=== PATIENT | male | born 1950 | race Caucasian/White ===

== ENCOUNTER 2020-01-03 08:38 | Outpatient (CLI) | payer OTHER, SELFPAY ==
--- NOTE | 2020-01-03 08:46 | CT_ITS ---
WS: [id number] CT CHEST, ABDOMEN AND PELVIS WITH CONTRAST HISTORY: RECTAL CANCER TECHNIQUE: Contiguous 5 mm axial imaging performed through the chest, abdomen and pelvis with IV cont rast, oral contrast has been provided. Coronal and sagittal reformats chest. Coronal and sagittal ref ormats through the abdomen and pelvis. All CT scans at [facility] use at least one of the se dose optimization techniques: automated exposure control; mA and/or kV adjustment per patient size (includes targeted exams where dose is matched to clinical indication); or iterative reconstruction. CONTRAST: Omnipaque 300; 95 mL IV. DLP: 2832.93 mGy.cm COMPARISON: 11/24/2018 and 06/02/[address]: Partial atelectasis and slight volume loss in the RIGHT lower lobe and postsurgical changes . No mass or pneumonia. Peripheral pleural thickening and interstitial thickening in the RIGHT upper lobe is stable. No suspicious nodule or mass. Visualized aorta and pulmonary artery are normal size. Scattered coronary artery calcifications. No mediastinal or hilar lymphadenopathy. Oral contrast is p resent within the mid esophagus from reflux disease. Abdomen CT: Hepatic steatosis. No bile duct dilatation or mass. Gallbladder is well distended and con tains a single stone. Normal size spleen. Normal pancreas. Normal RIGHT adrenal gland. Slightly lobul ated LEFT adrenal gland is stable. No adenopathy or fluid in the abdomen. Kidneys are normal with no hydronephrosis. Nonobstructing 2 mm calcification lower pole RIGHT kidney. Mild atherosclerotic plaqu e with no aneurysm in the aorta. Pelvic CT: Umbilical hernia contains fat only. No free fluid or adenopathy in the pelvis. Central pro state gland calcification. Negative urinary bladder. Numerous diverticula in the descending and sigmoid colon. Persistent anterior rectal wall thickening. Soft tissue thickening is slightly more lobulated and prominent than compared to prior studies. Soft tissue nodularity measures 2.6 x 3.1 cm. It extends over a length of 2.8 cm. No adjacent lymph nodes in the perirectal fat. There are a few very small iliac chain lymph nodes which are unchanged. Multilevel degenerative changes throughout the spine. No osteoblastic or osteolytic bone disease. CT/CT chest abd pel w con* IMPRESSION: 1. Slight increase in size of the anterior rectal wall mass since 11/24/2018. Re commend direct visualization and possible biopsy. Recurrent neoplasm is not exc luded. 2. No adenopathy. 3. No fat or ascites. 4. No metastatic disease appreciated adrenal glands, lungs or liver. 5. Stable postsurgical changes RIGHT lower lobe. 6. Diverticulosis without acute diverticulitis.
[2020-01-03] MEDS: iohexol 300 mg/mL 50 mL Btl PO (08:49)
[2020-01-03 09:29] LABS: Basophils % 0.3 %; Eosinophils # 0.2 10^3/uL (0.0-0.8); Eosinophils % 2.8 %; Hematocrit 49.5 % (42.0-52.0); Hemoglobin 15.7 g/dL (11.7-16.6); Mean Corpuscular HGB Conc 31.7 g/dL (30.0-36.0); Mean Corpuscular Hemoglobin 28.5 pg (28.0-34.0); Mean Corpuscular Volume 89.8 fL (80-94); Mean Platelet Volume 10.2 fL (7.4-10.4); Monocytes # 0.4 10^3/uL (0.2-0.9); Monocytes % 6.5 %; Neutrophils # 4.5 10^3/uL (1.8-7.7); Neutrophils % 73.7 %; Nucleated Red Blood Cells % 0 %; Platelet Count 211 10^3/cmm (130-400); Red Blood Count 5.51 10^6/uL (4.1-5.3); Red Cell Distribution Width 13.5 % (12.1-15.1); White Blood Count 6.1 10^3/uL (4.0-10.0)
[2020-01-03 09:49] LABS: Alanine Aminotransferase 30 U/L (0-41); Albumin Level 4.3 g/dL (3.5-5.2); Alkaline Phosphatase 89 IU/L (40-130); Anion Gap 14.2 (5-19); Aspartate Amino Transferase 20 U/L (0-40); Blood Urea Nitrogen 18 mg/dL (8-23); Calcium 10.2 mg/dL (8.5-10.5); Carbon Dioxide 26 mmol/L (22-29); Chloride 103 mmol/L (98-107); Globulin 3.5 g/dL (1.3-4.6); Glomerular Filtration Rate 83.7 mL/min (90-130); Glucose 147 mg/dL (65-115); Potassium 4.2 mmol/L (3.5-5.1); Sodium 139 mmol/L (136-145); Total Bilirubin 0.4 mg/dL (0.15-1.2); Total Protein 7.8 g/dL (6.6-8.7)
[2020-01-03 10:28] LABS: Carcinoembryonic Antigen 4.7 ng/mL (0.0-4.7)
[2020-01-03] MEDS: iohexol 300 mg/mL 100 mL Btl IV (10:37)
== END 2020-01-03 08:39 | disposition home or self-care (01) ==
PROVIDERS: Family Provider Internal Medicine; PCP Internal Medicine; Visit Provider Internal Medicine Medical Oncology
DX: C20 Malignant neoplasm of rectum (principal); K57.30 Diverticulosis of large intestine without perforation or abscess without bleeding; K76.0 Fatty (change of) liver, not elsewhere classified; K42.9 Umbilical hernia without obstruction or gangrene
CPT/HCPCS: 36415; 71260; 74177; 80053; 82378; 85025

== ENCOUNTER 2020-01-05 13:58 | Outpatient (CLI) | payer OTHER, SELFPAY ==
--- NOTE | 2020-01-09 18:35 | ONC FU_ITS ---
Dr. Beltre Patient Follow-Up Note Patient: Tee Chilel Jr Unit #: [id number]: 1950 Dicatated By: Skip Beltre M.D.Date of Visit:Jan 05, 2020 Onc Med Follow-up/Prog Note Chief Complaint: Rectal cancer. History of Present Illness: This is a 69 year-old man with metastatic rectal cancer, stage GHASSAN (T4a, N2a, M1a). He had presented with a positive stool Hemoccult test, which apparently was done as a screening procedure through the [place]. He was having no GI symptoms at that time, and he also indicated that he had not been aware of any blood in his stool. He underwent colonoscopy on 07/29/14. He was found to have a malignant appearing mass at 8 cm. Also noted were several polyps, including 2 at 42 cm and 1 at 25 cm, all of which were removed endoscopically. They polyps at 42 cm were reported to be serrated adenomas, and a polyp at 25 cm was a peduncular tubular adenoma. Biopsy of the rectal mass showed high-grade dysplasia with no definitive evidence of invasive adenocarcinoma. A subsequent CT abdomen/pelvis confirm the presence of a mass in the rectum measuring 4 x 4.6 x 6 cm. There was no associated lymphadenopathy, and there was no evidence of metastatic involvement in the liver. However, that study did show a noncalcified right lower lobe pulmonary nodule measuring 1.8 x 1.6 cm. He had further evaluation with PET/CT on 09/29/14. It showed uptake in the rectal mass, consistent with primary malignancy, but with no evidence for macroscopic regional lymph node metastases. The right lower lobe pulmonary nodule was noted be hypermetabolic, consistent with malignancy. On 11/02/2014 he underwent video assisted thoracic surgery with wedge resection of the right lower lobe pulmonary nodule. 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 The tumor was positive for CK 20 and CD X2, consistent with colorectal primary. The margins were negative. Staging MRI of the pelvis on 11/11/14 showed rectal tumor measuring 5 x 4.6 x 5.2 cm with the inferior margin at approximately 3 cm from the anorectal junction. T stage was felt to be at least T3 and probably a T4, with the primary lesion extending anteriorly to the medial left seminal vesicle margin and probably invading the left seminal vesicle. Tumor also appeared to be extending up to if not through the anterior basal rectal fascia at the level of the left seminal vesicle. There were more than 4 pelvic lymph nodes which were felt to be suspicious. Bilateral upper iliac nodes measured 1 cm or greater. He underwent examination under anesthesia and rigid proctoscopy on 12/06/2014. This showed a mass at 4 cm from the dentate line in the right anterior portion of the rectum. He was given neoadjuvant chemoradiation utilizing Xeloda for the chemosensitization. Radiation was completed on 02/15/15 to a total dose of 6120 cGy. He tolerated the treatment very well. Repeat MRI on 03/29/15 showed residual tumor measuring 3.9 x 3.9 x 4.5 cm. It was again noted to extend and surely to be mesorectal fascia and possibly through the mesorectal fascia and in contact with the service of the seminal vesicles. There were again more than 4 pelvic lymph nodes identified upper iliac nodes bilaterally. He was seen by the colorectal surgeon, and it was recommended that he complete some additional oxaliplatin based neoadjuvant chemotherapy. He started neoadjuvant chemotherapy with oxaliplatin/Xeloda in May. He tolerated it extremely well. He completed his 4th cycle of treatment in August 2015. Restaging PET/CT on 09/25/2015 showed a decrease in the size and FDG activity of the previously noted right lower lobe pulmonary nodule. Those residual findings were presumed to be related to postoperative changes. There were no new pulmonary nodules. Enlarged right paratracheal, precarinal, and right hilar lymph nodes were noted to show dense calcifications and were felt to be likely benign. There was noted to be reduction in the size and FDG activity of the rectal tumor, measuring 3.6 x 2.4 cm with maximum SUV 3.3 compared to 5.7 x 4.4 cm with maximum SUV 36.0, consistent with partial response. A previously enlarged pericaval lymph node was unchanged measuring 2.2 cm it was felt to be likely benign. A few punctate perirectal nodular densities showed no significant FDG activity were felt to represent prominent perirectal lymph nodes. There was no evidence of any other metastatic disease. He had a follow-up MRI through the [place] on 11/24/2015. That study did show some further decrease in the size of the rectal tumor, to 3.5 x 3.9 x 3.9 cm. It was again noted to extend anteriorly to the mesial rectal fascia and possibly through the mesial rectal fascia. It was noted be in contact with the surface of the seminal vesicles, but actual invasion of the some local vesicles was not clearly evident. Upper iliac nodes noted on the previous study were not included on the current exam. Of 2 other right pelvic lymph nodes previously identified, one was slightly smaller measuring less than 5 mm and the other was noted to have resolved. At this point the tumor was felt to be more likely T3 than T4 and at least N1. He subsequently had follow-up with his surgeon, as they were considering the possibility of AP resection and cystoprostatectomy. However, he ultimately declined the surgery, as he preferred to have more conservative management in the face of what is most likely not going to be curative malignancy. As such, he has been followed on observation. He has been in good general health. He developed venous insufficiency of his right leg following a previous injury, and he has had recurrent episodes of cellulitis in his right leg. He has some degenerative arthritis, but he has had no other ongoing medical illnesses. He has a history of smoking 1 pack of cigarettes daily for 40 years, but he quit smoking in 1995. INTERIM HISTORY: His CT scans in October 2016, in April 2017, and in October 2017 showed no evidence of residual or recurrent disease. Surveillance CT scans of the chest, abdomen, and pelvis on 06/02/2018 showed stable postoperative changes from prior right thoracotomy with no evidence of metastatic disease to the chest. Chronic tree-in-bud nodular opacities in the right upper lobe were noted. The abdomen/pelvis showed fatty infiltration of the liver with no evidence of residual or recurrent rectal neoplasm or metastatic disease. Surveillance colonoscopy on 03/30/2018 showed polyps at 50 cm and 38 cm, both removed endoscopically. There was a possible polyp at 45 cm which also was biopsied. There was mildly inflamed, indurated prominence at the site of a prior neoplastic polyp. There was no evidence of recurrence of the rectal cancer. As of 11/24/2018 his CEA has increased slightly, to 4.4 ng/mL. Surveillance CT scans at that time showed no evidence of disease progression in the chest, abdomen, or pelvis. Postsurgical changes in the right lower lobe appeared stable, and postsurgical changes about the rectum and the apparent rectal wall thickening also appeared similar to prior studies. He continued on observation/expectant management. His repeat CEA level on 03/17/2019 was stable at 4.3 ng/mL. Repeat CT scans of the chest, abdomen, and pelvis on 01/03/2020 showed slight increase in size of the anterior rectal wall mass compared to the November 2018 study. There was no associated lymphadenopathy and there were no findings to suggest metastatic disease in the lungs, liver, or adrenal glands. He is seen for a follow-up visit. He has been feeling good generally. He has good energy, and he has normal activity. Appetite is good. He has not had fever. He sometimes has sweating at night. He has had some sinus drainage and cough. He does not complain of shortness of breath or chest pain. He has no GI complaints. In particular, there is been no change in his bowel function and he has not had rectal pain or bleeding. He has frequent urination. He has had pain in his right hip and in his right ankle. He says his knees have been okay lately. He has no focal neurologic symptoms. Medications: Chromium 1 Tablet (of 100 mcg) Tablet Oral t.i.d., Meloxicam 1 (15 mg) Tablet Oral daily, NIFEdipine 1 Tablet (of 30 mg) Tablet SR 24 HR Oral daily, Pentoxifylline 1 Tablet (of 400 mg) Tablet, controlled release Oral t.i.d., Selenium 6 Tablet (of 50 mcg) Oral t.i.d., Sertraline HCl 0.5 Tablet (of 25 mg) Oral daily, Silica 1 Capsule (of 3000 mg) Oral daily Allergies: No Known Allergies. Review of Systems: Constitutional - His energy is pretty good generally. He has normal activity. His appetite is good and his weight is down a few pounds since his last visit. No fever, chills, hot flashes, or night sweats. ECOG score is 0, ENMT - He has sinus drainage with a cough. No mouth sores. No sore throat or difficulty swallowing, Hematologic/Lymphatic - No abnormal bruising or bleeding, Respiratory - No shortness of breath. No pleuritic pain or hemoptysis, Cardiovascular - No angina pain. No palpitations, Gastrointestinal - No nausea or vomiting. No heartburn or acid reflux. No diarrhea or constipation. No blood in the stool or black stools, Genitourinary (M) - No dysuria or hematuria. He has urinary frequency during the day. No urgency or incontinence, Musculoskeletal - He has pretty bad pain in his right hip and right ankle at times, Integumentary - No skin complications, Neurologic - No headache or dizziness. No numbness/paresthesias or other focal neurologic symptoms, Psychiatric - No anxiety or depression. No insomnia. Vital Signs: Performed on Jan 05, 2020 14:14 Height - 72.00 in Weight - 319.8 lbs (LOW) BSA - 2.60 sq.m BMI - 43.37 (HIGH) Temperature - 98.3 F (LOW) Pulse - 79 /min Respiration - 26 /min BP - 158/79 mm(hg) (HIGH) O2 Sat - 97 % Pain - 0 Physical Examination: Constitutional - He looks pretty good generally, Eyes - Sclerae nonicteric. Conjunctivae clear, ENMT - No lesions noted in the oral cavity, Hematologic/Lymphatic - No cervical, clavicular, or axillary adenopathy, Respiratory - Lungs are clear, Cardiovascular - Heart rhythm is regular. There is no murmur, gallop, or rub noted, Abdomen - Distended. Liver and spleen are not enlarged. There is no abdominal mass or ascites noted and there is no inguinal adenopathy, Extremities - There is some mild chronic swelling at the right ankle. There are purpuric lesions on both arms, Neurologic - No focal neurologic deficits noted. Lab/Imaging: Test performed on Sep 08, 2019 09:27 Glucose 98 mg/dL BUN 20 mg/dL Creatinine 0.91 mg/dL Cr Clearance (Est) 161.30 mL/min Sodium 138 mmol/L Potassium 4.3 mmol/L Chloride 105 mmol/L CO2 26 mmol/L Calcium 9.6 mg/dL Protein, Total 7.6 g/dL Albumin 4.3 g/dL Bilirubin, Total 0.4 mg/dL Alkaline Phosphatase 81 IU/L AST (SGOT) 22 IU/L ALT (SGPT) 35 IU/L WBC 5.9 10^9/L RBC 5.73 10^12/L HGB 16.0 g/dL HCT 50.2 % MCV 87.6 fl MCH 27.9 pg MCHC 31.9 g/dL RDW 13.8 % Platelet Count 214 10^9/L MPV 10.4 fL Neutrophils (Gran) 3.99 10^9/L Lymphocytes 1.19 10^9/L Monocytes 0.48 10^9/L Eosinophils 0.18 10^9/L Basophils 0.04 10^9/L Manual Segs 67.6 % Manual Lymphocytes 20.1 % Manual Monocytes 8.1 % Manual Eosinophils 3.0 % Manual Basophils 0.7 % CEA 4.68 ng/mL Impression: 1. Patient with adenocarcinoma of the rectum, locally advanced and metastatic, at least stage HGASSAN by clinical evaluation (T4b, N2a, M1a). 2. He underwent video-assisted thorascopic surgery with wedge resection of right lower lobe pulmonary nodule on 11/02/2014. 3. He initially underwent neoadjuvant chemoradiation utilizing Xeloda for chemosensitization. He completed treatment on 02/15/2015 to a total dose of 6120 cGy. He still had significant residual disease on followup MRI in March 2015. 4. He was then given additional neoadjuvant chemotherapy with 4 cycles of oxaliplatin/Xeloda, which he completed in August 2015. 5. His restaging PET/CT on 09/25/2015 showed a decrease in the size and FDG activity of the previously noted right lower lobe pulmonary nodule. I assumed those residual findings were just related to postoperative changes. There were no new pulmonary nodules. Enlarged right paratracheal, precarinal, and right hilar lymph nodes were noted to show dense calcifications and were felt to be likely benign. There was noted to be reduction in the size and FDG activity of the rectal tumor, measuring 3.6 x 2.4 cm with maximum SUV 3.3 compared to 5.7 x 4.4 cm with maximum SUV 36.0, consistent with partial response. A previously enlarged pericaval lymph node was unchanged measuring 2.2 cm it was felt to be likely benign. A few punctate perirectal nodular densities showed no significant FDG activity were felt to represent prominent perirectal lymph nodes. There was no evidence of any other metastatic disease. 6. Restaging MRI on 11/24/2015 also showed evidence of partial response, with clinical staging felt to be most likely T3 and at least N1. He was offered the option of surgical resection, which he declined. As such, he has been followed on observation/expectant management. He has continued observation/expectant management following completion of the chemotherapy and radiation. During follow-up he has been doing well clinically. In November 2018 there was an increase in his CEA level, but there was no other evidence of recurrence/progression of the rectal cancer. As of his follow-up visit in May 2019 there was a slight further increase in his CEA level, but it has subsequently come back down. His current CT scans show some increase in the anterior rectal wall thickening. There are no other findings of disease progression. Plan: He remains on observation for the rectal cancer. He will be scheduled for a followup visit in 6 months. I discussed the possibility of having a lower GI endoscopy study, but at least for now he prefers to remain on his same surveillance schedule. Signed By: Skip Beltre M.D. <<Signature on File>>
== END 2020-01-05 13:59 | disposition home or self-care (01) ==
PROVIDERS: Family Provider Internal Medicine; PCP Internal Medicine; Visit Provider Internal Medicine Medical Oncology
DX: Z08 Encounter for follow-up examination after completed treatment for malignant neoplasm (principal); Z85.048 Personal history of other malignant neoplasm of rectum, rectosigmoid junction, and anus; Z92.21 Personal history of antineoplastic chemotherapy; Z92.3 Personal history of irradiation; Z90.2 Acquired absence of lung [part of]; Z87.891 Personal history of nicotine dependence
CPT/HCPCS: G0463

== ENCOUNTER 2020-06-12 08:54 | Outpatient (CLI) | payer OTHER, SELFPAY ==
[2020-06-12 09:22] LABS: Add Urine Microscopic? NO
[2020-06-12 10:08] LABS: Bilirubin Urine Neg (NEGATIVE); Blood Urine Neg (Negative); Glucose Urine UA Norm (Normal); Ketones Urine Negative (Negative); Leukocyte Esterase Urine Negative (Negative); Nitrate Urine Negative (Negative); Protein Urine Neg (Negative); Urine Appearance Clear (CLEAR); Urine Color Yellow (Yellow); Urobilinogen Urine Norm (Negative); pH Urine 5 (5-7)
[2020-06-12 10:11] LABS: Alanine Aminotransferase 21 U/L (0-41); Albumin Level 4.1 g/dL (3.5-5.2); Alkaline Phosphatase 70 IU/L (40-130); Anion Gap 14.3 (5-19); Aspartate Amino Transferase 18 U/L (0-40); Blood Urea Nitrogen 19 mg/dL (8-23); Calcium 8.8 mg/dL (8.5-10.5); Carbon Dioxide 25 mmol/L (22-29); Chloride 103 mmol/L (98-107); Globulin 3.3 g/dL (1.3-4.6); Glomerular Filtration Rate 95.8 mL/min (90-130); Glucose 119 mg/dL (65-115); Osmolality Calculated 284 mOsm/kg (285-295); Potassium 4.3 mmol/L (3.5-5.1); Sodium 138 mmol/L (136-145); Total Bilirubin 0.5 mg/dL (0.15-1.2); Total Protein 7.4 g/dL (6.6-8.7)
== END 2020-06-12 08:55 | disposition home or self-care (01) ==
LOC: LAB 08:57
PROVIDERS: PCP Internal Medicine; Visit Provider Orthopaedic Surgery
DX: E11.9 Type 2 diabetes mellitus without complications (principal)
CPT/HCPCS: 36415; 80053; 81003

== ENCOUNTER 2020-07-03 09:51 | Outpatient (CLI) | payer OTHER, SELFPAY ==
--- NOTE | 2020-07-03 10:02 | CT_ITS ---
WS: [id number] CT CHEST, ABDOMEN AND PELVIS WITH CONTRAST HISTORY: RECTAL CANCER TECHNIQUE: Contiguous 5 mm axial imaging performed through the chest, abdomen and pelvis with IV cont rast, oral contrast has been provided. Coronal and sagittal reformats chest. Coronal and sagittal ref ormats through the abdomen and pelvis. All CT scans at [facility] use at least one of the se dose optimization techniques: automated exposure control; mA and/or kV adjustment per patient size (includes targeted exams where dose is matched to clinical indication); or iterative reconstruction. CONTRAST: Omnipaque 300; 95 mL IV. DLP: 3074.11 mGy.cm COMPARISON: 01/03/2020, 11/24/2018 and 06/02/[address]: Postsurgical changes in the RIGHT lower lobe. No recurrent mass. Interstitial thickening wi th mild tree-in-bud opacifications in the periphery of the RIGHT upper lobe are stable. No evidence f or metastatic disease to the lungs. No pericardial or pleural effusions. Heart size is normal. Subcen timeter mediastinal and hilar lymph nodes. Mild atherosclerosis aorta. No pulmonary artery dilatation . Abdomen CT: Mild hepatic steatosis. No metastatic disease to the liver. Gallbladder is slightly contr acted and contains stones. No adjacent inflammation or wall thickening. Normal spleen. Negative pancr eas. No adrenal mass. Mild atherosclerosis aorta with no aneurysm. Kidneys are enhancing normally. No adenopathy or ascites. Mild constipation. The appendix is not identified. There are numerous diverticula in the descending a nd sigmoid colon. No acute diverticulitis. There is continued wall thickening at the level of the rec ayana as seen on the prior study with continued progression. Wall thickening measures up to 2.1 cm and extends over a width of 4.3 cm. Overall continued progression over several prior examinations. No adj acent adenopathy. Infraumbilical ventral hernia contains fat only. Pelvic CT: Well-distended urinary bladder. No free fluid or adenopathy in the pelvis. Degenerative disc disease and facet arthritis. CT/CT chest abd pel w con* IMPRESSION: 1. Continued progression of soft tissue thickening along the anterior rectal w all since 01/03/2020 and over multiple prior studies. If this soft tissue thicke gulshan has not been evaluated for recurrence of rectal carcinoma additional evalu ation is warranted. Direct visualization and biopsy recommended. 2. Postsurgical changes RIGHT lower lobe. No metastatic disease to the lungs. 3. No evidence for metastatic disease to the liver or adrenal glands. 4. Cholelithiasis without acute cholecystitis. 5. No adenopathy.
[2020-07-03 10:33] LABS: Basophils % 0.5 %; Eosinophils # 0.2 10^3/uL (0.0-0.8); Hematocrit 48.1 % (42.0-52.0); Lymphocytes # 1.1 10^3/uL (0.8-4.8); Lymphocytes % 14.7 %; Mean Corpuscular HGB Conc 31.2 g/dL (30.0-36.0); Mean Corpuscular Hemoglobin 27.9 pg (28.0-34.0); Mean Corpuscular Volume 89.6 fL (80-94); Mean Platelet Volume 10.1 fL (7.4-10.4); Monocytes # 0.5 10^3/uL (0.2-0.9); Monocytes % 6.5 %; Neutrophils # 5.55 10^3/uL (1.8-7.7); Neutrophils % 74.9 %; Nucleated Red Blood Cells % 0 %; Platelet Count 242 10^3/cmm (130-400); Red Blood Count 5.37 10^6/uL (4.1-5.3); Red Cell Distribution Width 13.4 % (12.1-15.1); White Blood Count 7.4 10^3/uL (4.0-10.0)
[2020-07-03 11:03] LABS: Carcinoembryonic Antigen 5.8 ng/mL (0.0-4.7)
[2020-07-03 11:15] LABS: Alanine Aminotransferase 21 U/L (0-41); Albumin Level 4.1 g/dL (3.5-5.2); Alkaline Phosphatase 79 IU/L (40-130); Anion Gap 13.4 (5-19); Aspartate Amino Transferase 18 U/L (0-40); Blood Urea Nitrogen 23 mg/dL (8-23); Calcium 9.1 mg/dL (8.5-10.5); Carbon Dioxide 25 mmol/L (22-29); Chloride 104 mmol/L (98-107); Globulin 3.5 g/dL (1.3-4.6); Glomerular Filtration Rate 111.8 mL/min (90-130); Glucose 111 mg/dL (65-115); Osmolality Calculated 283 mOsm/kg (285-295); Potassium 4.4 mmol/L (3.5-5.1); Sodium 138 mmol/L (136-145); Total Bilirubin 0.3 mg/dL (0.15-1.2); Total Protein 7.6 g/dL (6.6-8.7)
[2020-07-03] MEDS: iohexol 300 mg/mL 100 mL Btl IV (11:27)
[2020-07-03] MEDS: iohexol 300 mg/mL 50 mL Btl PO (11:36)
== END 2020-07-03 09:52 | disposition home or self-care (01) ==
PROVIDERS: PCP Internal Medicine; Visit Provider Internal Medicine Medical Oncology
DX: C20 Malignant neoplasm of rectum (principal); K80.20 Calculus of gallbladder without cholecystitis without obstruction
CPT/HCPCS: 36415; 71260; 74177; 80053; 82378; 85025

== ENCOUNTER 2020-07-05 13:19 | Outpatient (CLI) | payer OTHER, SELFPAY ==
--- NOTE | 2020-07-08 16:31 | ONC FU_ITS ---
Dr. Beltre Patient Follow-Up Note Patient: Tee Chilel Jr Unit #: [id number]: 1950 Dicatated By: Skip Beltre M.D.Date of Visit:Jul 05, 2020 Onc Med Follow-up/Prog Note Chief Complaint: Rectal cancer. History of Present Illness: This is a 69 year-old man with metastatic rectal cancer, stage GHASSAN (T4a, N2a, M1a). He had presented with a positive stool Hemoccult test, which apparently was done as a screening procedure through the [place]. He was having no GI symptoms at that time, and he also indicated that he had not been aware of any blood in his stool. He underwent colonoscopy on 07/29/14. He was found to have a malignant appearing mass at 8 cm. Also noted were several polyps, including 2 at 42 cm and 1 at 25 cm, all of which were removed endoscopically. They polyps at 42 cm were reported to be serrated adenomas, and a polyp at 25 cm was a peduncular tubular adenoma. Biopsy of the rectal mass showed high-grade dysplasia with no definitive evidence of invasive adenocarcinoma. A subsequent CT abdomen/pelvis confirm the presence of a mass in the rectum measuring 4 x 4.6 x 6 cm. There was no associated lymphadenopathy, and there was no evidence of metastatic involvement in the liver. However, that study did show a noncalcified right lower lobe pulmonary nodule measuring 1.8 x 1.6 cm. He had further evaluation with PET/CT on 09/29/14. It showed uptake in the rectal mass, consistent with primary malignancy, but with no evidence for macroscopic regional lymph node metastases. The right lower lobe pulmonary nodule was noted be hypermetabolic, consistent with malignancy. On 11/02/2014 he underwent video assisted thoracic surgery with wedge resection of the right lower lobe pulmonary nodule. 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 The tumor was positive for CK 20 and CD X2, consistent with colorectal primary. The margins were negative. Staging MRI of the pelvis on 11/11/14 showed rectal tumor measuring 5 x 4.6 x 5.2 cm with the inferior margin at approximately 3 cm from the anorectal junction. T stage was felt to be at least T3 and probably a T4, with the primary lesion extending anteriorly to the medial left seminal vesicle margin and probably invading the left seminal vesicle. Tumor also appeared to be extending up to if not through the anterior basal rectal fascia at the level of the left seminal vesicle. There were more than 4 pelvic lymph nodes which were felt to be suspicious. Bilateral upper iliac nodes measured 1 cm or greater. He underwent examination under anesthesia and rigid proctoscopy on 12/06/2014. This showed a mass at 4 cm from the dentate line in the right anterior portion of the rectum. He was given neoadjuvant chemoradiation utilizing Xeloda for the chemosensitization. Radiation was completed on 02/15/15 to a total dose of 6120 cGy. He tolerated the treatment very well. Repeat MRI on 03/29/15 showed residual tumor measuring 3.9 x 3.9 x 4.5 cm. It was again noted to extend and surely to be mesorectal fascia and possibly through the mesorectal fascia and in contact with the service of the seminal vesicles. There were again more than 4 pelvic lymph nodes identified upper iliac nodes bilaterally. He was seen by the colorectal surgeon, and it was recommended that he complete some additional oxaliplatin based neoadjuvant chemotherapy. He started neoadjuvant chemotherapy with oxaliplatin/Xeloda in May. He tolerated it extremely well. He completed his 4th cycle of treatment in August 2015. Restaging PET/CT on 09/25/2015 showed a decrease in the size and FDG activity of the previously noted right lower lobe pulmonary nodule. Those residual findings were presumed to be related to postoperative changes. There were no new pulmonary nodules. Enlarged right paratracheal, precarinal, and right hilar lymph nodes were noted to show dense calcifications and were felt to be likely benign. There was noted to be reduction in the size and FDG activity of the rectal tumor, measuring 3.6 x 2.4 cm with maximum SUV 3.3 compared to 5.7 x 4.4 cm with maximum SUV 36.0, consistent with partial response. A previously enlarged pericaval lymph node was unchanged measuring 2.2 cm it was felt to be likely benign. A few punctate perirectal nodular densities showed no significant FDG activity were felt to represent prominent perirectal lymph nodes. There was no evidence of any other metastatic disease. He had a follow-up MRI through the [place] on 11/24/2015. That study did show some further decrease in the size of the rectal tumor, to 3.5 x 3.9 x 3.9 cm. It was again noted to extend anteriorly to the mesial rectal fascia and possibly through the mesial rectal fascia. It was noted be in contact with the surface of the seminal vesicles, but actual invasion of the some local vesicles was not clearly evident. Upper iliac nodes noted on the previous study were not included on the current exam. Of 2 other right pelvic lymph nodes previously identified, one was slightly smaller measuring less than 5 mm and the other was noted to have resolved. At this point the tumor was felt to be more likely T3 than T4 and at least N1. He subsequently had follow-up with his surgeon, as they were considering the possibility of AP resection and cystoprostatectomy. However, he ultimately declined the surgery, as he preferred to have more conservative management in the face of what is most likely not going to be curative malignancy. As such, he has been followed on observation. He has been in good general health. He developed venous insufficiency of his right leg following a previous injury, and he has had recurrent episodes of cellulitis in his right leg. He has some degenerative arthritis, but he has had no other ongoing medical illnesses. He has a history of smoking 1 pack of cigarettes daily for 40 years, but he quit smoking in 1995. INTERIM HISTORY: His CT scans in October 2016, in April 2017, and in October 2017 showed no evidence of residual or recurrent disease. Surveillance CT scans of the chest, abdomen, and pelvis on 06/02/2018 showed stable postoperative changes from prior right thoracotomy with no evidence of metastatic disease to the chest. Chronic tree-in-bud nodular opacities in the right upper lobe were noted. The abdomen/pelvis showed fatty infiltration of the liver with no evidence of residual or recurrent rectal neoplasm or metastatic disease. Surveillance colonoscopy on 03/30/2018 showed polyps at 50 cm and 38 cm, both removed endoscopically. There was a possible polyp at 45 cm which also was biopsied. There was mildly inflamed, indurated prominence at the site of a prior neoplastic polyp. There was no evidence of recurrence of the rectal cancer. As of 11/24/2018 his CEA has increased slightly, to 4.4 ng/mL. Surveillance CT scans at that time showed no evidence of disease progression in the chest, abdomen, or pelvis. Postsurgical changes in the right lower lobe appeared stable, and postsurgical changes about the rectum and the apparent rectal wall thickening also appeared similar to prior studies. He continued on observation/expectant management. His repeat CEA level on 03/17/2019 was stable at 4.3 ng/mL. Repeat CT scans of the chest, abdomen, and pelvis on 01/03/2020 showed slight increase in size of the anterior rectal wall mass compared to the November 2018 study. There was no associated lymphadenopathy and there were no findings to suggest metastatic disease in the lungs, liver, or adrenal glands. He continued observation/expectant managemen Restaging CT scans of the chest, abdomen, and pelvis on 07/03/2020 showed post surgical changes in the right lower lobe with no evidence for recurrent mass. Mild tree-in-bud opacifications in the periphery of the right upper lobe and subcentimeter mediastinal and hilar lymph nodes appeared stable. There was mild hepatic steatosis. There was no evidence of metastatic involvement in the liver. There was no evidence for abdominal/pelvic lymphadenopathy. Wall thickening of the rectum had further increased up to 2.1 cm extending over a length of 4.3 cm. An infraumbilical ventral hernia appeared to contain only fat. He is seen for a follow-up visit. He has been feeling good generally. He has pretty good energy, and he has normal activity. ECOG score is 0. His appetite is good. He has no fever or night sweats. He has some shortness of breath with activity. He does not complain of cough and he has not been having chest pain. He has no GI or complaints other than his bladder is active . He has some chronic pain in his right ankle and he says that everything else hurts once in a while. He does not complain of headache or dizziness. He has no focal neurologic symptoms. He does complain that he has developed some mild shaking. Medications: Chromium 1 Tablet (of 100 mcg) Tablet Oral t.i.d., Meloxicam 1 (15 mg) Tablet Oral daily, NIFEdipine 1 Tablet (of 30 mg) Tablet SR 24 HR Oral daily, Pentoxifylline 1 Tablet (of 400 mg) Tablet, controlled release Oral t.i.d., Selenium 6 Tablet (of 50 mcg) Oral t.i.d., Sertraline HCl 0.5 Tablet (of 25 mg) Oral daily, Silica 1 Capsule (of 3000 mg) Oral daily Allergies: No Known Allergies. Review of Systems: Constitutional - His energy has been good. He has normal activity without restrictions. His appetite is good and his weight is down about 8 pounds from last visit. No fever, night sweats, or hot flashes. ECOG score is 0, ENMT - He has chronic sinus congestion/drainage. No mouth sores. No sore throat or difficulty swallowing, Hematologic/Lymphatic - He bruises easily, Respiratory - He gets short of breath with prolonged activity. No cough. No pleuritic pain or hemoptysis, Cardiovascular - No angina pain. No palpitations, Gastrointestinal - No nausea or vomiting. No heartburn or acid reflux. No diarrhea or constipation. No blood in the stool or black stools, Genitourinary (M) - No dysuria or hematuria. He has urinary frequency. No urgency or incontinence, Musculoskeletal - He has joint pain in his ankle. He also has occasional generalized joint aches, Integumentary - No skin complications, Neurologic - No headache or dizziness. No numbness or tingling. No other focal neurologic symptoms. He reports that he has recently starting having a mild shaking in his hands, Psychiatric - No anxiety or depression. No insomnia. Vital Signs: Performed on Jul 05, 2020 13:46 Height - 72.00 in Weight - 311.6 lbs (LOW) BSA - 2.57 sq.m BMI - 42.26 (HIGH) Temperature - 96.3 F (LOW) Pulse - 89 /min Respiration - 17 /min BP - 159/82 mm(hg) (HIGH) O2 Sat - 97 % Pain - 3 Physical Examination: Constitutional - He looks good generally, Eyes - Sclerae nonicteric. Conjunctivae clear, ENMT - No lesions noted in the oral cavity, Hematologic/Lymphatic - No cervical, clavicular, or axillary adenopathy, Respiratory - Lungs are clear, Cardiovascular - Heart rhythm is regular. There is no murmur, gallop, or rub noted, Abdomen - Distended. Liver and spleen are not enlarged. There is no abdominal mass or ascites noted and there is no inguinal adenopathy, Extremities - There is some mild chronic swelling at the right ankle. There is otherwise no edema, Neurologic - He has a mild tremor. There are no focal neurologic deficits noted. Lab/Imaging: CBC shows hemoglobin 15.0 g, white blood cell count 7400, and platelet count 242,000. Comprehensive metabolic profile is unremarkable. His CEA level has further increased to 5.8 ng/mL. Impression: 1. Patient with adenocarcinoma of the rectum, locally advanced and metastatic, at least stage GHASSAN by clinical evaluation (T4b, N2a, M1a). 2. He underwent video-assisted thorascopic surgery with wedge resection of right lower lobe pulmonary nodule on 11/02/2014. 3. He initially underwent neoadjuvant chemoradiation utilizing Xeloda for chemosensitization. He completed treatment on 02/15/2015 to a total dose of 6120 cGy. He still had significant residual disease on followup MRI in March 2015. 4. He was then given additional neoadjuvant chemotherapy with 4 cycles of oxaliplatin/Xeloda, which he completed in August 2015. 5. His restaging PET/CT on 09/25/2015 showed a decrease in the size and FDG activity of the previously noted right lower lobe pulmonary nodule. I assumed those residual findings were just related to postoperative changes. There were no new pulmonary nodules. Enlarged right paratracheal, precarinal, and right hilar lymph nodes were noted to show dense calcifications and were felt to be likely benign. There was noted to be reduction in the size and FDG activity of the rectal tumor, measuring 3.6 x 2.4 cm with maximum SUV 3.3 compared to 5.7 x 4.4 cm with maximum SUV 36.0, consistent with partial response. A previously enlarged pericaval lymph node was unchanged measuring 2.2 cm it was felt to be likely benign. A few punctate perirectal nodular densities showed no significant FDG activity were felt to represent prominent perirectal lymph nodes. There was no evidence of any other metastatic disease. 6. Restaging MRI on 11/24/2015 also showed evidence of partial response, with clinical staging felt to be most likely T3 and at least N1. He was offered the option of surgical resection, which he declined. As such, he has been followed on observation/expectant management. He has continued observation/expectant management following completion of the chemotherapy and radiation. In November 2018 there was an increase in his CEA level, but there was no other evidence of recurrence/progression of the rectal cancer. During follow-up the CEA level has continued to show slight further increase. His CT scans have shown a gradual increase in wall thickening of the rectum. Overall, the findings are suspicious for very slowly progressive locally recurrent disease. His clinical status, though, has remained stable. Plan: He will continue observation for the rectal cancer, as it has been his desire that his further management be conservative. As such, I will just plan to see him with restaging CT scans in 6 months. Signed By: Skip Beltre M.D. <<Signature on File>>
== END 2020-07-05 13:20 | disposition home or self-care (01) ==
PROVIDERS: PCP Internal Medicine; Visit Provider Internal Medicine Medical Oncology
DX: Z08 Encounter for follow-up examination after completed treatment for malignant neoplasm (principal); Z85.048 Personal history of other malignant neoplasm of rectum, rectosigmoid junction, and anus; M19.90 Unspecified osteoarthritis, unspecified site; L03.115 Cellulitis of right lower limb; I87.2 Venous insufficiency (chronic) (peripheral); Z90.2 Acquired absence of lung [part of]; Z92.21 Personal history of antineoplastic chemotherapy; Z92.3 Personal history of irradiation
CPT/HCPCS: 99214

== ENCOUNTER 2020-08-14 09:17 | Outpatient (CLI) | payer OTHER, SELFPAY ==
[2020-08-14 10:03] LABS: Basophils % 0.3 %; Eosinophils # 0.2 10^3/uL (0.0-0.8); Eosinophils % 2.5 %; Hematocrit 46.6 % (42.0-52.0); Hemoglobin 14.6 g/dL (11.7-16.6); Mean Corpuscular HGB Conc 31.3 g/dL (30.0-36.0); Mean Corpuscular Hemoglobin 28.3 pg (28.0-34.0); Mean Corpuscular Volume 90.3 fL (80-94); Mean Platelet Volume 10.1 fL (7.4-10.4); Monocytes # 0.4 10^3/uL (0.2-0.9); Monocytes % 7.4 %; Neutrophils # 4.29 10^3/uL (1.8-7.7); Neutrophils % 72.3 %; Nucleated Red Blood Cells % 0 %; Platelet Count 216 10^3/cmm (130-400); Red Blood Count 5.16 10^6/uL (4.1-5.3); Red Cell Distribution Width 13.5 % (12.1-15.1); White Blood Count 5.9 10^3/uL (4.0-10.0)
[2020-08-14 10:30] LABS: Carcinoembryonic Antigen 8.1 ng/mL (0.0-4.7)
[2020-08-14 10:41] LABS: Alanine Aminotransferase 22 U/L (0-41); Albumin Level 4.3 g/dL (3.5-5.2); Alkaline Phosphatase 73 IU/L (40-130); Anion Gap 13.6 (5-19); Aspartate Amino Transferase 19 U/L (0-40); Blood Urea Nitrogen 16 mg/dL (8-23); Calcium 9.4 mg/dL (8.5-10.5); Carbon Dioxide 25 mmol/L (22-29); Chloride 104 mmol/L (98-107); Globulin 2.9 g/dL (1.3-4.6); Glomerular Filtration Rate 95.8 mL/min (90-130); Glucose 113 mg/dL (65-115); Osmolality Calculated 288 mOsm/kg (285-295); Potassium 4.6 mmol/L (3.5-5.1); Sodium 138 mmol/L (136-145); Total Bilirubin 0.4 mg/dL (0.15-1.2); Total Protein 7.2 g/dL (6.6-8.7)
== END 2020-08-14 09:18 | disposition home or self-care (01) ==
LOC: ONCMED 09:19
PROVIDERS: PCP Family Medicine; Visit Provider Internal Medicine Medical Oncology
DX: C20 Malignant neoplasm of rectum (principal); K92.2 Gastrointestinal hemorrhage, unspecified
CPT/HCPCS: 36415; 80053; 82378; 85025

== ENCOUNTER → 2020-09-01 11:52 | Outpatient (BNVA) | payer OTHER, SELFPAY | PROVIDERS: PCP Family Medicine; Visit Provider Surgery | DX: Z11.59 Encounter for screening for other viral diseases (principal); K62.5 Hemorrhage of anus and rectum | CPT/HCPCS: 87635 ==

== ENCOUNTER 2020-09-06 08:38 | Day surgery (SDC) | payer OTHER, SELFPAY ==
[2020-09-04 10:24] VITALS: BMI 44.6
[2020-09-06 09:00] VITALS: BP 146/80; PULSE 64; RESP 18; TEMP 36.1; O2SAT 98; BMI 44.6
[2020-09-06] MEDS: sodium chloride 0.9% 1,000 ML 30 ML IV (09:17)
[2020-09-06 09:25] LABS: Glucose Point of Care 96 mg/dL (70-110)
--- NOTE | 2020-09-06 09:37 | ANES.PREANE2 ---
Pre-Anesthetic Assessment Pre-Anesthetic Assessment: Height/Weight: Height 1.8 m Weight 145.15 kg Temp Pulse Resp BP Pulse Ox 97.0 F L 64 18 146/80 98 09/06/20 09:00 09/06/20 09:00 09/06/20 09:00 09/06/20 09:00 09/06/20 09:00 Preop Diagnosis: BLEEDING PER RECTUM Proposed Procedure: Operation Date: 09/06/20 10:30 Proposed Procedures p Colonoscopy 28323 K62.5(Not Applicable) - Moy Bloom MD Familial anesthetic complications: none Was Beta Billie taken within 24 hours: N/A Last intake: Intake Last Liquid Date 09/05/20 Last Liquid Time 20:00 Last Solid Date 09/04/20 Last Solid Time 20:00 Social: Social History: No alcohol and No tobacco Exam: Pre-Anes Outpt Exam: alert, oriented x 3, clear to auscultation bilaterally and regular rate & rhythm Airway: Cervical ROM: WNL MP: 3 Dentition: Chipped Additional comments: large neck Pulmonary: Comments: R lower lung wedge biopsy Metabolic: Metabolic: DM and Morbid obesity Comments: stage iV rectal cancer Anesthetic Plan: ASA status: 3 Anesthesia: MAC Risk of > 500 ml blood loss (7ml/kg in children): No Meds/Allergies Current Medications: Current Medications Generic Name Dose Route Start Last Admin Trade Name Freq PRN Reason Stop Dose Admin Sodium Chloride 1,000 mls @ 30 ml s/hr 09/06/20 09:00 09/06/20 09:17 Sodium Chloride 0.9% IV 30 mls/hr .Q24H NATALIE Administration PFSH Anesthesia PFSH: Family History Denies family history of Anesthesia complication Bleeding disorder Social History Smoking and tobacco status: never smoked Data Anesthesia Other Labs: Laboratory Results - last 48 hr 09/06/20 09:12 POC Glucose 96 Cardiac Studies: No Data to Display
--- NOTE | 2020-09-06 11:21 | W.PM.OPSUD ---
Surgery/Procedure H&P Update DATE OF PROCEDURE: September 06, 2020 DATE H&P PERFORMED: 08/23/20 H&P UPDATE INFORMATION: I have reviewed H&P completed within last 30 days, I have examined patient prior to procedure and No changes to prior documentation PREOP DIAGNOSIS: BLEEDING PER RECTUM PRIMARY INDICATION FOR PROCEDURE: Thes same PLANNED PROCEDURE: Operation Date: 09/06/20 10:30 Proposed Procedures p Colonoscopy 64672 K62.5(Not Applicable) - Moy Bloom MD
[2020-09-06 11:54] VITALS: BP 112/73; PULSE 62; RESP 18; TEMP 36.2; O2SAT 99
[2020-09-06 12:22] VITALS: BP 120/72; PULSE 68; RESP 18; O2SAT 99
--- NOTE | 2020-09-06 12:30 | ANE.PACU2 ---
Inpatient post-anesthesia follow up: Airway intact: Yes Vital signs: Temperature 97.2 F Pulse Rate 68 Respiratory Rate 18 Blood Pressure 120/72 Pulse Oximetry 99 Oxygen Delivery Me thod Room Air Oxygen Flow Rate Fraction of Inspir ed Oxygen Hydration adequate: Yes Nausea and vomiting: No Pain level: 1 Mental status: Baseline
== END 2020-09-06 12:30 | disposition home or self-care (01) ==
PROVIDERS: PCP Family Medicine; Visit Provider Surgery
PROC: 0DJD8ZZ Inspection of Lower Intestinal Tract, Via Natural or Artificial Opening Endoscopic (ICD-10-PCS; CPT 45378; principal; 2020-09-06 10:30)
DX: K62.5 Hemorrhage of anus and rectum (principal); C20 Malignant neoplasm of rectum; K57.30 Diverticulosis of large intestine without perforation or abscess without bleeding
CPT/HCPCS: 12345; 36416; 45380; 82962; 88305; J2704; J7030

== ENCOUNTER 2020-09-15 10:14 | Outpatient (CLI) | payer OTHER, SELFPAY ==
--- NOTE | 2020-09-15 14:28 | ONC FU_ITS ---
Dr. Beltre Patient Follow-Up Note Patient: Tee Chilel Jr Unit #: [id number]: 1950 Dicatated By: Skip Beltre M.D.Date of Visit:Sep 15, 2020 Onc Med Follow-up/Prog Note Chief Complaint: Rectal cancer. History of Present Illness: This is a 70 year-old man with metastatic rectal cancer, stage GHASSAN (T4a, N2a, M1a). He had presented with a positive stool Hemoccult test, which apparently was done as a screening procedure through the [facility]. He was having no GI symptoms at that time, and he also indicated that he had not been aware of any blood in his stool. He underwent colonoscopy on 07/29/14. He was found to have a malignant appearing mass at 8 cm. Also noted were several polyps, including 2 at 42 cm and 1 at 25 cm, all of which were removed endoscopically. They polyps at 42 cm were reported to be serrated adenomas, and a polyp at 25 cm was a peduncular tubular adenoma. Biopsy of the rectal mass showed high-grade dysplasia with no definitive evidence of invasive adenocarcinoma. A subsequent CT abdomen/pelvis confirm the presence of a mass in the rectum measuring 4 x 4.6 x 6 cm. There was no associated lymphadenopathy, and there was no evidence of metastatic involvement in the liver. However, that study did show a noncalcified right lower lobe pulmonary nodule measuring 1.8 x 1.6 cm. He had further evaluation with PET/CT on 09/29/14. It showed uptake in the rectal mass, consistent with primary malignancy, but with no evidence for macroscopic regional lymph node metastases. The right lower lobe pulmonary nodule was noted be hypermetabolic, consistent with malignancy. On 11/02/2014 he underwent video assisted thoracic surgery with wedge resection of the right lower lobe pulmonary nodule. 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 The tumor was positive for CK 20 and CD X2, consistent with colorectal primary. The margins were negative. Staging MRI of the pelvis on 11/11/14 showed rectal tumor measuring 5 x 4.6 x 5.2 cm with the inferior margin at approximately 3 cm from the anorectal junction. T stage was felt to be at least T3 and probably a T4, with the primary lesion extending anteriorly to the medial left seminal vesicle margin and probably invading the left seminal vesicle. Tumor also appeared to be extending up to if not through the anterior basal rectal fascia at the level of the left seminal vesicle. There were more than 4 pelvic lymph nodes which were felt to be suspicious. Bilateral upper iliac nodes measured 1 cm or greater. He underwent examination under anesthesia and rigid proctoscopy on 12/06/2014. This showed a mass at 4 cm from the dentate line in the right anterior portion of the rectum. He was given neoadjuvant chemoradiation utilizing Xeloda for the chemosensitization. Radiation was completed on 02/15/15 to a total dose of 6120 cGy. He tolerated the treatment very well. Repeat MRI on 03/29/15 showed residual tumor measuring 3.9 x 3.9 x 4.5 cm. It was again noted to extend and surely to be mesorectal fascia and possibly through the mesorectal fascia and in contact with the service of the seminal vesicles. There were again more than 4 pelvic lymph nodes identified upper iliac nodes bilaterally. He was seen by the colorectal surgeon, and it was recommended that he complete some additional oxaliplatin based neoadjuvant chemotherapy. He started neoadjuvant chemotherapy with oxaliplatin/Xeloda in May. He tolerated it extremely well. He completed his 4th cycle of treatment in August 2015. Restaging PET/CT on 09/25/2015 showed a decrease in the size and FDG activity of the previously noted right lower lobe pulmonary nodule. Those residual findings were presumed to be related to postoperative changes. There were no new pulmonary nodules. Enlarged right paratracheal, precarinal, and right hilar lymph nodes were noted to show dense calcifications and were felt to be likely benign. There was noted to be reduction in the size and FDG activity of the rectal tumor, measuring 3.6 x 2.4 cm with maximum SUV 3.3 compared to 5.7 x 4.4 cm with maximum SUV 36.0, consistent with partial response. A previously enlarged pericaval lymph node was unchanged measuring 2.2 cm it was felt to be likely benign. A few punctate perirectal nodular densities showed no significant FDG activity were felt to represent prominent perirectal lymph nodes. There was no evidence of any other metastatic disease. He had a follow-up MRI through the [facility] on 11/24/2015. That study did show some further decrease in the size of the rectal tumor, to 3.5 x 3.9 x 3.9 cm. It was again noted to extend anteriorly to the mesial rectal fascia and possibly through the mesial rectal fascia. It was noted be in contact with the surface of the seminal vesicles, but actual invasion of the some local vesicles was not clearly evident. Upper iliac nodes noted on the previous study were not included on the current exam. Of 2 other right pelvic lymph nodes previously identified, one was slightly smaller measuring less than 5 mm and the other was noted to have resolved. At this point the tumor was felt to be more likely T3 than T4 and at least N1. He subsequently had follow-up with his surgeon, as they were considering the possibility of AP resection and cystoprostatectomy. However, he ultimately declined the surgery, as he preferred to have more conservative management in the face of what is most likely not going to be curative malignancy. As such, he has been followed on observation. He has been in good general health. He developed venous insufficiency of his right leg following a previous injury, and he has had recurrent episodes of cellulitis in his right leg. He has some degenerative arthritis, but he has had no other ongoing medical illnesses. He has a history of smoking 1 pack of cigarettes daily for 40 years, but he quit smoking in 1995. INTERIM HISTORY: His CT scans in October 2016, in April 2017, and in October 2017 showed no evidence of residual or recurrent disease. Surveillance CT scans of the chest, abdomen, and pelvis on 06/02/2018 showed stable postoperative changes from prior right thoracotomy with no evidence of metastatic disease to the chest. Chronic tree-in-bud nodular opacities in the right upper lobe were noted. The abdomen/pelvis showed fatty infiltration of the liver with no evidence of residual or recurrent rectal neoplasm or metastatic disease. Surveillance colonoscopy on 03/30/2018 showed polyps at 50 cm and 38 cm, both removed endoscopically. There was a possible polyp at 45 cm which also was biopsied. There was mildly inflamed, indurated prominence at the site of a prior neoplastic polyp. There was no evidence of recurrence of the rectal cancer. As of 11/24/2018 his CEA has increased slightly, to 4.4 ng/mL. Surveillance CT scans at that time showed no evidence of disease progression in the chest, abdomen, or pelvis. Postsurgical changes in the right lower lobe appeared stable, and postsurgical changes about the rectum and the apparent rectal wall thickening also appeared similar to prior studies. He continued on observation/expectant management. His repeat CEA level on 03/17/2019 was stable at 4.3 ng/mL. Repeat CT scans of the chest, abdomen, and pelvis on 01/03/2020 showed slight increase in size of the anterior rectal wall mass compared to the November 2018 study. There was no associated lymphadenopathy and there were no findings to suggest metastatic disease in the lungs, liver, or adrenal glands. Restaging CT scans of the chest, abdomen, and pelvis on 07/03/2020 showed post surgical changes in the right lower lobe with no evidence for recurrent mass. Mild tree-in-bud opacifications in the periphery of the right upper lobe and subcentimeter mediastinal and hilar lymph nodes appeared stable. There was mild hepatic steatosis. There was no evidence of metastatic involvement in the liver. There was no evidence for abdominal/pelvic lymphadenopathy. Wall thickening of the rectum had further increased up to 2.1 cm extending over a length of 4.3 cm. An infraumbilical ventral hernia appeared to contain only fat. As he was not overtly symptomatic, he continued on observation/expectant management. On 08/23/2020 he was seen by Dr. Bloom due to new onset of rectal bleeding. He then underwent colonoscopy on 09/06/2020. On digital exam he was noted to have an anterior anal mass at about 4 cm from the anal verge. It was hard in consistency and it appeared to occupy the anterior third to half of the circumference of the lower anal segment. The colonoscopy showed a partially obstructing, large size malignant appearing mass within the anus, estimated at 8 x 6 cm. Biopsy showed well differentiated adenocarcinoma. He is seen today to discuss further management of the rectal cancer. He is still feeling good generally, and he really has no other significant complaints. Medications: Chromium 1 Tablet (of 100 mcg) Tablet Oral t.i.d., Meloxicam 1 (15 mg) Tablet Oral daily, NIFEdipine 1 Tablet (of 30 mg) Tablet SR 24 HR Oral daily, Pentoxifylline 1 Tablet (of 400 mg) Tablet, controlled release Oral t.i.d., Selenium 6 Tablet (of 50 mcg) Oral t.i.d., Sertraline HCl 0.5 Tablet (of 25 mg) Oral daily, Silica 1 Capsule (of 3000 mg) Oral daily Allergies: No Known Allergies. Vital Signs: Performed on Sep 15, 2020 10:27 Height - 72.00 in Weight - 306.6 lbs (LOW) BSA - 2.55 sq.m BMI - 41.58 (HIGH) Temperature - 97.8 F (LOW) Pulse - 77 /min Respiration - 24 /min BP - 147/70 mm(hg) (HIGH) O2 Sat - 99 % Pain - 0 Lab/Imaging: Test performed on Aug 14, 2020 09:35 Sodium 138 mmol/L Potassium 4.6 mmol/L Chloride 104 mmol/L CO2 25 mmol/L Anion Gap 13.6 BUN 16 mg/dL Creatinine 0.8 mg/dL Cr Clearance (Est) 174.2200 mL/min eGFR 95.8 mL/min Glucose 113 mg/dL Osmolality - Calculated 288 mOsm/kg Calcium 9.4 mg/dL Protein, Total 7.2 g/dL Albumin 4.3 g/dL Globulin 2.9 g/dL Bilirubin, Total 0.4 mg/dL ALT (SGPT) 22 U/L AST (SGOT) 19 U/L Alkaline Phosphatase 73 IU/L WBC 5.9 10 3/uL RBC 5.16 10 6/uL HGB 14.6 g/dL HCT 46.6 % MCV 90.3 fL MCH 28.3 pg MCHC 31.3 g/dL RDW 13.5 % Platelet Count 216 10 3/cmm MPV 10.1 fL Neutrophils 4.29 10 3/uL Lymphocytes 1.0 10 3/uL Monocytes 0.4 10 3/uL Eosinophils 0.2 10 3/uL Basophils 0.0 10 3/uL Neutrophil % 72.3 % Lymphocyte % 17.0 % Monocyte % 7.4 % Eosinophil % 2.5 % Basophils % 0.3 % NRBC % 0 % CEA 8.1 ng/mL Impression: 1. Patient with adenocarcinoma of the rectum, locally advanced and metastatic, at least stage GHASSAN by clinical evaluation (T4b, N2a, M1a). 2. He underwent video-assisted thorascopic surgery with wedge resection of right lower lobe pulmonary nodule on 11/02/2014. 3. He initially underwent neoadjuvant chemoradiation utilizing Xeloda for chemosensitization. He completed treatment on 02/15/2015 to a total dose of 6120 cGy. He still had significant residual disease on followup MRI in March 2015. 4. He was then given additional neoadjuvant chemotherapy with 4 cycles of oxaliplatin/Xeloda, which he completed in August 2015. 5. His restaging PET/CT on 09/25/2015 showed a decrease in the size and FDG activity of the previously noted right lower lobe pulmonary nodule. I assumed those residual findings were just related to postoperative changes. There were no new pulmonary nodules. Enlarged right paratracheal, precarinal, and right hilar lymph nodes were noted to show dense calcifications and were felt to be likely benign. There was noted to be reduction in the size and FDG activity of the rectal tumor, measuring 3.6 x 2.4 cm with maximum SUV 3.3 compared to 5.7 x 4.4 cm with maximum SUV 36.0, consistent with partial response. A previously enlarged pericaval lymph node was unchanged measuring 2.2 cm it was felt to be likely benign. A few punctate perirectal nodular densities showed no significant FDG activity were felt to represent prominent perirectal lymph nodes. There was no evidence of any other metastatic disease. 6. Restaging MRI on 11/24/2015 also showed evidence of partial response, with clinical staging felt to be most likely T3 and at least N1. He was offered the option of surgical resection, which he declined. As such, he has been followed on observation/expectant management. He has continued observation/expectant management following completion of the chemotherapy and radiation. In November 2018 there was an increase in his CEA level, but there was no other evidence of recurrence/progression of the rectal cancer. During follow-up the CEA level had continued to show slight further increase. His CT scans had shown a gradual increase in wall thickening of the rectum. Overall, the findings were suspicious for very slowly progressive locally recurrent disease. On 08/23/[address] Bloom with recent onset of rectal bleeding. His colonoscopy on 09/06/2020 showed a malignant appearing mass within the anus measuring 8 x 6 cm. Biopsy was consistent with well-differentiated adenocarcinoma. Plan: Patient is aware that he has had local recurrence of the rectal cancer. He is aware that we will not be eligible for any further radiation. There would potentially be some benefit with further chemotherapy, but I would expect that to be short-term. His best treatment option will be surgical resection, assuming his disease is resectable and assuming he has not developed any new metastatic disease. As such, I will arrange for referral to a colorectal surgeon. [facility] He is going to need additional staging with MRI of the pelvis and PET/CT, but I think that would best be done at the referral center. [id number] time with patient was approximately 30 minutes, greater than 50% spent in counseling/discussion. Signed By: Skip Beltre M.D. <<Signature on File>>
== END 2020-09-15 10:15 | disposition home or self-care (01) ==
LOC: ONCMED 10:15
PROVIDERS: PCP Family Medicine; Visit Provider Internal Medicine Medical Oncology
DX: C20 Malignant neoplasm of rectum (principal); Z87.891 Personal history of nicotine dependence; Z92.21 Personal history of antineoplastic chemotherapy
CPT/HCPCS: 99214

== ENCOUNTER → 2020-10-20 13:33 | Outpatient (BNVA) | payer SELFPAY | PROVIDERS: PCP Family Medicine; Visit Provider Colon & Rectal Surgery | DX: Z20.828 Contact with and (suspected) exposure to other viral communicable diseases (principal) | CPT/HCPCS: 87635 ==

== ENCOUNTER 2020-11-24 08:45 | Outpatient (CLI) | payer OTHER, SELFPAY ==
--- NOTE | 2020-11-27 07:32 | ONC FU_ITS ---
Dr. Beltre Patient Follow-Up Note Patient: Tee Chilel Jr Unit #: [id number]: 1950 Dicatated By: Skip Beltre M.D.Date of Visit:Nov 24, 2020 Onc Med Follow-up/Prog Note Chief Complaint: Rectal cancer. History of Present Illness: This is a 70 year-old man with metastatic rectal cancer, stage GHASSAN (T4a, N2a, M1a). He had presented with a positive stool Hemoccult test, which apparently was done as a screening procedure through the [place]. He was having no GI symptoms at that time, and he also indicated that he had not been aware of any blood in his stool. He underwent colonoscopy on 07/29/14. He was found to have a malignant appearing mass at 8 cm. Also noted were several polyps, including 2 at 42 cm and 1 at 25 cm, all of which were removed endoscopically. The polyps at 42 cm were reported to be serrated adenomas, and a polyp at 25 cm was a peduncular tubular adenoma. Biopsy of the rectal mass showed high-grade dysplasia with no definitive evidence of invasive adenocarcinoma. A subsequent CT abdomen/pelvis confirm the presence of a mass in the rectum measuring 4 x 4.6 x 6 cm. There was no associated lymphadenopathy, and there was no evidence of metastatic involvement in the liver. However, that study did show a noncalcified right lower lobe pulmonary nodule measuring 1.8 x 1.6 cm. He had further evaluation with PET/CT on 09/29/14. It showed uptake in the rectal mass, consistent with primary malignancy, but with no evidence for macroscopic regional lymph node metastases. The right lower lobe pulmonary nodule was noted be hypermetabolic, consistent with malignancy. On 11/02/2014 he underwent video assisted thoracic surgery with wedge resection of the right lower lobe pulmonary nodule. 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 The tumor was positive for CK 20 and CDX 2, consistent with colorectal primary. The margins were negative. Staging MRI of the pelvis on 11/11/14 showed rectal tumor measuring 5 x 4.6 x 5.2 cm with the inferior margin at approximately 3 cm from the anorectal junction. T stage was felt to be at least T3 and probably a T4, with the primary lesion extending anteriorly to the medial left seminal vesicle margin and probably invading the left seminal vesicle. Tumor also appeared to be extending up to if not through the anterior basal rectal fascia at the level of the left seminal vesicle. There were more than 4 pelvic lymph nodes which were felt to be suspicious. Bilateral upper iliac nodes measured 1 cm or greater. He underwent examination under anesthesia and rigid proctoscopy on 12/06/2014. This showed a mass at 4 cm from the dentate line in the right anterior portion of the rectum. He was given neoadjuvant chemoradiation utilizing Xeloda for the chemosensitization. Radiation was completed on 02/15/15 to a total dose of 6120 cGy. He tolerated the treatment very well. Repeat MRI on 03/29/15 showed residual tumor measuring 3.9 x 3.9 x 4.5 cm. It was again noted to extend anteriorly to the mesorectal fascia and possibly through the mesorectal fascia and in contact with the surface of the seminal vesicles. There were again more than 4 pelvic lymph nodes identified, including upper iliac nodes bilaterally. He was seen by the colorectal surgeon, and it was recommended that he complete some additional oxaliplatin based neoadjuvant chemotherapy. He began cycle 1 of oxaliplatin/Xeloda in May. He tolerated it extremely well. He completed his 4th cycle of treatment in August 2015. Restaging PET/CT on 09/25/2015 showed a decrease in the size and FDG activity of the previously noted right lower lobe pulmonary nodule. Those residual findings were presumed to be related to postoperative changes. There were no new pulmonary nodules. Enlarged right paratracheal, precarinal, and right hilar lymph nodes were noted to show dense calcifications and were felt to be likely benign. There was noted to be reduction in the size and FDG activity of the rectal tumor, measuring 3.6 x 2.4 cm with maximum SUV 3.3 compared to 5.7 x 4.4 cm with maximum SUV 36.0, consistent with partial response. A previously enlarged pericaval lymph node was unchanged measuring 2.2 cm and it was felt to be likely benign. A few punctate perirectal nodular densities showed no significant FDG activity were felt to represent prominent perirectal lymph nodes. There was no evidence of any other metastatic disease. He had a follow-up MRI through the [place] on 10/29/2015. That study did show some further decrease in the size of the rectal tumor, to 3.5 x 3.9 x 3.9 cm. It was again noted to extend anteriorly to the mesial rectal fascia and possibly through the mesial rectal fascia. It was noted be in contact with the surface of the seminal vesicles, but actual invasion of the semincal vesicles was not clearly evident. Upper iliac nodes noted on the previous study were not included. Of 2 other right pelvic lymph nodes previously identified, one was slightly smaller measuring less than 5 mm and the other was noted to have resolved. At this point the tumor was felt to be more likely T3 than T4 and at least N1. He subsequently had follow-up with his surgeon, as they were considering the possibility of AP resection and cystoprostatectomy. However, he ultimately declined the surgery, as he preferred to have more conservative management in the face of what was most likely not going to be curative malignancy. As such, he was then followed on observation. As of 11/24/2018 his CEA had increased slightly, to 4.4 ng/mL. Surveillance CT scans at that time showed no obvious disease progression in the chest, abdomen, or pelvis. As of June 2020 there was a slight further increase in the CEA level. Restaging CT scans at that time still showed no evidence of metastatic disease, but wall thickening of the rectum had further increased up to 2.1 cm extending over a length of 4.3 cm. An infraumbilical ventral hernia appeared to contain only fat. As he was not overtly symptomatic, he continued on observation/expectant management. On 08/23/2020 he was seen by Dr. Bloom due to new onset of rectal bleeding. He then underwent colonoscopy on 09/06/2020. On digital exam he was noted to have an anterior anal mass at about 4 cm from the anal verge. It was hard in consistency and it appeared to occupy the anterior third to half of the circumference of the lower anal segment. The colonoscopy showed a partially obstructing, large size malignant appearing mass within the anus, estimated at 8 x 6 cm. Biopsy showed well differentiated adenocarcinoma. Restaging PET/CT on 09/23/2020 showed a 4.4 x 4.5 cm rectal mass with SUV 18.7, consistent with malignancy. Mild FDG activity was noted in a left common iliac lymph node measuring 9 mm, possibly representing local metastatic disease. Other scattered pelvic lymph nodes were subcentimeter in size and FDG negative. In the absence of any evidence of metastatic disease, he was referred to Dr. Kearney in [place] for consideration of surgical resection. On 10/24/2020 he underwent robotic extended low anterior resection with radical en bloc resection of seminal vesicles and vas deferens with portion of prostate and with placement of loop ileostomy. It did bottom turner to be a very difficult procedure, but grossly there was no evidence of metastatic disease and the tumor was able to be completely resected. Pathology showed grade 2 mucinous adenocarcinoma measuring 4.5 x 2.5 cm. It was invading through the muscularis propria into the perirectal adipose tissue and it was noted to be adherent to the underlying prostate. All margins were uninvolved. The closest margin was to the adherent right and left prostate measured at 0.5 cm. There was no involvement in 10 lymph nodes. Pathologic staging was pT4b, pN0. The procedure was complicated by report of a positive COVID-19 test. However, this ultimately was felt to have been inaccurate, as he had no COVID-19 symptoms either before or after surgery. His medical history is otherwise significant for venous insufficiency of his right leg which developed following a previous injury. He has had recurrent episodes of cellulitis in his right leg as a result. He also has some degenerative arthritis, but he has had no other ongoing medical illnesses. He has a history of smoking 1 pack of cigarettes daily for 40 years, but he quit smoking in 1995. He is seen for a follow-up visit. He still has limited activity following his surgery last month, he is feeling good generally. His ECOG score is 1. He has good appetite, but he has not been eating as much, and he has lost some weight. He does not have fever or night sweats. He has some chronic sinus drainage and cough. He does not complain of shortness of breath or chest pain. He has no GI complaints. He has had no problems with his ostomy function. He has urinary frequency and nocturia and his bladder control has not been quite as good since the surgery. His joint pain overall has improved, especially in his ankles. 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 Medications: Chromium 1 Tablet (of 100 mcg) Tablet Oral t.i.d., Meloxicam 1 (15 mg) Tablet Oral daily, NIFEdipine 1 Tablet (of 30 mg) Tablet SR 24 HR Oral daily, Pentoxifylline 1 Tablet (of 400 mg) Tablet, controlled release Oral t.i.d., Selenium 6 Tablet (of 50 mcg) Oral t.i.d., Sertraline HCl 0.5 Tablet (of 25 mg) Oral daily, Silica 1 Capsule (of 3000 mg) Oral daily Allergies: No Known Allergies. Vital Signs: Performed on Nov 24, 2020 08:59 Height - 72.00 in Weight - 286.8 lbs (LOW) BSA - 2.48 sq.m BMI - 38.90 (HIGH) Temperature - 97.6 F (LOW) Pulse - 64 /min Respiration - 17 /min BP - 139/80 mm(hg) O2 Sat - 98 % Pain - 0 Physical Examination: Constitutional - He looks good generally, Eyes - Sclerae nonicteric. Conjunctivae clear, ENMT - No lesions noted in the oral cavity, Hematologic/Lymphatic - No cervical, clavicular, or axillary adenopathy, Respiratory - Lungs are clear, Cardiovascular - Heart rhythm is regular. There is no murmur, gallop, or rub noted, Abdomen - Soft. The incisions appear well healed. Liver and spleen are not enlarged. There is no abdominal mass or ascites noted and there is no inguinal adenopathy, Extremities - There is mild chronic swelling at the ankles, Neurologic - No focal neurologic deficits noted. Historic Problem List: 1. Adenocarcinoma of the rectum, locally advanced and metastatic, by clinical evaluation stage GHASSAN (T4b, N2a, M1a) at initial diagnosis in 2013. 2. He underwent video-assisted thorascopic surgery with wedge resection of right lower lobe pulmonary nodule on 11/02/2014. 3. He initially underwent neoadjuvant chemoradiation utilizing Xeloda for chemosensitization. He completed treatment on 02/15/2015 to a total dose of 6120 cGy. He still had significant residual disease on followup MRI in March 2015. 4. He was then given additional neoadjuvant chemotherapy with 4 cycles of oxaliplatin/Xeloda, which he completed in August 2015. He was then followed on observation/expectant management. 5. He has some chronic venous insufficiency of the right leg with history of recurrent episodes of cellulitis. 6. He also has some degenerative arthritis. Problems Addressed with this Encounter and Plan: Adenocarcinoma of the rectum, locally advanced and metastatic, by clinical evaluation stage GHASSAN (T4b, N2a, M1a) at initial diagnosis in 2013. He had long-term stability following resection of metastatic pulmonary nodule, neoadjuvant chemoradiation, and subsequent adjuvant chemotherapy with 4 cycles of oxaliplatin/Xeloda, completed in August 2015. In August 2020 he had documented progression of local disease in the rectum, but with no evidence of metastatic involvement by restaging PET/CT. On 10/24/2020 he underwent complete surgical resection with robotic extended low anterior resection and en bloc resection of seminal vesicles, vas deferens, and portion of prostate. Pathologic staging was pT4b, pN0 with negative surgical margins The operative findings and pathology results were reviewed with the patient and his . He has had complete resection of his primary tumor with negative surgical margin and with no evidence of lymph node involvement. The question now is whether or not we should consider additional adjuvant chemotherapy. As his disease thus far has been limited to local progression only and with no lymph node involvement or other new metastatic disease, I think the benefit with further chemotherapy will be very low. We have discussed the issue on numerous occasions, and his main focus has been on maintaining quality of life. As I believe there will be significant risks with further oxaliplatin based chemotherapy, my inclination is to just continue to follow him now on observation/expectant management. He is in complete agreement with this. I will plan to see him for follow-up at 6-month intervals, and just continue with yearly surveillance CT scans. Signed By: Skip Beltre M.D. <<Signature on File>>
== END 2020-11-24 08:46 | disposition home or self-care (01) ==
LOC: ONCMED 08:48
PROVIDERS: PCP Family Medicine; Visit Provider Internal Medicine Medical Oncology
DX: C20 Malignant neoplasm of rectum (principal); I87.2 Venous insufficiency (chronic) (peripheral); M19.90 Unspecified osteoarthritis, unspecified site; Z90.49 Acquired absence of other specified parts of digestive tract; Z92.21 Personal history of antineoplastic chemotherapy
CPT/HCPCS: 99214

== ENCOUNTER 2020-12-19 16:02 | Emergency (ER) | payer OTHER, SELFPAY ==
[2020-12-19 16:14] VITALS: BP 146/93; PULSE 69; RESP 14; TEMP 36.7; O2SAT 98; BMI 38.3
--- NOTE | 2020-12-19 16:30 | ECG_ITS ---
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 Measurements Intervals [place] Rate: 66 P: 10 [place]: 204 QRS: -16 QRSD: 101 T: 50 QT: 376 QTc: 395 Interpretive Statements SINUS RHYTHM No previous ECG available for comparison Electronically Signed On 12-20-2020 19:52:07 MOLD CLOSER by Giovanna Pa M.D. [id number]
--- NOTE | 2020-12-19 16:30 | XRR_ITS ---
PROCEDURE INFORMATION: Exam: XR Chest, 1 View Exam date and time: 12/19/2020 4:38 PM Age: 70 years old Clinical indication: Chest pain TECHNIQUE: Imaging protocol: XR of the chest Views: 1 view. COMPARISON: CT chest abd pel w con* 07/03/2020 11:22 AM FINDINGS: Lungs: Unremarkable. No consolidation. Pleural spaces: Unremarkable. No pleural effusion. No pneumothorax. Heart/Mediastinum: Unremarkable. No cardiomegaly. Bones/joints: Unremarkable. XR/XR chest 1V portable [id number] IMPRESSION: No acute findings.
[2020-12-19 16:44] VITALS: BP 140/66; PULSE 69; RESP 16; O2SAT 99
[2020-12-19 16:49] VITALS: O2SAT 97
--- NOTE | 2020-12-19 16:49 | PC.PHAR ---
PT STATES HE TAKES SODIUM SILICATE. I CANNOT FIND IT IN PILL FORM, BUT THAT IS WHAT HE SAID HE TAKES.
[2020-12-19 16:53] LABS: Basophils % 0.2 %; Eosinophils # 0.2 10^3/uL (0.0-0.8); Eosinophils % 3.4 %; Hematocrit 43.4 % (42.0-52.0); Hemoglobin 13.6 g/dL (11.7-16.6); Lymphocytes % 19.7 %; Mean Corpuscular HGB Conc 31.3 g/dL (30.0-36.0); Mean Corpuscular Hemoglobin 26.8 pg (28.0-34.0); Mean Corpuscular Volume 85.4 fL (80-94); Mean Platelet Volume 10.3 fL (7.4-10.4); Monocytes # 0.4 10^3/uL (0.2-0.9); Monocytes % 7.3 %; Neutrophils # 3.62 10^3/uL (1.8-7.7); Neutrophils % 69.2 %; Nucleated Red Blood Cells % 0 %; Platelet Count 206 10^3/cmm (130-400); Red Blood Count 5.08 10^6/uL (4.1-5.3); Red Cell Distribution Width 14.5 % (12.1-15.1); White Blood Count 5.2 10^3/uL (4.0-10.0)
--- NOTE | 2020-12-19 17:05 | ED_ITS ---
Documented by User: Maximo Casillas DO 12/21/20 06:04 HPI - Chest Pain General: Chief Complaint: Chest Pain Stated Complaint: CP Time Seen by Provider: 12/19/20 16:30 History of Present Illness: HPI narrative: 70-year-old male presents to the emergency room with complaint of chest pain. Began while he was driving it resolved spontaneously. He did take some aspirin for 2 to 325 mg tablet. He is not having episodes like this in the past. He is morbidly obese with denies any history of diabetes does have a history of hypertension and hyperlipidemia. Is not had any previous cardiac work-up. MD complaint: chest pain Onset (ago): hour(s) Timing of current episode: episodic Prior episodes: No Onset: during rest Pain location: substernal and left chest Pain radiation: none Severity: moderate Quality: sharp Relieving factors: nothing Exacerbating factors: nothing Associated symptoms: Reports dyspnea; Deny abdominal pain, diaphoresis, fever(s), leg edema, nausea, palpitations, sense of impending doom, syncope or vomiting Treatment prior to arrival: aspirin Review of Systems Const: Denies: fever(s) or diaphoresis ENMT: Denies: throat pain, ear or mastoid pain, nasal discharge or nasal congestion Card: Denies: palpitations or syncope Resp: Reports: dyspnea GI: Denies: abdominal pain, nausea or vomiting : Denies: flank pain, dysuria, urinary frequency or urinary urgency Skin/Breast: Denies: rash or pruritus [facility] ED PFSH: Medical History Rectal cancer Family History Denies family history of Anesthesia complication Bleeding disorder Social History Smoking and tobacco status: never smoked Physical Exam Const: COMMON NORMALS: no acute distress GENERAL APPEARANCE: cooperative and comfortable NUTRITIONAL APPEARANCE: obese ORIENTATION/CONSCIOUSNESS: Yes awake, Yes oriented to person, Yes oriented to place and Yes oriented to time HENMT: COMMON NORMALS: normocephalic, atraumatic and hearing grossly normal bilaterally HEAD & SCALP: normocephalic and atraumatic Neck/C-Spine: COMMON NORMALS: no JVD Lymph: LYMPHATIC: no lymphadenopathy noted and no lymphedema noted Resp: COMMON NORMALS: normal respiratory effort, No retractions, No use of accessory muscles and clear to auscultation bilaterally AUSCULTATION: clear to auscultation bilaterally Cardio: COMMON NORMALS: no JVD, regular rate, regular rhythm and No murmurs present (Cardio) RATE: regular rate RHYTHM: regular rhythm GI: COMMON NORMALS: Soft to palpation and No hepatosplenomegaly present AUSCULTATION: Yes normoactive bowel sounds PALPATION: Yes Soft to palpation, No Tenderness to palpation present (GI), No Guarding due to palpation present (GI) and Yes No hepatosplenomegaly present Extremity: COMMON NORMALS: normal to inspection, capillary refill normal, no clubbing, cyanosis or edema, no calf tenderness and no pedal edema Neuro: SENSORIUM/ORIENTATION: Yes oriented to person, Yes oriented to place and Yes oriented to time Skin: COMMON NORMALS: no rashes or lesions noted GENERAL SKIN EXAM: no rashes or lesions noted Course Vital Signs: Vital signs: Vital Signs Temperature 98.1 F 12/19/20 20:03 Pulse Rate 67 12/19/20 20:03 Respiratory Rate 16 12/19/20 20:03 Blood Pressure 109/72 12/19/20 20:03 Pulse Oximetry 97 12/19/20 20:03 MDM - Chest Pain MDM Narrative: Medical decision making narrative: Initial EKG unremarkable. Patient chest pain is completely resolved. Care turned over to Dr. Helms at change of shift. See his notes for final diagnosis and disposition. Lab Data: Labs: Lab Results 12/19/20 12/19/20 12/19/20 Range/Units 16:35 16:35 16:35 WBC 5.2 (4.0-10.0) 10^3/ uL RBC 5.08 (4.1-5.3) 10^6/u L Hgb 13.6 (11.7-16.6) g/dL Hct 43.4 (42.0-52.0) % MCV 85.4 (80-94) fL MCH 26.8 L (28.0-34.0) pg MCHC 31.3 (30.0-36.0) g/dL RDW 14.5 (12.1-15.1) % Plt Count 206 (130-400) 10^3/c mm MPV 10.3 (7.4-10.4) fL Neut % (Auto) 69.2 % Lymph % (Auto) 19.7 % [place] % (Auto) 7.3 % Eos % (Auto) 3.4 % Baso % (Auto) 0.2 % Neut # (Auto) 3.62 (1.8-7.7) 10^3/u L Lymph # (Auto) 1.0 (0.8-4.8) 10^3/u L [place] # (Auto) 0.4 (0.2-0.9) 10^3/u L Eos # (Auto) 0.2 (0.0-0.8) 10^3/u L Baso # (Auto) 0.0 (0.0-0.1) 10^3/u L Nucleated RBC % (a uto) 0 % Nucleated RBCs # 0.0 /100WBC Sodium 138 (136-145) mmol/L Potassium 4.1 (3.5-5.1) mmol/L Chloride 105 (98-107) mmol/L Carbon Dioxide 24 (22-29) mmol/L Anion Gap 13.1 (5-19) BUN 17 (8-23) mg/dL Creatinine 0.8 (0.7-1.2) mg/dL GFR Calculation 95.6 (90-130) mL/min Glucose 104 (65-115) mg/dL Calculated Osmolal ity 288 (285-295) mOsm/k g Calcium 9.4 (8.5-10.5) mg/dL Total Bilirubin 0.2 (0.15-1.2) mg/dL AST 19 (0-40) U/L ALT 25 (0-41) U/L Alkaline Phosphata se 78 (40-130) IU/L Troponin T Baselin e 15 (0-15) ng/L Troponin T 120 Min [place] (0-15) ng/L Delta Troponin T (0-10) ABS# Total Protein 6.5 L (6.6-8.7) g/dL Albumin 3.7 (3.5-5.2) g/dL Globulin 2.8 (1.3-4.6) g/dL 12/19/20 Range/Units 18:37 WBC (4.0-10.0) 10^3/ uL RBC (4.1-5.3) 10^6/u L Hgb (11.7-16.6) g/dL Hct (42.0-52.0) % MCV (80-94) fL MCH (28.0-34.0) pg MCHC (30.0-36.0) g/dL RDW (12.1-15.1) % Plt Count (130-400) 10^3/c mm MPV (7.4-10.4) fL Neut % (Auto) % Lymph % (Auto) % [place] % (Auto) % Eos % (Auto) % Baso % (Auto) % Neut # (Auto) (1.8-7.7) 10^3/u L Lymph # (Auto) (0.8-4.8) 10^3/u L [place] # (Auto) (0.2-0.9) 10^3/u L Eos # (Auto) (0.0-0.8) 10^3/u L Baso # (Auto) (0.0-0.1) 10^3/u L Nucleated RBC % (a uto) % Nucleated RBCs # /100WBC Sodium (136-145) mmol/L Potassium (3.5-5.1) mmol/L Chloride (98-107) mmol/L Carbon Dioxide (22-29) mmol/L Anion Gap (5-19) BUN (8-23) mg/dL Creatinine (0.7-1.2) mg/dL GFR Calculation (90-130) mL/min Glucose (65-115) mg/dL Calculated Osmolal ity (285-295) mOsm/k g Calcium (8.5-10.5) mg/dL Total Bilirubin (0.15-1.2) mg/dL AST (0-40) U/L ALT (0-41) U/L Alkaline Phosphata se (40-130) IU/L Troponin T Baselin e (0-15) ng/L Troponin T 120 Min [place] 14.96 (0-15) ng/L Delta Troponin T -0.04 L (0-10) ABS# Total Protein (6.6-8.7) g/dL Albumin (3.5-5.2) g/dL Globulin (1.3-4.6) g/dL Discharge Plan Discharge Patient Disposition: Home Clinical Impression: Chest pain Qualifiers: Chest pain type: unspecified Qualified Code(s): R07.9 - Chest pain, unspecified Condition: Stable Prescriptions: No Action chromium picolinate 1,000 mcg tablet 1,000 mcg PO TID@0600,1300,2200 RF: 0 meloxicam 15 mg tablet 15 mg PO DAILY@0600 RF: 0 Hold Instructions: Resume on 09/11/20. nifedipine 30 mg tablet extended release 30 mg PO DAILY@2200 RF: 0 selenium 50 mcg tablet 50 mcg PO TID@0600,1300,2200 RF: 0 sertraline 25 mg tablet 12.5 mg PO DAILY@0600 RF: 0 sodium silicate See Rx Instructions .ROUTE .COMPLEX RF: 0 Discharge Orders: Discharge ED (Routine); Ordered 12/19/20 Ordered By: Keren Helms Referrals: Tana Vital MD [Primary Care Provider] - Discharge Diet: Advance as tolerated Discharge Activity: Resume usual activity Patient Instructions: Chest Pain (ED) Coding Level of Care Code ED Cloud Services Architect for Chg Fwd Exam Comprehensive Documented by User: Keren Helms MD 12/19/20 19:47 HPI - Chest Pain General: Chief Complaint: Chest Pain Stated Complaint: CP Time Seen by Provider: 12/19/20 16:30 PFSH ED PFSH: Medical History Rectal cancer Family History Denies family history of Anesthesia complication Bleeding disorder Social History Smoking and tobacco status: never smoked Physical Exam Const: COMMON NORMALS: no acute distress, patient oriented x3 and healthy appearing HENMT: COMMON NORMALS: normocephalic and atraumatic HEAD & SCALP: normocephalic and atraumatic Eye: COMMON NORMALS: Equal, round and reactive pupils present and EOMs intact bilaterally PUPIL: Yes Equal, round and reactive pupils present Neck/C-Spine: COMMON NORMALS: full ROM and supple Chest: COMMONS NORMALS: normal inspection of the chest and normal palpation of entire chest wall Resp: COMMON NORMALS: normal respiratory effort, No retractions, No use of accessory muscles and clear to auscultation bilaterally AUSCULTATION: clear to auscultation bilaterally Cardio: COMMON NORMALS: regular rate, regular rhythm and No murmurs present (Cardio) RATE: regular rate RHYTHM: regular rhythm GI: COMMON NORMALS: Normal to inspection, nondistended, normoactive bowel sounds present, Soft to palpation, non-tender and no masses PALPATION: Yes Soft to palpation Extremity: COMMON NORMALS: normal to inspection and full ROM Neuro: COMMON NORMALS: patient oriented x3, moves all extremities and no focal motor deficits Psych: COMMON NORMALS: mental status grossly normal, Normal thought process present and cooperative THOUGHT PROCESS: Normal thought process present Skin: COMMON NORMALS: no rashes or lesions noted and no wounds GENERAL SKIN EXAM: no rashes or lesions noted Course Vital Signs: Vital signs: Vital Signs Temperature 98.1 F 12/19/20 20:03 Pulse Rate 67 12/19/20 20:03 Respiratory Rate 16 12/19/20 20:03 Blood Pressure 109/72 12/19/20 20:03 Pulse Oximetry 97 12/19/20 20:03 MDM - Chest Pain MDM Narrative: Medical decision making narrative: Patient presents here with chest pain that is atypical in nature. It is a sharp pain that lasted seconds. He is well-appearing here and troponins here are negative. He is to follow-up PCP and return if worsening. He understands agrees to plan. Lab Data: Labs: Lab Results 12/19/20 12/19/20 12/19/20 Range/Units 16:35 16:35 16:35 WBC 5.2 (4.0-10.0) 10^3/ uL RBC 5.08 (4.1-5.3) 10^6/u L Hgb 13.6 (11.7-16.6) g/dL Hct 43.4 (42.0-52.0) % MCV 85.4 (80-94) fL MCH 26.8 L (28.0-34.0) pg MCHC 31.3 (30.0-36.0) g/dL RDW 14.5 (12.1-15.1) % Plt Count 206 (130-400) 10^3/c mm MPV 10.3 (7.4-10.4) fL Neut % (Auto) 69.2 % Lymph % (Auto) 19.7 % [place] % (Auto) 7.3 % Eos % (Auto) 3.4 % Baso % (Auto) 0.2 % Neut # (Auto) 3.62 (1.8-7.7) 10^3/u L Lymph # (Auto) 1.0 (0.8-4.8) 10^3/u L [place] # (Auto) 0.4 (0.2-0.9) 10^3/u L Eos # (Auto) 0.2 (0.0-0.8) 10^3/u L Baso # (Auto) 0.0 (0.0-0.1) 10^3/u L Nucleated RBC % (a uto) 0 % Nucleated RBCs # 0.0 /100WBC Sodium 138 (136-145) mmol/L Potassium 4.1 (3.5-5.1) mmol/L Chloride 105 (98-107) mmol/L Carbon Dioxide 24 (22-29) mmol/L Anion Gap 13.1 (5-19) BUN 17 (8-23) mg/dL Creatinine 0.8 (0.7-1.2) mg/dL GFR Calculation 95.6 (90-130) mL/min Glucose 104 (65-115) mg/dL Calculated Osmolal ity 288 (285-295) mOsm/k g Calcium 9.4 (8.5-10.5) mg/dL Total Bilirubin 0.2 (0.15-1.2) mg/dL AST 19 (0-40) U/L ALT 25 (0-41) U/L Alkaline Phosphata se 78 (40-130) IU/L Troponin T Baselin e 15 (0-15) ng/L Troponin T 120 Min [place] (0-15) ng/L Delta Troponin T (0-10) ABS# Total Protein 6.5 L (6.6-8.7) g/dL Albumin 3.7 (3.5-5.2) g/dL Globulin 2.8 (1.3-4.6) g/dL 12/19/20 Range/Units 18:37 WBC (4.0-10.0) 10^3/ uL RBC (4.1-5.3) 10^6/u L Hgb (11.7-16.6) g/dL Hct (42.0-52.0) % MCV (80-94) fL MCH (28.0-34.0) pg MCHC (30.0-36.0) g/dL RDW (12.1-15.1) % Plt Count (130-400) 10^3/c mm MPV (7.4-10.4) fL Neut % (Auto) % Lymph % (Auto) % [place] % (Auto) % Eos % (Auto) % Baso % (Auto) % Neut # (Auto) (1.8-7.7) 10^3/u L Lymph # (Auto) (0.8-4.8) 10^3/u L [place] # (Auto) (0.2-0.9) 10^3/u L Eos # (Auto) (0.0-0.8) 10^3/u L Baso # (Auto) (0.0-0.1) 10^3/u L Nucleated RBC % (a uto) % Nucleated RBCs # /100WBC Sodium (136-145) mmol/L Potassium (3.5-5.1) mmol/L Chloride (98-107) mmol/L Carbon Dioxide (22-29) mmol/L Anion Gap (5-19) BUN (8-23) mg/dL Creatinine (0.7-1.2) mg/dL GFR Calculation (90-130) mL/min Glucose (65-115) mg/dL Calculated Osmolal ity (285-295) mOsm/k g Calcium (8.5-10.5) mg/dL Total Bilirubin (0.15-1.2) mg/dL AST (0-40) U/L ALT (0-41) U/L Alkaline Phosphata se (40-130) IU/L Troponin T Baselin e (0-15) ng/L Troponin T 120 Min [place] 14.96 (0-15) ng/L Delta Troponin T -0.04 L (0-10) ABS# Total Protein (6.6-8.7) g/dL Albumin (3.5-5.2) g/dL Globulin (1.3-4.6) g/dL Imaging Data^: CXR: Attestation: I personally reviewed and interpreted this imaging study as follows: My impression: No acute abnormality EKG Data^: EKG 1: Attestation: I personally reviewed and interpreted this EKG as follows: EKG interpretation date: 12/19/20 EKG interpretation time: 16:11 Interpretation: Normal sinus rhythm heart rate [address] or T wave abnormalities QRS 101 QTc 389 EKG 2: Attestation: I personally reviewed and interpreted this EKG as follows: EKG interpretation date: 12/19/20 EKG interpretation time: 18:43 Interpretation: Normal sinus rhythm heart rate [address] or T wave abnormalities QRS 92 QTC 426 Discharge Plan Discharge Patient Disposition: Home Clinical Impression: Chest pain Qualifiers: Chest pain type: unspecified Qualified Code(s): R07.9 - Chest pain, unspecified Condition: Stable Prescriptions: No Action chromium picolinate 1,000 mcg tablet 1,000 mcg PO TID@0600,1300,2200 RF: 0 meloxicam 15 mg tablet 15 mg PO DAILY@0600 RF: 0 Hold Instructions: Resume on 09/11/20. nifedipine 30 mg tablet extended release 30 mg PO DAILY@2200 RF: 0 selenium 50 mcg tablet 50 mcg PO TID@0600,1300,2200 RF: 0 sertraline 25 mg tablet 12.5 mg PO DAILY@0600 RF: 0 sodium silicate See Rx Instructions .ROUTE .COMPLEX RF: 0 Discharge Orders: Discharge ED (Routine); Ordered 12/19/20 Ordered By: Keren Helms Referrals: Tana Vital MD [Primary Care Provider] - Discharge Diet: Advance as tolerated Discharge Activity: Resume usual activity Patient Instructions: Chest Pain (ED) Coding Level of Care Code ED Cloud Services Architect for Chg Fwd Exam Comprehensive
[2020-12-19 17:18] LABS: Alanine Aminotransferase 25 U/L (0-41); Albumin Level 3.7 g/dL (3.5-5.2); Alkaline Phosphatase 78 IU/L (40-130); Anion Gap 13.1 (5-19); Aspartate Amino Transferase 19 U/L (0-40); Blood Urea Nitrogen 17 mg/dL (8-23); Calcium 9.4 mg/dL (8.5-10.5); Carbon Dioxide 24 mmol/L (22-29); Chloride 105 mmol/L (98-107); Globulin 2.8 g/dL (1.3-4.6); Glomerular Filtration Rate 95.6 mL/min (90-130); Glucose 104 mg/dL (65-115); Osmolality Calculated 288 mOsm/kg (285-295); Potassium 4.1 mmol/L (3.5-5.1); Sodium 138 mmol/L (136-145); Total Bilirubin 0.2 mg/dL (0.15-1.2); Total Protein 6.5 g/dL (6.6-8.7)
[2020-12-19 17:19] LABS: Troponin(5th) Baseline 15 ng/L (0-15)
[2020-12-19 17:44] VITALS: BP 145/82; PULSE 64; RESP 18; O2SAT 96
[2020-12-19 18:00] VITALS: BP 145/82; PULSE 62; RESP 20; O2SAT 97
--- NOTE | 2020-12-19 18:30 | ECG_ITS ---
[facility] Test Date: 2020-12-19 Pat Name: Tee Chilel Jr Department: Room: Gender: Male Medical Lead: : 1950 Requested By: Maximo Veliz Order Number: [id number] Saskia MD: Giovanna Pa M.D. Measurements Intervals [place] Rate: 64 P: 25 [place]: 209 QRS: -10 QRSD: 92 T: 63 QT: 417 QTc: 431 Interpretive Statements SINUS RHYTHM No previous ECG available for comparison Electronically Signed On 12-20-2020 20:15:54 CARDIOVASCULAR OR NURSE by Giovanna Pa M.D. [email or web address]
[2020-12-19 19:28] LABS: Troponin 5 2HR 14.96 ng/L (0-15)
[2020-12-19 19:34] LABS: Troponin 5 2HR Delta -0.04 ABS# (0-10)
[2020-12-19 20:03] VITALS: BP 109/72; PULSE 67; RESP 16; TEMP 36.7; O2SAT 97
== END 2020-12-19 20:03 | disposition home or self-care (01) ==
PROVIDERS: Family Medicine; Emergency Provider Emergency Medicine; PCP Family Medicine
DX: R07.9 Chest pain, unspecified (principal); Z85.048 Personal history of other malignant neoplasm of rectum, rectosigmoid junction, and anus
CPT/HCPCS: 12345; 36415; 71045; 80053; 84484; 85025; 93005; 99283

== ENCOUNTER → 2020-12-29 12:49 | Outpatient (BNVA) | payer OTHER, SELFPAY | PROVIDERS: PCP Family Medicine; Visit Provider Orthopaedic Surgery | DX: Z20.822 Contact with and (suspected) exposure to COVID-19 (principal) | CPT/HCPCS: 87635 ==

== ENCOUNTER → 2021-01-26 08:09 | Outpatient (BNVA) | payer OTHER, SELFPAY | PROVIDERS: PCP Family Medicine; Visit Provider Orthopaedic Surgery | DX: Z01.812 Encounter for preprocedural laboratory examination (principal); Z20.822 Contact with and (suspected) exposure to COVID-19 | CPT/HCPCS: 87635 ==

== ENCOUNTER 2021-01-30 10:39 | Outpatient (CLI) | payer OTHER, SELFPAY ==
--- NOTE | 2021-01-30 10:58 | PFTS_ITS ---
Date of Study:01/30/21 Date of Dictation: 01/31/2021 MECHANICS: Forced vital capacity (FVC) is normal.. Forced expiratory volume in one second (FEV1) is normal.. FEV1/FVC is normal. Postbronchodilator study not performed. FLOW VOLUME LOOP:normal. . LUNG VOLUMES: Not measured DIFFUSING CAPACITY FOR CARBON MONOXIDE: Not measured . INTERPRETATION: The spirometry is normal. MTDD
== END 2021-01-30 10:40 | disposition home or self-care (01) ==
LOC: RT 10:43
PROVIDERS: PCP Family Medicine; Visit Provider Orthopaedic Surgery
DX: C34.90 Malignant neoplasm of unspecified part of unspecified bronchus or lung (principal)
CPT/HCPCS: 94010

== ENCOUNTER 2021-05-10 08:27 | Outpatient (CLI) | payer OTHER, MEDICARE, SELFPAY ==
[2021-05-10 08:55] LABS: Basophils % 0.5 %; Eosinophils # 0.2 10^3/uL (0.0-0.8); Eosinophils % 2.9 %; Hematocrit 44.4 % (42.0-52.0); Hemoglobin 13.9 g/dL (11.7-16.6); Lymphocytes % 18.3 %; Mean Corpuscular HGB Conc 31.3 g/dL (30.0-36.0); Mean Corpuscular Hemoglobin 27.5 pg (28.0-34.0); Mean Corpuscular Volume 87.9 fL (80-94); Mean Platelet Volume 10.1 fL (7.4-10.4); Monocytes # 0.4 10^3/uL (0.2-0.9); Monocytes % 6.3 %; Neutrophils # 3.96 10^3/uL (1.8-7.7); Neutrophils % 71.6 %; Nucleated Red Blood Cells % 0 %; Platelet Count 219 10^3/cmm (130-400); Red Blood Count 5.05 10^6/uL (4.1-5.3); White Blood Count 5.5 10^3/uL (4.0-10.0)
[2021-05-10 09:30] LABS: Carcinoembryonic Antigen 3.7 ng/mL (0.0-4.7)
[2021-05-10 09:41] LABS: Alanine Aminotransferase 19 U/L (0-41); Albumin Level 4.2 g/dL (3.5-5.2); Alkaline Phosphatase 89 IU/L (40-130); Aspartate Amino Transferase 16 U/L (0-40); Blood Urea Nitrogen 19 mg/dL (8-23); Calcium 9.6 mg/dL (8.5-10.5); Carbon Dioxide 25 mmol/L (22-29); Chloride 102 mmol/L (98-107); Globulin 2.8 g/dL (1.3-4.6); Glomerular Filtration Rate 95.6 mL/min (90-130); Glucose 105 mg/dL (65-115); Osmolality Calculated 287 mOsm/kg (285-295); Sodium 137 mmol/L (136-145); Total Bilirubin 0.4 mg/dL (0.15-1.2)
--- NOTE | 2021-05-13 14:48 | ONC FU_ITS ---
Dr. Beltre Patient Follow-Up Note Patient: Tee Chilel Jr Unit #: [id number]: 1950 Dicatated By: Skip Beltre M.D.Date of Visit:May 10, 2021 Onc Med Follow-up/Prog Note Chief Complaint: Rectal cancer. History of Present Illness: This is a 70 year-old man with metastatic rectal cancer, stage GHASSAN (T4a, N2a, M1a). He had presented with a positive stool Hemoccult test, which apparently was done as a screening procedure through the [facility]. He was having no GI symptoms at that time, and he also indicated that he had not been aware of any blood in his stool. He underwent colonoscopy on 07/29/14. He was found to have a malignant appearing mass at 8 cm. Also noted were several polyps, including 2 at 42 cm and 1 at 25 cm, all of which were removed endoscopically. The polyps at 42 cm were reported to be serrated adenomas, and a polyp at 25 cm was a peduncular tubular adenoma. Biopsy of the rectal mass showed high-grade dysplasia with no definitive evidence of invasive adenocarcinoma. A subsequent CT abdomen/pelvis confirm the presence of a mass in the rectum measuring 4 x 4.6 x 6 cm. There was no associated lymphadenopathy, and there was no evidence of metastatic involvement in the liver. However, that study did show a noncalcified right lower lobe pulmonary nodule measuring 1.8 x 1.6 cm. He had further evaluation with PET/CT on 09/29/14. It showed uptake in the rectal mass, consistent with primary malignancy, but with no evidence for macroscopic regional lymph node metastases. The right lower lobe pulmonary nodule was noted be hypermetabolic, consistent with malignancy. On 11/02/2014 he underwent video assisted thoracic surgery with wedge resection of the right lower lobe pulmonary nodule. 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 The tumor was positive for CK 20 and CDX 2, consistent with colorectal primary. The margins were negative. Staging MRI of the pelvis on 11/11/14 showed rectal tumor measuring 5 x 4.6 x 5.2 cm with the inferior margin at approximately 3 cm from the anorectal junction. T stage was felt to be at least T3 and probably a T4, with the primary lesion extending anteriorly to the medial left seminal vesicle margin and probably invading the left seminal vesicle. Tumor also appeared to be extending up to if not through the anterior basal rectal fascia at the level of the left seminal vesicle. There were more than 4 pelvic lymph nodes which were felt to be suspicious. Bilateral upper iliac nodes measured 1 cm or greater. He underwent examination under anesthesia and rigid proctoscopy on 12/06/2014. This showed a mass at 4 cm from the dentate line in the right anterior portion of the rectum. He was given neoadjuvant chemoradiation utilizing Xeloda for the chemosensitization. Radiation was completed on 02/15/15 to a total dose of 6120 cGy. He tolerated the treatment very well. Repeat MRI on 03/29/15 showed residual tumor measuring 3.9 x 3.9 x 4.5 cm. It was again noted to extend anteriorly to the mesorectal fascia and possibly through the mesorectal fascia and in contact with the surface of the seminal vesicles. There were again more than 4 pelvic lymph nodes identified, including upper iliac nodes bilaterally. He was seen by the colorectal surgeon, and it was recommended that he complete some additional oxaliplatin based neoadjuvant chemotherapy. He began cycle 1 of oxaliplatin/Xeloda in May. He tolerated it extremely well. He completed his 4th cycle of treatment in August 2015. Restaging PET/CT on 09/25/2015 showed a decrease in the size and FDG activity of the previously noted right lower lobe pulmonary nodule. Those residual findings were presumed to be related to postoperative changes. There were no new pulmonary nodules. Enlarged right paratracheal, precarinal, and right hilar lymph nodes were noted to show dense calcifications and were felt to be likely benign. There was noted to be reduction in the size and FDG activity of the rectal tumor, measuring 3.6 x 2.4 cm with maximum SUV 3.3 compared to 5.7 x 4.4 cm with maximum SUV 36.0, consistent with partial response. A previously enlarged pericaval lymph node was unchanged measuring 2.2 cm and it was felt to be likely benign. A few punctate perirectal nodular densities showed no significant FDG activity were felt to represent prominent perirectal lymph nodes. There was no evidence of any other metastatic disease. He had a follow-up MRI through the [facility] on 10/29/2015. That study did show some further decrease in the size of the rectal tumor, to 3.5 x 3.9 x 3.9 cm. It was again noted to extend anteriorly to the mesial rectal fascia and possibly through the mesial rectal fascia. It was noted be in contact with the surface of the seminal vesicles, but actual invasion of the semincal vesicles was not clearly evident. Upper iliac nodes noted on the previous study were not included. Of 2 other right pelvic lymph nodes previously identified, one was slightly smaller measuring less than 5 mm and the other was noted to have resolved. At this point the tumor was felt to be more likely T3 than T4 and at least N1. He subsequently had follow-up with his surgeon, as they were considering the possibility of AP resection and cystoprostatectomy. However, he ultimately declined the surgery, as he preferred to have more conservative management in the face of what was most likely not going to be curative malignancy. As such, he was then followed on observation. As of 11/24/2018 his CEA had increased slightly, to 4.4 ng/mL. Surveillance CT scans at that time showed no obvious disease progression in the chest, abdomen, or pelvis. As of June 2020 there was a slight further increase in the CEA level. Restaging CT scans at that time still showed no evidence of metastatic disease, but wall thickening of the rectum had further increased up to 2.1 cm extending over a length of 4.3 cm. An infraumbilical ventral hernia appeared to contain only fat. As he was not overtly symptomatic, he continued on observation/expectant management. On 08/23/2020 he was seen by Dr. Bloom due to new onset of rectal bleeding. He then underwent colonoscopy on 09/06/2020. On digital exam he was noted to have an anterior anal mass at about 4 cm from the anal verge. It was hard in consistency and it appeared to occupy the anterior third to half of the circumference of the lower anal segment. The colonoscopy showed a partially obstructing, large size malignant appearing mass within the anus, estimated at 8 x 6 cm. Biopsy showed well differentiated adenocarcinoma. Restaging PET/CT on 09/23/2020 showed a 4.4 x 4.5 cm rectal mass with SUV 18.7, consistent with malignancy. Mild FDG activity was noted in a left common iliac lymph node measuring 9 mm, possibly representing local metastatic disease. Other scattered pelvic lymph nodes were subcentimeter in size and FDG negative. In the absence of any evidence of metastatic disease, he was referred to Dr. Kearney in [place] for consideration of surgical resection. On 10/24/2020 he underwent robotic extended low anterior resection with radical en bloc resection of seminal vesicles and vas deferens with portion of prostate and with placement of loop ileostomy. It did turn laster to be a very difficult procedure, but grossly there was no evidence of metastatic disease and the tumor was able to be completely resected. Pathology showed grade 2 mucinous adenocarcinoma measuring 4.5 x 2.5 cm. It was invading through the muscularis propria into the perirectal adipose tissue and it was noted to be adherent to the underlying prostate. All margins were uninvolved. The closest margin was to the adherent right and left prostate measured at 0.5 cm. There was no involvement in 10 lymph nodes. Pathologic staging was pT4b, pN0. The procedure was complicated by report of a positive COVID-19 test. However, this ultimately was felt to have been inaccurate, as he had no COVID-19 symptoms either before or after surgery. I had seen him for a follow-up visit on 11/24/2020. At that point he was recovering pretty well from the surgery. We discussed the possibility of some additional adjuvant chemotherapy. I felt that there would be significant risk for treatment related toxicity, but with uncertain potential benefit. As such, we opted to just continue with expectant management. His medical history is otherwise significant for venous insufficiency of his right leg which developed following a previous injury. He has had recurrent episodes of cellulitis in his right leg as a result. He also has some degenerative arthritis, but he has had no other ongoing medical illnesses. He has a history of smoking 1 pack of cigarettes daily for 40 years, but he quit smoking in 1995. He is seen for a follow-up visit. He has been feeling pretty good generally. He was able to undergo reversal of his ostomy in February. He is still having some issues with his bowel control, and he does tend to have loose stools. He is managing that pretty well with Imodium. He has pretty good energy. His ECOG score is 1. His appetite is good. He has not had fever. He has had some sweating at night. He always has sinus drainage and he has some associated cough. He does not complain of shortness of breath or chest pain. He has no other GI complaints. He does have frequent urination. He has some pain in the right ankle, which is chronic. He has no other joint or bone pain. He does not complain of headache. 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 He also complains that his equilibrium is not good. Medications: Chromium 1 Tablet (of 100 mcg) Tablet Oral t.i.d., Meloxicam 1 (15 mg) Tablet Oral daily, NIFEdipine 1 Tablet (of 30 mg) Tablet SR 24 HR Oral daily, Pentoxifylline 1 Tablet (of 400 mg) Tablet, controlled release Oral t.i.d., Selenium 6 Tablet (of 50 mcg) Oral t.i.d., Sertraline HCl 0.5 Tablet (of 25 mg) Oral daily, Silica 1 Capsule (of 3000 mg) Oral daily Allergies: No Known Allergies. Vital Signs: Performed on May 10, 2021 11:13 Height - 72.00 in Weight - 283 lbs (LOW) BSA - 2.47 sq.m BMI - 38.38 (HIGH) Temperature - 96.3 F (LOW) Pulse - 73 /min Respiration - 18 /min BP - 160/84 mm(hg) (HIGH) O2 Sat - 98 % Pain - 3 Fatigue - 0 Physical Examination: Constitutional - He looks pretty good generally, Eyes - Sclerae nonicteric. Conjunctivae clear, ENMT - No lesions noted in the oral cavity, Hematologic/Lymphatic - No cervical, clavicular, or axillary adenopathy, Respiratory - Lungs are clear, Cardiovascular - Heart rhythm is regular. There is no murmur, gallop, or rub noted, Abdomen - Distended. Liver and spleen are not enlarged. There is no abdominal mass or ascites noted and there is no inguinal adenopathy, Extremities - There is mild swelling at the right ankle, which is chronic, Neurologic - No focal neurologic deficits noted. Lab/Imaging: Test performed on May 10, 2021 08:37 Sodium 137 mmol/L Potassium 4.0 mmol/L Chloride 102 mmol/L CO2 25 mmol/L Anion Gap 14.0 BUN 19 mg/dL Creatinine 0.8 mg/dL Cr Clearance (Est) 156.00 mL/min eGFR 95.6 mL/min Glucose 105 mg/dL Osmolality - Calculated 287 mOsm/kg Calcium 9.6 mg/dL Protein, Total 7.0 g/dL Albumin 4.2 g/dL Globulin 2.8 g/dL Bilirubin, Total 0.4 mg/dL ALT (SGPT) 19 U/L AST (SGOT) 16 U/L Alkaline Phosphatase 89 IU/L WBC 5.5 10 3/uL RBC 5.05 10 6/uL HGB 13.9 g/dL HCT 44.4 % MCV 87.9 fL MCH 27.5 pg MCHC 31.3 g/dL RDW 15.0 % Platelet Count 219 10 3/cmm MPV 10.1 fL Neutrophils 3.96 10 3/uL Lymphocytes 1.0 10 3/uL Monocytes 0.4 10 3/uL Eosinophils 0.2 10 3/uL Basophils 0.0 10 3/uL Neutrophil % 71.6 % Lymphocyte % 18.3 % Monocyte % 6.3 % Eosinophil % 2.9 % Basophils % 0.5 % NRBC % 0 % CEA 3.7 ng/mL Problem List: 1. Mucinous adenocarcinoma of the rectum, locally advanced and metastatic, by clinical evaluation stage GHASSAN (T4b, N2a, M1a) at initial diagnosis in 2013. 2. He underwent video-assisted thorascopic surgery with wedge resection of right lower lobe pulmonary nodule on 11/02/2014. 3. He initially underwent neoadjuvant chemoradiation utilizing Xeloda for chemosensitization. He completed treatment on 02/15/2015 to a total dose of 6120 cGy. He still had significant residual disease on followup MRI in March 2015. 4. He was then given additional neoadjuvant chemotherapy with 4 cycles of oxaliplatin/Xeloda, which he completed in August 2015. He was then followed on observation/expectant management. 5. He has some chronic venous insufficiency of the right leg with history of recurrent episodes of cellulitis. 6. He also has some degenerative arthritis. Problems Addressed with this Encounter and Plan: Patient with mucinous adenocarcinoma of the rectum, locally advanced and metastatic, by clinical evaluation stage GHASSAN (T4b, N2a, M1a) at initial diagnosis in 2013. He had long-term stability following resection of metastatic pulmonary nodule, neoadjuvant chemoradiation, and subsequent adjuvant chemotherapy with 4 cycles of oxaliplatin/Xeloda, completed in August 2015. In August 2020 he had documented progression of local disease in the rectum, but with no evidence of metastatic involvement by restaging PET/CT. On 10/24/2020 he underwent complete surgical resection with robotic extended low anterior resection and en bloc resection of seminal vesicles, vas deferens, and portion of prostate. Pathologic staging was pT4b, pN0 with negative surgical margins. As I felt there would be potential for significant treatment-related toxicity but with uncertain potential benefit, we opted not to attempt any further adjuvant chemotherapy. He is being followed on expectant management. In February 2021 he was able to undergo reversal of his ostomy. He is still having some issues with his bowel control, but it is gradually improving. He otherwise appears to be doing well clinically, thus far with no evidence for any further recurrence/progression of the rectal cancer. He will continue on observation/expectant management. I will see him again in 6 months. He will have lab studies and surveillance CT scans with that visit. Signed By: Skip Beltre M.D. <<Signature on File>>
== END 2021-05-10 08:28 | disposition home or self-care (01) ==
PROVIDERS: PCP Family Medicine; Visit Provider Internal Medicine Medical Oncology
DX: Z08 Encounter for follow-up examination after completed treatment for malignant neoplasm (principal); Z85.048 Personal history of other malignant neoplasm of rectum, rectosigmoid junction, and anus; I87.2 Venous insufficiency (chronic) (peripheral); L03.90 Cellulitis, unspecified; M19.90 Unspecified osteoarthritis, unspecified site; Z79.899 Other long term (current) drug therapy; Z92.21 Personal history of antineoplastic chemotherapy; Z92.3 Personal history of irradiation
CPT/HCPCS: 80053; 82378; 85025; 99214

== ENCOUNTER 2021-05-16 09:05 | Outpatient (CLI) | payer OTHER, SELFPAY ==
[2021-05-16 09:42] LABS: Glucose Fasting 106 mg/dL (74-106)
[2021-05-16 11:20] LABS: Glucose 1 Hour 149 mg/dL
[2021-05-16 12:44] LABS: Glucose 2 Hour 105 mg/dL
== END 2021-05-16 09:06 | disposition home or self-care (01) ==
LOC: LAB 09:09
PROVIDERS: PCP Family Medicine; Visit Provider Orthopaedic Surgery
DX: E11.9 Type 2 diabetes mellitus without complications (principal)
CPT/HCPCS: 36415; 82951

== ENCOUNTER 2021-11-05 08:12 | Outpatient (CLI) | payer OTHER, SELFPAY ==
--- NOTE | 2021-11-05 | CT_ITS ---
WS: [id number] Exam: CT chest abd pel w con* Date/Time of Exam: 11/05/2021 9:11 AM Reason For Exam: RECTAL CANCER DLP: 2499.[address] scans at [facility] use at least one of these dose optimization techniques: automated e xposure control; mA and/or kV adjustment per patient size (includes targeted exams where dose is matc hed to clinical indication); or iterative reconstruction. Compared with the most recent exam 07/03/2020. Also compared to PET/CT performed 09/23/2020. CT scan of the chest with IV contrast. The lungs are fully inflated. No suspicious pulmonary mass or nodule identified. No mediastinal or hi lar lymphadenopathy noted. The thoracic aorta is normal in caliber. The central pulmonary arteries ar e clear. The airway is patent. Coronary artery calcifications. No pleural or pericardial effusion. Ch ronic interstitial changes in the right upper lobe. No destructive bone lesions or significant chest wall defects. Pulmonary hyperinflation may indicate COPD. CT/CT chest abd pel w con* IMPRESSION: 1. No suspicious pulmonary mass or nodule. No lymphadenopathy in the chest. Ove rall, no change since previous study. 2. Pulmonary hyperinflation and chronic changes. Probable COPD. CT scan of the abdomen and pelvis with IV contrast. The liver, spleen, stomach and pancreas appear normal. Small calcified stone in the gallbladder. No sign of acute cholecystitis. The abdominal aorta is normal in caliber. Prominent left adrenal gland unchanged in appearance. Normal-appea ring right adrenal. 3 mm nonobstructing stone in the lower pole the right kidne y. Normal left kidney. The portal vein and IVC are patent. No lymphadenopathy i n the abdomen or pelvis. Small bowel loops are normal in caliber. No sign of ac ralph appendix. Several diverticuli of the sigmoid colon but no sign of acute div erticulitis. No sign of significant bowel wall thickening as described on the l ast exam. No pelvic mass. Intact urinary bladder. Right sided ventral hernia co ntaining unobstructed small bowel. Normal prostate gland gland. No destructive bone lesions are seen. Degenerative changes of the spine. IMPRESSION: 1. No sign of the mass or lymphadenopathy in the abdomen or pelvis. 2. Previously described abnormal thickening of the rectal mejia is not identifi ed on today's exam. 3. Right-sided ventral hernia containing unobstructed small bowel. Cholelithias is, mild colonic diverticulosis. Small nonobstructing right renal stone.
[2021-11-05 08:55] LABS: Basophils % 0.5 %; Eosinophils # 0.2 10^3/uL (0.0-0.8); Eosinophils % 3.6 %; Hematocrit 47.9 % (42.0-52.0); Hemoglobin 15.6 g/dL (11.7-16.6); Lymphocytes # 1.3 10^3/uL (0.8-4.8); Lymphocytes % 19.1 %; Mean Corpuscular HGB Conc 32.6 g/dL (30.0-36.0); Mean Corpuscular Hemoglobin 28.4 pg (28.0-34.0); Mean Corpuscular Volume 87.2 fl (80-94); Mean Platelet Volume 10.2 fL (7.4-10.4); Monocytes # 0.5 10^3/uL (0.2-0.9); Monocytes % 7.3 %; Neutrophils # 4.57 10^3/uL (1.8-7.7); Neutrophils % 69.2 %; Nucleated Red Blood Cells % 0 %; Platelet Count 219 10^3/cmm (130-400); Red Blood Count 5.49 10^6/uL (4.1-5.3); Red Cell Distribution Width 13.6 % (12.1-15.1); White Blood Count 6.6 10^3/uL (4.0-10.0)
[2021-11-05 09:39] LABS: Carcinoembryonic Antigen 3.5 ng/mL (0.0-4.7)
[2021-11-05 09:50] LABS: Alanine Aminotransferase 17 U/L (0-41); Albumin Level 4.1 g/dL (3.5-5.2); Alkaline Phosphatase 82 IU/L (40-130); Blood Urea Nitrogen 17 mg/dL (8-23); Calcium 8.9 mg/dL (8.5-10.5); Carbon Dioxide 20 mmol/L (22-29); Chloride 102 mmol/L (98-107); Globulin 3.5 g/dL (1.3-4.6); Glucose 107 mg/dL (65-115); Osmolality Calculated 284 mOsm/kg (285-295); Sodium 136 mmol/L (136-145); Total Bilirubin 0.4 mg/dL (0.15-1.2); Total Protein 7.6 g/dL (6.6-8.7)
[2021-11-05 09:58] LABS: Anion Gap 18.4 (5-19); Aspartate Amino Transferase 18 U/L (0-40); Potassium 4.4 mmol/L (3.5-5.1)
[2021-11-05] MEDS: iohexol 350 mg/mL 100 mL Btl IV (11:44)
[2021-11-05] MEDS: iohexol 300 mg/mL 50 mL Btl PO (11:44)
== END 2021-11-05 08:13 | disposition home or self-care (01) ==
LOC: ONCMED 08:13
PROVIDERS: Nurse Practitioner; PCP Family Medicine; Visit Provider Internal Medicine Medical Oncology
DX: C20 Malignant neoplasm of rectum (principal); K62.89 Other specified diseases of anus and rectum; K57.90 Diverticulosis of intestine, part unspecified, without perforation or abscess without bleeding; K62.5 Hemorrhage of anus and rectum
CPT/HCPCS: 36415; 71260; 74177; 80053; 82378; 85025; Q9967

== ENCOUNTER 2021-11-15 06:30 | Outpatient (CLI) | payer OTHER, SELFPAY ==
--- NOTE | 2021-11-17 13:23 | ONC FU_ITS ---
Dr. Beltre Patient Follow-Up Note Patient: Tee Chilel Jr Unit #: [id number]: 1950 Dicatated By: Skip Beltre M.D.Date of Visit:Nov 15, 2021 Onc Med Follow-up/Prog Note Chief Complaint: Rectal cancer. History of Present Illness: This is a 71 year-old man with metastatic rectal cancer, stage GHASSAN (T4a, N2a, M1a). He had presented with a positive stool Hemoccult test, which apparently was done as a screening procedure through the [place]. He was having no GI symptoms at that time, and he also indicated that he had not been aware of any blood in his stool. He underwent colonoscopy on 07/29/14. He was found to have a malignant appearing mass at 8 cm. Also noted were several polyps, including 2 at 42 cm and 1 at 25 cm, all of which were removed endoscopically. The polyps at 42 cm were reported to be serrated adenomas, and a polyp at 25 cm was a peduncular tubular adenoma. Biopsy of the rectal mass showed high-grade dysplasia with no definitive evidence of invasive adenocarcinoma. A subsequent CT abdomen/pelvis confirm the presence of a mass in the rectum measuring 4 x 4.6 x 6 cm. There was no associated lymphadenopathy, and there was no evidence of metastatic involvement in the liver. However, that study did show a noncalcified right lower lobe pulmonary nodule measuring 1.8 x 1.6 cm. He had further evaluation with PET/CT on 09/29/14. It showed uptake in the rectal mass, consistent with primary malignancy, but with no evidence for macroscopic regional lymph node metastases. The right lower lobe pulmonary nodule was noted be hypermetabolic, consistent with malignancy. On 11/02/2014 he underwent video assisted thoracic surgery with wedge resection of the right lower lobe pulmonary nodule. 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 The tumor was positive for CK 20 and CDX 2, consistent with colorectal primary. The margins were negative. Staging MRI of the pelvis on 11/11/14 showed rectal tumor measuring 5 x 4.6 x 5.2 cm with the inferior margin at approximately 3 cm from the anorectal junction. T stage was felt to be at least T3 and probably a T4, with the primary lesion extending anteriorly to the medial left seminal vesicle margin and probably invading the left seminal vesicle. Tumor also appeared to be extending up to if not through the anterior basal rectal fascia at the level of the left seminal vesicle. There were more than 4 pelvic lymph nodes which were felt to be suspicious. Bilateral upper iliac nodes measured 1 cm or greater. He underwent examination under anesthesia and rigid proctoscopy on 12/06/2014. This showed a mass at 4 cm from the dentate line in the right anterior portion of the rectum. He was given neoadjuvant chemoradiation utilizing Xeloda for the chemosensitization. Radiation was completed on 02/15/15 to a total dose of 6120 cGy. He tolerated the treatment very well. Repeat MRI on 03/29/15 showed residual tumor measuring 3.9 x 3.9 x 4.5 cm. It was again noted to extend anteriorly to the mesorectal fascia and possibly through the mesorectal fascia and in contact with the surface of the seminal vesicles. There were again more than 4 pelvic lymph nodes identified, including upper iliac nodes bilaterally. He was seen by the colorectal surgeon, and it was recommended that he complete some additional oxaliplatin based neoadjuvant chemotherapy. He began cycle 1 of oxaliplatin/Xeloda in May. He tolerated it extremely well. He completed his 4th cycle of treatment in August 2015. Restaging PET/CT on 09/25/2015 showed a decrease in the size and FDG activity of the previously noted right lower lobe pulmonary nodule. Those residual findings were presumed to be related to postoperative changes. There were no new pulmonary nodules. Enlarged right paratracheal, precarinal, and right hilar lymph nodes were noted to show dense calcifications and were felt to be likely benign. There was noted to be reduction in the size and FDG activity of the rectal tumor, measuring 3.6 x 2.4 cm with maximum SUV 3.3 compared to 5.7 x 4.4 cm with maximum SUV 36.0, consistent with partial response. A previously enlarged pericaval lymph node was unchanged measuring 2.2 cm and it was felt to be likely benign. A few punctate perirectal nodular densities showed no significant FDG activity were felt to represent prominent perirectal lymph nodes. There was no evidence of any other metastatic disease. He had a follow-up MRI through the [place] on 10/29/2015. That study did show some further decrease in the size of the rectal tumor, to 3.5 x 3.9 x 3.9 cm. It was again noted to extend anteriorly to the mesial rectal fascia and possibly through the mesial rectal fascia. It was noted be in contact with the surface of the seminal vesicles, but actual invasion of the semincal vesicles was not clearly evident. Upper iliac nodes noted on the previous study were not included. Of 2 other right pelvic lymph nodes previously identified, one was slightly smaller measuring less than 5 mm and the other was noted to have resolved. At this point the tumor was felt to be more likely T3 than T4 and at least N1. He subsequently had follow-up with his surgeon, as they were considering the possibility of AP resection and cystoprostatectomy. However, he ultimately declined the surgery, as he preferred to have more conservative management in the face of what was most likely not going to be curative malignancy. As such, he was then followed on observation. As of 11/24/2018 his CEA had increased slightly, to 4.4 ng/mL. Surveillance CT scans at that time showed no obvious disease progression in the chest, abdomen, or pelvis. As of June 2020 there was a slight further increase in the CEA level. Restaging CT scans at that time still showed no evidence of metastatic disease, but wall thickening of the rectum had further increased up to 2.1 cm extending over a length of 4.3 cm. An infraumbilical ventral hernia appeared to contain only fat. As he was not overtly symptomatic, he continued on observation/expectant management. On 08/23/2020 he was seen by Dr. Bloom due to new onset of rectal bleeding. He then underwent colonoscopy on 09/06/2020. On digital exam he was noted to have an anterior anal mass at about 4 cm from the anal verge. It was hard in consistency and it appeared to occupy the anterior third to half of the circumference of the lower anal segment. The colonoscopy showed a partially obstructing, large size malignant appearing mass within the anus, estimated at 8 x 6 cm. Biopsy showed well differentiated adenocarcinoma. Restaging PET/CT on 09/23/2020 showed a 4.4 x 4.5 cm rectal mass with SUV 18.7, consistent with malignancy. Mild FDG activity was noted in a left common iliac lymph node measuring 9 mm, possibly representing local metastatic disease. Other scattered pelvic lymph nodes were subcentimeter in size and FDG negative. In the absence of any evidence of metastatic disease, he was referred to Dr. Kearney in [place] for consideration of surgical resection. On 10/24/2020 he underwent robotic extended low anterior resection with radical en bloc resection of seminal vesicles and vas deferens with portion of prostate and with placement of loop ileostomy. It did turntable operator to be a very difficult procedure, but grossly there was no evidence of metastatic disease and the tumor was able to be completely resected. Pathology showed grade 2 mucinous adenocarcinoma measuring 4.5 x 2.5 cm. It was invading through the muscularis propria into the perirectal adipose tissue and it was noted to be adherent to the underlying prostate. All margins were uninvolved. The closest margin was to the adherent right and left prostate measured at 0.5 cm. There was no involvement in 10 lymph nodes. Pathologic staging was pT4b, pN0. The procedure was complicated by report of a positive COVID-19 test. However, this ultimately was felt to have been inaccurate, as he had no COVID-19 symptoms either before or after surgery. I had seen him for a follow-up visit on 11/24/2020. At that point he was recovering pretty well from the surgery. We discussed the possibility of some additional adjuvant chemotherapy. I felt that there would be significant risk for treatment related toxicity, but with uncertain potential benefit. As such, we opted to just continue with expectant management. His medical history is otherwise significant for venous insufficiency of his right leg which developed following a previous injury. He has had recurrent episodes of cellulitis in his right leg as a result. He also has some degenerative arthritis, but he has had no other ongoing medical illnesses. He has a history of smoking 1 pack of cigarettes daily for 40 years, but he quit smoking in 1995. INTERIM HISTORY: Restaging CT scans on 11/05/2021 showed no evidence for any suspicious pulmonary mass or nodule. The previously described abnormal thickening of the rectal mejia was not identified. There was evidence for a right-sided ventral hernia containing unobstructed small bowel. There was no lymphadenopathy or other evidence of metastatic disease noted in the chest, abdomen, or pelvis. He is seen for a follow-up visit. He has been feeling pretty good generally, though he has generally been a little more fatigued, and there has been some decline in his activity tolerance. His ECOG score is 1. He has good appetite. He has not had fever. He has had some sweating at night, but that has been going on for years. He has sinus drainage. He has not had sore mouth or throat. He has some shortness of breath, but his breathing is not too bad. He does not complain of cough, and he has not been having chest pain. He has no GI complaints other than his bowel movements have been a lot more frequent since his surgery, and he is having some difficulty controlling the bowel movements. He has tried adding fiber, and he also has been taking some Imodium. Bladder function remains adequate, though he does have frequent urination. He has some joint pain, which is chronic. He continues to have neuropathy symptoms, especially in his hands. Medications: Chromium 1 Tablet (of 100 mcg) Tablet Oral t.i.d., Imodium A-D 1 - 2 Tablet (of 2 mg) Capsule Oral PRN, Meloxicam 1 (15 mg) Tablet Oral daily, NIFEdipine 1 Tablet (of 30 mg) Tablet SR 24 HR Oral daily, Pentoxifylline 1 Tablet (of 400 mg) Tablet, controlled release Oral t.i.d., Selenium 6 Tablet (of 50 mcg) Oral t.i.d., Sertraline HCl 0.5 Tablet (of 25 mg) Oral daily, Silica 1 Capsule (of 3000 mg) Oral daily Allergies: No Known Allergies. Vital Signs: Performed on Nov 15, 2021 15:24 Height - 72.00 in Weight - 292.6 lbs (HIGH) BSA - 2.50 sq.m BMI - 39.68 (HIGH) Temperature - 96.6 F (LOW) Pulse - 89 /min Respiration - 18 /min BP - 130/78 mm(hg) O2 Sat - 98 % Pain - 2 Fatigue - 8 Physical Examination: Constitutional - He looks pretty good generally, Eyes - Sclerae nonicteric. Conjunctivae clear, ENMT - No lesions noted in the oral cavity, Hematologic/Lymphatic - No cervical, clavicular, or axillary adenopathy, Respiratory - Lungs are clear, Cardiovascular - Heart rhythm is regular. There is no murmur, gallop, or rub noted, Abdomen - Distended. There is evidence of ventral hernia in the lower abdomen to the right of the midline. Liver and spleen are not enlarged. There is no abdominal mass or ascites noted and there is no inguinal adenopathy, Extremities - There is mild swelling at the right ankle, which is chronic, Neurologic - He does not appear to have any focal neurologic deficit. Lab/Imaging: CBC shows hemoglobin 15.6 g, white blood cell count 6600, and platelet count 219,000. Comprehensive metabolic profile shows stable renal function with BUN 17 and creatinine 0.7 mg/dL. Bilirubin and liver enzymes are normal. CEA is stable at 3.5 ng/mL. Problem List: 1. Mucinous adenocarcinoma of the rectum, locally advanced and metastatic, by clinical evaluation stage GHASSAN (T4b, N2a, M1a) at initial diagnosis in 2013. 2. He underwent video-assisted thorascopic surgery with wedge resection of right lower lobe pulmonary nodule on 11/02/2014. 3. He initially underwent neoadjuvant chemoradiation utilizing Xeloda for chemosensitization. He completed treatment on 02/15/2015 to a total dose of 6120 cGy. He still had significant residual disease on followup MRI in March 2015. 4. He was then given additional neoadjuvant chemotherapy with 4 cycles of oxaliplatin/Xeloda, which he completed in August 2015. He was then followed on observation/expectant management. 5. He has some chronic venous insufficiency of the right leg with history of recurrent episodes of cellulitis. 6. He also has some degenerative arthritis. Problems Addressed with this Encounter and Plan: Patient with mucinous adenocarcinoma of the rectum, locally advanced and metastatic, by clinical evaluation stage GHASSAN (T4b, N2a, M1a) at initial diagnosis in 2013. He had long-term stability following resection of metastatic pulmonary nodule, neoadjuvant chemoradiation, and subsequent adjuvant chemotherapy with 4 cycles of oxaliplatin/Xeloda, completed in August 2015. In August 2020 he had documented progression of local disease in the rectum, but with no evidence of metastatic involvement by restaging PET/CT. On 10/24/2020 he underwent complete surgical resection with robotic extended low anterior resection and en bloc resection of seminal vesicles, vas deferens, and portion of prostate. Pathologic staging was pT4b, pN0 with negative surgical margins. As I felt there would be potential for significant treatment-related toxicity but with uncertain potential benefit, we opted not to attempt any further adjuvant chemotherapy. He is being followed on expectant management. In February 2021 he was able to undergo reversal of his ostomy. During follow-up he has had some ongoing problems with frequent bowel movements and with some degree of bowel incontinence. He recently has tried adding fiber and he also has been taking some Imodium, but without significant benefit. He has some ongoing complaints of fatigue and neuropathy following his chemotherapy, which does limit his activity somewhat. Overall, despite those issues, he is doing pretty well clinically, thus far with no evidence of any further recurrence of the rectal cancer. As such, he continues expectant management. I will see him again in 6 months. In the meantime, I did recommend that he try taking 2 Imodium tablets up to 4 times a day as needed. If that is not controlling his bowel movements adequately, I will also give him the option to try colestipol. Signed By: Skip Beltre M.D. <<Signature on File>>
== END 2021-11-15 06:31 | disposition home or self-care (01) ==
PROVIDERS: PCP Family Medicine; Visit Provider Internal Medicine Medical Oncology
DX: Z08 Encounter for follow-up examination after completed treatment for malignant neoplasm (principal); Z85.048 Personal history of other malignant neoplasm of rectum, rectosigmoid junction, and anus; I87.2 Venous insufficiency (chronic) (peripheral); L03.115 Cellulitis of right lower limb; M19.90 Unspecified osteoarthritis, unspecified site; R53.82 Chronic fatigue, unspecified; G62.9 Polyneuropathy, unspecified; Z79.899 Other long term (current) drug therapy; Z92.21 Personal history of antineoplastic chemotherapy; Z92.3 Personal history of irradiation
CPT/HCPCS: 99214

== ENCOUNTER 2022-02-08 09:51 | Inpatient (IN) | payer OTHER, MEDICARE, SELFPAY ==
[2022-02-08] VITALS (21 sets, daily range): BP systolic 58–129; BP diastolic 43–70; PULSE 81–120; RESP 17–28; TEMP 36.2–36.7; O2SAT 91–99; BMI 38.5
--- NOTE | 2022-02-08 10:29 | XR_ITS ---
WS: [id number] Portable AP semiupright chest, 02/08/2022 Clinical Data: shortness of breath Comparison: Portable chest, 12/19/2020. Findings: No nodules, masses or effusions are seen. The heart is normal. The pulmonary vascularity is not increased. No pneumonia or pneumothorax is seen. The aortic arch and descending thoracic aorta s how tortuosity. XR/XR chest 1V portable [id number] Impression: Atherosclerosis.
--- NOTE | 2022-02-08 10:34 | ECG_ITS ---
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 Measurements Intervals [place] Rate: 130 P: -9 MT: 169 QRS: -27 QRSD: 87 T: 50 QT: 291 QTc: 429 Interpretive Statements SINUS TACHYCARDIA WITH FREQUENT SUPRAVENTRICULAR PREMATURE COMPLEXES poor R wave progression Compared to ECG 12/19/2020 18:43:34 Myocardial infarct finding now present Sinus rhythm no longer present Electronically Signed On 02-08-2022 17:50:00 CDT by Giovanna Pa M.D. [id number]
--- NOTE | 2022-02-08 10:34 | CTR_ITS ---
PROCEDURE INFORMATION: Exam: CT Abdomen And Pelvis With Contrast Exam date and time: 02/08/2022 1:08 PM Age: 71 years old Clinical indication: Prior surgery; Surgery date: 6+ months; Surgery type: Ostomy and reversal; Patient HX: Abdominal discomfort and pain; Vomiting , diarrhea. Shortness of breath. ; Additional info: Abdominal pain h/o colon SX and CA TECHNIQUE: Imaging protocol: Computed tomography of the abdomen and pelvis with contrast. Radiation optimization: All CT scans at this facility use at least one of these dose optimization techniques: automated exposure control; mA and/or kV adjustment per patient size (includes targeted exams where dose is matched to clinical indication); or iterative reconstruction. Contrast material: VISI 320; Contrast volume: 95 ml; Contrast route: INTRAVENOUS (IV); COMPARISON: CT chest abd pel w con* 11/05/2021 10:28 AM RADIATION DOSE METRICS: Total DLP (mGy-cm): 1998. FINDINGS: Lungs: Bibasilar scarring/atelectasis. Liver: There is fatty change involving the liver parenchyma. Gallbladder and bile ducts: There is cholelithiasis. No biliary ductal dilation. Pancreas: No pancreatic mass. No peripancreatic inflammation. No pancreatic ductal dilation. Spleen: The spleen is homogeneous and is not enlarged. Adrenal glands: No change in the appearance of the adrenal glands. Kidneys and ureters: There is right nephrolithiasis. No hydronephrosis. Stomach and bowel: No bowel obstruction. Scattered colonic diverticula without diverticulitis. Appendix: No evidence of appendicitis. Intraperitoneal space: There is moderate volume free intraperitoneal fluid as well as pneumoperitoneum. There is extraluminal gas within the mesentery. Vasculature: No abdominal aortic aneurysm. Lymph nodes: No enlarged lymph nodes. Urinary bladder: No urinary bladder calculus or wall thickening. Reproductive: Unremarkable as visualized. Bones/joints: There is multilevel disc degeneration and facet arthropathy in the spine. There is diffuse idiopathic skeletal hyperostosis in the lower thoracic spine. Hemangioma in the T7 vertebral body. Soft tissues: There is a right paramidline ventral hernia containing small bowel without bowel obstruction or bowel wall thickening. The hernia sac has increased in size, and contains more small bowel, than demonstrated on the comparison exam. CT/CT abdomen pelvis w con* [id number] IMPRESSION: 1. Free intraperitoneal fluid, pneumoperitoneum, and extraluminal mesenteric gas compatible with perforated viscus, source otherwise uncertain. 2. Cholelithiasis. No biliary ductal dilatation. 3. Right nephrolithiasis without urinary tract obstruction. 4. Larger right ventral hernia containing more small bowel, but without bowel obstruction or signs of strangulation.
[2022-02-08 10:45] LABS: Basophils % 0.4 %; Hematocrit 57.8 % (42.0-52.0); Hemoglobin 18.8 g/dL (11.7-16.6); Lymphocytes # 0.6 10^3/uL (0.8-4.8); Mean Corpuscular HGB Conc 32.5 g/dL (30.0-36.0); Mean Corpuscular Hemoglobin 28.7 pg (28.0-34.0); Mean Corpuscular Volume 88.2 fl (80-94); Mean Platelet Volume 10.1 fL (7.4-10.4); Monocytes # 0.1 10^3/uL (0.2-0.9); Monocytes % 4.6 %; Neutrophils # 1.88 10^3/uL (1.8-7.7); Neutrophils % 72.6 %; Nucleated Red Blood Cells % 0 %; Platelet Count 260 10^3/cmm (130-400); Red Blood Count 6.55 10^6/uL (4.1-5.3); Red Cell Distribution Width 14.7 % (12.1-15.1); White Blood Count 2.6 10^3/uL (4.0-10.0)
--- NOTE | 2022-02-08 10:48 | ED_ITS ---
HPI - SOB/Dyspnea General: Chief Complaint: Shortness of Breath/Dyspnea Stated Complaint: Nausea, vomiting, ABD pain Time Seen by Provider: 02/08/22 10:01 History of Present Illness: HPI Narrative: 71-year-old male presents to emergency department chief complaint of abdominal discomfort and pain as well as shortness of breath this been ongoing progressively worse for last 2 to 3 days he reports no sick or ill contacts he reports having a known history of stomach cancer with revision ostomy and reversal. Patient does report several episodes of nonbloody vomiting and diarrhea. The patient reports he normally runs a little on the loose side. He complains of several episodes of nonbloody emesis and will hold anything down reporting diffuse abdominal pain as well as shortness of breath patient does not recall having any pre-existing history of any significant cardiac or pulmonary issues there was noted that he did have chemotherapy previously for a spot on his left lung that had metastasized from his prior colon cancer. Patient has been and followed up from this cancer previously. Associated symptoms: Reports abdominal pain, nausea and vomiting; Deny chest pain, extremity pain, fever(s) or palpitations Review of Systems General: Reports: 10 or more systems reviewed and unremarkable except in HPI and below Const: Denies: fever(s), chills, fatigue or malaise Eyes: Denies: change in vision or blurry vision Card: Denies: chest pain or palpitations Resp: Reports: dyspnea and productive cough GI: Reports: abdominal pain, nausea, vomiting and diarrhea : Denies: flank pain Musc: Denies: extremity pain or extremity swelling Skin/Breast: Denies: rash or pruritus Neuro: Denies: headache(s) Psych: Denies: anxiety or depression Donnie/Lymph: Denies: easy bleeding All/Imm: Denies: urticaria, throat swelling or facial swelling PFSH ED PFSH: Medical History (Updated 02/08/22 @ 15:18 by Eddie Bailey MD) Diverticulosis DJD (degenerative joint disease) HTN (hypertension) Hypertension Nephrolithiasis On imaging Rectal cancer Metastatic to right lower lobe Ventral hernia without obstruction or gangrene Surgical History (Updated 02/08/22 @ 15:18 by Eddie Bailey MD) History of colonoscopy History of lobectomy of lung Right lower lobe History of low anterior resection of rectum S/P ileostomy 10/24/2020 he underwent robotic extended low anterior resection with radical en bloc resection of seminal vesicles and vas deferens with portion of prostate and with placement of loop ileostomy with subsequent takedown of the diverting ileostomy Family History Denies family history of Anesthesia complication Bleeding disorder Social History (Updated 02/08/22 @ 15:14 by Eddie Bailey MD) Smoking and tobacco status: former smoker Quit status (tobacco): has quit using tobacco Year quit tobacco: 1995 Former quit date comment: [id number] history Physical Exam Narrative: EXAM NARRATIVE: Patient is a flat affect appears in moderate distress dry mucous membranes and dry lips noted Const: COMMON NORMALS: patient oriented x3 (Appears ill appearing) HENMT: COMMON NORMALS: normocephalic and atraumatic HEAD & SCALP: normocephalic and atraumatic Eye: COMMON NORMALS: Equal, round and reactive pupils present and EOMs intact bilaterally PUPIL: Yes Equal, round and reactive pupils present Neck/C-Spine: COMMON NORMALS: full ROM, supple and no JVD Lymph: LYMPHATIC: no lymphadenopathy noted Chest: COMMONS NORMALS: normal inspection of the chest and normal palpation of entire chest wall Resp: COMMON NORMALS: normal respiratory effort, No retractions and clear to auscultation bilaterally EFFORT & INSPECTION: Yes able to speak in complete sentences and Yes symmetric chest movement AUSCULTATION: clear to auscultation bilaterally and other (Moderate tachypnea apparent equal breath sounds noted bilaterally) Cardio: COMMON NORMALS: no JVD and regular rhythm; negative for regular rate RATE: abnormal rate and tachycardic (Rate approximately 110-115) RHYTHM: regular rhythm GI: OTHER: Diffuse abdominal pain with guarding appreciated nonspecific mostly noted to the upper abdomen : COMMON NORMALS: Yes no CVA tenderness BLADDER/KIDNEY EXAM: Yes no CVA tenderness Back/Pelvis: COMMON NORMALS: no CVA tenderness Extremity: COMMON NORMALS: normal to inspection and full ROM Neuro: COMMON NORMALS: patient oriented x3 (Appears ill appearing), CN's II- XII intact bilaterally, moves all extremities and no focal motor deficits Psych: COMMON NORMALS: mental status grossly normal, Normal thought process present, cooperative and normal affect THOUGHT PROCESS: Normal thought process present Skin: COMMON NORMALS: no rashes or lesions noted GENERAL SKIN EXAM: no rashes or lesions noted Course Vital Signs: Vital signs: Vital Signs Temperature 97.8 F 02/08/22 10:06 Pulse Rate 112 H 02/08/22 10:06 Respiratory Rate 24 H 02/08/22 10:06 Blood Pressure 88/55 02/08/22 10:06 Pulse Oximetry 95 02/08/22 10:06 MDM - SOB/Dyspnea Medical Decision Making Due to the patient's symptom condition labwork and imaging will be obtained antiemetics will be provided we will continue to follow. Will be following sepsis protocol as patient appears to be tachycardiac and somewhat hypotensive. We will continue to follow he does also appear to be very dehydrated IV fluids were provided per protocol as patient has diffuse abdominal pain underlying concerns of intra-abdominal infection especially with his history of colon cancer with resection. We will continue to follow Under constant underlying concerns of sepsis are prominent patient is tachypneic on exam patient has equal breath sounds to auscultation with no obvious wheezing nebulizer chest x-ray will be obtained EKG troponins will be obtained lactic acid and blood cultures provided I believe that the source of the patient's infection is most likely the abdomen patient came back with a lactic acid greater than 10 with leukopenia with a white blood cell count of 2.6 this this confirms my suspicion concerns of underlying sepsis patient was started on vancomycin and Zosyn for infection prophylaxis 30 mill per kilogram bolus of IV fluids was initiated is notified by nursing staff the patient was becoming somewhat hypotensive the blood pressures ranging 90/50. We will continue to follow with anticipation admission to the intensive care unit. CAT scan patient revealed a perforated hollow viscus organ unknown location this ablated is the main concern that was causing this patient's sepsis and peritonitis. Discussed patient case with Dr. Bailey. Came to the ER department to assess the patient also discussed the patient's case with Dr. Hudson hospitalist is bryson acceptance to the intensive care unit. Patient remains very guarded condition this time very marginal blood pressures high 80s to 90s over 50s currently. With a mean arterial pressure of 62. Lab Data : 02/08/22 10:34 02/08/22 10:34 Labs/Radiology: Radiology Impressions Chest X-Ray 02/08/22 10:29 Impression: Atherosclerosis. Abdomen/Pelvis CT 02/08/22 10:34 IMPRESSION: 1. Free intraperitoneal fluid, pneumoperitoneum, and extraluminal mesenteric gas compatible with perforated viscus, source otherwise uncertain. 2. Cholelithiasis. No biliary ductal dilatation. 3. Right nephrolithiasis without urinary tract obstruction. 4. Larger right ventral hernia containing more small bowel, but without bowel obstruction or signs of strangulation. ADDENDUM: 02/08/22 [id number] THIS REPORT CONTAINS FINDINGS THAT MAY BE CRITICAL TO PATIENT CARE. The exam findings were verbally communicated by me via telephone conference to SUNSHINE FIGUEROA at 2:09 PM CDT on 02/08/2022. The findings were acknowledged and understood. He indicated the patient has an elevated lactic acid. There may be some small bowel loops that have thickened mejia, but this is difficult to be certain about as the small bowel is not distended. The small bowel mejia appear to enhance. Discussed that the amount of mesenteric gas could indicate a small bowel source but this is not definitive. Laboratory Results WBC 2.6 10^3/uL (4.0-10.0) L 02/08/22 10:34 RBC 6.55 10^6/uL (4.1-5.3) H 02/08/22 10:34 Hgb 18.8 g/dL (11.7-16.6) H 02/08/22 10:34 Hct 57.8 % (42.0-52.0) H 02/08/22 10:34 MCV 88.2 fl (80-94) 02/08/22 10:34 MCH 28.7 pg (28.0-34.0) 02/08/22 10:34 MCHC 32.5 g/dL (30.0-36.0) 02/08/22 10:34 RDW 14.7 % (12.1-15.1) 02/08/22 10:34 Plt Count 260 10^3/cmm (130-400) 02/08/22 10:34 MPV 10.1 fL (7.4-10.4) 02/08/22 10:34 Neut % (Auto) 72.6 % 02/08/22 10:34 Lymph % (Auto) 22.0 % 02/08/22 10:34 Frontier % (Auto) 4.6 % 02/08/22 10:34 Eos % (Auto) 0.0 % 02/08/22 10:34 Baso % (Auto) 0.4 % 02/08/22 10:34 Neut # (Auto) 1.88 10^3/uL (1.8-7.7) 02/08/22 10:34 Lymph # (Auto) 0.6 10^3/uL (0.8-4.8) L 02/08/22 10:34 Frontier # (Auto) 0.1 10^3/uL (0.2-0.9) L 02/08/22 10:34 Eos # (Auto) 0.0 10^3/uL (0.0-0.8) 02/08/22 10:34 Baso # (Auto) 0.0 10^3/uL (0.0-0.1) 02/08/22 10:34 Nucleated RBC % (auto) 0 % 02/08/22 10:34 Nucleated RBCs # 0.0 /100WBC 02/08/22 10:34 Sodium 141 mmol/L (136-145) 02/08/22 10:34 Potassium 3.2 mmol/L (3.5-5.1) L 02/08/22 10:34 Chloride 103 mmol/L (98-107) 02/08/22 10:34 Carbon Dioxide 15 mmol/L (22-29) L 02/08/22 10:34 Anion Gap 26.2 (5-19) H 02/08/22 10:34 BUN 24 mg/dL (8-23) H 02/08/22 10:34 Creatinine 1.8 mg/dL (0.7-1.2) H 02/08/22 10:34 GFR Calculation Not Reportable 02/08/22 10:34 Glucose 185 mg/dL (65-115) H 02/08/22 10:34 Calculated Osmolality 301 mOsm/kg (285-295) H 02/08/22 10:34 Lactate 10.3 mmol/L (0.5-2.2) H* 02/08/22 11:15 Calcium 10.4 mg/dL (8.5-10.5) 02/08/22 10:34 Total Bilirubin 1.1 mg/dL (0.15-1.2) 02/08/22 10:34 AST 19 U/L (0-40) 02/08/22 10:34 ALT 18 U/L (0-41) 02/08/22 10:34 Alkaline Phosphatase 65 IU/L (40-130) 02/08/22 10:34 Lactate Dehydrogenase 200 U/L (135-225) 02/08/22 10:34 Troponin T Baseline 106 ng/L (0-15) H* 02/08/22 10:34 Troponin T 120 Minute 121.4 ng/L (0-15) H 02/08/22 12:21 Delta Troponin T 15.4 ABS# (0-10) H* 02/08/22 12:21 C-Reactive Protein 36.5 mg/L (0.0-4.9) H 02/08/22 10:34 NT-Pro-B Natriuret Pep 594 pg/mL (0-125) H 02/08/22 10:34 Total Protein 7.0 g/dL (6.6-8.7) 02/08/22 10:34 Albumin 4.0 g/dL (3.5-5.2) 02/08/22 10:34 Globulin 3.0 g/dL (1.3-4.6) 02/08/22 10:34 Lipase 19 U/L (13-60) 02/08/22 10:34 Nasal Influ A H1 2009 PCR Not detected (NOT DETECT) 02/08/22 10:57 Adenovirus (PCR) Detected (NOT DETECT) A 02/08/22 13:21 Coronavirus 229E (PCR) Not detected (NOT DETECT) 02/08/22 10:57 Influenza A (H1) PCR Not detected (NOT DETECT) 02/08/22 10:57 Influenza A (H3) PCR Not detected (NOT DETECT) 02/08/22 10:57 Influenza Type A (PCR) Not detected (NOT DETECT) 02/08/22 10:57 Influenza Type B (PCR) Not detected (NOT DETECT) 02/08/22 10:57 SARS-CoV-2 (PCR) Not detected (NOT DETECT) 02/08/22 10:57 Critical Care Time Critical Care Time: Critical Care Time: Yes Total Critical Care Time: 45 Attestation: This case had a high probability of a clinically significant, sudden, or life threatening deterioration of this patient's condition which required my full and direct attention, intervention and personal management. Discharge Plan Discharge Admit Provider: Hugo Greenwood Clinical Impression: Perforated abdominal viscus, Lactic acid acidosis, Leukopenia, Elevated tro ponin, Sepsis Condition: Stable Coding Level of Care Code ED Chemical Technician for Chg Fwd Exam Comprehensive
[2022-02-08] MEDS: sodium chloride 0.9% 1,000 ML 999 ML IV (10:52)
[2022-02-08] MEDS: ondansetron 2 mg/ML SDV 2 mL 4 MG IVP ×2 (10:53→15:05)
[2022-02-08 11:13] LABS: Alanine Aminotransferase 18 U/L (0-41); Alkaline Phosphatase 65 IU/L (40-130); Anion Gap 26.2 (5-19); Aspartate Amino Transferase 19 U/L (0-40); Blood Urea Nitrogen 24 mg/dL (8-23); Calcium 10.4 mg/dL (8.5-10.5); Carbon Dioxide 15 mmol/L (22-29); Chloride 103 mmol/L (98-107); Glucose 185 mg/dL (65-115); Lipase 19 U/L (13-60); NT Pro B Type Natriuretic Pept 594 pg/mL (0-125); Osmolality Calculated 301 mOsm/kg (285-295); Potassium 3.2 mmol/L (3.5-5.1); Sodium 141 mmol/L (136-145); Total Bilirubin 1.1 mg/dL (0.15-1.2); Troponin(5th) Baseline 106 ng/L (0-15)
[2022-02-08 11:40] LABS: Slide Review Slide Review Perform
[2022-02-08] MEDS: SODIUM CHLORIDE 0.9% 3864.6 ML IV (11:40)
[2022-02-08 11:56] LABS: Lactate (Lactic Acid level) 10.3 mmol/L (0.5-2.2)
--- NOTE | 2022-02-08 12:34 | ECG_ITS ---
[facility] Test Date: 2022-02-08 Pat Name: Tee Chilel Jr Department: Room: Gender: Male [employer]le [employer] Shaper: : 1950 Requested By: Danny Rodriguez Order Number: [id number] Saskia MD: Giovanna Pa M.D. Measurements Intervals [place] Rate: 84 P: 7 OR: 198 QRS: -10 QRSD: 106 T: 58 QT: 364 QTc: 432 Interpretive Statements SINUS RHYTHM WITH OCCASIONAL SUPRAVENTRICULAR PREMATURE COMPLEXES NONSPECIFIC T-WAVE ABNORMALITY Compared to ECG 02/08/2022 10:22:55 T-wave abnormality now present Sinus tachycardia no longer present Myocardial infarct finding no longer present Electronically Signed On 02-08-2022 17:55:04 CDT by Giovanna Pa M.D. [email or web address]
[2022-02-08 12:37] LABS: C Reactive Protein 36.5 mg/L (0.0-4.9); Lactate Dehydrogenase 200 U/L (135-225)
[2022-02-08 12:53] LABS: Troponin 5 2HR 121.4 ng/L (0-15); Troponin 5 2HR Delta 15.4 ABS# (0-10)
[2022-02-08] MEDS: iodixanol 320 mg/mL 100mL Btl IV (13:09)
[2022-02-08 13:18] LABS: Adenovirus Detected (NOT DETECT); Chlamydia Pneumoniae Not Detected (NOT DETECT); Coronavirus 229E,HKU1,NL63,OC4 Not Detected (NOT DETECT); Human Metapneumovirus Not Detected (NOT DETECT); Human Rhinovirus/Enterovirus Not Detected (NOT DETECT); Influenza A Not Detected (NOT DETECT); Influenza A H1 Not Detected (NOT DETECT); Influenza A H1-2009 Not Detected (NOT DETECT); Influenza A H3 Not Detected (NOT DETECT); Influenza B Not Detected (NOT DETECT); Mycoplasma Pneumoniae Not Detected (NOT DETECT); Parainfluenza Virus Type 1 Not Detected (NOT DETECT); Parainfluenza Virus Type 2 Not Detected (NOT DETECT); Parainfluenza Virus Type 3 Not Detected (NOT DETECT); Parainfluenza Virus Type 4 Not Detected (NOT DETECT); Respiratory Syncytial Virus A Not Detected (NOT DETECT); Respiratory Syncytial Virus B Not Detected (NOT DETECT); SARS-COV-2 Not Detected (NOT DETECT)
[2022-02-08 13:22] LABS: Adenovirus Detected (NOT DETECT); Results from Genmark
[2022-02-08] MEDS: piperacillin-tazobactam 4.5 GM in sodium chloride 0.9% (plus) 50 ML IV (14:28)
[2022-02-08 14:37] LABS: Influenza A Not Detected (NOT DETECT); Influenza A H1 Not Detected (NOT DETECT); Influenza A H1-2009 Not Detected (NOT DETECT); Influenza A H3 Not Detected (NOT DETECT); Influenza B Not Detected (NOT DETECT); Results from Genmark
[2022-02-08] MEDS: sodium chloride 0.9% 500 ML 999 ML IV (14:43)
[2022-02-08] MEDS: sodium chloride 0.9% 1,000 ML 125 ML IV ×2 (14:46→21:33)
--- NOTE | 2022-02-08 14:50 | P.HP_ITS ---
Providers/Chief Complaint Admitting Physician: Hugo Greenwood MD Primary Care Provider: Tana Vital MD Chief Complaint: Nausea, vomiting, ABD pain History of Present Illness Tee Chilel Jr is a 71 year old male with past medical history of rectal cancer, diverting ileostomy which was reversed, hypertension, ventral hernia present to the ER today because of abdominal pain and multiple episodes of vomiting and few episodes of soft bowel movements. He denies any hematemesis or melena. Abdominal pain started yesterday. Pain currently is generalized. He denies of having chest pain. States usually is able to walk around a mile or 2 without having any difficulty in breathing or chest pressure. Former smoker. No significant past medical history or family history of strokes or CAD. In the ER he was found to be hypotensive so he was given IV fluids as per sepsis protocol. His blood pressures post bolus reached 90/50 mmHg. He was seen by Dr. Encinas and taken to the OR for expiratory laparotomy. Blood work in the ER showed white count 2.6, hemoglobin of 18.8, platelet of 260, sodium 141, potassium 3.2, bicarb of 15, creatinine of 1.8, BUN of 24, lactate of 10, baseline 106, positive delta of 15.4, adenovirus positive, COVID-19 negative, UA showing 1+ ketones, negative nitrate, trace leuk esterase, proBNP [address] imaging as below. Review of Systems General: Reports: 10 or more systems reviewed and unremarkable except in HPI and below Const: Denies: fever(s), chills, body aches, change in appetite, change in weight, malaise, night sweats, diaphoresis, change in sleep pattern, daytime sleepiness or snoring Eyes: Denies: change in vision, blurry vision, photophobia, eye discomfort or eye discharge ENMT: Denies: throat pain, enlarged tonsils, hoarseness, mouth pain, oral sores, dry mouth, tinnitus, nasal congestion or post nasal drip Card: Denies: chest pain, palpitations, irregular heart rhythm, edema, swelling of feet/ankles, lightheadedness, syncope, pre-syncope, dyspnea on exertion, orthopnea, leg pain with exertion or acrocyanosis Resp: Denies: dyspnea, productive cough, non-productive cough, wheezing, stridor, pain on inspiration, change in phlegm color, hemoptysis or chest congestion GI: Denies: abdominal pain, nausea, vomiting, hematemesis, coffee ground emesis, dysphagia, heartburn, diarrhea, constipation, bloating, GI cramping, change in bowel habits, pain on defecation, hematochezia or melena : Denies: flank pain, difficulty urinating, dysuria, urinary frequency, urinary urgency, urinary hesitancy, urinary dribbling, difficulty starting ur ination, change in urine stream, nocturia or hematuria Musc: Denies: neck pain, back pain, extremity pain, joint pain, joint swelling, joint redness, joint stiffness or limited range of motion Neuro: Denies: headache(s), numbness in extremities, weakness in extremities, sensory changes, lack of coordination, difficulty walking, frequent falls, dizziness, vertigo, confusion, Slurred speech present, difficulty communicating thoughts or seizure-like activity Psych: Denies: anxiety, depression, mood swings, panic attacks, hopelessness or irritability Endo: Denies: polyuria, polydipsia, tired all the time, cold intolerance, excessive sweating, flushing or heat intolerance Donnie/Lymph: Denies: easy bruising or easy bleeding All/Imm: Denies: tongue swelling, facial swelling or acute wheezing Medications/Allergies Home Medications Medication Instructions Recorded Confirmed Last Taken Type meloxicam 15 mg tablet 15 mg PO QAM 08/23/20 02/08/22 02/08/22 History nifedipine 30 mg tablet,extended 30 mg PO QPM 08/23/20 02/08/22 02/07/22 History release selenium 50 mcg tablet 300 mcg PO TID tab 08/23/20 02/08/22 12/19/20 History Silica Tabs 2 tab PO DAILY 02/08/22 02/08/22 Unknown History chromium 100 mcg tablet 100 mcg PO TID 02/08/22 02/08/22 Unknown History fluoride (sodium) 1.1 % dental 1 applic DENTAL . DIRECTED 02/08/22 02/08/22 Unknown History cream (Sodium Fluoride 5000 Plus) hydroxychloroquine 200 mg tablet 400 mg PO .EVERY 21 DAYS 02/08/22 02/08/22 Unknown History multivitamin with iron-mineral 1 tab PO DAILY 02/08/22 02/08/22 Unknown History pentoxifylline 400 mg 400 mg PO TID 02/08/22 02/08/22 02/08/22 07:00 History tablet,extended release sertraline 50 mg tablet 25 mg PO QAM 02/08/22 02/08/22 02/08/22 History sildenafil 100 mg tablet 50 mg PO PRN PRN 02/08/22 02/08/22 Unknown History Allergies Allergy/AdvReac Type Severity Reaction Status Date / Time No Known Allergies Allergy Verified 02/08/22 11:37 PFSH Acute PFSH: Medical History (Updated 02/08/22 @ 16:06 by Hugo Greenwood MD) Diverticulosis DJD (degenerative joint disease) History of colon polyps Hypertension Nephrolithiasis On imaging Rectal cancer Metastatic to right lower lobe Venous insufficiency of right leg Ventral hernia without obstruction or gangrene Surgical History (Updated 02/08/22 @ 15:18 by Eddie Bailey MD) History of colonoscopy History of lobectomy of lung Right lower lobe History of low anterior resection of rectum S/P ileostomy 10/24/2020 he underwent robotic extended low anterior resection with radical en bloc resection of seminal vesicles and vas deferens with portion of prostate and with placement of loop ileostomy with subsequent takedown of the diverting ileostomy Family History Denies family history of Anesthesia complication Bleeding disorder Social History (Updated 02/08/22 @ 15:14 by Eddie Bailey MD) Smoking and tobacco status: former smoker Quit status (tobacco): has quit using tobacco Year quit tobacco: 1995 Former quit date comment: [id number] history Vitals/I&O/Wt Last Vital Signs Temp 97.8 F 02/08/22 10:06 Pulse 112 H 02/08/22 10:06 Resp 24 H 02/08/22 10:06 BP 88/55 02/08/22 10:06 Pulse Ox 95 02/08/22 10:06 02/07/22 02/08/22 02/08/22 22:59 06:59 14:59 Intake Total 3864.6 / 3864.6 Balance 3864.6 / 3864.6 Weight last 48 hrs Weight 128.82 kg Physical Exam Narrative: General: Acute distress because of abdominal pain AO x3, HEENT: PERRLA, pupils bilaterally equal and reactive Chest: Normal vesicular breath sounds, no added sounds, equal good air entry bilaterally CVS: S1-S2 regular, no murmurs, no tachycardia, no gallops, no rubs Abdomen: Distended, tender, bowel sounds sluggish, NG tube in place Neuro: No focal deficits, no facial deformity, AO x3, power 5/5 in all limbs Data : 02/08/22 10:34 02/08/22 10:34 Other Labs: Radiology Impressions Chest X-Ray 02/08/22 10:29 Impression: Atherosclerosis. Abdomen/Pelvis CT 02/08/22 10:34 IMPRESSION: 1. Free intraperitoneal fluid, pneumoperitoneum, and extraluminal mesenteric gas compatible with perforated viscus, source otherwise uncertain. 2. Cholelithiasis. No biliary ductal dilatation. 3. Right nephrolithiasis without urinary tract obstruction. 4. Larger right ventral hernia containing more small bowel, but without bowel obstruction or signs of strangulation. ADDENDUM: 02/08/22 [id number] THIS REPORT CONTAINS FINDINGS THAT MAY BE CRITICAL TO PATIENT CARE. The exam findings were verbally communicated by me via telephone conference to SUNSHINE FIGUEROA at 2:09 PM CDT on 02/08/2022. The findings were acknowledged and understood. He indicated the patient has an elevated lactic acid. There may be some small bowel loops that have thickened mejia, but this is difficult to be certain about as the small bowel is not distended. The small bowel mejia appear to enhance. Discussed that the amount of mesenteric gas could indicate a small bowel source but this is not definitive. Laboratory Results WBC 2.6 10^3/uL (4.0-10.0) L 02/08/22 10:34 RBC 6.55 10^6/uL (4.1-5.3) H 02/08/22 10:34 Hgb 18.8 g/dL (11.7-16.6) H 02/08/22 10:34 Hct 57.8 % (42.0-52.0) H 02/08/22 10:34 MCV 88.2 fl (80-94) 02/08/22 10:34 MCH 28.7 pg (28.0-34.0) 02/08/22 10:34 MCHC 32.5 g/dL (30.0-36.0) 02/08/22 10:34 RDW 14.7 % (12.1-15.1) 02/08/22 10:34 Plt Count 260 10^3/cmm (130-400) 02/08/22 10:34 MPV 10.1 fL (7.4-10.4) 02/08/22 10:34 Neut % (Auto) 72.6 % 02/08/22 10:34 Lymph % (Auto) 22.0 % 02/08/22 10:34 [place] % (Auto) 4.6 % 02/08/22 10:34 Eos % (Auto) 0.0 % 02/08/22 10:34 Baso % (Auto) 0.4 % 02/08/22 10:34 Neut # (Auto) 1.88 10^3/uL (1.8-7.7) 02/08/22 10:34 Lymph # (Auto) 0.6 10^3/uL (0.8-4.8) L 02/08/22 10:34 [place] # (Auto) 0.1 10^3/uL (0.2-0.9) L 02/08/22 10:34 Eos # (Auto) 0.0 10^3/uL (0.0-0.8) 02/08/22 10:34 Baso # (Auto) 0.0 10^3/uL (0.0-0.1) 02/08/22 10:34 Nucleated RBC % (auto) 0 % 02/08/22 10:34 Nucleated RBCs # 0.0 /100WBC 02/08/22 10:34 Sodium 141 mmol/L (136-145) 02/08/22 10:34 Potassium 3.2 mmol/L (3.5-5.1) L 02/08/22 10:34 Chloride 103 mmol/L (98-107) 02/08/22 10:34 Carbon Dioxide 15 mmol/L (22-29) L 02/08/22 10:34 Anion Gap 26.2 (5-19) H 02/08/22 10:34 BUN 24 mg/dL (8-23) H 02/08/22 10:34 Creatinine 1.8 mg/dL (0.7-1.2) H 02/08/22 10:34 GFR Calculation Not Reportable 02/08/22 10:34 Glucose 185 mg/dL (65-115) H 02/08/22 10:34 Calculated Osmolality 301 mOsm/kg (285-295) H 02/08/22 10:34 Lactate 10.3 mmol/L (0.5-2.2) H* 02/08/22 11:15 Calcium 10.4 mg/dL (8.5-10.5) 02/08/22 10:34 Total Bilirubin 1.1 mg/dL (0.15-1.2) 02/08/22 10:34 AST 19 U/L (0-40) 02/08/22 10:34 ALT 18 U/L (0-41) 02/08/22 10:34 Alkaline Phosphatase 65 IU/L (40-130) 02/08/22 10:34 Lactate Dehydrogenase 200 U/L (135-225) 02/08/22 10:34 Troponin T Baseline 106 ng/L (0-15) H* 02/08/22 10:34 Troponin T 120 Minute 121.4 ng/L (0-15) H 02/08/22 12:21 Delta Troponin T 15.4 ABS# (0-10) H* 02/08/22 12:21 C-Reactive Protein 36.5 mg/L (0.0-4.9) H 02/08/22 10:34 NT-Pro-B Natriuret Pep 594 pg/mL (0-125) H 02/08/22 10:34 Total Protein 7.0 g/dL (6.6-8.7) 02/08/22 10:34 Albumin 4.0 g/dL (3.5-5.2) 02/08/22 10:34 Globulin 3.0 g/dL (1.3-4.6) 02/08/22 10:34 Lipase 19 U/L (13-60) 02/08/22 10:34 TSH 6.24 uIU/mL (0.27-4.20) H 02/08/22 10:34 Urine Color Dark yellow (Yellow) 02/08/22 Unknown Urine Appearance Clear (CLEAR) 02/08/22 Unknown Urine pH 6.5 (5-7) 02/08/22 Unknown Ur Specific [place] 1.015 (1.005-1.030) 02/08/22 Unknown Urine Protein 1+ (Negative) H 02/08/22 Unknown Urine Glucose (UA) Norm (Normal) 02/08/22 Unknown Urine Ketones 1+ (Negative) H 02/08/22 Unknown Urine Blood Neg (Negative) 02/08/22 Unknown Urine Nitrate Negative (Negative) 02/08/22 Unknown Urine Bilirubin 1+ (Negative) H 02/08/22 Unknown Urine Urobilinogen 1 mg/dL (Negative) H 02/08/22 Unknown Ur Leukocyte Esterase Trace (Negative) H 02/08/22 Unknown Urine RBC 0-4 /hpf (0-2) H 02/08/22 Unknown Urine WBC 0-4 /hpf (0-5) H 02/08/22 Unknown Ur Squamous Epith Cells 0-4 /hpf (0-5) H 02/08/22 Unknown Amorphous Sediment Not Reportable 02/08/22 Unknown Urine Bacteria 1+ /hpf (NONE) H 02/08/22 Unknown Hyaline Casts 0-4 /lpf H 02/08/22 Unknown Nasal Influ A H1 2009 PCR Not detected (NOT DETECT) 02/08/22 10:57 Adenovirus (PCR) Detected (NOT DETECT) A 02/08/22 13:21 Coronavirus 229E (PCR) Not detected (NOT DETECT) 02/08/22 10:57 Influenza A (H1) PCR Not detected (NOT DETECT) 02/08/22 10:57 Influenza A (H3) PCR Not detected (NOT DETECT) 02/08/22 10:57 Influenza Type A (PCR) Not detected (NOT DETECT) 02/08/22 10:57 Influenza Type B (PCR) Not detected (NOT DETECT) 02/08/22 10:57 SARS-CoV-2 (PCR) Not detected (NOT DETECT) 02/08/22 10:57 Micro: Microbiology 02/08/22 11:15 Blood Culture - Preliminary Blood SPECIMEN COLLECTED 02/08/22 11:23 Blood Culture - Preliminary Blood SPECIMEN COLLECTED A&P Assessment and plan (1) Sepsis: Secondary to peritonitis from perforated abdominal viscus. Keep mean artery pressure over 65, saturation over 90%. Normal saline 100 cc/h. Can use Levophed if mean arterial pressure not maintaining. Blood culture, urine culture, repeat lactate, MRSA swab, procalcitonin. For now start on IV vancomycin and Zosyn. Will de-escalate antibiotics as per culture results. Will stop vancomycin if MRSA is negative. Status: Acute (2) Perforated abdominal viscus: History of rectal cancer. Is seen on CT scan. Surgery has been consulted. Plan for exploratory laparot neymar urgently. Given age of 71, elevated troponins, severe sepsis with soft blood pressures, lactic acidosis and acute kidney injury patient is high risk candidate for a high risk procedure which is currently necessary. Status: Acute (3) MILEY (acute kidney injury): With metabolic acidosis. Secondary to sepsis from perforated viscus. Medical reconciliation done for nephrotoxic drugs. IV fluids as above. Repeat BMP in evening. Status: Acute (4) Lactic acid acidosis: Status: Acute (5) Elevated troponin: Type II NV secondary to severe sepsis versus non-ST elevation NV. Patient denies any current chest pain. Check A1c, lipid panel. We will continue to follow-up troponin cycle. Status: Acute (6) High anion gap metabolic acidosis: Status: Acute (7) HTN (hypertension): Status: Acute (8) Leukopenia: Status: Acute (9) Incarcerated ventral hernia: Status: Acute Plan Admit to ICU. NPO. Protonix for PUD prophylaxis. Anticoagulation as per surgical recommendations. Attestations Medical Necessity Statement*: Admission for more than 2 midnights for management of severe sepsis secondary perforated abdominal viscus, iron gap metabolic acidosis, acute kidney injury, lactic acidosis, elevated troponins Critical Care Time: The high probability of a clinically significant, sudden or life threatening deterioration of the patient's [cardiac, respiratory, ID, GI, renal system(s) required my full and direct attention, intervention and personal management. The critical care time is as shown. This time is in addition to time spent performing any reported procedures but includes the following: [x] Data and vital sign review and interpretation [x] Patient assessment, examination and intervention [x] Documentation [x] Medication orders and management Critical Care Time (min): 90 Coding Level of Care Code Acute Motor Mechanic for [facility] Fwd Diagnoses Sepsis A41.9 Perforated abdominal viscus R19.8 MILEY (acute kidney injury) N17.9 Lactic acid acidosis E87.2 Elevated troponin R77.8 HTN (hypertension) I10 Leukopenia D72.819 High anion gap metabolic acidosis E87.2 Incarcerated ventral hernia K43.6
--- NOTE | 2022-02-08 15:03 | P.CONIM_ITS ---
Providers/Reason For Consult Consulting Physician/Specialty*: General Surgery Eddie Bailey MD Reason for Consult*: Perforated viscus Attending Physician: Hugo Greenwood MD Primary Care Provider: Tana Vital MD History of Present Illness History of Present Illness Tee Chilel Jr is a 71 year old male who says he developed some lower abdominal pain the day before yesterday. It has progressed since then and is now throughout his abdomen. He started having repeated episodes of nausea and vomiting. He came to the hospital today and a CAT scan showed evidence of free intraperitoneal throughout the peritoneal cavity. He denies any recent knowledge of accidentally swallowing foreign bodies, etc. His bowel function previously had been normal for him (he admits that since his rectal surgery he sometimes does not have a lot of control and will defecate when he does not want to). The patient has a history of rectal cancer that had a be operated on in 2019. He had a diverting ileostomy following the procedure which was subsequently taken down but he has developed a ventral hernia at that site. His surgeons are just watching it. His family tells me he had a colonoscopy within the last 3 to 4 months that was without significant abnormalities. Review of Systems Resp: Reports: other ( Feel somewhat short of breath because it hurts to take a deep breath ) GI: Reports: abdominal pain, nausea and vomiting Medications/Allergies Home Medications Medication Instructions Recorded Confirmed Last Taken Type meloxicam 15 mg tablet 15 mg PO QAM 08/23/20 02/08/22 02/08/22 History nifedipine 30 mg tablet,extended 30 mg PO QPM 08/23/20 02/08/22 02/07/22 History release selenium 50 mcg tablet 300 mcg PO TID tab 08/23/20 02/08/22 12/19/20 History Silica Tabs 2 tab PO DAILY 02/08/22 02/08/22 Unknown History chromium 100 mcg tablet 100 mcg PO TID 02/08/22 02/08/22 Unknown History fluoride (sodium) 1.1 % dental 1 applic DENTAL . DIRECTED 02/08/22 02/08/22 Unknown History cream (Sodium Fluoride 5000 Plus) hydroxychloroquine 200 mg tablet 400 mg PO .EVERY 21 DAYS 02/08/22 02/08/22 Unknown History multivitamin with iron-mineral 1 tab PO DAILY 02/08/22 02/08/22 Unknown History pentoxifylline 400 mg 400 mg PO TID 02/08/22 02/08/22 02/08/22 07:00 History tablet,extended release sertraline 50 mg tablet 25 mg PO QAM 02/08/22 02/08/22 02/08/22 History sildenafil 100 mg tablet 50 mg PO PRN PRN 02/08/22 02/08/22 Unknown History Allergies Allergy/AdvReac Type Severity Reaction Status Date / Time No Known Allergies Allergy Verified 02/08/22 11:37 Current Medications Generic Name Dose Route Start Last Admin Trade Name Freq PRN Reason Stop Dose Admin Sodium Chloride 500 mls @ 999 mls/hr 02/08/22 14:43 02/08/22 14:43 Sodium Chloride 0.9% IV 02/08/22 15:13 999 mls/hr .Q31M ONE Administration PFSH Acute PFSH: Medical History (Updated 02/08/22 @ 15:23 by Eddie Bailey MD) Diverticulosis DJD (degenerative joint disease) History of colon polyps Hypertension Nephrolithiasis On imaging Rectal cancer Metastatic to right lower lobe Venous insufficiency of right leg Ventral hernia without obstruction or gangrene Surgical History (Updated 02/08/22 @ 15:18 by Eddie Bailey MD) History of colonoscopy History of lobectomy of lung Right lower lobe History of low anterior resection of rectum S/P ileostomy 10/24/2020 he underwent robotic extended low anterior resection with radical en bloc resection of seminal vesicles and vas deferens with portion of prostate and with placement of loop ileostomy with subsequent takedown of the diverting ileostomy Family History Denies family history of Anesthesia complication Bleeding disorder Social History (Updated 02/08/22 @ 15:14 by Eddie Bailey MD) Smoking and tobacco status: former smoker Quit status (tobacco): has quit using tobacco Year quit tobacco: 1995 Former quit date comment: [id number] history Vitals/I&O/Wt Last Vital Signs Temp 97.8 F 02/08/22 10:06 Pulse 112 H 02/08/22 10:06 Resp 24 H 02/08/22 10:06 BP 88/55 02/08/22 10:06 Pulse Ox 95 02/08/22 10:06 02/08/22 02/08/22 02/08/22 06:59 14:59 22:59 Intake Total 3864.6 / 3864.6 Balance 3864.6 / 3864.6 Weight last 48 hrs Weight 284 lb Physical Exam Narrative: The patient was encountered in his room in the emergency department. He does not appear to be in any acute distress but acts like he does not feel well. The pupils are equal. No carotid bruits are heard. The lungs seem clear anteriorly but the patient has difficulty taking a deep breath due to his abdominal pain. The heart seems regular. The abdomen is moderately to morbidly obese and has very few bowel sounds. He has tenderness diffusely. He has firmness and a mass-effect underneath a transverse scar just lateral and above the umbilicus on the right side. This is quite tender, as well. The extremities may reveal some very mild edema. Neurologically the patient appears to be grossly intact. Data : 02/08/22 10:34 02/08/22 10:34 Micro: Microbiology 02/08/22 11:15 Blood Culture - Preliminary Blood SPECIMEN COLLECTED 02/08/22 11:23 Blood Culture - Preliminary Blood SPECIMEN COLLECTED CT Abd/Pel: Radiologist's impression: CT abdomen/pelvis 02/08/2022 IMPRESSION: 1. Free intraperitoneal fluid, pneumoperitoneum, and extraluminal mesenteric gas compatible with perforated viscus, source otherwise uncertain. 2. Cholelithiasis. No biliary ductal dilatation. 3. Right nephrolithiasis without urinary tract obstruction. 4. Larger right ventral hernia containing more small bowel, but without bowel obstruction or signs of strangulation. A&P Assessment and plan (1) Perforated abdominal viscus: The patient has small bubbles of air throughout the entire peritoneal cavity from the diaphragm all the way to the pelvis. It is difficult to tell where this is coming from. There is some fluid along the right gutter but his stomach is also completely full of fluid. His pain started lower in the abdomen which leads me believe this may be more consistent with a colon issue, but his CAT scan seems reveal most of the intraperitoneal bubbles of air around some small bowel loops in the mid abdomen. It does appear he is on a chronic NSAID. I discussed the situation with the patient and his family members. I told him this may be the kind of thing that might get better with antibiotics alone but is just difficult to know with certainty since we do not know the source of the small bubbles of air. We discussed the pros and cons of surgery and the risks of surgery. I made him aware that he may end up with another stoma if we proceed with surgery. Since we do not have a good indication of where this perforation is I told him I would lean towards exploration the make sure we know what we are dealing with. He seems understand and agrees to proceed. Plans for an urgent exploration today. I have asked nursing to insert a nasogastric tube prior to the induction of anesthesia. Status: Acute (2) Incarcerated ventral hernia: This is apparently been there for some time and does not obviously appear do be associated with his current problem, but will likely be able be fixed at the time of surgery. Status: Acute Consult Attestations Medical Necessity Statement: See admitting service's notation. Coding Level of Care Code Acute Payer Specialist for [facility] Diagnoses Perforated abdominal viscus R19.8 Incarcerated ventral hernia K43.6
--- NOTE | 2022-02-08 15:18 | PC.NURSE ---
Vital signs printed and scanned into chart.
[2022-02-08 15:27] LABS: Bilirubin Urine 1+ (Negative); Blood Urine Neg (Negative); Glucose Urine UA Norm (Normal); Ketones Urine 1+ (Negative); Nitrate Urine Negative (Negative); Protein Urine 1+ (Negative); Specific Gravity, Urine 1.015 (1.005-1.030); Urine Appearance Clear (CLEAR); Urine Color Dark Yellow (Yellow); Urobilinogen Urine 1 mg/dL (Negative); pH Urine 6.5 (5-7)
[2022-02-08 15:28] LABS: Add Urine Microscopic? YES; Leukocyte Esterase Urine Trace (Negative)
[2022-02-08 15:28] LABS: Thyroid Stimulating Hormone 6.24 uIU/mL (0.27-4.20)
--- NOTE | 2022-02-08 15:31 | P.ANESASSM_ITS ---
Pre-Anesthetic Assessment Height/Weight: Height 1.83 m Weight 128.82 kg Temp Pulse Resp BP Pulse Ox 97.1 F L 100 22 H 76/45 91 02/08/22 15:22 02/08/22 15:22 02/08/22 15:22 02/08/22 15:22 02/08/22 15:22 Preop Diagnosis: BLEEDING PER RECTUM Operation Date: 02/08/22 15:30 Proposed Procedures p Exploratory Laparotomy(Not Applicable) - Eddie Bailey MD Familial anesthetic complications: None Was Beta Billie taken within 24 hours: N/A Was Clonidine taken within 24 hours: N/A Last intake: Intake Last Liquid Date 02/07/22 Last Liquid Time 18:00 Last Solid Date 02/07/22 Last Solid Time 18:00 Social No alcohol and No tobacco Exam alert, oriented x 3 and clear to auscultation bilaterally tachy Airway Submandibular: within normal limits Cervical ROM: within normal limits Mallampati: Class II Dentition: chipped Comments: Comments: poor, missing several Pulmonary Sleep Apnea CV/HEM Hypertension Chronic Renal Insufficiency GI Gastroesophageal Reflux Disease Perforated viscus Metabolic Morbid Obesity [facility] [place] Osteoarthritis/DJD Anesthetic Plan ASA status: 4E Anesthesia: General (RSI) Risk of > 500 ml blood loss (7ml/kg in children): Yes, adequate IV access and fluids planned Medications/Allergies Home Medications Medication Instructions Recorded Confirmed Last Taken Type meloxicam 15 mg tablet 15 mg PO QAM 08/23/20 02/08/22 02/08/22 History nifedipine 30 mg tablet,extended 30 mg PO QPM 08/23/20 02/08/22 02/07/22 History release selenium 50 mcg tablet 300 mcg PO TID tab 08/23/20 02/08/22 12/19/20 History Silica Tabs 2 tab PO DAILY 02/08/22 02/08/22 Unknown History chromium 100 mcg tablet 100 mcg PO TID 02/08/22 02/08/22 Unknown History fluoride (sodium) 1.1 % dental 1 applic DENTAL . DIRECTED 02/08/22 02/08/22 Unknown History cream (Sodium Fluoride 5000 Plus) hydroxychloroquine 200 mg tablet 400 mg PO .EVERY 21 DAYS 02/08/22 02/08/22 Unknown History multivitamin with iron-mineral 1 tab PO DAILY 02/08/22 02/08/22 Unknown History pentoxifylline 400 mg 400 mg PO TID 02/08/22 02/08/22 02/08/22 07:00 History tablet,extended release sertraline 50 mg tablet 25 mg PO QAM 02/08/22 02/08/22 02/08/22 History sildenafil 100 mg tablet 50 mg PO PRN PRN 02/08/22 02/08/22 Unknown History Allergies Allergy/AdvReac Type Severity Reaction Status Date / Time No Known Allergies Allergy Verified 02/08/22 11:37 Current Medications Generic Name Dose Route Start Last Admin Trade Name Freq PRN Reason Stop Dose Admin Sodium Chloride 1,000 mls @ 125 mls/hr 02/08/22 14:00 02/08/22 14:46 Sodium Chloride 0.9% IV 125 mls/hr .Q8H NATALIE Administration PFSH Anesthesia Medical History (Updated 02/08/22 @ 15:23 by Eddie Bailey MD) Diverticulosis DJD (degenerative joint disease) History of colon polyps Hypertension Nephrolithiasis On imaging Rectal cancer Metastatic to right lower lobe Venous insufficiency of right leg Ventral hernia without obstruction or gangrene Surgical History (Updated 02/08/22 @ 15:18 by Eddie Bailey MD) History of colonoscopy History of lobectomy of lung Right lower lobe History of low anterior resection of rectum S/P ileostomy 10/24/2020 he underwent robotic extended low anterior resection with radical en bloc resection of seminal vesicles and vas deferens with portion of prost ate and with placement of loop ileostomy with subsequent takedown of the diverting ileostomy Family History Denies family history of Anesthesia complication Bleeding disorder Social History (Updated 02/08/22 @ 15:14 by Eddie Bailey MD) Smoking and tobacco status: former smoker Quit status (tobacco): has quit using tobacco Year quit tobacco: 1995 Former quit date comment: [id number] history Data Anesthesia : 02/08/22 10:34 02/08/22 10:34 Short CBC 02/08/22 Range/Units 10:34 WBC 2.6 L (4.0-10.0) 10^3/uL Hgb 18.8 H (11.7-16.6) g/dL Hct 57.8 H (42.0-52.0) % MCV 88.2 (80-94) fl Plt Count 260 (130-400) 10^3/cmm Neut % (Auto) 72.6 % Neut # (Auto) 1.88 (1.8-7.7) 10^3/uL BMP 02/08/22 10:34 Sodium 141 Potassium 3.2 L Chloride 103 Carbon Dioxide 15 L BUN 24 H Creatinine 1.8 H Glucose 185 H Calcium 10.4 Cardiac Enzymes 02/08/22 02/08/22 02/08/22 Range/Units 10:34 10:34 12:21 Troponin T Baseline 106 H* (0-15) ng/L Troponin T 120 Minute 121.4 H (0-15) ng/L Delta Troponin T 15.4 H* (0-10) ABS# NT-Pro-B Natriuret Pep 594 H (0-125) pg/mL Liver Function 02/08/22 Range/Units 10:34 Total Bilirubin 1.1 (0.15-1.2) mg/dL AST 19 (0-40) U/L ALT 18 (0-41) U/L Alkaline Phosphatase 65 (40-130) IU/L Albumin 4.0 (3.5-5.2) g/dL Urine 02/08/22 Range/Units Unknown Urine Color Dark yellow (Yellow) Urine Appearance Clear (CLEAR) Urine pH 6.5 (5-7) Ur Specific [place] 1.015 (1.005-1.030) Urine Protein 1+ H (Negative) Urine Glucose (UA) Norm (Normal) Urine Ketones 1+ H (Negative) Urine Nitrate Negative (Negative) Urine Bilirubin 1+ H (Negative) Ur Leukocyte Esterase Trace H (Negative) COVID Results 02/08/22 10:57 Coronavirus 229E (PCR) Not detected SARS-CoV-2 (PCR) Not detected Coags 02/08/22 10:34 C-Reactive Protein 36.5 H Microbiology 02/08/22 11:15 Blood Culture - Preliminary Blood SPECIMEN COLLECTED 02/08/22 11:23 Blood Culture - Preliminary Blood SPECIMEN COLLECTED Cardiac Studies: No Data to Display
[2022-02-08 15:55] LABS: RBC Urine 0-4 /hpf (0-2); Squamous Epithelial Cell Urine 0-4 /hpf (0-5); WBC Urine 0-4 /hpf (0-5)
[2022-02-08 15:56] LABS: Bacteria Urine 1+ /hpf; Hyaline Casts Urine 0-4 /lpf
[2022-02-08] MEDS: vancomycin 1,500 MG/300 ML PIGGYBACK 200 MG IV (16:18)
[2022-02-08 16:21] LABS: Iron 18 ug/dL (59-158); Percent Saturation 5.7 % (20-50); Total Iron Binding Capacity 313 mcg/dl; Unsaturated Iron Binding 295 ug/dL (112-347)
[2022-02-08 16:25] LABS: Procalcitonin 19.08 ng/mL (0-0.5)
--- NOTE | 2022-02-08 16:34 | ECG_ITS ---
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 Measurements Intervals [place] Rate: 103 P: 7 [place]: 195 QRS: -4 QRSD: 97 T: 53 QT: 379 QTc: 496 Interpretive Statements SINUS TACHYCARDIA NONSPECIFIC T-WAVE ABNORMALITY Compared to ECG 02/08/2022 12:37:21 Sinus rhythm no longer present T-wave abnormality still present Electronically Signed On 02-09-2022 9:06:44 CDT by Rm Lomeli M.D. [id number]
--- NOTE | 2022-02-08 18:37 | ANES.PROC ---
Anesthesia Procedures Procedure/Date: 02/08/22 Central Venous Insert: Central Venous Line: RIJ 7fr 3 lumen CVL Time Out Performed: Yes Consent: requested by attending/covering physician and emergency procedure Central Line: New Anesthesia monitors: pulse oximetry, EKG, BP cuff and oxygen Vein cannulated: right internal jugular Post procedure: Other (CXR pending) Additional Comments: Seldinger technique, GETA (intraop), seeker needle, sterile prep and drape, gloves and mask. Sutured in place and sterile dressing. No complications apparent.
--- NOTE | 2022-02-08 19:03 | PM.OP ---
Operative Report Date of procedure: February 08, 2022 Pre-op diagnosis: Preop Diagnosis perforated viscus. Post-op diagnosis: Perforated sigmoid colon/rectum just anterior to the inferior sacrum. Procedure done: 1. Exploratory laparotomy with colostomy formation. 2. Repair of incarcerated incisional hernia. 3. Intraoperative flexible proctoscopy/sigmoidoscopy. Specimens removed/disposition: Intra-abdominal aerobic and anaerobic cultures of peritoneal fluid. Surgeon: General Surgery Eddie Bailey MD Estimated blood loss: 50 Complications: None. Procedure: The patient was brought in the operating room and was placed in a supine position on the operating room table. General endotracheal anesthesia was induced. A nasogastric tube and Blackmon catheter were already in place. The abdomen was prepped and draped in a sterile fashion. A midline incision was carried out from the mid epigastrium to a level just below the umbilicus. Cautery was used to divide the subcutaneous tissue and the midline fascia and the peritoneal cavity was entered. There was a rather extensive amount of light brown-colored, somewhat malodorous fluid throughout the abdominal cavity. This was sent for aerobic and anaerobic culture and the remainder was collected with suction. The small bowel was brought out through the incision and had quite a bit of duskiness throughout. It eventually became clear that most of this was probably fecal staining. The peritoneum had the same discoloration, particularly in the lower abdomen but also in both gutters. The small bowel was run from the ligament of Treitz to the ileocecal valve. No areas of perforation were present. The small bowel that had been contained within the hernia to the right side was reduced in this process. Each quadrant was then sequentially irrigated and inspected, paying close attention to the colon in each quadrant. There was no evidence of a gastric or duodenal perforation. There was quite a bit of light brown fluid with particulate matter and small pieces of food stuff throughout the abdominal cavity. Extensive irrigation was used to try evacuate all of this. Finally, attention was directed deep into the pelvis and by palpation anterior to the sacrum I thought that I could feel a small perforation in the colon posteriorly. A colonoscope was obtained and was used to try and inspect the distal colon. The patient had quite a bit of blood and other material within the rectum which made this difficult to inspect, but upon insufflation with a level of saline in the abdomen, clearly there was air that was bubbling up into the abdomen from a rectal/distal sigmoid perforation. The Bookwalter retractor was used for further exposure. The colon distally was divided with a TX 60 stapler, but this had to be done proximal to the actual site of the perforation given its location. The Voyant energy device was used to divide some of the mesentery proximally. The sigmoid colon was mobilized by incising the peritoneal reflection laterally. After the colon had been mobilized extensive irrigation was carried out throughout the abdomen once again. This was performed multiple times throughout the entire procedure until the irrigant returned clear. The hole distally in the colon was so low it was clear, particularly given the patient's body habitus, that I was not going do be able get a stitch in this area. For this reason a 19 [place]e fluted Christoph drain was placed into the presacral space and was brought out through a separate stab incision on the right side of the abdomen. It was sewn in place at the skin with a suture of 2-0 silk. Attention was directed to the incisional hernia on the right side. Elevating the fascia with a pair of Prabha clamps, the hernia defect which measured perhaps 4 cm in diameter was closed transversely from within the abdomen using a running suture of #1 PDS. An Allis clamp was used to grasp an area of skin in the left lower quadrant in preparation for colostomy placement. Cautery was used to excise a circular area of skin and some of the subcutaneous tissue. The remainder of the subcutaneous tissue was opened using cautery and a cruciate incision was made on the anterior rectus sheath. The underlying rectus musculature and posterior rectus sheath were opened bluntly using a hemostat. Some fingers were used to bluntly enlarge the opening and the sigmoid colon was then brought out through the opening using a Moses clamp. A final round of irrigation was carried out throughout the abdomen. The colon was attached to the anterior rectus sheath with a couple sutures of to 0 Vicryl. The midline fascia was closed using a running looped suture of #1 PDS. Some internal retention sutures of #1 PDS were also used in the midline closure. The skin was approximated using skin maykel. A few vertical mattress sutures of 2-0 nylon were used in between some of the maykel to give further support to the skin closure given the patient's body habitus. The staple line on the colostomy was removed with a pair of scissors. The colostomy was then matured using multiple sutures of 2-0 and 3-0 Vicryl. The stoma was clearly viable. Some surgical lube and a finger was used to penetrate the colostomy at the end of the procedure to confirm its patency. A colostomy appliance was placed over the stoma. A sterile dressing was placed over the midline wound. The patient was taken directly to the intensive care unit postoperatively in relatively stable but very guarded condition.
--- NOTE | 2022-02-08 19:15 | PC.NURSE ---
Dr. Greenwood gave v.o. for Fentanyl drip Levophed drip and Propofolol drip
--- NOTE | 2022-02-08 19:43 | XRR_ITS ---
PROCEDURE INFORMATION: Exam: XR Chest Exam date and time: 02/08/2022 7:49 PM Age: 71 years old Clinical indication: Device placement; Other: Multiple lines placed; Additional info: Placement of lines TECHNIQUE: Imaging protocol: XR of the chest. Views: 1 view. COMPARISON: CR XR chest 1V portable [id number] 02/08/2022 10:37 AM FINDINGS: Tubes, catheters and devices: Interval placement of an endotracheal tube with the tip 5.4 cm above the ozzie. Interval placement of an enteric tube with the tip in the body of the stomach. Interval placement of the right internal jugular central line with the tip in the superior vena cava. Lungs: Stable mild elevation of the right hemidiaphragm. Interval development of mild to moderate interstitial pulmonary edema with superimposed alveolar edema versus atelectasis versus pneumonia in the left lower lobe and left lingula. Stable linear scarring in the right upper upper lobe and right lower lobe. Pleural spaces: No pleural effusion. No pneumothorax. Heart/Mediastinum: Stable moderate enlargement of the cardiac silhouette. Vasculature: Stable tortuosity of the aorta. Bones/joints: Unremarkable for age. XR/XR chest 1V portable [id number] IMPRESSION: 1. Interval development of mild to moderate interstitial pulmonary edema with superimposed alveolar edema versus atelectasis versus pneumonia in the left lower lobe and left lingula. Recommend followup chest imaging to insure resolution of these findings. 2. Interval placement of an endotracheal tube with the tip 5.4 cm above the ozzie. 3. Interval placement of an enteric tube with the tip in the body of the stomach. 4. Interval placement of the right internal jugular central line with the tip in the superior vena cava. 5. Incidental/nonacute findings are listed in the report.
[2022-02-08] MEDS: propofol 1,000 MG/100 ML INJ 7.73 MG IV (20:06)
[2022-02-08 20:40] LABS: Hematocrit 46.9 % (42.0-52.0); Hemoglobin 14.4 g/dL (11.7-16.6); Lymphocytes # 0.8 10^3/uL (0.8-4.8); Lymphocytes % 43.5 %; Mean Corpuscular HGB Conc 30.7 g/dL (30.0-36.0); Mean Corpuscular Hemoglobin 28.7 pg (28.0-34.0); Mean Corpuscular Volume 93.4 fl (80-94); Mean Platelet Volume 10.5 fL (7.4-10.4); Monocytes # 0.1 10^3/uL (0.2-0.9); Monocytes % 4.3 %; Neutrophils % 51.1 %; Nucleated Red Blood Cells % 0 %; Platelet Count 194 10^3/cmm (130-400); Red Blood Count 5.02 10^6/uL (4.1-5.3); Red Cell Distribution Width 14.7 % (12.1-15.1); White Blood Count 1.8 10^3/uL (4.0-10.0)
[2022-02-08 21:00] LABS: Alanine Aminotransferase 24 U/L (0-41); Albumin Level 2.8 g/dL (3.5-5.2); Alkaline Phosphatase 38 IU/L (40-130); Anion Gap 16.8 (5-19); Aspartate Amino Transferase 44 U/L (0-40); Blood Urea Nitrogen 28 mg/dL (8-23); Calcium 7.9 mg/dL (8.5-10.5); Carbon Dioxide 16 mmol/L (22-29); Chloride 116 mmol/L (98-107); Globulin 1.7 g/dL (1.3-4.6); Glucose 99 mg/dL (65-115); Osmolality Calculated 306 mOsm/kg (285-295); Potassium 3.8 mmol/L (3.5-5.1); Sodium 145 mmol/L (136-145); Total Bilirubin 0.5 mg/dL (0.15-1.2); Total Protein 4.5 g/dL (6.6-8.7)
[2022-02-08 21:02] LABS: Neutrophils # 0.94 10^3/uL (1.8-7.7)
[2022-02-08 21:03] LABS: Slide Review Slide Review Perform
[2022-02-08 21:07] LABS: Lactic Sepsis W/Reflex 4.5 mmol/L (0.5-2.2); Troponin 5 6HR 120.7 ng/L (0-15); Troponin 5 6HR Delta 14.7 ng/L (0-12)
[2022-02-08] MEDS: heparin 5,000 unit/mL INJ 1 mL 5000 UNIT SUBCUT (21:19)
[2022-02-08] MEDS: piperacillin-tazobactam 3.375 GM in sodium chloride 0.9% (plus) 50 ML IV (21:19)
[2022-02-08] MEDS: pantoprazole 40 mg SDV IVP (21:20)
[2022-02-08 22:18] LABS: Reflex Lactate Order REFLEX LACTIC ORDERD
[2022-02-08 23:16] LABS: Lactic Acid level (Lactate) 3.8 mmol/L (0.5-2.2)
[2022-02-08] MEDS: dexmedeTOMIDine 0.9 % NaCL 400 MCG/100 ML PREMIX 32.21 MCG IV (23:19)
[2022-02-08 23:41] LABS: Basophils % 0.4 %; Eosinophils % 0.4 %; Hematocrit 46.7 % (42.0-52.0); Hemoglobin 14.6 g/dL (11.7-16.6); Lymphocytes # 0.5 10^3/uL (0.8-4.8); Lymphocytes % 20.7 %; Mean Corpuscular HGB Conc 31.3 g/dL (30.0-36.0); Mean Corpuscular Hemoglobin 28.8 pg (28.0-34.0); Mean Corpuscular Volume 92.1 fl (80-94); Mean Platelet Volume 10.5 fL (7.4-10.4); Monocytes # 0.2 10^3/uL (0.2-0.9); Monocytes % 7.2 %; Neutrophils # 1.67 10^3/uL (1.8-7.7); Neutrophils % 70.5 %; Nucleated Red Blood Cells % 0 %; Platelet Count 194 10^3/cmm (130-400); Red Blood Count 5.07 10^6/uL (4.1-5.3); Red Cell Distribution Width 14.8 % (12.1-15.1); White Blood Count 2.4 10^3/uL (4.0-10.0)
[2022-02-08 23:43] LABS: ABG PCO2 36.3 mmHg (35-45); ABG PH Result 7.21 (7.35-7.45); Alveolar-Arterial Oxygen Gradi 77.8 mmHg (5-10); Arterial Blood Gas Hematocrit 45.9 % (42-52); Base Excess ABG -12.4 mmol/L (-2.0-2.0); Blood Gas Allen Test Pos; Blood Gas Operator Identificat JB; Blood Gas Sample Site Radial, right; Blood Gas Sample Type Arterial; Carboxyhemoglobin 0.8 %THgb (0.4-20.1); HCO3 ABG 14.6 mmol/L (22-26); HGB O2 Sat 92.1 % (95-100); Ionized Calcium Level - ABG 1.2 mmol/L (1.1-1.4); Methemoglobin 0.9 % (0.4-1.5); Oxygen Device VENT; Oxygen Saturation ABG 93.6; PO2 ABG 69.4 mmHg (80.0-100.0); Potassium Level - ABG 4.5 mmol/L (3.5-5.0)
[2022-02-08 23:45] LABS: Slide Review Slide Review Perform
[2022-02-08] MEDS: norepinephrine 8 MG in dextrose 5 % 500 ML 304.8 MG IV (23:45)
[2022-02-08] MEDS: DOPamine drip 400 MG/250 ML PREMIX 24.15 MG IV (23:45)
[2022-02-08] MEDS: DOBUTamine drip 500 MG/250 ML PREMIX 19.32 MG IV (23:55)
[2022-02-09] VITALS (101 sets, daily range): BP systolic 58–175; BP diastolic 40–90; PULSE 85–180; RESP 18–31; TEMP 36.6–38.2; O2SAT 81–100
[2022-02-09] LABS: Alanine Aminotransferase 28 U/L (0-41); Albumin Level 2.7 g/dL (3.5-5.2); Alkaline Phosphatase 36 IU/L (40-130); Anion Gap 18.7 (5-19); Aspartate Amino Transferase 59 U/L (0-40); Blood Urea Nitrogen 31 mg/dL (8-23); Calcium 7.9 mg/dL (8.5-10.5); Carbon Dioxide 16 mmol/L (22-29); Chloride 114 mmol/L (98-107); Glucose 123 mg/dL (65-115); Magnesium 1.7 mg/dL (1.7-2.3); Osmolality Calculated 306 mOsm/kg (285-295); Potassium 4.7 mmol/L (3.5-5.1); Sodium 144 mmol/L (136-145); Total Bilirubin 0.5 mg/dL (0.15-1.2); Total Protein 4.7 g/dL (6.6-8.7)
--- NOTE | 2022-02-09 00:07 | XRR_ITS ---
PROCEDURE INFORMATION: Exam: XR Chest Exam date and time: 02/09/2022 12:13 AM Age: 71 years old Clinical indication: Patient HX: Hypotensive. Incarcerated hernia surgery last night. Intubated. ; Additional info: Hypotension TECHNIQUE: Imaging protocol: XR of the chest. Views: 1 view. COMPARISON: CR XR chest 1V portable [id number] 02/08/2022 7:49 PM FINDINGS: Tubes, catheters and devices: Stable right central line. Stable endotracheal tube. Stable enteric tube. Lungs: Stable right-sided perihilar opacities. Increased left mid and lower lung field opacities consistent with pneumonia and or atelectasis. Pleural spaces: Unremarkable. No pleural effusion. No pneumothorax. Heart/Mediastinum: Unremarkable. No cardiomegaly. Bones/joints: Unremarkable. XR/XR chest 1V portable [id number] IMPRESSION: Increased left mid and lower lung field opacities consistent with pneumonia and or atelectasis.
--- NOTE | 2022-02-09 00:08 | XRR_ITS ---
PROCEDURE INFORMATION: Exam: XR Abdomen Exam date and time: 02/09/2022 12:16 AM Age: 71 years old Clinical indication: Prior surgery; Surgery date: Post-operative (0-2 days); Patient HX: Hypotensive. Incarcerated hernia surgery last night. Intubated. ; Additional info: Hypotension TECHNIQUE: Imaging protocol: XR of the abdomen. Views: Frontal supine view of the abdomen. 1 View. COMPARISON: CT abdomen pelvis w con* [id number] 02/08/2022 1:08 PM FINDINGS: Tubes, catheters and devices: Probable percutaneous right peritoneal pelvic drainage catheter. Gastrointestinal tract: Normal. No bowel dilation. Bones/joints: Unremarkable. Soft tissues: Vertical row skin maykel over the pelvis. XR/XR abdomen 1V* [id number] IMPRESSION: 1. Probable percutaneous right peritoneal pelvic drainage catheter. 2. Vertical row skin maykel over the pelvis.
[2022-02-09] MEDS: sodium bicarbonate 150 MEQ in dextrose 5% 1,000 ML 125 MEQ IV ×2 (00:18→08:52)
[2022-02-09] MEDS: sodium bicarbonate 8.4% 1 mEq/mL 50mL Syr 100 MEQ IVP (00:53)
[2022-02-09] MEDS: magnesium sulfate premix 4 GM/100 ML PREMIX IV (00:55)
[2022-02-09] MEDS: dexmedeTOMIDine 0.9 % NaCL 400 MCG/100 ML PREMIX 38.65 MCG IV ×6 (02:24→23:50)
[2022-02-09] MEDS: sodium bicarbonate 8.4% 1 mEq/mL 50mL Syr 50 MEQ IVP (03:44)
[2022-02-09] MEDS: EPINEPHrine 0.1 mg/mL SYR 10 mL 1 MG IVP ×3 (03:45→03:49)
[2022-02-09] MEDS: EPINEPHrine 2.5 MG in sodium chloride 0.9% 250 ML 54 MG IV (03:53)
[2022-02-09 04:08] LABS: Basophils % 0.6 %; Eosinophils % 0.8 %; Hematocrit 48.5 % (42.0-52.0); Hemoglobin 14.9 g/dL (11.7-16.6); Lymphocytes # 1.6 10^3/uL (0.8-4.8); Lymphocytes % 31.3 %; Mean Corpuscular HGB Conc 30.7 g/dL (30.0-36.0); Mean Corpuscular Hemoglobin 28.9 pg (28.0-34.0); Mean Corpuscular Volume 94.2 fl (80-94); Mean Platelet Volume 11.3 fL (7.4-10.4); Monocytes # 0.2 10^3/uL (0.2-0.9); Monocytes % 3.3 %; Neutrophils # 3.26 10^3/uL (1.8-7.7); Neutrophils % 62.7 %; Nucleated Red Blood Cells % 0.6 %; Platelet Count 151 10^3/cmm (130-400); Red Blood Count 5.15 10^6/uL (4.1-5.3); Red Cell Distribution Width 14.8 % (12.1-15.1); White Blood Count 5.2 10^3/uL (4.0-10.0)
[2022-02-09] MEDS: norepinephrine 8 MG in dextrose 5 % 500 ML 190.5 MG IV ×2 (04:22→14:26)
[2022-02-09 04:26] LABS: INR 2.09 (0.8-1.2)
[2022-02-09 04:34] LABS: Troponin T (5th) Once 105 ng/L (0-15)
[2022-02-09 04:36] LABS: Alanine Aminotransferase 39 U/L (0-41); Albumin Level 2.6 g/dL (3.5-5.2); Alkaline Phosphatase 36 IU/L (40-130); Anion Gap 22.1 (5-19); Aspartate Amino Transferase 74 U/L (0-40); Blood Urea Nitrogen 31 mg/dL (8-23); Calcium 7.8 mg/dL (8.5-10.5); Carbon Dioxide 16 mmol/L (22-29); Chloride 109 mmol/L (98-107); Chol HDL Ratio 3.55 mg/dL (1.0-5.00); Cholesterol 78 mg/dL (0-200); Glucose 208 mg/dL (65-115); HDL Cholesterol 22 mg/dL (60-100); LDL Cholesterol Calculated 34 mg/dL (50-129); Osmolality Calculated 309 mOsm/kg (285-295); Potassium 4.1 mmol/L (3.5-5.1); Sodium 143 mmol/L (136-145); Total Bilirubin 0.4 mg/dL (0.15-1.2); Total Protein 4.6 g/dL (6.6-8.7); Triglycerides 112 mg/dL (0-150); VLDL Cholestrol Calculation 22 mg/dL (0-30)
[2022-02-09 04:43] LABS: Estmated Average Glucose 117; Hemoglobin A1C 5.7 % (4.0-6.0)
--- NOTE | 2022-02-09 04:57 | PM.CCNAC ---
Critical Care Event Note At midnight I was called by nursing staff to come see patient, as he was becoming tachycardic, hypotensive, tachypneic. Patient was maxed out on Levophed at 20, on maximal dose of vasopressin. Patient's map for less than 65, telemetry shows sinus tachycardia. His sedation was turned off. Advised nursing staff to turn up the vasopressin to 100, had dopamine, dobutamine, patient was given 2 A of bicarb, 4 g of mag sulfate, placed on a bicarb drip. Patient's blood pressures improved, was slowly weaned off dobutamine, dopamine, vasopressin to 20. His sedation was slowly turned back on. At roughly 3:40 PM, CODE [facility] was called, pulseless electrical activity of the heart, patient had several minutes of CPR, 3 doses of epi, with ROSC was placed back on dobutamine, dopamine, epi drip. All 4 blood cultures are positive. Family was made in the meeting room, advised of patient's critical status, prognosis poor, has multiorgan failure, and septic shock requiring multiple pressors. Patient's tells me that she is not ready to let him go, they want us to keep him a full code, they want us to do all interventions, they are also agreeable to dialysis if required. The high probability of a clinically significant, sudden or life threatening deterioration of the patient's [] system(s) required my full and direct attention, intervention and personal management. The critical care time is as shown. This time is in addition to time spent performing any reported procedures but includes the following: [x] Data and vital sign review and interpretation [x] Patient assessment, examination and intervention [x] Documentation [x] Medication orders and management Critical Care Time Code activated: Yes Critical Care Time (min): 55 Additional information about critical care time: 55min Coding Level of Care Code Acute Radiator Core Tester for Susan Freeman
[2022-02-09 05:31] LABS: ABG PCO2 53.3 mmHg (35-45); Arterial Blood Gas Hematocrit 47.6 % (42-52); Base Excess ABG -14.8 mmol/L (-2.0-2.0); Blood Gas Allen Test Pos; Blood Gas Operator Identificat JB; Blood Gas Sample Site Radial, right; Blood Gas Sample Type Arterial; Carboxyhemoglobin 0.6 %THgb (0.4-20.1); HCO3 ABG 15.6 mmol/L (22-26); HGB O2 Sat 86.9 % (95-100); Ionized Calcium Level - ABG 1.1 mmol/L (1.1-1.4); Oxygen Device VENT; Oxygen Saturation ABG 88.3; PO2 ABG 61.5 mmHg (80.0-100.0); Potassium Level - ABG 4.4 mmol/L (3.5-5.0); Total Hemoglobin 15.5 g/dL (14-18)
[2022-02-09 05:33] LABS: Alveolar-Arterial Oxygen Gradi 76.5 mmHg (5-10)
[2022-02-09] MEDS: piperacillin-tazobactam 3.375 GM in sodium chloride 0.9% (plus) 50 ML IV ×3 (05:34→21:15)
[2022-02-09] MEDS: heparin 5,000 unit/mL INJ 1 mL 5000 UNIT SUBCUT (05:34)
--- NOTE | 2022-02-09 05:37 | USCV_ITS ---
Tee Chilel Jr Age: 71 Gender: M : 1950 Exam Date: 02/09/2022 05:59 Ordering Phys: Alex Floyd MD Technologist: Exam Location: [facility] [place] Indication: septis BP: 164 / 92 HR: 113 Rhythm: Sinus Technical Quality: Adequate MEASUREMENTS (Male / Female) Normal Values 2D ECHO LV Diastolic Diameter PLAX 3.9 cm 4.2 - 5.9 / 3.9 - 5.3 cm LV Systolic Diameter PLAX 2.5 cm IVS Diastolic Thickness 1.1 cm 0.6 - 1.0 / 0.6 - 0.9 cm IVS Systolic Thickness 1.3 cm LVPW Diastolic Thickness 1.2 cm 0.6 - 1.0 / 0.6 - 0.9 cm LVPW Systolic Thickness 1.3 cm LVOT Diameter 2.0 cm LV Ejection Fraction 2D Teich 66.2 % LV Ejection Fraction MOD 2C 74.7 % LV Ejection Fraction 2C AL 75.3 % LA Diameter 4.3 cm LA Width 3.9 cm LA Height 4.6 cm RA Width 3.4 cm RA Height 4.7 cm Aorta at Sinotubular Diameter 3.2 cm M-MODE RV Diastolic Diameter MM 0.1 cm Aortic Annulus Diameter 3.4 cm LA Ao Ratio MM 1.5 MV E Point Septal Separation 1.0 cm DOPPLER AV Peak Velocity 127.0 cm/s LVOT Peak Velocity 82.0 cm/s AV Area Cont Eq vti 1.5 cm squared AV Area Cont Eq pk 2.1 cm squared MV Area PHT 5.0 cm squared Mitral E to A Ratio 2.5 MV E' Velocity 40.5 cm/s Mitral E to MV E' Ratio 6.1 Mitral E to LV E' Lateral Ratio 7.1 Mitral E to LV E' Septal Ratio 5.3 TR Peak Velocity 145.0 cm/s TR Peak Gradient 8.4 mmHg TV Peak E Velocity 101.0 cm/s Right Atrial Pressure 3.0 mmHg Pulmonary Artery Systolic Pressu 11.4 mmHg FINDINGS Left Ventricle Normal left ventricular size Hyperdynamic LV function No regional wall motion abnormalities. Right Ventricle Right ventricle is not well visualized The right ventricle is normal in size and function. Right Atrium Right atrium not well visualized. Left Atrium The left atrium is normal in size. Mitral Valve Structurally normal mitral valve without significant stenosis or prolapse. There is no mitral regurgitation. Aortic Valve Structurally normal aortic valve without significant sclerosis or stenosis. There is no aortic regurgitation. Tricuspid Valve Tricuspid valve not well visualized. Pulmonic Valve Pulmonic valve not well visualized. Pericardium Normal pericardium without effusion. Aorta Aorta not well visualized. CONCLUSIONS Normal left ventricular size Hyperdynamic LV function The right ventricle is normal in size and function. Suboptimal image quality (TV/PV can't be well visualized) Antonia Awan MD (Electronically Signed) Final Date: 09 February 2022 13:33 S
--- NOTE | 2022-02-09 05:37 | USR_ITS ---
PROCEDURE INFORMATION: Exam: US Duplex Lower Extremity Veins, Bilateral Exam date and time: 02/09/2022 6:15 AM Age: 71 years old Clinical indication: Edema, localized; Lower extremity, bilateral; Additional info: Dvt TECHNIQUE: Imaging protocol: Real-time Duplex ultrasound of the bilateral extremities with 2-D perrin scale, color Doppler flow and spectral waveform analysis with image documentation. Complete exam focused on the bilateral lower extremity veins. COMPARISON: CT abdomen pelvis w con* [id number] 02/08/2022 1:08 PM FINDINGS: Right deep veins: Unremarkable. The common femoral, femoral, proximal profunda femoral and popliteal veins are patent without thrombus. Normal Doppler waveforms. Normal compressibility and/or augmentation response. Right superficial veins: Saphenofemoral junction is patent without thrombus. Left deep veins: Unremarkable. The common femoral, femoral, proximal profunda femoral and popliteal veins are patent without thrombus. Normal Doppler waveforms. Normal compressibility and/or augmentation response. Left superficial veins: Saphenofemoral junction is patent without thrombus. Soft tissues: Unremarkable. US/CV venous duplex [facility] [id number] IMPRESSION: No evidence of deep vein thrombosis.
--- NOTE | 2022-02-09 05:40 | ECG_ITS ---
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 Measurements Intervals [place] Rate: 112 P: -8 VT: 225 QRS: 10 QRSD: 105 T: 63 QT: 297 QTc: 407 Interpretive Statements SINUS TACHYCARDIA WITH FIRST DEGREE AV BLOCK ST ELEVATION, PROBABLY EARLY REPOLARIZATION [ST ELEVATION WITH NORMALLY INFLECTED T-WAVE] Compared to ECG 02/08/2022 20:44:42 First degree AV block now present ST (T wave) deviation now present Early repolarization now present T-wave abnormality still present Electronically Signed On 02-09-2022 9:04:55 CDT by Rm Lomeli M.D. [id number]
[2022-02-09 06:22] LABS: Magnesium 2.6 mg/dL (1.7-2.3); Phosphorus 6.1 mg/dL (2.5-4.5)
[2022-02-09] MEDS: heparin drip 25,000 UNIT/500 ML PREMIX 92.75 UNIT IV (06:44)
[2022-02-09] MEDS: heparin 5,000 unit/mL INJ 1 mL IV (06:45)
[2022-02-09] MEDS: hydrocortisone 100 mg/2 mL SDV IVP (06:46)
[2022-02-09] MEDS: pantoprazole 40 mg SDV IVP ×2 (07:25→19:57)
--- NOTE | 2022-02-09 07:26 | PC.NURSE ---
Patient arrive at 1935 from OR. Sedated, vented verified settings. Family at bedside, status update given. Answered all questions. 2330 Patient clammy, pale. On Levophed at 20 mcg, pressures 50/30s . Dr Floyd at bedside. ABG done, 2 amps BICARB given. BICARB gtt intited. Levophed at [address] Floyd. Dopamine and Dobutamine gtt added. Family called, status update given 0340 Patient PEA . ACLS protocal intiated. Total of 3 amps of EPI, 1 amp BICARB . 3 rounds of CPR . 0350 pulse noted. EPI gtt intiated, titrating pressors. Vent changes done. Dr Floyd talk with family, request that rest of family be at bedside 0500 ECHO, BLE duplex done. Family at bedside
[2022-02-09] MEDS: DOPamine drip 400 MG/250 ML PREMIX 24.15 MG IV ×2 (07:51→18:38)
[2022-02-09 08:10] LABS: ABG PCO2 50.6 mmHg (35-45); Alveolar-Arterial Oxygen Gradi 77.8 mmHg (5-10); Arterial Blood Gas Hematocrit 46.9 % (42-52); Base Excess ABG -10.3 mmol/L (-2.0-2.0); Blood Gas Allen Test Pos; Blood Gas Operator Identificat CAK; Blood Gas Sample Site Radial, left; Blood Gas Sample Type Arterial; Carboxyhemoglobin 0.7 %THgb (0.4-20.1); HCO3 ABG 18.4 mmol/L (22-26); HGB O2 Sat 87.7 % (95-100); Ionized Calcium Level - ABG 1.1 mmol/L (1.1-1.4); Methemoglobin 0.9 % (0.4-1.5); Oxygen Device VENT; Oxygen Saturation ABG 89.1; PO2 ABG 55.1 mmHg (80.0-100.0); Potassium Level - ABG 4.4 mmol/L (3.5-5.0); Total Hemoglobin 15.3 g/dL (14-18)
[2022-02-09] MEDS: norepinephrine 8 MG in dextrose 5 % 500 ML 266.7 MG IV ×2 (08:12→10:10)
[2022-02-09] MEDS: atorvastatin 40 mg Tablet PO (08:29)
[2022-02-09] MEDS: aspirin 81 mg EC Tablet PO (08:29)
--- NOTE | 2022-02-09 08:43 | PM.PN ---
Subjective Subjective: The patient remains intubated in the ICU. He reportedly coded last night according the nursing. They think there may have been an episode of asystole. He remains on multiple pressors and a bicarb drip. Vitals/I&O/Wt Last Vital Signs Temp 98.1 F 02/08/22 19:45 Pulse 110 H 02/09/22 06:00 Resp 26 H 02/09/22 07:44 BP 117/65 02/09/22 04:45 Pulse Ox 92 02/09/22 07:44 02/08/22 02/09/22 02/09/22 22:59 06:59 14:59 Intake Total 1172.047 / 6863.239 1826.592 / 6863.239 350 / 350 Output Total 800 / 2150 1350 / 2150 Balance 372.047 / 4713.239 476.592 / 4713.239 350 / 350 Weight last 48 hrs Weight 284 lb Physical Exam Narrative: The Christoph drain is full of serosanguineous fluid this morning. His abdomen is quiet. The midline dressing is dry. The stoma appears viable. Urinary Catheter Management: Blackmon: Cath Placed During This Visit: yes Reason for Continuing Indwelling Catheter: Accurate Measurement of Urinary Output in Critically Ill Patients Urinary Catheter Date of Insertion: 02/08/22 Urinary Catheter Time of Insertion: 15:13 Data : 02/09/22 03:52 02/09/22 03:52 Micro: Microbiology 02/08/22 11:15 Blood Culture - Preliminary Blood 02/08/22 11:23 Blood Culture - Preliminary Blood SPECIMEN COLLECTED A&P Assessment and plan (1) Fecal peritonitis: Status post exploratory laparotomy with colostomy formation on 02/08/2022. The patient obviously remains critically ill. Status: Acute (2) Colon perforation: Status: Acute Attestations Medical Necessity Statement*: See admitting service's notation. Coding Level of Care Code Acute Casing Trimmer for Susan Freeman Diagnoses Fecal peritonitis K65.8 Colon perforation K63.1
--- NOTE | 2022-02-09 08:48 | PC.NURSE ---
Dr. Kathleen at bedside, spoke with family about prognosis, advised this nurse if possible to come off of Epi drip first then Levophed, and to do hourly output
--- NOTE | 2022-02-09 08:56 | ANE.PACU2 ---
Inpatient post-anesthesia follow up: Airway intact: Yes (Intubated) Vital signs: Temperature 98.1 F Pulse Rate 110 Respiratory Rate 26 Blood Pressure 117/65 Pulse Oximetry 92 Oxygen Delivery Me thod Mechanical Ventila tion Oxygen Flow Rate Fraction of Inspir ed Oxygen 100 Hydration adequate: No Nausea and vomiting: No Mental status: Altered (Sedated in ICU) Additional Comments: Worsening hemodynamics overnight (probably not unexpected), several pressors
[2022-02-09 09:01] LABS: Basophils # 0.1 10^3/uL (0.0-0.1); Basophils % 1.3 %; Eosinophils # 0.1 10^3/uL (0.0-0.8); Eosinophils % 2.4 %; Hematocrit 49.7 % (42.0-52.0); Hemoglobin 15.3 g/dL (11.7-16.6); Lymphocytes # 0.6 10^3/uL (0.8-4.8); Lymphocytes % 15.1 %; Mean Corpuscular HGB Conc 30.8 g/dL (30.0-36.0); Mean Corpuscular Hemoglobin 28.3 pg (28.0-34.0); Mean Corpuscular Volume 91.9 fl (80-94); Mean Platelet Volume 10.9 fL (7.4-10.4); Monocytes # 0.2 10^3/uL (0.2-0.9); Monocytes % 4.6 %; Neutrophils # 2.78 10^3/uL (1.8-7.7); Nucleated Red Blood Cells % 0.5 %; Platelet Count 141 10^3/cmm (130-400); Red Blood Count 5.41 10^6/uL (4.1-5.3); White Blood Count 3.7 10^3/uL (4.0-10.0)
[2022-02-09] MEDS: hydrocortisone 100 mg/2 mL SDV 50 MG IVP ×3 (09:08→20:01)
[2022-02-09 09:16] LABS: Acinetobacter baumannii Not Detected (NOT DETECT); Bacteroides fragilis Not Detected (NOT DETECT); CTX-M Not Detected (NOT DETECT); Citrobacter Not Detected (NOT DETECT); Cronobacter sakazakii Not Detected (NOT DETECT); Enterobacter cloacae complex Not Detected (NOT DETECT); Enterobacter non cloacae Not Detected (NOT DETECT); Fusobacterium necrophorum Not Detected (NOT DETECT); Fusobacterium nucleatum Not Detected (NOT DETECT); Haemophilus influenzae Not Detected (NOT DETECT); IMP Resistance Gene Not Detected (NOT DETECT); KPC Resistance Gene Not Detected (NOT DETECT); Klebsiella pneumoniae group Not Detected (NOT DETECT); Morganella morganii Not Detected (NOT DETECT); NDM Resistance Gene Not Detected (NOT DETECT); Neisseria meningitidis Not Detected (NOT DETECT); OXA Resistance Gene Not Detected (NOT DETECT); Pan Candida Not Detected (NOT DETECT); Pan Gram-Positive Not Detected (NOT DETECT); Proteus mirabilis Not Detected (NOT DETECT); Pseudomonas aeruginosa Not Detected (NOT DETECT); Salmonella Not Detected (NOT DETECT); Serratia Not Detected (NOT DETECT); Serratia marcescens Not Detected (NOT DETECT); Stenotrophomonas maltophilia Not Detected (NOT DETECT); VIM Resistance Gene Not Detected (NOT DETECT)
[2022-02-09 09:17] LABS: ABG PH Result 7.17 (7.35-7.45)
[2022-02-09 09:17] LABS: ABG PH Result 7.07 (7.35-7.45)
[2022-02-09 09:20] LABS: Albumin Level 2.9 g/dL (3.5-5.2); Alkaline Phosphatase 36 IU/L (40-130); Anion Gap 18.5 (5-19); Aspartate Amino Transferase 87 U/L (0-40); Blood Urea Nitrogen 31 mg/dL (8-23); Calcium 7.7 mg/dL (8.5-10.5); Carbon Dioxide 17 mmol/L (22-29); Chloride 108 mmol/L (98-107); Globulin 2.3 g/dL (1.3-4.6); Glucose 220 mg/dL (65-115); Osmolality Calculated 301 mOsm/kg (285-295); Potassium 4.5 mmol/L (3.5-5.1); Sodium 139 mmol/L (136-145); Total Bilirubin 0.5 mg/dL (0.15-1.2); Total Protein 5.2 g/dL (6.6-8.7)
[2022-02-09 09:43] LABS: Alanine Aminotransferase 45 U/L (0-41)
--- NOTE | 2022-02-09 11:50 | ANES.PROC ---
Anesthesia Procedures Procedure/Date: 02/09/22 Arterial Line: Time Out Performed: Yes Consent: emergency procedure Size (Gauge): 20 Technique Used: guide wire technique Post-Procedure: dry sterile dressing placed Patient Tolerated Procedure: well Complications: none Site: right and radial
[2022-02-09] MEDS: propofol 1,000 MG/100 ML INJ 7.73 MG IV ×3 (12:42→22:00)
[2022-02-09] MEDS: sodium chloride 0.9% 500 ML 999 ML IV (14:08)
--- NOTE | 2022-02-09 14:08 | PM.PN ---
Subjective Subjective: Last 24 hours since admission patient underwent expiratory laparotomy with colostomy formation and repair of incarcerated/hernia. Postoperatively patient was transferred to ICU. Overnight patient required multiple pressors. At around 340 patient had a PEA arrest for which he had ACLS protocol chest compressions for around 9 minutes after which he achieved ROSC. Examination today patient is alert with fentanyl, propofol. He is currently on multiple pressors including maxed of vasopressor, epinephrine, Levophed of 80, dopamine of 5, heparin drip, sodium bicarb drip running at 125 cc/h. Family at bedside. Multiple goals of care discussion none. Seen multiple times during the day. Ventilator settings changed as per patient's breathing rate and ABG reviewed. Patient has around 800 cc of urine postoperatively till today morning. Vitals/I&O/Wt Last Vital Signs Temp 98.1 F 02/08/22 19:45 Pulse 110 H 02/09/22 06:00 Resp 26 H 02/09/22 13:43 BP 117/65 02/09/22 04:45 Pulse Ox 88 L 02/09/22 13:43 02/08/22 02/09/22 02/09/22 22:59 06:59 14:59 Intake Total 1172.047 / 5036.647 1826.592 / 6863.239 2228.833 / 2228.833 Output Total 800 / 800 1350 / 2150 950 / 950 Balance 372.047 / 4236.647 476.592 / 4713.239 1278.833 / 1278.833 Weight last 48 hrs Weight 128.82 kg Physical Exam Narrative: General: Acute distress because of abdominal pain AO x3, HEENT: PERRLA, pupils bilaterally equal and reactive Chest: Normal vesicular breath sounds, no added sounds, equal good air entry bilaterally CVS: S1-S2 regular, no murmurs, no tachycardia, no gallops, no rubs Abdomen: Distended, tender, bowel sounds sluggish, NG tube in place Neuro: No focal deficits, no facial deformity, AO x3, power 5/5 in all limbs Urinary Catheter Management: Blackmon: Cath Placed During This Visit: yes Reason for Continuing Indwelling Catheter: Accurate Measurement of Urinary Output in Critically Ill Patients Urinary Catheter Date of Insertion: 02/08/22 Urinary Catheter Time of Insertion: 15:13 Data : 02/09/22 08:29 02/09/22 08:29 Micro: Microbiology 02/08/22 16:40 Anaerobic Culture - Preliminary Peritoneal Fluid 02/08/22 16:40 Gram Stain - Final Other Source 02/08/22 11:15 Blood Culture - Preliminary Blood Escherichia coli 02/08/22 11:23 Blood Culture - Preliminary Blood Escherichia coli A&P Assessment and plan (1) Septic shock: Status: Acute (2) E coli bacteremia: Status: Acute (3) Fecal peritonitis: Status: Acute (4) Colon perforation: Status: Acute (5) MILEY (acute kidney injury): Status: Acute (6) Lactic acid acidosis: Status: Acute (7) Elevated troponin: Status: Acute (8) High anion gap metabolic acidosis: Status: Acute (9) HTN (hypertension): Status: Acute (10) Leukopenia: Status: Acute (11) Incarcerated ventral hernia: Status: Acute Plan Septic shock/E. coli bacteremia: Secondary to colon perforation and fecal peritonitis. Postop day 1. Underwent expiratory laparotomy with colostomy formation, repair of incarcerated hernia with Dr. Bailey. Keep mean artery pressure over 65. Try to wean down on Levophed, wean off epi and then vasopressor. Keep saturation over 88%. Maintain sedation with propofol and fentanyl for now. Repeat CBC, CMP every 8 hour, ABG every 12 hours for now. Lactate every 12 hour. IV fluids with sodium bicarb at 125 cc/h for now. Repeat blood culture in a.m. For now continue with vancomycin and Zosyn. Will change antibiotics as per culture sensitivities. Sedation vacation once able to come down on pressors. MILEY: Monitor urine output. IV fluid as above. Medical reconciliation done for nephrotoxic drugs. High anion gap metabolic acidosis: Sodium bicarb drip as above. Lactic acidosis. Elevated troponin: Most likely secondary to type II VA. Troponin trending down prior to CODE BLUE. Started on heparin drip overnight. For now continue. Echocardiogram results pending. Once patient is more stable most likely will need Lexiscan stress test. For now we will hold off on cardiology consultation. Extremely guarded prognosis. Goals of care: Discussed in detail with patient's , daughter and granddaughter at bedside. We discussed that unfortunately patient is in multiorgan failure with septic shock, acute kidney injury, respiratory failure and is post cardiac arrest. Patient is on at least 5 pressors currently along with heparin drip and sodium bicarb drip and is at high risk of arrhythmia, need for dialysis. Family states patient would have been okay with any treatment until it would affect his lifestyle, functional capacity or would not cause permanent degradation. We discussed it is too early currently given his clinical course but he definitely is extremely sick with severely guarded prognosis. NPO. Protonix for PUD prophylaxis. Heparin drip will suffice for DVT prophylaxis. Attestations Medical Necessity Statement*: Requires further hospitalization for management of septic shock, E. coli bacteremia in setting of colon perforation leading to fecal peritonitis, multiorgan failure Critical Care Time: The high probability of a clinically significant, sudden or life threatening deterioration of the patient's [cardiac, renal, pulmonary, neurological, GI system(s) required my full and direct attention, intervention and personal management. The critical care time is as shown. This time is in addition to time spent performing any reported procedures but includes the following: [x] Data and vital sign review and interpretation [x] Patient assessment, examination and intervention [x] Documentation [x] Medication orders and management Critical Care Time (min): 90 Procedures Arterial Line Size (Gauge): 20 Coding Level of Care Code Acute Human Relations Teacher for Chg Fwd Diagnoses MILEY (acute kidney injury) N17.9 Lactic acid acidosis E87.2 Elevated troponin R77.8 High anion gap metabolic acidosis E87.2 HTN (hypertension) I10 Leukopenia D72.819 Incarcerated ventral hernia K43.6 Colon perforation K63.1 Fecal peritonitis K65.8 Septic shock A41.9; R65.21 E coli bacteremia R78.81; B96.20
[2022-02-09] MEDS: vancomycin 1,500 MG/300 ML PIGGYBACK 200 MG IV (14:09)
[2022-02-09 15:41] LABS: Basophils # 0.1 10^3/uL (0.0-0.1); Basophils % 1.3 %; Hematocrit 42.6 % (42.0-52.0); Hemoglobin 13.6 g/dL (11.7-16.6); Lymphocytes # 0.5 10^3/uL (0.8-4.8); Lymphocytes % 11.5 %; Mean Corpuscular HGB Conc 31.9 g/dL (30.0-36.0); Mean Corpuscular Hemoglobin 28.6 pg (28.0-34.0); Mean Corpuscular Volume 89.7 fl (80-94); Mean Platelet Volume 11.7 fL (7.4-10.4); Monocytes # 0.1 10^3/uL (0.2-0.9); Monocytes % 3.1 %; Neutrophils % 76.2 %; Nucleated Red Blood Cells % 0 %; Platelet Count 105 10^3/cmm (130-400); Red Blood Count 4.75 10^6/uL (4.1-5.3); Red Cell Distribution Width 15.1 % (12.1-15.1); White Blood Count 3.9 10^3/uL (4.0-10.0)
[2022-02-09 16:03] LABS: Alanine Aminotransferase 41 U/L (0-41); Albumin Level 2.8 g/dL (3.5-5.2); Alkaline Phosphatase 30 IU/L (40-130); Anion Gap 17.5 (5-19); Aspartate Amino Transferase 79 U/L (0-40); Blood Urea Nitrogen 33 mg/dL (8-23); Calcium 7.2 mg/dL (8.5-10.5); Carbon Dioxide 18 mmol/L (22-29); Chloride 105 mmol/L (98-107); Glucose 197 mg/dL (65-115); Osmolality Calculated 295 mOsm/kg (285-295); Potassium 4.5 mmol/L (3.5-5.1); Sodium 136 mmol/L (136-145); Total Bilirubin 0.7 mg/dL (0.15-1.2); Total Protein 4.8 g/dL (6.6-8.7)
[2022-02-09 16:04] LABS: ABG PCO2 28.4 mmHg (35-45); ABG PH Result 7.31 (7.35-7.45); Alveolar-Arterial Oxygen Gradi 81.3 mmHg (5-10); Arterial Blood Gas Hematocrit 32.3 % (42-52); Base Excess ABG -10.6 mmol/L (-2.0-2.0); Blood Gas Allen Test Pos; Blood Gas Operator Identificat CAK; Blood Gas Sample Site ARTLINE; Blood Gas Sample Type Arterial; Carboxyhemoglobin 0.6 %THgb (0.4-20.1); HCO3 ABG 14.3 mmol/L (22-26); HGB O2 Sat 87.8 % (95-100); Ionized Calcium Level - ABG 0.8 mmol/L (1.1-1.4); Methemoglobin 1.2 % (0.4-1.5); Oxygen Device VENT; Oxygen Saturation ABG 89.4; PO2 ABG 49.6 mmHg (80.0-100.0); Potassium Level - ABG 2.8 mmol/L (3.5-5.0); Total Hemoglobin 10.5 g/dL (14-18)
--- NOTE | 2022-02-09 16:10 | PC.NURSE ---
Dr. Greenwood called and was updated on patient being on 2 pressors with a map of 68, temp of 101.5, O2 sat 89 on 100% FiO2. t.o. given to not titrate down on any more pressors for awhile, switch fluids to D5NS 20K @ 100 ml/hr, give 40 Lasix, Start IV Tylenol if Temp does not come down
[2022-02-09] MEDS: dextrose 5%-ns + KCl 20 20 MEQ/1,000 ML BAG 100 MEQ IV (16:17)
[2022-02-09] MEDS: FUROsemide 10 mg/mL SDV 4mL 40 MG IVP (16:20)
[2022-02-09 17:13] LABS: Partial Thromboplastin Time 236.1 SECONDS (23.9-36.7)
--- NOTE | 2022-02-09 18:56 | PC.NURSE ---
Patient very dependent on pressors, Hemodinamically unstable, turning is contraindicated, family at bedside, Dr. Greenwood called gave t.o. to draw ABG at midnight and not to titrate down on any pressors over night
[2022-02-09] MEDS: dexmedeTOMIDine 0.9 % NaCL 400 MCG/100 ML PREMIX 28.99 MCG IV (21:36)
[2022-02-09 21:42] LABS: Partial Thromboplastin Time 86.3 SECONDS (23.9-36.7)
[2022-02-10] VITALS (106 sets, daily range): BP systolic 69–156; BP diastolic 41–95; PULSE 91–113; RESP 22–24; TEMP 37.4–38.6; O2SAT 75–88
[2022-02-10 00:01] LABS: ABG PCO2 33.5 mmHg (35-45); Alveolar-Arterial Oxygen Gradi 80.8 mmHg (5-10); Arterial Blood Gas Hematocrit 34.5 % (42-52); Base Excess ABG -9.2 mmol/L (-2.0-2.0); Blood Gas Allen Test Pos; Blood Gas Sample Site Radial, left; Blood Gas Sample Type Arterial; Carboxyhemoglobin 0.7 %THgb (0.4-20.1); HCO3 ABG 16.4 mmol/L (22-26); HGB O2 Sat 84.5 % (95-100); Ionized Calcium Level - ABG 0.8 mmol/L (1.1-1.4); Methemoglobin 1.1 % (0.4-1.5); Oxygen Device VENT; PO2 ABG 49.5 mmHg (80.0-100.0); Potassium Level - ABG 3.2 mmol/L (3.5-5.0); Total Hemoglobin 11.3 g/dL (14-18)
--- NOTE | 2022-02-10 00:34 | XRR_ITS ---
PROCEDURE INFORMATION: Exam: XR Chest Exam date and time: 02/10/2022 12:43 AM Age: 71 years old Clinical indication: Dyspnea; Additional info: Decreased oxygenation sats 86 TECHNIQUE: Imaging protocol: XR of the chest. Views: 1 view. COMPARISON: CR XR chest 1V portable [id number] 02/09/2022 12:13 AM FINDINGS: Tubes, catheters and devices: Endotracheal tube, tip 3.8 cm above ozzie. Nasogastric tube, tip below diaphragm and off image. Right internal jugular central venous line, tip overlying the mid superior vena cava. Lungs: Extensive mixed interstitial/alveolar opacities throughout both lungs, most prominent at the lung bases, overall similar to prior study. These may represent any combination of pulmonary edema and pneumonia. Pleural spaces: No visible pneumothorax. Possible small left pleural effusion. Heart/Mediastinum: Heart size within normal limits. Bones/joints: No emergent findings identified. XR/XR chest 1V [id number] IMPRESSION: 1. Extensive mixed interstitial/alveolar opacities throughout both lungs, most prominent at the lung bases, overall similar to prior study. These may represent any combination of pulmonary edema and pneumonia.
[2022-02-10] MEDS: dextrose 5%-ns + KCl 20 20 MEQ/1,000 ML BAG 100 MEQ IV (00:41)
[2022-02-10] MEDS: sodium bicarbonate 8.4% 1 mEq/mL 50mL Syr 100 MEQ IVP ×3 (01:21→15:53)
[2022-02-10] MEDS: FUROsemide 10 mg/mL SDV 10mL 80 MG IVP ×3 (01:21→18:25)
[2022-02-10] MEDS: heparin drip 25,000 UNIT/500 ML PREMIX 30 UNIT IV (01:33)
[2022-02-10] MEDS: hydrocortisone 100 mg/2 mL SDV 50 MG IVP ×4 (02:04→21:45)
[2022-02-10] MEDS: dexmedeTOMIDine 0.9 % NaCL 400 MCG/100 ML PREMIX 38.65 MCG IV ×2 (02:15→04:44)
[2022-02-10] MEDS: propofol 1,000 MG/100 ML INJ 19.32 MG IV (02:56)
[2022-02-10] MEDS: cisatracurium 100 MG in sodium chloride 0.9% 50 ML IV (02:58)
[2022-02-10 03:45] LABS: ABG PCO2 44.7 mmHg (35-45); ABG PH Result 7.27 (7.35-7.45); Arterial Blood Gas Hematocrit 38.9 % (42-52); Base Excess ABG -6.2 mmol/L (-2.0-2.0); Blood Gas Allen Test Pos; Blood Gas Sample Site Radial, left; Blood Gas Sample Type Arterial; Blood Gas Tidal Volume 0.45; HCO3 ABG 20.6 mmol/L (22-26); Oxygen Device VENT; PO2 ABG 48.5 mmHg (80.0-100.0)
[2022-02-10] MEDS: bumetanide 0.25 mg/mL SDV 10 mL 1 MG IVP (04:15)
[2022-02-10 04:47] LABS: Eosinophils % 0.1 %; Hematocrit 41.2 % (42.0-52.0); Hemoglobin 12.7 g/dL (11.7-16.6); Lymphocytes # 0.5 10^3/uL (0.8-4.8); Lymphocytes % 5.5 %; Mean Corpuscular HGB Conc 30.8 g/dL (30.0-36.0); Mean Corpuscular Hemoglobin 28.3 pg (28.0-34.0); Mean Platelet Volume 11.2 fL (7.4-10.4); Monocytes # 0.1 10^3/uL (0.2-0.9); Monocytes % 1.3 %; Neutrophils # 7.94 10^3/uL (1.8-7.7); Neutrophils % 92.2 %; Nucleated Red Blood Cells % 0.3 %; Platelet Count 85 10^3/cmm (130-400); Red Blood Count 4.48 10^6/uL (4.1-5.3); Red Cell Distribution Width 15.1 % (12.1-15.1); White Blood Count 8.6 10^3/uL (4.0-10.0)
[2022-02-10] MEDS: DOPamine drip 400 MG/250 ML PREMIX 24.15 MG IV ×2 (04:58→14:12)
[2022-02-10] MEDS: piperacillin-tazobactam 3.375 GM in sodium chloride 0.9% (plus) 50 ML IV (05:00)
[2022-02-10 05:08] LABS: Partial Thromboplastin Time 131.3 SECONDS (23.9-36.7)
[2022-02-10 05:13] LABS: Alanine Aminotransferase 38 U/L (0-41); Albumin Level 2.7 g/dL (3.5-5.2); Alkaline Phosphatase 38 IU/L (40-130); Anion Gap 15.3 (5-19); Aspartate Amino Transferase 86 U/L (0-40); Blood Urea Nitrogen 38 mg/dL (8-23); Calcium 6.9 mg/dL (8.5-10.5); Carbon Dioxide 20 mmol/L (22-29); Chloride 104 mmol/L (98-107); Globulin 2.1 g/dL (1.3-4.6); Glucose 153 mg/dL (65-115); Magnesium 1.8 mg/dL (1.7-2.3); Osmolality Calculated 292 mOsm/kg (285-295); Phosphorus 4.2 mg/dL (2.5-4.5); Potassium 4.3 mmol/L (3.5-5.1); Sodium 135 mmol/L (136-145); Total Bilirubin 0.9 mg/dL (0.15-1.2); Total Protein 4.8 g/dL (6.6-8.7)
[2022-02-10 05:21] LABS: Slide Review Slide Review Perform
--- NOTE | 2022-02-10 05:40 | PC.NURSE ---
1900 Received report at bedside Pt on Levophed 50 to 60 MCG/MIN may titrate as high as 100MCg per Dr. Garcia. multiple gtts sedated on ventilator. family at bedside
--- NOTE | 2022-02-10 06:00 | ECG_ITS ---
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 Measurements Intervals Hammond Rate: 112 P: MT: QRS: -4 QRSD: 103 T: 59 QT: 287 QTc: 393 Interpretive Statements SINUS TACHYCARDIA NONSPECIFIC ST & T-WAVE ABNORMALITY Compared to ECG 02/09/2022 06:32:47 T-wave abnormality now present ST (T wave) deviation no longer present Early repolarization no longer present Electronically Signed On 02-11-2022 9:06:59 CDT by Rm Lomeli M.D. [email or web address]
[2022-02-10] MEDS: propofol 1,000 MG/100 ML INJ 27.05 MG IV ×4 (06:23→17:15)
--- NOTE | 2022-02-10 07:36 | PC.NURSE ---
Dr Hudson called ivf to be off. and wean increase levophed gtt changed to simv
[2022-02-10] MEDS: pantoprazole 40 mg SDV IVP ×2 (07:40→19:42)
[2022-02-10] MEDS: dexmedeTOMIDine 0.9 % NaCL 400 MCG/100 ML PREMIX 16.1 MCG IV (07:40)
--- NOTE | 2022-02-10 07:40 | XRR_ITS ---
PROCEDURE INFORMATION: Exam: XR Chest Exam date and time: 02/10/2022 7:50 AM Age: 71 years old Clinical indication: Fever; Additional info: Intubated, ards TECHNIQUE: Imaging protocol: XR of the chest. Views: 1 view. COMPARISON: CR (CHEST, ) 02/10/2022 12:43 AM FINDINGS: Tubes, catheters and devices: Endotracheal tube, tip approximately 2.5 cm above ozzie. Nasogastric tube, tip below diaphragm. Right internal jugular central venous line, tip overlying the mid superior vena cava. Lungs: Extensive mixed interstitial/alveolar opacities throughout both lungs, increased from prior study. These may represent any combination of pulmonary edema and pneumonia. Pleural spaces: No visible pneumothorax. Possible small left pleural effusion. Heart/Mediastinum: Unremarkable. No cardiomegaly. Bones/joints: No emergent findings identified. XR/XR chest 1V portable [id number] IMPRESSION: 1. Extensive mixed interstitial/alveolar opacities throughout both lungs, increased from prior study. These may represent any combination of pulmonary edema and pneumonia.
--- NOTE | 2022-02-10 10:23 | PM.PN ---
Subjective Subjective: Patient remains critically ill in the intensive care unit. He is intubated, on multiple pressors, and has maxed out settings on the ventilator. Vitals/I&O/Wt Last Vital Signs Temp 100.4 F H 02/10/22 03:15 Pulse 112 H 02/10/22 10:00 Resp 22 H 02/10/22 09:22 BP 120/69 02/10/22 10:00 Pulse Ox 88 L 02/10/22 10:00 02/09/22 02/10/22 02/10/22 22:59 06:59 14:59 Intake Total 1237.832 / 7036.101 2911.436 / 7036.101 4506.818 / 4506.818 Output Total 800 / 3120 1370 / 3120 Balance 437.832 / 3916.101 1541.436 / 3916.101 4506.818 / 4506.818 Physical Exam Narrative: The patient's colostomy is quite dark today, perhaps the result of all of the pressors that he is on. Urinary Catheter Management: Blackmon: Cath Placed During This Visit: yes Reason for Continuing Indwelling Catheter: Accurate Measurement of Urinary Output in Critically Ill Patients Urinary Catheter Date of Insertion: 02/08/22 Urinary Catheter Time of Insertion: 15:13 Data : 02/10/22 04:20 02/10/22 04:20 Micro: Microbiology 02/08/22 16:40 Gram Stain - Final Other Source Wound Culture - Preliminary Gram Negative Rods 02/09/22 08:03 Sputum Culture - Preliminary Sputum - Endotracheal Tube Aspirate 02/10/22 04:20 Blood Culture - Preliminary Blood SPECIMEN COLLECTED 02/10/22 04:20 Blood Culture - Preliminary Blood SPECIMEN COLLECTED 02/08/22 16:40 Anaerobic Culture - Preliminary Peritoneal Fluid 02/08/22 11:15 Blood Culture - Preliminary Blood Escherichia coli 02/08/22 11:23 Blood Culture - Preliminary Blood Escherichia coli A&P Assessment and plan (1) Fecal peritonitis: Status post exploratory laparotomy for fecal peritonitis with colostomy formation on 02/08/2022. The patient remains critically ill. Discussion held with the family. They know that his prognosis is probably poor. Status: Acute (2) Colon perforation: Status: Acute Attestations Medical Necessity Statement*: See admitting service's notation. Procedures Arterial Line Size (Gauge): 20 Coding Level of Care Code Acute Distribution Technician for Chg Fwd Diagnoses Fecal peritonitis K65.8 Colon perforation K63.1
[2022-02-10] MEDS: FUROsemide 100 MG in sodium chloride 0.9% 40 ML IV ×2 (10:45→23:54)
--- NOTE | 2022-02-10 11:15 | PC.NURSE ---
weaned off nimbex gtt at this time prior, increased pain medication and started lasix giving iv push of 80 mg precedex now decreased at this time .
--- NOTE | 2022-02-10 11:53 | PC.NUTR ---
Since Patient is NPO day 2, when and if medically appropriate, recommend consideration of Jevity 1.2 started at 15 ml/hr increasing 10 ml/hr Q8H as tolerated until a goal rate of 55 ml/hr is reached with 150 ml flushes Q4H or per MD discretion. Details in RD assessment.
[2022-02-10 12:32] LABS: Partial Thromboplastin Time 101.8 SECONDS (23.9-36.7)
[2022-02-10] MEDS: acetaminophen 1,000 MG/100 ML PIGGYBACK 400 MG IV ×2 (12:39→23:30)
[2022-02-10 13:56] LABS: ABG PH Result 7.23 (7.35-7.45); Blood Gas Sample Type Arterial; Ionized Calcium Level - ABG 0.8 mmol/L (1.1-1.4); Potassium Level - ABG 3.1 mmol/L (3.5-5.0)
[2022-02-10 13:58] LABS: ABG PCO2 36.9 mmHg (35-45); Alveolar-Arterial Oxygen Gradi 7.5 mmHg (5-10); Arterial Blood Gas Hematocrit 23.6 % (42-52); Base Excess ABG -11.4 mmol/L (-2.0-2.0); Blood Gas Operator Identificat CAK; Blood Gas Sample Site Not specified; Carboxyhemoglobin 0.6 %THgb (0.4-20.1); HCO3 ABG 15.3 mmol/L (22-26); HGB O2 Sat 83.7 % (95-100); Methemoglobin 0.6 % (0.4-1.5); Oxygen Device VENT; Oxygen Saturation ABG 84.7; PO2 ABG 47.7 mmHg (80.0-100.0); Total Hemoglobin 7.7 g/dL (14-18)
--- NOTE | 2022-02-10 14:13 | PC.NURSE ---
repositioned and oral care done minimal response noted .. urine output minimal abg.s done and tylenol given for elevated temp family at bedside remains sedated but not on any paralytic
[2022-02-10] MEDS: sodium bicarbonate 8.4% 1 mEq/mL 50mL Syr 100 MEQ IV (15:21)
[2022-02-10] MEDS: vancomycin 1,500 MG/300 ML PIGGYBACK 200 MG IV (15:38)
[2022-02-10] MEDS: sodium bicarbonate 1 mEq/mL SDV 50mL 100 MEQ IV (16:16)
[2022-02-10 16:33] LABS: Hematocrit 37.2 % (42.0-52.0); Hemoglobin 11.7 g/dL (11.7-16.6); Lymphocytes # 0.4 10^3/uL (0.8-4.8); Lymphocytes % 3.9 %; Mean Corpuscular HGB Conc 31.5 g/dL (30.0-36.0); Mean Corpuscular Hemoglobin 28.3 pg (28.0-34.0); Mean Corpuscular Volume 89.9 fl (80-94); Mean Platelet Volume 12.1 fL (7.4-10.4); Monocytes # 0.2 10^3/uL (0.2-0.9); Neutrophils # 8.55 10^3/uL (1.8-7.7); Nucleated Red Blood Cells % 0.4 %; Platelet Count 62 10^3/cmm (130-400); Red Blood Count 4.14 10^6/uL (4.1-5.3); Red Cell Distribution Width 15.2 % (12.1-15.1); White Blood Count 9.6 10^3/uL (4.0-10.0)
[2022-02-10 16:45] LABS: Alanine Aminotransferase 31 U/L (0-41); Albumin Level 2.6 g/dL (3.5-5.2); Alkaline Phosphatase 42 IU/L (40-130); Anion Gap 19.4 (5-19); Aspartate Amino Transferase 69 U/L (0-40); Blood Urea Nitrogen 41 mg/dL (8-23); Calcium 6.7 mg/dL (8.5-10.5); Carbon Dioxide 20 mmol/L (22-29); Chloride 96 mmol/L (98-107); Globulin 2.4 g/dL (1.3-4.6); Glucose 138 mg/dL (65-115); Osmolality Calculated 284 mOsm/kg (285-295); Potassium 4.4 mmol/L (3.5-5.1); Sodium 131 mmol/L (136-145); Total Bilirubin 0.9 mg/dL (0.15-1.2)
--- NOTE | 2022-02-10 17:56 | P.PN_ITS ---
Subjective Subjective: Overnight patient was hypoxic so was placed on Started on Nimbex in order to paralyze and PEEP was increased to 15. Today morning on examination his meals are in 60s, patient is overbreathing the vent. Nimbex was stopped after which has been improved. Currently he is on Levophed of 3, vaso and dopamine of 5. Urine output appreciated. Fentanyl increased to 150 after which patient seemed more comfortable with appropriate BIS. Seen multiple times during the day. Had multiple goals of care discussion with family. Started on Lasix drip. Remains critically sick. T-max 101.1 Fahrenheit. Vitals/I&O/Wt Last Vital Signs Temp 101.1 F H 02/10/22 15:00 Pulse 110 H 02/10/22 17:45 Resp 22 H 02/10/22 17:30 BP 129/67 02/10/22 17:45 Pulse Ox 81 L 02/10/22 17:45 02/10/22 02/10/22 02/10/22 06:59 14:59 22:59 Intake Total 2911.436 / 7036.101 6000.183 / 6000.183 1592.301 / 7592.484 Output Total 1370 / 3120 Balance 1541.436 / 3916.101 6000.183 / 6000.183 1592.301 / 7592.484 Physical Exam Narrative: General:Intubated Sedated HEENT: PERRLA, pupils bilaterally pinpoint, sluggishly reactive Chest: Bilateral bronchial breath sounds, good equal air entry, crackles present all over the lung beyer CVS: S1-S2 regular, no murmurs, no tachycardia, no gallops, no rubs Abdomen: Soft, NG tube in place, surgical dressing present, ostomy present with minimal stool Neuro: Intubated, sedated Urinary Catheter Management: Blackmon: Cath Placed During This Visit: yes Reason for Continuing Indwelling Catheter: Accurate Measurement of Urinary Output in Critically Ill Patients Urinary Catheter Date of Insertion: 02/08/22 Urinary Catheter Time of Insertion: 15:13 Data : 02/10/22 16:00 02/10/22 16:00 Micro: Microbiology 02/08/22 11:15 Blood Culture - Preliminary Blood Escherichia coli Gram positive camila 02/08/22 11:23 Blood Culture - Preliminary Blood Escherichia coli Gram positive camila 02/08/22 16:40 Anaerobic Culture - Preliminary Peritoneal Fluid 02/08/22 16:40 Gram Stain - Final Other Source Wound Culture - Preliminary Gram Negative Rods 02/09/22 08:03 Sputum Culture - Preliminary Sputum - Endotracheal Tube Aspirate 02/10/22 04:20 Blood Culture - Preliminary Blood SPECIMEN COLLECTED 02/10/22 04:20 Blood Culture - Preliminary Blood SPECIMEN COLLECTED A&P Assessment and plan (1) Septic shock: Status: Acute (2) E coli bacteremia: Status: Acute (3) Fecal peritonitis: Status: Acute (4) Colon perforation: Status: Acute (5) MILEY (acute kidney injury): Status: Acute (6) Lactic acid acidosis: Status: Acute (7) Elevated troponin: Status: Acute (8) High anion gap metabolic acidosis: Status: Acute (9) HTN (hypertension): Status: Acute (10) Leukopenia: Status: Acute (11) Incarcerated ventral hernia: Status: Acute (12) ARDS (adult respiratory distress syndrome): Status: Acute (13) Thrombocytopenia: Status: Acute Plan Septic shock/E. coli bacteremia: Secondary to colon perforation and fecal peritonitis. Postop day 2. Underwent expiratory laparotomy with colostomy formation, repair of incarcerated hernia with Dr. Bailey. Keep mean artery pressure over 65. Try to wean down on Levophed, wean off epi and then vasopressor. Keep saturation over 88%. Maintain sedation with propofol and fentanyl for now. Repeat CBC, CMP every 8 hour, ABG every 12 hours for now. Lactate every 12 hour. IV fluids with sodium bicarb at 125 cc/h for now. Continue vancomycin. Switch Zosyn to imipenem. Dose antibiotics as per creatinine clearance MILEY: Monitor urine output. IV Lasix 80 mg stat followed by Lasix drip at 5. We will monitor the urine output and blood pressures. Medical reconciliation done for nephrotoxic drugs. High anion gap metabolic acidosis: Sodium bicarb drip as above. ARDS: Most likely secondary to septic shock. Treatment as above. Change ventilator setting. Keep saturation more than 88%. Unfortunately cannot prone given patient postoperative from expiratory laparotomy. Lactic acidosis. Elevated troponin: Most likely secondary to type II [place]. Troponin trending down prior to CODE BLUE. Started on heparin drip overnight. For now continue. Echocardiogram results appreciated. No regional wall motion abnormality. Once patient is more stable most likely will need Lexiscan stress test. For now we will hold off on cardiology consultation. Extremely guarded prognosis. NPO. Protonix for PUD prophylaxis. SCDs for DVT prophylaxis. Plan for day: Continue to wean down pressors keeping mean arterial pressure over 65. Continue with fentanyl and propofol. Stop. Repeat ABG in afternoon. Give IV Lasix 80 mg followed by Lasix drip. Will monitor blood pressures. Repeat CBC and CMP in afternoon. Continue with vancomycin. Switch Zosyn to imipenem as per creatinine clearance. Echocardiogram results appreciated. Stop heparin drip given thrombocytopenia. Goals of care discussion: Discussed in detail again with patient's , daughter and granddaughter at bedside. We discussed that patient remains critically sick. Discussed that we are able to come down on pressor and currently is on 3 pressors. Discussed he is in ARDS currently and will try to start him on Lasix drip depending on creatinine clearance. We again discussed that he remains critically sick and has a higher chance of poor prognosis. Family states for now they want the treatment to continue going and if he has cardiac arrest they would want for him to be full code as they want ACLS protoc ol chest compressions at least for 5 minutes and then they will decide about comfort measures going forward. We did discuss that if he has 1 more episode of chest compressions chances of him going back to his baseline functional capacity, lifestyle and quality of life is highly doubtful. Family verbalized understanding and state if he does not make through the chest compressions for 2 to 3 minutes they would most likely make him comfort measures but for now they want to continue the treatment to the maximum. They do understand that the chances of him making through this is very low. Attestations Medical Necessity Statement*: Requires further hospitalization for management of septic shock, ARDS, MILEY, multiorgan failure Critical Care Time: The high probability of a clinically significant, sudden or life threatening deterioration of the patient's [renal, cardiac, ID, pulmonary, neurological, GI system(s) required my full and direct attention, intervention and personal management. The critical care time is as shown. This time is in addition to time spent performing any reported procedures but includes the following: [x] Data and vital sign review and interpretation [x] Patient assessment, examination and intervention [x] Documentation [x] Medication orders and management Critical Care Time (min): 90 Procedures Arterial Line Size (Gauge): 20 Coding Level of Care Code Acute Apparel Designer for [facility] Fwd Diagnoses Septic shock A41.9; R65.21 E coli bacteremia R78.81; B96.20 Fecal peritonitis K65.8 Colon perforation K63.1 MILEY (acute kidney injury) N17.9 Lactic acid acidosis E87.2 Elevated troponin R77.8 High anion gap metabolic acidosis E87.2 HTN (hypertension) I10 Leukopenia D72.819 Incarcerated ventral hernia K43.6 ARDS (adult respiratory distress syndrome) J80 Thrombocytopenia D69.6
[2022-02-10] MEDS: sodium chloride 0.9% 1,000 ML 3 ML IV (18:01)
[2022-02-10 18:44] LABS: ABG PCO2 47.3 mmHg (35-45); ABG PH Result 7.21 (7.35-7.45); Arterial Blood Gas Hematocrit 49.9 % (42-52); Base Excess ABG -9.1 mmol/L (-2.0-2.0); Blood Gas Operator Identificat glc; Blood Gas Sample Type Arterial; HCO3 ABG 18.9 mmol/L (22-26); Oxygen Device VENT; PO2 ABG 47.2 mmHg (80.0-100.0)
[2022-02-10 18:46] LABS: Blood Gas Sample Site A-LINE
[2022-02-10 18:47] LABS: Blood Gas CCRB Time 1855
[2022-02-10] MEDS: sodium bicarbonate 8.4% 1 mEq/mL 50mL Syr 50 MEQ IVP (19:42)
--- NOTE | 2022-02-10 20:39 | XRR_ITS ---
PROCEDURE INFORMATION: Exam: XR Abdomen Exam date and time: 02/10/2022 10:06 PM Age: 71 years old Clinical indication: Other: Sbo TECHNIQUE: Imaging protocol: XR of the abdomen. Views: Frontal supine view of the abdomen. 1 View. COMPARISON: CR XR abdomen 1V* [id number] 02/09/2022 12:16 AM FINDINGS: Tubes, catheters and devices: Enteric tube within gastric fundus. Right lower quadrant surgical drain is present. Lungs: Patchy lower lung airspace opacities are nonspecific. Heart/Mediastinum: Cardiomegaly. Gastrointestinal tract: Bowel loops are poorly evaluated. Bones/joints: Unremarkable. Soft tissues: Ventral abdominal wall laparotomy skin maykel are present. XR/XR KUB portable [id number] IMPRESSION: Satisfactory enteric tube position.
[2022-02-10 21:18] LABS: Basophils % 0.1 %; Eosinophils % 0.1 %; Hematocrit 37.8 % (42.0-52.0); Hemoglobin 11.8 g/dL (11.7-16.6); Lymphocytes # 0.3 10^3/uL (0.8-4.8); Lymphocytes % 2.8 %; Mean Corpuscular HGB Conc 31.2 g/dL (30.0-36.0); Mean Corpuscular Hemoglobin 28.1 pg (28.0-34.0); Mean Platelet Volume 11.8 fL (7.4-10.4); Monocytes # 0.2 10^3/uL (0.2-0.9); Monocytes % 2.2 %; Neutrophils # 8.65 10^3/uL (1.8-7.7); Neutrophils % 84.2 %; Nucleated Red Blood Cells # 0.1 /100WBC; Nucleated Red Blood Cells % 0.6 %; Platelet Count 59 10^3/cmm (130-400); Red Cell Distribution Width 15.4 % (12.1-15.1); White Blood Count 10.3 10^3/uL (4.0-10.0)
[2022-02-10 21:37] LABS: Alanine Aminotransferase 31 U/L (0-41); Albumin Level 2.9 g/dL (3.5-5.2); Alkaline Phosphatase 48 IU/L (40-130); Anion Gap 17.3 (5-19); Aspartate Amino Transferase 65 U/L (0-40); Blood Urea Nitrogen 43 mg/dL (8-23); Calcium 6.9 mg/dL (8.5-10.5); Carbon Dioxide 20 mmol/L (22-29); Chloride 94 mmol/L (98-107); Globulin 2.1 g/dL (1.3-4.6); Glucose 154 mg/dL (65-115); Magnesium 1.7 mg/dL (1.7-2.3); Osmolality Calculated 278 mOsm/kg (285-295); Potassium 4.3 mmol/L (3.5-5.1); Sodium 127 mmol/L (136-145); Total Bilirubin 1.2 mg/dL (0.15-1.2)
[2022-02-10 21:39] LABS: INR 1.51 (0.8-1.2)
[2022-02-10 21:40] LABS: Partial Thromboplastin Time 53.5 SECONDS (23.9-36.7)
[2022-02-10] MEDS: linezolid premix 600 MG/300 ML PREMIX 300 MG IV (21:47)
[2022-02-10 21:48] LABS: Fibrinogen 724 mg/dL (174-498)
[2022-02-10] MEDS: fluconazole premix 400 MG/200 ML PIGGYBACK 200 MG IV (21:49)
[2022-02-10] MEDS: fluconazole premix 400 MG/200 ML PIGGYBACK 50 MG IV (21:53)
[2022-02-10 21:55] LABS: D Dimer 8.75 ug/mIFEU (0-0.59)
[2022-02-10 22:19] LABS: ABG PCO2 47.4 mmHg (35-45); ABG PH Result 7.21 (7.35-7.45); Arterial Blood Gas Hematocrit 36.5 % (42-52); Base Excess ABG -8.7 mmol/L (-2.0-2.0); Blood Gas Allen Test Pos; Blood Gas Sample Site Radial, left; Blood Gas Sample Type Arterial; Oxygen Device VENT; PO2 ABG 47.1 mmHg (80.0-100.0)
[2022-02-11] VITALS (111 sets, daily range): BP systolic 84–157; BP diastolic 44–91; PULSE 66–102; RESP 20–31; TEMP 37.1–38.5; O2SAT 71–96
--- NOTE | 2022-02-11 00:36 | PC.NURSE ---
[address] crenshaw by phone increased Lasix gtt updated on current VS [address] Floyd notified decreased O2 sats 2054 Dr Floyd at bedside VS reviewed updated family RT present discussed vent settings gtts adjusted 2219 ABG results given [address] Dr. Floyd RT notified 2245 Dr Floyd notified O2 sats 75% 2309 Dr. Floyd updated O2 sats 77% gtts adjusted Nimbex stopped Levophed gtt titrated 8 Dr. Floyd updated by phone on VS
[2022-02-11] MEDS: propofol 1,000 MG/100 ML INJ 23.19 MG IV ×4 (00:45→15:02)
[2022-02-11] MEDS: fluconazole premix 400 MG/200 ML PIGGYBACK 50 MG IV (01:58)
[2022-02-11] MEDS: hydrocortisone 100 mg/2 mL SDV 50 MG IVP ×3 (02:09→16:16)
[2022-02-11 04:28] LABS: ABG PCO2 53.9 mmHg (35-45); ABG PH Result 7.19 (7.35-7.45); Arterial Blood Gas Hematocrit 36.9 % (42-52); Base Excess ABG -8.1 mmol/L (-2.0-2.0); Blood Gas Allen Test Pos; Blood Gas Sample Site Radial, left; Blood Gas Sample Type Arterial; HCO3 ABG 20.4 mmol/L (22-26); Oxygen Device VENT; PO2 ABG 48.9 mmHg (80.0-100.0)
[2022-02-11 04:56] LABS: Basophils % 0.1 %; Hematocrit 36.8 % (42.0-52.0); Hemoglobin 11.6 g/dL (11.7-16.6); Lymphocytes # 0.4 10^3/uL (0.8-4.8); Lymphocytes % 3.8 %; Mean Corpuscular HGB Conc 31.5 g/dL (30.0-36.0); Mean Corpuscular Hemoglobin 28.5 pg (28.0-34.0); Mean Corpuscular Volume 90.4 fl (80-94); Mean Platelet Volume 11.2 fL (7.4-10.4); Monocytes # 0.3 10^3/uL (0.2-0.9); Monocytes % 2.5 %; Neutrophils # 8.83 10^3/uL (1.8-7.7); Nucleated Red Blood Cells # 0.2 /100WBC; Nucleated Red Blood Cells % 1.6 %; Platelet Count 59 10^3/cmm (130-400); Red Blood Count 4.07 10^6/uL (4.1-5.3); Red Cell Distribution Width 15.2 % (12.1-15.1); White Blood Count 10.9 10^3/uL (4.0-10.0)
[2022-02-11 05:12] LABS: Alanine Aminotransferase 29 U/L (0-41); Albumin Level 2.7 g/dL (3.5-5.2); Alkaline Phosphatase 54 IU/L (40-130); Anion Gap 22.5 (5-19); Aspartate Amino Transferase 60 U/L (0-40); Blood Urea Nitrogen 45 mg/dL (8-23); Calcium 6.9 mg/dL (8.5-10.5); Carbon Dioxide 17 mmol/L (22-29); Chloride 88 mmol/L (98-107); Globulin 2.4 g/dL (1.3-4.6); Glucose 159 mg/dL (65-115); Magnesium 1.6 mg/dL (1.7-2.3); Osmolality Calculated 271 mOsm/kg (285-295); Phosphorus 5.7 mg/dL (2.5-4.5); Potassium 4.5 mmol/L (3.5-5.1); Sodium 123 mmol/L (136-145); Total Bilirubin 1.2 mg/dL (0.15-1.2); Total Protein 5.1 g/dL (6.6-8.7)
[2022-02-11 05:13] LABS: Lactate (Lactic Acid level) 3.1 mmol/L (0.5-2.2)
[2022-02-11 05:22] LABS: INR 1.46 (0.8-1.2)
[2022-02-11 05:23] LABS: Fibrinogen 817 mg/dL (174-498); Partial Thromboplastin Time 47.2 SECONDS (23.9-36.7)
[2022-02-11 05:37] LABS: D Dimer 7.83 ug/mIFEU (0-0.59)
[2022-02-11 05:43] LABS: Procalcitonin 96.02 ng/mL (0-0.5)
[2022-02-11 05:57] LABS: Slide Review Slide Review Perform
[2022-02-11] MEDS: DOPamine drip 400 MG/250 ML PREMIX 9.66 MG IV (05:59)
--- NOTE | 2022-02-11 06:00 | ECG_ITS ---
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 Measurements Intervals Marquez Rate: 87 P: -13 CO: 186 QRS: -7 QRSD: 106 T: 74 QT: 300 QTc: 363 Interpretive Statements SINUS RHYTHM NONSPECIFIC T-WAVE ABNORMALITY Compared to ECG 02/10/2022 09:20:49 Supraventricular tachycardia no longer present T-wave abnormality still present Electronically Signed On 02-11-2022 9:03:22 CDT by Rm Lomeli M.D. [email or web address] [id number]
[2022-02-11] MEDS: magnesium sulfate premix 4 GM/100 ML PREMIX IV (06:22)
[2022-02-11] MEDS: sodium bicarbonate 8.4% 1 mEq/mL 50mL Syr 100 MEQ IVP (06:23)
--- NOTE | 2022-02-11 06:54 | PC.NURSE ---
9562 Everett Ashton at bedside updated family on poor prognosis aware Levophed gtt at 70 reported off to oncoming shift
--- NOTE | 2022-02-11 07:00 | XR_ITS ---
WS: [id number] Exam: XR chest 1V portable [id number] Date/Time of Exam: 02/11/2022 6:05 AM Reason For Exam: sob Comparison 02/10/2022. Increasing consolidating infiltrates throughout the left lung. Stable appearing infiltrates in the ri ght lung. Heart size is within normal limits. The lungs remain fully expanded. ET tube in satisfactor y position ending about 3 cm above the ozzie. Enteric tube enters the stomach but the tip is not vis ible. Right IJ catheter remaining in satisfactory position. The mediastinum is normal in contour. Reg ional bony structures are intact. XR/XR chest 1V portable [id number] IMPRESSION: 1. Increasing consolidating infiltrate in the left lung. Stable right pulmonary infiltrates. 2. ET tube, enteric tube and right IJ catheter all remaining in satisfactory po sition.
[2022-02-11] MEDS: pantoprazole 40 mg SDV IVP ×2 (07:13→20:15)
--- NOTE | 2022-02-11 07:54 | PM.PN ---
Subjective Subjective: History and physical reviewed. Patient is not able to give any response as he is sedated and paralyzed. Family is present at bedside and I visited with him extensively. Medications: Reviewed: Yes Vitals/I&O/Wt Last Vital Signs Temp 100.9 F H 02/11/22 04:15 Pulse 88 02/11/22 07:00 Resp 24 H 02/11/22 07:40 BP 153/56 02/11/22 07:00 Pulse Ox 87 L 02/11/22 07:40 02/10/22 02/11/22 02/11/22 22:59 06:59 14:59 Intake Total 2525.750 / 8525.933 4219.774 / 08509.707 Output Total 400 / 400 335 / 735 Balance 2125.750 / 8125.933 3884.774 / 95256.707 Physical Exam Narrative: General exam is a sedated and paralyzed male. HEENT: Pupils equally round. Endotracheal tube and orogastric tube noted Neck is supple no lymphadenopathy or thyromegaly. Right IJ catheter noted Cardiovascular regular rate and rhythm, no murmur Lungs clear. Sounds diminished bilaterally. Abdomen demonstrates a dusky appearance colostomy with some blood in the pouch. No bowel sounds are heard. No masses are felt. demonstrates Blackmon, scant amount of urine Extremities 1-2+ edema bilaterally. Skin no rash Neuro: Paralyzed Urinary Catheter Management: Blackmon: Cath Placed During This Visit: yes Reason for Continuing Indwelling Catheter: Accurate Measurement of Urinary Output in Critically Ill Patients Urinary Catheter Date of Insertion: 02/08/22 Urinary Catheter Time of Insertion: 15:13 Data : 02/11/22 04:23 02/11/22 04:23 Other Labs: INR 1.46 ABG this morning demonstrated pH 7.19, PCO2 53, PO2 49 on 100% FiO2 with 16 of PEEP Lactate this morning 3.1, magnesium 1.6, LFTs normal with exception of AST of 60 An ultrasound done this morning demonstrated no large fluid collections Chest x-ray done this morning demonstrated increasing consolidation left lung and bilateral infiltrates. Micro: Microbiology 02/10/22 04:20 Blood Culture - Preliminary Blood NEGATIVE TO DATE 02/10/22 04:20 Blood Culture - Preliminary Blood NEGATIVE TO DATE 02/08/22 11:15 Blood Culture - Preliminary Blood Escherichia coli Gram positive camila 02/08/22 11:23 Blood Culture - Preliminary Blood Escherichia coli Gram positive camila 02/08/22 16:40 Anaerobic Culture - Preliminary Peritoneal Fluid 02/08/22 16:40 Gram Stain - Final Other Source Wound Culture - Preliminary Gram Negative Rods 02/09/22 08:03 Sputum Culture - Preliminary Sputum - Endotracheal Tube Aspirate A&P Assessment and plan (1) Septic shock: Severe septic shock on admission, requiring multiple pressors, secondary to fecal peritonitis. Colostomy was performed February 08. He is currently postoperative day #3. He underwent a CODE BLUE, on February 09, where ROSC was achieved after 3 doses of epinephrine. Mental status has not been able to be evaluated since that time. Echocardiogram was performed following this CODE BLUE demonstrating normal LV size and normal RV size and function. Currently still on a large dose of norepinephrine, small dose of dopamine, and vasopressin fixed dose Trying to wean down norepinephrine, and off of dopamine. This will be challenging secondary to significant persistent acidosis. Currently on Primaxin, linezolid Status: Acute (2) E coli bacteremia: Secondary to above. Continue Primaxin. Await full culture results. A gram-positive camila is also growing. Status: Acute (3) ARDS (adult respiratory distress syndrome): Severe ARDS requiring high ventilator settings of PEEP and FiO2 of 100%. Currently requiring paralyzation Pulmonary consultation today Status: Acute (4) Thrombocytopenia: Stable over the last 24 hours Anticoagulation on hold SCDs for DVT prophylaxis This is secondary to his sepsis. Status: Acute (5) MILEY (acute kidney injury): Significant reduction in urine output. Creatinine has climbed to 4.7. Concern on his current dose of pressors he is not a candidate for dialysis. Status: Acute (6) Elevated troponin: Consistent with type II elevation secondary to sepsis Not candidate for anticoagulation currently secondary to thrombocytopenia Status: Acute Plan Hypomagnesemia, supplement Discussion with family regarding very guarded prognosis currently on his degree of pressors. We also do not know mental state at this time. Will await evaluation by pulmonary critical care. In the interim I discussed with patient further CODE STATUS and they would not want him to receive CPR or undergo another code. They do want to continue current treatment at this time. Protonix for GI prophylaxis Attestations Medical Necessity Statement*: Needs continued hospitalization secondary to multiorgan failure Critical Care Time: The high probability of a clinically significant, sudden or life threatening deterioration of the patient's [ renal,, pulmonary, neurologic, vascular] system(s) required my full and direct attention, intervention and personal management. The critical care time is as shown. This time is in addition to time spent performing any reported procedures but includes the following: [x] Data and vital sign review and interpretation [x] Patient assessment, examination and intervention [x] Documentation [x] Medication orders and management Critical Care Time (min): 46 Procedures Arterial Line Size (Gauge): 20 Coding Level of Care Code Acute Diet Technician Registered for g Fwd Diagnoses Septic shock A41.9; R65.21 E coli bacteremia R78.81; B96.20 ARDS (adult respiratory distress syndrome) J80 Thrombocytopenia D69.6 MILEY (acute kidney injury) N17.9 Elevated troponin R77.8
[2022-02-11] MEDS: linezolid premix 600 MG/300 ML PREMIX 300 MG IV ×2 (08:20→20:20)
--- NOTE | 2022-02-11 09:10 | P.PN_ITS ---
Subjective Subjective: Patient remains intubated in the intensive care unit. He remains acidotic and critically ill. The family has made him DNR status. Vitals/I&O/Wt Last Vital Signs Temp 100.2 F H 02/11/22 08:00 Pulse 86 02/11/22 09:00 Resp 24 H 02/11/22 07:40 BP 142/71 02/11/22 09:00 Pulse Ox 92 02/11/22 09:00 02/10/22 02/11/22 02/11/22 22:59 06:59 14:59 Intake Total 2525.750 / 47139.707 4219.774 / 35538.707 1384.015 / 1384.015 Output Total 400 / 735 335 / 735 Balance 2125.750 / 87582.707 3884.774 / 58691.707 1384.015 / 1384.015 Physical Exam Narrative: The Christoph drain has some serosanguineous fluid in the bulb. The stoma looks a little less dusky to me today, but is still dark in color. Urinary Catheter Management: Blackmon: Cath Placed During This Visit: yes Reason for Continuing Indwelling Catheter: Accurate Measurement of Urinary Output in Critically Ill Patients Urinary Catheter Date of Insertion: 02/08/22 Urinary Catheter Time of Insertion: 15:13 Data : 02/11/22 04:23 02/11/22 04:23 Micro: Microbiology 02/10/22 04:20 Blood Culture - Preliminary Blood NEGATIVE TO DATE 02/10/22 04:20 Blood Culture - Preliminary Blood NEGATIVE TO DATE 02/08/22 11:15 Blood Culture - Preliminary Blood Escherichia coli Gram positive camila 02/08/22 11:23 Blood Culture - Preliminary Blood Escherichia coli Gram positive camila 02/08/22 16:40 Anaerobic Culture - Preliminary Peritoneal Fluid 02/08/22 16:40 Gram Stain - Final Other Source Wound Culture - Preliminary Gram Negative Rods 02/09/22 08:03 Sputum Culture - Preliminary Sputum - Endotracheal Tube Aspirate A&P Assessment and plan (1) Fecal peritonitis: Status post exploratory laparotomy for fecal peritonitis with colostomy formation on 02/08/2022. The patient remains critically ill with developing multiorgan dysfunction. Prognosis remains poor. Status: Acute (2) Colon perforation: Status: Acute Attestations Medical Necessity Statement*: See admitting service's notation. Procedures Arterial Line Size (Gauge): 20 Coding Level of Care Code Acute Posting Machine Operator for Chg Fwd Diagnoses Fecal peritonitis K65.8 Colon perforation K63.1
--- NOTE | 2022-02-11 10:44 | PC.CHAP ---
Pastoral Care Encounter/Spiritual Assessment Type of Contact [] Declined collection card clerk visit [] Patient/Family/Request visit [] Outpatient visit [] Follow-up visit [] Physician referral [] Code/Alert [x] Routine visit [] Staff referral [] Actively dying [x] Patient sleeping [x] Family support [] [] Out of room [] Palliative care [] [] Receiving care in room [] Pre-surgical visit [] Trauma [] Long length of stay [x] ICU visit [] Other: Relational/Emotional Strength [] Patient feels connected with others/family/visitors/staff [] Distress [] Loneliness/isolation [] Abandonment Spirituality of Patient [] Person of Adry [] Attends Adventist of their Adry [] Believes in Prayer [] Reads Bible or Judaism materials [] There are Spiritual issues to be addressed Fold Skiver Interventions [x] Prayer [] Active listening [] Non-anxious presence [] Spiritual/emotional support [] Crisis/trauma care [] Spiritual counseling [] Bereavement support [] Provided bereavement packet [] Provided Bible/devotional materials [] Provided toy/stuffed animal, coloring book to patient or family member [] Provided Communion [] Anointing/Sidon [] Salvation [x] Completed spiritual assessment [] Other: Impact on Illness or Injury [] Angry [] Fearful [] Anxious [] Often cries [] Exhaustion [] Unable to work [] Unable to attend restoration [] Unable to walk/stand [] Unable to read [] Unable to drive [] Unable to eat/drink [] Unable to sleep [] Unable to be with family [] Patient intubated [] Other: Summary patient has undergone surgery... entire family praying for healing... 8 family members staying in waiting room... Time spent with patient 30 min
--- NOTE | 2022-02-11 13:28 | PC.SOCIAL ---
IM discussed with patient daughter Lily and Granddaughter Jeanne. They both verbalize understanding. Clarisa will provide copy of IM to family and is aware that discussion occurred.
[2022-02-11 13:59] LABS: ABG PCO2 45.4 mmHg (35-45); ABG PH Result 7.25 (7.35-7.45); Alveolar-Arterial Oxygen Gradi 72.9 mmHg (5-10); Arterial Blood Gas Hematocrit 35.3 % (42-52); Base Excess ABG -6.9 mmol/L (-2.0-2.0); Blood Gas Operator Identificat CAK; Blood Gas Sample Site ARTLINE; Blood Gas Sample Type Arterial; Carboxyhemoglobin 0.6 %THgb (0.4-20.1); HCO3 ABG 20.1 mmol/L (22-26); HGB O2 Sat 90.7 % (95-100); Ionized Calcium Level - ABG 0.9 mmol/L (1.1-1.4); Methemoglobin 1.1 % (0.4-1.5); Oxygen Device VENT; Oxygen Saturation ABG 92.3; PO2 ABG 62.9 mmHg (80.0-100.0); Potassium Level - ABG 4.3 mmol/L (3.5-5.0); Total Hemoglobin 11.5 g/dL (14-18)
[2022-02-11] MEDS: FUROsemide 10 mg/mL SDV 10mL 120 MG IVP (14:14)
--- NOTE | 2022-02-11 14:24 | PM.CONSULT ---
Providers/Reason For Consult Consulting Physician/Specialty*: Pulmonary critical care medicine Reason for Consult*: Septic shock with multiorgan failure Attending Physician: Shree Hawkins MD Primary Care Provider: Tana Vital MD History of Present Illness History of Present Illness Tee Chilel Jr is a 71 year old male with a past medical history of stage IV rectal cancer. The patient was initially diagnosed with rectal cancer in 2013 and underwent chemoradiation therapy. At the time of diagnosis, the patient was found to have a right lung nodule which was surgically resected from the right lower lobe. This was likely malignant. He had a recurrence in 2019 at which time the lesion was resected. The patient had a colostomy which was reversed last year. His other past medical history includes incisional abdominal hernia, chronic right lower extremity venous insufficiency, arthritis, hypertension and depression. The patient is currently intubated and sedated in the ICU. The history was obtained by chart review. Patient presented to the hospital on February 08 with abdominal pain, multiple episodes of vomiting and loose bowel movement. There is no history of hematemesis or melena at that time. The patient was hypotensive in the emergency department. He received fluid bolus according to sepsis guidelines. CT scan of the abdomen and pelvis on February 08 revealed free intraperitoneal fluid, pneumoperitoneum consistent with perforated viscus. The patient underwent expiratory laparotomy the same day. He was found to have perforation in the distal sigmoid/rectal area. There is a significant amount of fecal matter in the abdomen. He was also noted to have incarcerated incisional hernia which was repaired. The patient had a colostomy performed at this time. The patient was in septic shock following this. His blood cultures are positive for E. coli and gram-positive rods. The patient suffered from cardiac arrest around 3:40 AM on February 09. He was in PEA arrest. The CODE BLUE lasted for approximately 7 minutes. Since then, the patient has remained on multiple pressors. He has sustained from acute tubular necrosis with oliguric renal failure. He is approximately 22 L fluid positive. Currently he is on 38 mcg of Levophed, 0.04 unit of vasopressin and 2 mcg of dopamine. Interestingly, after stopping the dopamine his blood pressure did drop. Is covered with broad-spectrum antibiotic. The patient has evidence of bilateral pulmonary infiltrate more on the left than the right. The patient had been saturating in the 70s to 80s over more than 24 hours. Last night his PEEP was increased given his weight of more than 120 kg. Currently he is saturating in the mid 90s. I performed a bedside ultrasound. The patient has bilateral B-lines. His IVC is more than 4 cm without any respirophasic variation. The RV appears to be dilated kevyn well. The patient is on volume control mechanical ventilation. Tidal volume of 500, respiratory rate of 24, PEEP of 14 and FiO2 of 95%. The latest blood gas reveals a pH of 7.25, PCO2 of 45.4, PO2 of 63 and the above-mentioned setting. His serum sodium has been progressively dropping. The sodium was 120 on the blood gas. His creatinine is 4.7 which has been going up. His urine output has been approximately 200 cc in the past 24 hours. His lactic acid is 3.1. He is currently sedated with propofol and fentanyl. Review of Systems Narrative: Unable to obtain Medications/Allergies Home Medications Medication Instructions Recorded Confirmed Last Taken Type meloxicam 15 mg tablet 15 mg PO QAM 08/23/20 02/08/22 02/08/22 History nifedipine 30 mg tablet,extended 30 mg PO QPM 08/23/20 02/08/22 02/07/22 History release selenium 50 mcg tablet 300 mcg PO TID tab 08/23/20 02/08/22 12/19/20 History Silica Tabs 2 tab PO DAILY 02/08/22 02/08/22 Unknown History chromium 100 mcg tablet 100 mcg PO TID 02/08/22 02/08/22 Unknown History fluoride (sodium) 1.1 % dental 1 applic DENTAL . DIRECTED 02/08/22 02/08/22 Unknown History cream (Sodium Fluoride 5000 Plus) hydroxychloroquine 200 mg tablet 400 mg PO .EVERY 21 DAYS 02/08/22 02/08/22 Unknown History multivitamin with iron-mineral 1 tab PO DAILY 02/08/22 02/08/22 Unknown History pentoxifylline 400 mg 400 mg PO TID 02/08/22 02/08/22 02/08/22 07:00 History tablet,extended release sertraline 50 mg tablet 25 mg PO QAM 02/08/22 02/08/22 02/08/22 History sildenafil 100 mg tablet 50 mg PO PRN PRN 02/08/22 02/08/22 Unknown History Allergies Allergy/AdvReac Type Severity Reaction Status Date / Time No Known Allergies Allergy Verified 02/08/22 11:37 Current Medications Generic Name Dose Route Start Last Admin Trade Name Therese PRN Reason Stop Dose Admin Propofol 1,000 mg in 100 mls @ 0 mls/hr 02/08/22 19:15 02/11/22 10:01 Diprivan IV 30 mcg/kg/min .Q0M NATALIE 23.19 mls/hr Administration Protocol Per Protocol Fentanyl 2,500 mcg/ Sodium 250 mls @ 0 mls/hr 02/08/22 19:15 02/11/22 06:24 Chloride IV 150 mcg/hr .Q0M NATALIE 15 mls/hr Administration Protocol Per Protocol Vasopressin 100 unit/ Sodium 100 mls @ 0 mls/hr 02/08/22 23:15 02/10/22 21:26 Chloride IV Infused .Q0M NATALIE Titration Protocol Per Protocol Dopamine HCl/Dextrose 400 mg in 250 mls @ 24.154 mls/hr 02/08/22 23:45 02/11/22 05:59 Intropin Drip IV 2 mcg/kg/min CONT NATALIE 9.66 mls/hr Administration Protocol 5 MCG/KG/MIN Albumin Human 25 gm in 100 mls @ 60 mls/hr 02/09/22 05:45 02/11/22 14:14 Albumin IV Not Given Q8H NATALIE Norepinephrine Bitartrate 16 1,016 mls @ 0 mls/hr 02/09/22 18:00 02/11/22 10:28 mg/ Dextrose IV 38 mcg/min .Q0M NATALIE 144.78 mls/hr Administration Protocol Per Protocol Imipenem/Cilastatin Sodium 250 100 mls @ 200 mls/hr 02/10/22 10:15 02/11/22 10:21 mg/ Sodium Chloride IV Infused Q8H NATALIE Infusion Protocol Sodium Chloride 1,000 mls @ 3 mls/hr 02/10/22 18:00 02/10/22 18:01 Sodium Chloride 0.9% IV 3 mls/hr .Q24H NATALIE Administration Linezolid 600 mg in 300 mls @ 300 mls/hr 02/10/22 21:00 02/11/22 09:51 Zyvox Premix IV Infused Q12H NATALIE Infusion Protocol Fluconazole 400 mg in 200 mls @ 200 mls/hr 02/11/22 08:00 02/10/22 23:52 Diflucan Premix IV Infused Q24H NATALIE Infusion Acetaminophen 1,000 mg in 100 mls @ 400 mls/hr 02/10/22 23:30 02/10/22 23:53 Acetaminophen IV Infused Q8H PRN Infusion FOR FEVER >100.4 Pantoprazole Sodium 40 mg 02/08/22 19:44 02/11/22 07:13 Pantoprazole 40 Mg Sdv IVP 40 mg Q12H NATALIE Administration PFSH Acute PFSH: Medical History Diverticulosis DJD (degenerative joint disease) History of colon polyps Hypertension Nephrolithiasis On imaging Rectal cancer Metastatic to right lower lobe Venous insufficiency of right leg Ventral hernia without obstruction or gangrene Surgical History (Updated 02/08/22 @ 15:18 by Eddie Bailey MD) History of colonoscopy History of lobectomy of lung Right lower lobe History of low anterior resection of rectum S/P ileostomy 10/24/2020 he underwent robotic extended low anterior resection with radical en bloc resection of seminal vesicles and vas deferens with portion of prostate and with placement of loop ileostomy with subsequent takedown of the diverting ileostomy Family History Denies family history of Anesthesia complication Bleeding disorder Social History Smoking and tobacco status: former smoker Quit status (tobacco): has quit using tobacco Year quit tobacco: 1995 Former quit date comment: [id number] history Vitals/I&O/Wt Last Vital Signs Temp 100.2 F H 02/11/22 08:00 Pulse 82 02/11/22 13:45 Resp 28 H 02/11/22 14:07 BP 130/61 02/11/22 13:30 Pulse Ox 94 02/11/22 14:07 02/10/22 02/11/22 02/11/22 22:59 06:59 14:59 Intake Total 2525.750 / 8525.933 4219.774 / 02917.707 2084.167 / 2083.167 Output Total 400 / 400 335 / 735 Balance 2125.750 / 8125.933 3884.774 / 45968.707 2084.167 / 2083.167 Physical Exam Narrative: General: Patient is intubated and sedated Neck: Unable to assess JVD Respiratory: Auscultation: Bilateral diffuse crackles, no wheezing or rhonchi Cardiovascular: Regular rate and rhythm, S1-S2 present, significant bilateral edema. Abdomen: Soft abdomen, incision site and colostomy in place Skin: Not mottled, discoloration in the bilateral lower extremities Neuro: Unable to assess Urinary Catheter Management: Blackmon: Cath Placed During This Visit: yes Reason for Continuing Indwelling Catheter: Accurate Measurement of Urinary Output in Critically Ill Patients Urinary Catheter Date of Insertion: 02/08/22 Urinary Catheter Time of Insertion: 15:13 Data : 02/11/22 04:23 02/11/22 04:23 Micro: Microbiology 02/08/22 11:15 Blood Culture - Preliminary Blood Escherichia coli Gram positive camila 02/08/22 11:23 Blood Culture - Preliminary Blood Escherichia coli Gram positive camila 02/09/22 08:03 Sputum Culture - Preliminary Sputum - Endotracheal Tube Aspirate 02/10/22 04:20 Blood Culture - Preliminary Blood NEGATIVE TO DATE 02/10/22 04:20 Blood Culture - Preliminary Blood NEGATIVE TO DATE 02/08/22 16:40 Anaerobic Culture - Preliminary Peritoneal Fluid 02/08/22 16:40 Gram Stain - Final Other Source Wound Culture - Preliminary Gram Negative Rods Other data: I have reviewed the patient's laboratory, microbiologic and neurologic data. Please see the HPI for detail. The patient has developed hyponatremia, anion gap metabolic acidosis, MILEY, thrombocytopenia without any evidence of DIC. Chest x-ray reveals bilateral infiltrate with more on the left than the right. The blood culture is positive for E. coli and gram-positive rods from February 08. The second set of blood culture from February 10 has been negative so far. A&P Assessment and plan (1) Septic shock: This is a 71-year-old gentleman with refractory septic shock. The etiology of the septic shock is perforated sigmoid colon/rectum with peritonitis and bacteremia. The patient has undergone exploratory laparotomy with colostomy and repair of the incarcerated incisional hernia. The patient is currently on 38 mcg of Levophed, septic dose vasopressin and only 2 mcg of dopamine. Going to start the patient on epinephrine I believe this will let us discontinue the dopamine and possibly go down on the Levophed as well. This may also provide some additional hemodynamic support if the patient is getting transferred to a facility. He is broadly covered with antibiotic and antifungal. Bedside ultrasound revealed significantly dilated IVC without any respirophasic variation. The right ventricle is dilated with still maintained systolic function. He is 22 L fluid positive. Currently, he is receiving approximately 300 cc of volume every hour. Unfortunately, the patient has suffered from ATN with oliguric acute kidney injury. His pressor requirement however has come down since last night. The only meaningful chance that the patient may have is by initiation of CRRT, removal of fluid as well as optimization of the electrolyte abnormalities. Given the patient's significant pressor requirement and tenuous hemodynamic status, he is not a candidate for regular dialysis. The patient will benefit from CRRT however even this may be difficult with high pressor requirements. Since we are unable to provide CRRT support at this time, the patient may benefit from transfer to a different facility. However, the transfer could also be complicated by decompensation and of the patient. I discussed this in detail with the patient's family who are present at bedside. Status: Acute (2) Colon perforation: See above Status: Acute (3) E coli bacteremia: The patient has gram-negative bacteremia and gram-positive camila bacteremia. He is currently broadly covered with linezolid and imipenem. He is also on fluconazole empirically. Status: Acute (4) ARDS (adult respiratory distress syndrome): The patient has bilateral pulmonary infiltrate left more than right. He is on volume control mechanical ventilation with a tidal volume of 500, FiO2 of 95%, respiratory rate of 28 and PEEP of 14. His saturation is in the 90s for the first time in more than 36 hours. The patient needs his high PEEP to contract the thick chest wall which has likely gotten worse from the 22 L fluid positive status. Status: Acute (5) MILEY (acute kidney injury): The patient has suffered from ATN. This is likely secondary to septic shock as well as cardiac arrest. At this point the patient is not making much urine. I am going to try with 120 mg of IV Lasix one-time however I do not think this is going to be successful. The patient may benefit from CRRT if this can be performed. Status: Acute (6) Cardiac arrest: The patient had suffered from cardiac arrest on February 09. His left ventricular function seems to be intact. Status: Acute (7) Rectal cancer: The patient has metastatic stage IV rectal cancer. However the patient has done fairly well since 2013. He had a pulmonary function test before and the spirometry was completely normal. The patient is critically ill, his chances of survival is minimal. The only reasonable chance could be provided if the patient would undergo CRRT. However, this is complicated by acceptance to a facility, safe transfer which could prove to be challenging. The family is aware of the risks and wants to give him a chance by transferring him. Status: Acute Consult Attestations Critical Care Time: 63 Procedures Arterial Line Size (Gauge): 20 Coding Level of Care Code Acute Pediatric Speech Language Pathologist for g Fwd Diagnoses Septic shock A41.9; R65.21 Colon perforation K63.1 E coli bacteremia R78.81; B96.20 ARDS (adult respiratory distress syndrome) J80 MILEY (acute kidney injury) N17.9 Rectal cancer C20 Cardiac arrest I46.9
[2022-02-11] MEDS: EPINEPHrine 2.5 MG in sodium chloride 0.9% 250 ML 12 MG IV (15:34)
--- NOTE | 2022-02-11 16:15 | PC.SOCIAL ---
IMM provided copy of pg 2 to family at bedside. Initialled, dated, timed, and placed in chart.
[2022-02-11] MEDS: sodium bicarbonate 8.4% 1 mEq/mL 50mL Syr 50 MEQ IVP (16:41)
--- NOTE | 2022-02-11 16:52 | P.CONIM_ITS ---
Providers/Reason For Consult Consulting Physician/Specialty*: gabriella mcguire md / telenephrology Reason for Consult*: MILEY Requesting Physician: Dr Juan Hawkins Attending Physician: Shree Hawkins MD Primary Care Provider: Tana Vital MD History of Present Illness History of Present Illness Tee Chilel Jr is a 71 year old male h/o stage 4 rectal ca s/p chemoradiation therapy. recurrence in 2019 w/ colostomy that was reversed. [place] [facility] [place] w/ abd mandel. CT scan revealed?free intraperitoneal fluid, pneumo peritoneum consistent with perforated viscus.? The patient underwent expiratory laparotomy on 02-08-22.? He was found to have perforation in the distal sigmoid/rectal area.? There was a significant amount of fecal matter in the abdomen.? He was also noted to have incarcerated incisional hernia which was repaired.? The patient had a colostomy performed at this time. The patient was in septic shock since the OR.? He is bacteremic w/r E. coli and gram-positive rods.? The patient suffered from cardiac arrest around 3:40 AM on February 09.? He was in PEA arrest.? The CODE BLUE lasted for approximately 7 minutes. Since then, the patient has remained on multiple pressors.? He has sustained from acute tubular necrosis with oliguric renal failure.? He is approximately 22 L fluid positive.? Currently he is on 32 mcg of Levophed, vasopressin, dopamine, and epi. He is getting 3L+ in daily and has oligo-anuric renal failure. Dr. Slade Called [facility] for potential transfer for CRRT. [facility] felt pt was too unstable for transfer. Renal is called for Q of MILEY and possible IHD. Review of Systems Narrative: unable to obtain Medications/Allergies Home Medications Medication Instructions Recorded Confirmed Last Taken Type meloxicam 15 mg tablet 15 mg PO QAM 08/23/20 02/08/22 02/08/22 History nifedipine 30 mg tablet,extended 30 mg PO QPM 08/23/20 02/08/22 02/07/22 History release selenium 50 mcg tablet 300 mcg PO TID tab 08/23/20 02/08/22 12/19/20 History Silica Tabs 2 tab PO DAILY 02/08/22 02/08/22 Unknown History chromium 100 mcg tablet 100 mcg PO TID 02/08/22 02/08/22 Unknown History fluoride (sodium) 1.1 % dental 1 applic DENTAL . DIRECTED 02/08/22 02/08/22 Unknown History cream (Sodium Fluoride 5000 Plus) hydroxychloroquine 200 mg tablet 400 mg PO .EVERY 21 DAYS 02/08/22 02/08/22 Unknown History multivitamin with iron-mineral 1 tab PO DAILY 02/08/22 02/08/22 Unknown History pentoxifylline 400 mg 400 mg PO TID 02/08/22 02/08/22 02/08/22 07:00 History tablet,extended release sertraline 50 mg tablet 25 mg PO QAM 02/08/22 02/08/22 02/08/22 History sildenafil 100 mg tablet 50 mg PO PRN PRN 02/08/22 02/08/22 Unknown History Allergies Allergy/AdvReac Type Severity Reaction Status Date / Time No Known Allergies Allergy Verified 02/08/22 11:37 Current Medications Generic Name Dose Route Start Last Admin Trade Name Freq PRN Reason Stop Dose Admin Hydrocortisone Sodium Succinate 50 mg 02/11/22 16:00 02/11/22 16:16 Hydrocortisone 100 Mg/2 Ml Sdv IVP 50 mg Q8H NATALIE Administration Propofol 1,000 mg in 100 mls @ 0 mls/hr 02/08/22 19:15 02/11/22 15:02 Diprivan IV 30 mcg/kg/min .Q0M NATALIE 23.19 mls/hr Administration Protocol Per Protocol Fentanyl 2,500 mcg/ Sodium 250 mls @ 0 mls/hr 02/08/22 19:15 02/11/22 06:24 Chloride IV 150 mcg/hr .Q0M NATALIE 15 mls/hr Administration Protocol Per Protocol Vasopressin 100 unit/ Sodium 100 mls @ 0 mls/hr 02/08/22 23:15 02/10/22 21:26 Chloride IV Infused .Q0M NATALIE Titration Protocol Per Protocol Dopamine HCl/Dextrose 400 mg in 250 mls @ 24.154 mls/hr 02/08/22 23:45 02/11/22 05:59 Intropin Drip IV 2 mcg/kg/min CONT NATALIE 9.66 mls/hr Administration Protocol 5 MCG/KG/MIN Albumin Human 25 gm in 100 mls @ 60 mls/hr 02/09/22 05:45 02/11/22 14:54 Albumin IV Infused Q8H NATALIE Infusion Norepinephrine Bitartrate 16 1,016 mls @ 0 mls/hr 02/09/22 18:00 02/11/22 10:28 mg/ Dextrose IV 38 mcg/min .Q0M NATALIE 144.78 mls/hr Administration Protocol Per Protocol Imipenem/Cilastatin Sodium 250 100 mls @ 200 mls/hr 02/10/22 10:15 02/11/22 10:21 mg/ Sodium Chloride IV Infused Q8H NATALIE Infusion Protocol Sodium Chloride 1,000 mls @ 3 mls/hr 02/10/22 18:00 02/10/22 18:01 Sodium Chloride 0.9% IV 3 mls/hr .Q24H NATALIE Administration Linezolid 600 mg in 300 mls @ 300 mls/hr 02/10/22 21:00 02/11/22 09:51 Zyvox Premix IV Infused Q12H NATALIE Infusion Protocol Fluconazole 400 mg in 200 mls @ 200 mls/hr 02/11/22 08:00 02/10/22 23:52 Diflucan Premix IV Infused Q24H NATALIE Infusion Acetaminophen 1,000 mg in 100 mls @ 400 mls/hr 02/10/22 23:30 02/10/22 23:53 Acetaminophen IV Infused Q8H PRN Infusion FOR FEVER >100.4 Epinephrine HCl 2.5 mg/ Sodium 252.5 mls @ 0 mls/hr 02/11/22 14:11 02/11/22 15:34 Chloride IV 0.02 mcg/kg/min .Q0M PRN 12 mls/hr hypotension Administration Protocol Per Protocol Pantoprazole Sodium 40 mg 02/08/22 19:44 02/11/22 07:13 Pantoprazole 40 Mg Sdv IVP 40 mg Q12H NATALIE Administration PFSH Acute PFSH: Medical History Diverticulosis DJD (degenerative joint disease) History of colon polyps Hypertension Nephrolithiasis On imaging Rectal cancer Metastatic to right lower lobe Venous insufficiency of right leg Ventral hernia without obstruction or gangrene Surgical History (Updated 02/08/22 @ 15:18 by Eddie Bailey MD) History of colonoscopy History of lobectomy of lung Right lower lobe History of low anterior resection of rectum S/P ileostomy 10/24/2020 he underwent robotic extended low anterior resection with radical en bloc resection of seminal vesicles and vas deferens with portion of prostate and with placement of loop ileostomy with subsequent takedown of the diverting ileostomy Family History Denies family history of Anesthesia complication Bleeding disorder Social History Smoking and tobacco status: former smoker Quit status (tobacco): has quit using tobacco Year quit tobacco: 1995 Former quit date comment: [id number] history Vitals/I&O/Wt Last Vital Signs Temp 100.2 F H 02/11/22 08:00 Pulse 81 02/11/22 16:00 Resp 28 H 02/11/22 15:41 BP 132/61 02/11/22 16:00 Pulse Ox 94 02/11/22 16:00 02/11/22 02/11/22 02/11/22 06:59 14:59 22:59 Intake Total 4219.774 / 34235.707 2284.167 / 2284.167 50 / 2334.167 Output Total 335 / 735 Balance 3884.774 / 28760.707 2284.167 / 2284.167 50 / 2334.167 Physical Exam Narrative: febrile, on multiple pressors vent fio2 =95%, TV 500, RR 28, PEEP 14 fentanyl/ propofol heent- nc/at, pupils minimally responsive lungs dull bases b/l heart reg abd tender, nd, no BS, ostomy ext 1+ edema neuro- sedated Urinary Catheter Management: Blackmon: Cath Placed During This Visit: yes Reason for Continuing Indwelling Catheter: Accurate Measurement of Urinary Output in Critically Ill Patients Urinary Catheter Date of Insertion: 02/08/22 Urinary Catheter Time of Insertion: 15:13 Data : 02/11/22 04:23 02/11/22 04:23 Micro: Microbiology 02/08/22 16:40 Gram Stain - Final Other Source Wound Culture - Preliminary Escherichia coli 02/08/22 11:15 Blood Culture - Preliminary Blood Escherichia coli Gram positive camila 02/08/22 11:23 Blood Culture - Preliminary Blood Escherichia coli Gram positive camila 02/09/22 08:03 Sputum Culture - Preliminary Sputum - Endotracheal Tube Aspirate 02/10/22 04:20 Blood Culture - Preliminary Blood NEGATIVE TO DATE 02/10/22 04:20 Blood Culture - Preliminary Blood NEGATIVE TO DATE A&P Assessment and plan (1) MILEY (acute kidney injury): 71 yr old man h/ocolorectal ca, diverticulosis, Rt lower lobectomy of lung, htn, on home mobic. Pt here w/ septic shock due to perforated abd viscus. He is s/p Abd surgery. S/P PEA arrest. He is presser dependent. He is bacteremic w/ e.coli and gram neg rods. He is in multiorgan failure, VDRF, oligo- anuric renal failure 1. MILEY- ATN- from septic shock, DARREN, mobic use -currently he has a met acidosis, mild resp acidosis, he is hypoxic, volume overloaded, mild lactic acidosis -Dr. Slade is concerned that without fluid removal- pt will not be able to oxygenate. - we do not currently have CRRT -Pt was turned down for a transfer for CRRT- as too unstable for transport. -I explained to the family, that we can attempt gentle HD. There is risk of bleeding, infection, hypotension, and arryhtmia with HD. I explained that no matter what we do- the pts mortality is very high. -the family wants to consider their options. -for now will repeat chemistries, ck, lactate 2. hyponatremia- likely from MILEY, volume overload -tsh 6.25- would not cause hyponatremia -will repeat chemistries and check cortisol level 4. inc AGMA from MILEY, lactic acidosis and septic shock prognosis is very poor pt seen and examined w/ rN- telehealth visit Informed consent for telehealth obtained from pts family time spent 50+ minutes 3. Status: Acute Plan see above Consult Attestations Medical Necessity Statement: multiorgan failure, septic shock, met acidosis Time Spent in Patient Care: Greater than 35 minutes (>than 50% of time spent in counselling and/or direct pt care on unit) . Procedures Arterial Line Size (Gauge): 20 Coding Level of Care Code Acute Bead Wire Insulator for Susan Freeman Diagnoses MILEY (acute kidney injury) N17.9
[2022-02-11 18:12] LABS: Lactate (Lactic Acid level) 2.5 mmol/L (0.5-2.2)
[2022-02-11 18:13] LABS: Complement C3 44 mg/dL (90-180)
[2022-02-11 18:16] LABS: Alanine Aminotransferase 28 U/L (0-41); Albumin Level 2.6 g/dL (3.5-5.2); Alkaline Phosphatase 61 IU/L (40-130); Aspartate Amino Transferase 54 U/L (0-40); Blood Urea Nitrogen 54 mg/dL (8-23); Carbon Dioxide 17 mmol/L (22-29); Chloride 86 mmol/L (98-107); Globulin 2.5 g/dL (1.3-4.6); Glucose 123 mg/dL (65-115); Magnesium 1.9 mg/dL (1.7-2.3); Osmolality Calculated 264 mOsm/kg (285-295); Phosphorus 5.7 mg/dL (2.5-4.5); Total Bilirubin 1.3 mg/dL (0.15-1.2); Total Protein 5.1 g/dL (6.6-8.7)
[2022-02-11 18:21] LABS: Hepatitis C Virus Antibody Non-Reactive (Nonreactive)
[2022-02-11 18:22] LABS: Cortisol Random 45.41 ug/dL (2.47-19.5)
[2022-02-11 18:27] LABS: Creatine Phosphokinase 644 U/L (39-308)
[2022-02-11 18:28] LABS: Anion Gap 20.2 (5-19); Potassium 4.2 mmol/L (3.5-5.1); Sodium 119 mmol/L (136-145)
--- NOTE | 2022-02-11 19:11 | PM.DIACAT ---
Procedure Note: Date of procedure: 02/11/22 Pre-op diagnosis: Acute kidney injury with electrolyte abnormalities Procedure: Name of the procedure: Left femoral vein hemodialysis catheter insertion under ultrasound guidance. Medications: Lidocaine 1% 5 mL. IV medications: Fentanyl and propofol drip. Consent: Obtained from his daughter Description of the procedure: The left femoral vein was identified under ultrasound guidance with collapsibility and lack of pulsatility. The site was prepared using sterile technique and the patient was positioned optimally. The skin, subcutaneous tissue was anesthetized with 1% lidocaine. The introducer needle was then advanced under direct ultrasound guidance to flashback was noted. Dark nonpulsatile blood was noted. The guidewire was advanced through the needle and confirmed to be in the femoral vein with ultrasound. Using Seldinger technique the left femoral vein hemodialysis catheter was inserted. The catheter was sutured in place. The insertion length was 20 cm. Complications: None Blood loss: 5 mL Coding Level of Care Code Acute College Sports Assistant for Susan Freeman
[2022-02-11] MEDS: propofol 1,000 MG/100 ML INJ 19.32 MG IV (19:41)
--- NOTE | 2022-02-11 20:39 | US_ITS ---
WS: [id number] Limited abdominal ultrasound. HISTORY: Evaluate for fluid collection. Bowel perforation. Imaging is performed of all 4 quadrants. No focal collection or abscess identified. This study is not adequate to exclude abscess. US/US abdomen limited [id number] IMPRESSION: No large fluid collections or abscess is identified. This study is not sufficie nt to exclude abdominal or pelvic abscesses.
[2022-02-11 21:31] LABS: Hepatitis B Surface AB 4.8 (11.5-1000); Hepatitis B Surface Antigen Non-Reactive (Nonreactive); Hepatitis C Virus Antibody Non-Reactive (Nonreactive)
--- NOTE | 2022-02-11 21:41 | NUR.SHIFT ---
Pt does not withdraw or localize to pain, but pt does pinch eye shut when trying to assess pupils and with pain. Pt's stoma is very dark purple, with dark purple bloody discharge. Pt bowel sounds are absent.
[2022-02-11 22:18] LABS: Urine Random Sodium 30 mmol/L
[2022-02-12] VITALS (101 sets, daily range): BP systolic 102–164; BP diastolic 45–84; PULSE 64–85; RESP 28–31; TEMP 37.1–37.7; O2SAT 87–93
--- NOTE | 2022-02-12 00:20 | ECG_ITS ---
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 Measurements Intervals [place] Rate: 83 P: [place]: QRS: 9 QRSD: 93 T: 63 QT: 425 QTc: 500 Interpretive Statements ATRIAL FIBRILLATION PROLONGED QT INTERVAL Compared to ECG 02/11/2022 07:31:18 Prolonged QT interval now present Sinus rhythm no longer present T-wave abnormality no longer present Electronically Signed On 02-13-2022 16:56:44 CDT by Jaleel Lopez M.D. [id number] f
[2022-02-12 00:33] LABS: Glucose Point of Care 110 mg/dL (70-110)
[2022-02-12] MEDS: hydrocortisone 100 mg/2 mL SDV 50 MG IVP ×3 (00:44→16:42)
[2022-02-12 00:45] LABS: Blood Urea Nitrogen 40 mg/dL (8-23); Calcium 7.6 mg/dL (8.5-10.5); Carbon Dioxide 20 mmol/L (22-29); Chloride 90 mmol/L (98-107); Glucose 122 mg/dL (65-115); Magnesium 1.8 mg/dL (1.7-2.3); Osmolality Calculated 271 mOsm/kg (285-295); Sodium 125 mmol/L (136-145)
[2022-02-12] MEDS: propofol 1,000 MG/100 ML INJ 19.32 MG IV ×6 (00:48→22:28)
[2022-02-12 00:49] LABS: Ionized Calcium 0.9 mmol/L (1.1-1.4)
[2022-02-12] MEDS: calcium gluconate 0.9% NaCL 1 GM/50 ML PREMIX IV (03:01)
[2022-02-12 03:50] LABS: ABG PCO2 34.4 mmHg (35-45); ABG PH Result 7.33 (7.35-7.45); Arterial Blood Gas Hematocrit 35.8 % (42-52); Base Excess ABG -6.9 mmol/L (-2.0-2.0); Blood Gas Allen Test Pos; Blood Gas Sample Site Radial, left; Blood Gas Sample Type Arterial; HCO3 ABG 18.2 mmol/L (22-26); Oxygen Device VENT; PO2 ABG 56.8 mmHg (80.0-100.0)
[2022-02-12 04:31] LABS: Hematocrit 33.6 % (42.0-52.0); Hemoglobin 10.9 g/dL (11.7-16.6); Mean Corpuscular HGB Conc 32.4 g/dL (30.0-36.0); Mean Corpuscular Hemoglobin 28.3 pg (28.0-34.0); Mean Corpuscular Volume 87.3 fl (80-94); Mean Platelet Volume 12.7 fL (7.4-10.4); Platelet Count 54 10^3/cmm (130-400); Red Blood Count 3.85 10^6/uL (4.1-5.3); Red Cell Distribution Width 15.1 % (12.1-15.1); White Blood Count 12.8 10^3/uL (4.0-10.0)
[2022-02-12] MEDS: DOPamine drip 400 MG/250 ML PREMIX 14.49 MG IV ×2 (04:38→22:30)
[2022-02-12 04:57] LABS: Alanine Aminotransferase 27 U/L (0-41); Alkaline Phosphatase 102 IU/L (40-130); Aspartate Amino Transferase 48 U/L (0-40); Blood Urea Nitrogen 44 mg/dL (8-23); Calcium 7.8 mg/dL (8.5-10.5); Carbon Dioxide 19 mmol/L (22-29); Chloride 87 mmol/L (98-107); Globulin 2.4 g/dL (1.3-4.6); Glucose 126 mg/dL (65-115); Magnesium 2.2 mg/dL (1.7-2.3); Osmolality Calculated 267 mOsm/kg (285-295); Sodium 122 mmol/L (136-145); Total Bilirubin 1.5 mg/dL (0.15-1.2); Total Protein 5.4 g/dL (6.6-8.7)
[2022-02-12 04:58] LABS: Phosphorus 5.3 mg/dL (2.5-4.5)
[2022-02-12 05:08] LABS: Cortisol Random 38.79 ug/dL (2.47-19.5)
[2022-02-12 05:09] LABS: Slide Review Slide Review Perform
[2022-02-12 05:10] LABS: Absolute Eosinophils 0.1 10^3/cmm (0.0-0.7); Absolute Neutrophil 11.1 10^3/cmm (1.4-6.5); Band Neutrophils Absolute 0.1 10^3/cmm (0.0-1.2); Corrected White Blood Count 12.2 10^3/cmm (4.8-10.8); Eosinophils 1 %; Lymphocytes 8 %; Monocytes Absolute 0.5 10^3/cmm (0.1-0.6); Platelet Estimate Decreased (Normal); Segmented Neutrophils 86 %; Total Cells Counted 100 (0-100)
--- NOTE | 2022-02-12 06:00 | ECG_ITS ---
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 Measurements Intervals [place] Rate: 69 P: [place]: QRS: 12 QRSD: 102 T: 63 QT: 375 QTc: 404 Interpretive Statements ATRIAL fibrillation ABNORMAL RHYTHM ECG Compared to ECG 02/12/2022 00:18:04 Prolonged QT interval no longer present Electronically Signed On 02-13-2022 17:12:13 CDT by Jaleel Lopez M.D. [id number]
--- NOTE | 2022-02-12 07:00 | XR_ITS ---
WS: [id number] Exam: XR chest 1V portable [id number] Date/Time of Exam: 02/12/2022 4:53 AM Reason For Exam: resp failure Comparison 02/11/2022. Bilateral pulmonary infiltrates are noted. Infiltrates on the left slightly improved but no other kasey nge. The heart appears to be enlarged. ET tube in satisfactory position ending about 5 cm above the c micky. An enteric tube extends below the diaphragm but the tip is not visible. Right IJ catheter jose ining in good position without change. No pneumothorax is seen. No pleural effusion. XR/XR chest 1V portable [id number] IMPRESSION: 1. Extensive bilateral pulmonary infiltrates worse on the left than the right. Left infiltrates slightly improved but no other change. 2. ET tube, right IJ catheter and NG tube all appear to be in the satisfactory location without change.
--- NOTE | 2022-02-12 07:18 | PM.PN ---
Subjective Subjective: remains on pressors- doses decreased. sedated, intubated, on amiodarone for a fib Medications: Reviewed: Yes Medication Review Details: Current Medications Artificial Tears (Artificial Tears Op Oint 3.5 Gm) 1 applic EYE-BOTH PRN PRN PRN Reason: DRY EYE(S) Hydrocortisone Sodium Succinate (Hydrocortisone 100 Mg/2 Ml Sdv) 50 mg IVP Q8H [facility] Last Admin: 02/12/22 00:44 Dose: 50 mg Documented by: Propofol (Diprivan) 1,000 mg in 100 mls @ 0 mls/hr IV .Q0M [facility]; Protocol Last Admin: 02/12/22 05:06 Dose: 25 mcg/kg/min, 19.32 mls/hr Documented by: Fentanyl 2,500 mcg/ Sodium (Chloride) 250 mls @ 0 mls/hr IV .Q0M [facility]; Protocol Last Admin: 02/12/22 03:05 Dose: 125 mcg/hr, 12.5 mls/hr Documented by: Vasopressin 100 unit/ Sodium (Chloride) 100 mls @ 0 mls/hr IV .Q0M [facility]; Protocol Last Admin: 02/12/22 07:02 Dose: 0.04 unit/min, 2.4 mls/hr Documented by: Dopamine HCl/Dextrose (Intropin Drip) 400 mg in 250 mls @ 24.154 mls/hr IV CONT [facility]; Protocol Last Admin: 02/12/22 04:38 Dose: 3 mcg/kg/min, 14.49 mls/hr Documented by: Norepinephrine Bitartrate 16 (mg/ Dextrose) 1,016 mls @ 0 mls/hr IV .Q0M [facility]; Protocol Last Titration: 02/12/22 01:14 Dose: 18 mcg/min, 68.58 mls/hr Documented by: Imipenem/Cilastatin Sodium 250 (mg/ Sodium Chloride) 100 mls @ 200 mls/hr IV Q8H [facility]; Protocol Last Infusion: 02/12/22 02:59 Dose: Infused Documented by: Sodium Chloride (Sodium Chloride 0.9%) 500 mls @ 0 mls/hr IV .Q0M [facility] Sodium Chloride (Sodium Chloride 0.9%) 1,000 mls @ 3 mls/hr IV .Q24H [facility] Last Admin: 02/11/22 17:10 Dose: Not Given Documented by: Linezolid (Zyvox Premix) 600 mg in 300 mls @ 300 mls/hr IV Q12H [facility]; Protocol Last Infusion: 02/11/22 21:20 Dose: Infused Documented by: Fluconazole (Diflucan Premix) 400 mg in 200 mls @ 200 mls/hr IV Q24H [facility] Last Infusion: 02/10/22 23:52 Dose: Infused Documented by: Acetaminophen (Acetaminophen) 1,000 mg in 100 mls @ 400 mls/hr IV Q8H PRN PRN Reason: FOR FEVER >100.4 Last Infusion: 02/10/22 23:53 Dose: Infused Documented by: Epinephrine HCl 2.5 mg/ Sodium (Chloride) 252.5 mls @ 0 mls/hr IV .Q0M PRN; Protocol PRN Reason: hypotension Last Titration: 02/11/22 17:09 Dose: 0 mcg/kg/min, 0 mls/hr Documented by: Albumin Human (Albumin) 12.5 gm in 50 mls @ 60 mls/hr IV PRN PRN PRN Reason: Hypotension and/or symptomatic Amiodarone HCl 900 mg/Dextrose/ IV Miscellaneous Supplies 518 mls @ 0 mls/hr IV .Q0M [facility]; Protocol Last Admin: 02/12/22 01:13 Dose: 1 mg/min, 34.53 mls/hr Documented by: Ondansetron HCl (Ondansetron 2 Mg/Ml Sdv 2 Ml) 4 mg IVP Q4H PRN PRN Reason: NAUSEA AND VOMITING Pantoprazole Sodium (Pantoprazole 40 Mg Sdv) 40 mg IVP Q12H [facility] Last Admin: 02/11/22 20:15 Dose: 40 mg Documented by: Vitals/I&O/Wt Last Vital Signs Temp 99.4 F 02/12/22 06:00 Pulse 69 02/12/22 06:00 Resp 28 H 02/12/22 05:42 BP 106/51 02/12/22 06:00 Pulse Ox 92 02/12/22 06:00 02/11/22 02/12/22 02/12/22 22:59 06:59 14:59 Intake Total 2396.410 / 4680.577 812.793 / 5493.370 Output Total 420 / 420 340 / 760 Balance 1976.410 / 4260.577 472.793 / 4733.370 Physical Exam Narrative: febrile, on multiple pressors -lvo 18, vaso 0.04 amio propofol and fentanyl vent fio2 =70%, TV 500, RR 28, PEEP 14 heent- nc/at, pupils responsive lungs dull bases b/l heart reg abd tender, nd, no BS, ostomy ext 1+ edema left femoral dialysis access neuro- sedated. not responsive to pain Urinary Catheter Management: Blackmon: Cath Placed During This Visit: yes Reason for Continuing Indwelling Catheter: Accurate Measurement of Urinary Output in Critically Ill Patients Urinary Catheter Date of Insertion: 02/08/22 Urinary Catheter Time of Insertion: 15:13 Data : 02/12/22 03:43 02/12/22 03:43 Micro: Microbiology 02/08/22 16:40 Anaerobic Culture - Preliminary Peritoneal Fluid 02/08/22 16:40 Gram Stain - Final Other Source Wound Culture - Preliminary Escherichia coli 02/08/22 11:15 Blood Culture - Preliminary Blood Escherichia coli Gram positive camila 02/08/22 11:23 Blood Culture - Preliminary Blood Escherichia coli Gram positive camila 02/09/22 08:03 Sputum Culture - Preliminary Sputum - Endotracheal Tube Aspirate 02/10/22 04:20 Blood Culture - Preliminary Blood NEGATIVE TO DATE 02/10/22 04:20 Blood Culture - Preliminary Blood NEGATIVE TO DATE A&P Assessment and plan (1) MILEY (acute kidney injury): 71 yr old man h/ocolorectal ca, diverticulosis, Rt lower lobectomy of lung, htn, on home mobic. Pt here w/ septic shock due to perforated abd viscus. He is s/p Abd surgery. S/P PEA arrest. He is presser dependent. He is bacteremic w/ e.coli and gram neg rods. He is in multiorgan failure, VDRF, oligo- anuric renal failure 1. MILEY- ATN- from septic shock, DARREN, mobic use -currently he has a met acidosis, mild resp acidosis, he is hypoxic, volume overloaded, mild lactic acidosis -Dr. Slade is concerned that without fluid removal- pt will not be able to oxygenate. - we do not currently have CRRT -Pt was turned down for a transfer for CRRT- as too unstable for transport. -After explaining to the family, the risks and benefits of intermittent HD, the family consented. -pt tolerated HD last night. -repeat SUF now- for 4 hrs, attempt to remove 2 l 2. hyponatremia- likely from MILEY, volume overload -tsh 6.25- would not cause hyponatremia -monitor w/ HD/ SUF -cortisol 38.8- not deficient 4. inc AGMA from MILEY, lactic acidosis and septic shock -pH improved to 7.33/34- w/ vent and HD- monitor 5. thrombocytopenia- likely sepsis Q med effect -will check ldh, retic, haptoglobin- unlikely TTP prognosis is very poor pt seen and examined w/ rN- telehealth visit discussed w/ rN, Dr Slade,and pts family time spent 30 minutes Status: Acute Plan see above Attestations Medical Necessity Statement*: septic shock, miley, vdrf, thrombocytopenia Time Spent in Patient Care: 16 - 35 minutes (>than 50% of time spent in counselling and/or direct pt care on unit). 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
[2022-02-12] MEDS: fluconazole premix 400 MG/200 ML PIGGYBACK 200 MG IV (07:38)
[2022-02-12] MEDS: pantoprazole 40 mg SDV IVP (07:44)
--- NOTE | 2022-02-12 09:01 | XR_ITS ---
WS: [id number] Exam: XR chest 1V portable [id number] Date/Time of Exam: 02/12/2022 9:04 AM Reason For Exam: left IJ Comparison with earlier study on the same day at 0515 hours. A left-sided IJ catheter has been placed and appears to end in the lower one third of the SVC in good position. Extensive bilateral pulmonary infiltrates are unchanged. ET tube and right IJ catheter bot h remain in satisfactory location. Enteric tube extends below the level of the diaphragm but the tip is not visible. The heart is enlarged and unchanged in size. The lungs remain fully inflated. XR/XR chest 1V portable [id number] IMPRESSION: 1. Left-sided IJ catheter has been placed and is in satisfactory position. 2. ET tube, enteric tube and right IJ catheter all in satisfactory position. 3. Cardiac enlargement with extensive bilateral pulmonary infiltrates unchanged .
[2022-02-12] MEDS: linezolid premix 600 MG/300 ML PREMIX 300 MG IV ×2 (09:04→21:55)
[2022-02-12] MEDS: heparin 5,000 unit/mL INJ 1 mL 5000 UNIT SUBCUT ×2 (09:07→21:55)
--- NOTE | 2022-02-12 09:22 | PM.ACPR ---
Procedure/Consent Procedure Narrative: Name of the Procedure: Left Internal Jugular Central venous catheter placement under ultrasound guidance. Indication: Need for access for vasopressors use Anesthesia: The patient is sedated with propofol and fentanyl Description of the procedure: The left IJ vein was identified with the Ultrasound from collapsibility and lack of pulsatility. The site was prepared using sterile technique. The skin and subcuteneous tissue was anesthetized using lidocaine. The introducer needle was advanced under US guidance till flash back was noted. Dark, non pulsatile blood noted. Using seldinger technique the CVC was put in.Blood return was noted in all ports. Catheter was secured with suture and covered with transparent dressing. Complications: None X-ray: Pending. Acute Procedures Arterial Line: Size (Gauge): 20
--- NOTE | 2022-02-12 09:24 | P.PN_ITS ---
Subjective Subjective: The patient was seen and examined this morning. Overnight, his pressor requirement has come down. Currently the patient is on 14 mcg of Levophed and 3 mcg of dopamine. He is in septic dose vasopressin. Interestingly, anytime we discontinued the dopamine the patient had a drop in his blood pressure. Mild increase of dopamine from 2 to 3 mcg actually allowed for reduction of Levophed significantly within the next 15 to 20 minutes. He tolerated the session of dialysis well last night. We are able to remove 1.5 L of fluid. The patient is receiving dialysis this morning again. His blood cultures have remained negative since February 10. His FiO2 has come down to 70%. The chest x-ray from this morning actually looks better than before. The patient went into A. fib last night and is currently on amiodarone drip. Urine output has been about 150 cc. the family was present at bedside. I had updated them and answered their questions. Vitals/I&O/Wt Last Vital Signs Temp 99.9 F H 02/12/22 08:45 Pulse 75 02/12/22 08:45 Resp 28 H 02/12/22 08:15 BP 119/67 02/12/22 08:45 Pulse Ox 91 02/12/22 08:45 02/11/22 02/12/22 02/12/22 22:59 06:59 14:59 Intake Total 2396.410 / 4680.577 1176.521 / 5857.098 612.771 / 612.771 Output Total 420 / 420 340 / 760 Balance 1976.410 / 4260.577 836.521 / 5097.098 612.771 / 612.771 Physical Exam Narrative: General: Patient is intubated and sedated Neck: Unable to assess JVD Respiratory: Crackles at bilateral lung bases, no wheezing or rhonchi Cardiovascular: Irregularly irregular rhythm, variable first heart sound, significant bilateral? edema. Abdomen: Soft abdomen, incision site and colostomy in place, very very sluggish bowel sound Skin: Not mottled, discoloration in the bilateral lower extremities Neuro: Unable to assess Urinary Catheter Management: Blackmon: Cath Placed During This Visit: yes Reason for Continuing Indwelling Catheter: Accurate Measurement of Urinary Output in Critically Ill Patients Urinary Catheter Date of Insertion: 02/08/22 Urinary Catheter Time of Insertion: 15:13 Data : 02/12/22 03:43 02/12/22 03:43 Micro: Microbiology 02/08/22 16:40 Anaerobic Culture - Preliminary Peritoneal Fluid 02/08/22 16:40 Gram Stain - Final Other Source Wound Culture - Preliminary Escherichia coli 02/08/22 11:15 Blood Culture - Preliminary Blood Escherichia coli Gram positive camila 02/08/22 11:23 Blood Culture - Preliminary Blood Escherichia coli Gram positive camila 02/09/22 08:03 Sputum Culture - Preliminary Sputum - Endotracheal Tube Aspirate 02/10/22 04:20 Blood Culture - Preliminary Blood NEGATIVE TO DATE 02/10/22 04:20 Blood Culture - Preliminary Blood NEGATIVE TO DATE Other data: I have reviewed the patient's laboratory microbiology data. His blood cultures have been negative from the . Chest x-ray this morning revealed improvement in the left lower lung zone infiltrate. The patient is still hyponatremic but undergoing dialysis. Acidosis stable. Creatinine stable in the setting of dialysis. A&P Assessment and plan (1) Atrial fibrillation: Overnight, the patient has developed atrial fibrillation. This is not unexpected. His electrolytes are within normal range especially the potassium and the magnesium. The patient did not have any significant rapid ventricular response however given his hemodynamic instability, the RVR could certainly compromise his cardiac output. I have decided to start the patient on amiodarone drip which was started without any bolus. The patient continues to be in A. fib but the heart rate is controlled for now. Depending on how he does we will decide on the amiodarone drip in the next 24 hours. For now, I am going to start him on subcu heparin. We will hold off anticoagulation for the time being. Status: Acute (2) Septic shock: The etiology of the septic shock is perforated sigmoid colon/rectum with peritonitis and bacteremia. The patient has undergone exploratory laparotomy with colostomy and repair of the incarcerated incisional hernia. The patient is currently on 14 mcg of Levophed. This has improved significantly. It appears that the patient is exquisitely sensitive to dopamine. We will continue with the 3 mcg of dopamine for the time being. He is also on vasopressin. We will continue to titrate down the vasopressors. Her map goal of 65. We will continue with the linezolid, imipenem and fluconazole for the time being. Although his blood culture grew gram-negative rods and gram-positive rods, I do believe that the infection is likely caused by multiple organisms in the setting of perforated viscus including a possible fungal infection. We will optimize the antibiotic regimen depending on the patient's progress. Status: Acute (3) Colon perforation: See above Status: Acute (4) E coli bacteremia: The patient has gram-negative bacteremia and gram-positive camila bacteremia. He is currently broadly covered with linezolid and imipenem. He is also on fluconazole empirically. Status: Acute (5) ARDS (adult respiratory distress syndrome): The patient seems to be making recovery. Currently he is on 70% FiO2. We will continue the 14 of PEEP for the time being. I am hoping with additional fluid removal will be able to come down on the FiO2. The chest x-ray did not reveal improvement in the left lower lung zone infiltrate. Status: Acute (6) MILEY (acute kidney injury): The patient has suffered from ATN. This is likely secondary to septic shock as well as cardiac arrest. At this point the patient is not making much urine. The patient tolerated the dialysis well yesterday. We will continue with another session today and possibly tomorrow. If we can adequately remove the volume this will help with his overall hemodynamic status as well as respiratory status. Status: Acute (7) Cardiac arrest: The patient had suffered from cardiac arrest on February 09. His left ventricular function seems to be intact. Status: Acute (8) Rectal cancer: The patient has metastatic stage IV rectal cancer. However the patient has done fairly well since 2013. He had a pulmonary function test before and the spirometry was completely tg l. The patient is critically ill. I have discussed his care plan with the family multiple times yesterday and today. Status: Acute Attestations Medical Necessity Statement*: Will defer to the primary team. Critical Care Time: 43 Procedures Arterial Line Size (Gauge): 20 Coding Level of Care Code Acute [employer] Executive Director for [facility] Fwd Diagnoses Septic shock A41.9; R65.21 Colon perforation K63.1 E coli bacteremia R78.81; B96.20 ARDS (adult respiratory distress syndrome) J80 MILEY (acute kidney injury) N17.9 Cardiac arrest I46.9 Rectal cancer C20 Atrial fibrillation I48.91
--- NOTE | 2022-02-12 11:13 | P.PN_ITS ---
Subjective Subjective: Tee is sedated on the ventilator. I discussed his case with nursing, as well as his family who are at bedside. He did well through the night, able to wean down on pressors. Amiodarone was started for atrial fibrillation. They were able to ultrafiltrate over a liter of fluid off of him yesterday and he is currently undergoing dialysis again today. Medications: Reviewed: Yes Vitals/I&O/Wt Last Vital Signs Temp 99.9 F H 02/12/22 08:45 Pulse 75 02/12/22 08:45 Resp 28 H 02/12/22 11:01 BP 119/67 02/12/22 08:45 Pulse Ox 91 02/12/22 11:01 02/11/22 02/12/22 02/12/22 22:59 06:59 14:59 Intake Total 2396.410 / 4680.577 1176.521 / 5857.098 938.425 / 938.425 Output Total 420 / 420 340 / 760 Balance 1976.410 / 4260.577 836.521 / 5097.098 938.425 / 938.425 Physical Exam Narrative: General exam is a sedated and paralyzed male. He is currently off norepinephrine, on a small amount of epinephrine, continues on 3 of dopamine, and fixed dose vasopressin. HEENT: Pupils equally round. Endotracheal tube and orogastric tube noted. FiO2 requirement is currently 70%, PEEP of 14, O2 saturation 91% Neck is supple no lymphadenopathy or thyromegaly. Right IJ catheter noted Cardiovascular regular rate and rhythm, no murmur Lungs clear. Sounds diminished bilaterally. Abdomen demonstrates a dusky appearance colostomy with some blood in the pouch. No bowel sounds are heard. No masses are felt. demonstrates Blackmon, scant amount of urine Extremities 2 plus edema bilaterally. Skin no rash Neuro: Sedated with fentanyl and propofol Urinary Catheter Management: Blackmon: Cath Placed During This Visit: yes Reason for Continuing Indwelling Catheter: Accurate Measurement of Urinary Output in Critically Ill Patients Urinary Catheter Date of Insertion: 02/08/22 Urinary Catheter Time of Insertion: 15:13 Data : 02/12/22 03:43 02/12/22 03:43 Micro: Microbiology 02/08/22 16:40 Anaerobic Culture - Preliminary Peritoneal Fluid 02/08/22 16:40 Gram Stain - Final Other Source Wound Culture - Preliminary Escherichia coli 02/08/22 11:15 Blood Culture - Preliminary Blood Escherichia coli Gram positive camila 02/08/22 11:23 Blood Culture - Preliminary Blood Escherichia coli Gram positive camila 02/09/22 08:03 Sputum Culture - Preliminary Sputum - Endotracheal Tube Aspirate A&P Assessment and plan (1) Septic shock: Severe septic shock on admission, requiring multiple pressors, secondary to fecal peritonitis. Colostomy was performed February 08. He is currently postoperative day #4. He underwent a CODE BLUE, on February 09, where ROSC was achieved after 3 doses of epinephrine. Mental status has not been able to be evaluated since that time. Echocardiogram was performed following this CODE BLUE demonstrating normal LV size and normal RV size and function. The amount of pressors he is requiring is improving significantly with correction of his metabolic acidosis with dialysis. Currently on Primaxin, linezolid. Fluconazole was started empirically Status: Acute (2) E coli bacteremia: Secondary to above. Continue Primaxin. His E. coli is sensitive to Primaxin. A gram-positive camila is also growing. Status: Acute (3) ARDS (adult respiratory distress syndrome): Severe ARDS and fluid overload requiring high ventilator settings yesterday. These been weaned some today and he is down to an FiO2 of 70% and PEEP of 14 Appreciate pulmonary critical care consultation Status: Acute (4) Thrombocytopenia: Stable over the last 24 hours Full anticoagulation on hold Heparin subcu has been started by pulmonary critical care SCDs for DVT prophylaxis Status: Acute (5) MILEY (acute kidney injury): Significant reduction in urine output. Currently undergoing hemodialysis, to remove excess fluid that accumulated with renal failure and septic shock Status: Acute (6) Elevated troponin: Consistent with type II elevation secondary to sepsis Not candidate for full anticoagulation currently secondary to thrombocytopenia Status: Acute (7) Atrial fibrillation: Atrial fibrillation, without rapid ventricular rate, started last night. He is currently on an amiodarone drip. Status: Acute (8) Rectal cancer: History of rectal cancer, stage IV Status: Acute Plan Hypomagnesemia, currently corrected Discussion with family regarding very guarded prognosis currently on his degree of pressors. We also do not know mental state at this time. Will await evaluation by pulmonary critical care. In the interim I discussed with patient further CODE STATUS and they would not want him to receive CPR or undergo another code. They do want to continue current treatment at this time. He has improved somewhat since yesterday. Family does not want any change in his CODE STATUS currently. Protonix for GI prophylaxis Heparin for DVT prophylaxis Left IJ central line placed by pulmonary today, and right IJ central line removed. Attestations Medical Necessity Statement*: Needs continued hospitalization secondary to septic shock requiring pressors, renal failure requiring hemodialysis Critical Care Time: The high probability of a clinically significant, sudden or life threatening deterioration of the patient's [pulmonary, renal, cardiac system(s) required my full and direct attention, intervention and personal management. The critical care time is as shown. 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
--- NOTE | 2022-02-12 11:40 | PM.PN ---
Subjective Subjective: The patient remains in the ICU on the ventilator. His pressors are currently being weaned, however. Hemodynamics are seemingly improving. Vitals/I&O/Wt Last Vital Signs Temp 99.9 F H 02/12/22 08:45 Pulse 75 02/12/22 08:45 Resp 28 H 02/12/22 11:01 BP 119/67 02/12/22 08:45 Pulse Ox 91 02/12/22 11:01 02/11/22 02/12/22 02/12/22 22:59 06:59 14:59 Intake Total 2396.410 / 5857.098 1176.521 / 5857.098 938.425 / 938.425 Output Total 420 / 760 340 / 760 Balance 1976.410 / 5097.098 836.521 / 5097.098 938.425 / 938.425 Physical Exam Narrative: The stoma remains quite dusky in color. Urinary Catheter Management: Blackmon: Cath Placed During This Visit: yes Reason for Continuing Indwelling Catheter: Accurate Measurement of Urinary Output in Critically Ill Patients Urinary Catheter Date of Insertion: 02/08/22 Urinary Catheter Time of Insertion: 15:13 Data : 02/12/22 03:43 02/12/22 03:43 Micro: Microbiology 02/08/22 16:40 Anaerobic Culture - Preliminary Peritoneal Fluid 02/08/22 16:40 Gram Stain - Final Other Source Wound Culture - Preliminary Escherichia coli 02/08/22 11:15 Blood Culture - Preliminary Blood Escherichia coli Gram positive camila 02/08/22 11:23 Blood Culture - Preliminary Blood Escherichia coli Gram positive camila 02/09/22 08:03 Sputum Culture - Preliminary Sputum - Endotracheal Tube Aspirate A&P Assessment and plan (1) Fecal peritonitis: Status post exploratory laparotomy for fecal peritonitis with colostomy formation on 02/08/2022. Further management per hospitalist/critical care team. Status: Acute (2) Colon perforation: Status: Acute Attestations Medical Necessity Statement*: See admitting service's notation. Procedures Arterial Line Size (Gauge): 20 Coding Level of Care Code Acute Construction Electrician for [facility] Fwd Diagnoses Fecal peritonitis K65.8 Colon perforation K63.1
--- NOTE | 2022-02-12 16:10 | PC.NURSE ---
Patient received another round of dialysis today and removed 2L off. Bowel sounds still active, patients skin very edematous and starting to blister from being so swollen.
--- NOTE | 2022-02-12 18:05 | PC.NURSE ---
Spoke with Dr. Slade, he wants to try another round of dialysis tomorrow morning and is going to notify neph.
[2022-02-12 20:49] LABS: Hematocrit 33.2 % (42.0-52.0); Mean Corpuscular HGB Conc 33.1 g/dL (30.0-36.0); Mean Corpuscular Hemoglobin 28.6 pg (28.0-34.0); Mean Corpuscular Volume 86.2 fl (80-94); Platelet Count 51 10^3/cmm (130-400); Red Blood Count 3.85 10^6/uL (4.1-5.3); White Blood Count 13.7 10^3/uL (4.0-10.0)
--- NOTE | 2022-02-12 20:52 | NUR.SHIFT ---
pt winces eyes to pain and when this RN attempts to open eyes. colostomy stoma appears dark purple and dusky colored. pt was found to have serous filled blisters on right arm, back, right flank, and ABD. MD Yany notified. orders recieved and medications changed per MD.
[2022-02-12 21:09] LABS: Slide Review Slide Review Perform
[2022-02-12 21:10] LABS: Anion Gap 20.3 (5-19); Blood Urea Nitrogen 65 mg/dL (8-23); Calcium 7.5 mg/dL (8.5-10.5); Carbon Dioxide 18 mmol/L (22-29); Chloride 87 mmol/L (98-107); Glucose 102 mg/dL (65-115); Osmolality Calculated 271 mOsm/kg (285-295); Potassium 4.3 mmol/L (3.5-5.1); Sodium 121 mmol/L (136-145)
[2022-02-12 21:30] LABS: Basophils % 0.1 %; Eosinophils % 0.2 %; Lymphocytes # 0.4 10^3/uL (0.8-4.8); Lymphocytes % 3.1 %; Monocytes # 0.6 10^3/uL (0.2-0.9); Neutrophils # 11.84 10^3/uL (1.8-7.7); Neutrophils % 86.4 %; Nucleated Red Blood Cells # 0.3 /100WBC; Nucleated Red Blood Cells % 2.2 %
[2022-02-12] MEDS: famotidine 20 mg/2 mL INJ IVP (21:54)
[2022-02-13] VITALS (108 sets, daily range): BP systolic 99–177; BP diastolic 46–106; PULSE 66–106; RESP 27–30; TEMP 36.5–37.6; O2SAT 83–97
[2022-02-13] MEDS: hydrocortisone 100 mg/2 mL SDV 50 MG IVP ×3 (00:08→18:17)
[2022-02-13] MEDS: propofol 1,000 MG/100 ML INJ 19.32 MG IV (00:09)
[2022-02-13] MEDS: aztreonam 1,000 MG in sodium chloride 0.9% (plus) 50 ML 100 MG IV ×2 (01:29→13:27)
--- NOTE | 2022-02-13 03:18 | NUR.SHIFT ---
pt appears to have more blistering and sloughing of skin on right leg, left flank as well as back and left arm.
[2022-02-13 04:18] LABS: Basophils % 0.3 %; Eosinophils % 0.3 %; Hematocrit 33.3 % (42.0-52.0); Hemoglobin 11.1 g/dL (11.7-16.6); Lymphocytes # 0.5 10^3/uL (0.8-4.8); Lymphocytes % 3.1 %; Mean Corpuscular HGB Conc 33.3 g/dL (30.0-36.0); Mean Corpuscular Hemoglobin 28.3 pg (28.0-34.0); Mean Corpuscular Volume 84.9 fl (80-94); Mean Platelet Volume 12.4 fL (7.4-10.4); Monocytes # 0.5 10^3/uL (0.2-0.9); Neutrophils # 13.36 10^3/uL (1.8-7.7); Neutrophils % 86.7 %; Nucleated Red Blood Cells # 0.2 /100WBC; Nucleated Red Blood Cells % 1.2 %; Platelet Count 68 10^3/cmm (130-400); Red Blood Count 3.92 10^6/uL (4.1-5.3); Red Cell Distribution Width 15.1 % (12.1-15.1); White Blood Count 15.4 10^3/uL (4.0-10.0)
[2022-02-13 04:21] LABS: ABG PCO2 36.4 mmHg (35-45); Base Excess ABG -8.1 mmol/L (-2.0-2.0); Blood Gas Operator Identificat JB; Blood Gas Sample Site Not specified; Blood Gas Sample Type Arterial; HCO3 ABG 17.7 mmol/L (22-26); Oxygen Device VENT; PO2 ABG 90.2 mmHg (80.0-100.0)
[2022-02-13] MEDS: propofol 1,000 MG/100 ML INJ 27.05 MG IV ×3 (04:31→10:49)
[2022-02-13 04:44] LABS: Slide Review Slide Review Perform
[2022-02-13 04:45] LABS: Alanine Aminotransferase 32 U/L (0-41); Albumin Level 2.5 g/dL (3.5-5.2); Alkaline Phosphatase 81 IU/L (40-130); Anion Gap 22.5 (5-19); Aspartate Amino Transferase 59 U/L (0-40); Blood Urea Nitrogen 75 mg/dL (8-23); Calcium 7.5 mg/dL (8.5-10.5); Carbon Dioxide 17 mmol/L (22-29); Chloride 87 mmol/L (98-107); Globulin 2.6 g/dL (1.3-4.6); Glucose 82 mg/dL (65-115); Magnesium 2.2 mg/dL (1.7-2.3); Osmolality Calculated 275 mOsm/kg (285-295); Phosphorus 7.2 mg/dL (2.5-4.5); Potassium 4.5 mmol/L (3.5-5.1); Sodium 122 mmol/L (136-145); Total Bilirubin 1.2 mg/dL (0.15-1.2); Total Protein 5.1 g/dL (6.6-8.7)
--- NOTE | 2022-02-13 07:00 | XR_ITS ---
WS: [id number] Exam: XR chest 1V portable [id number] Date/Time of Exam: 02/13/2022 4:40 AM Reason For Exam: resp failure Comparison 02/12/2022. Bilateral pulmonary infiltrates show improvement. There is still infiltrate in the mid and lower righ t lung and also the left retrocardiac region. The lungs are fully inflated. Cardiomediastinal silhoue tte is unremarkable. ET tube in satisfactory position ending about 6 cm above the ozzie. Enteric tub e noted in the stomach. Left-sided central line ending in the lower one third of the IVC. Right IJ ca theter has been removed. XR/XR chest 1V portable [id number] IMPRESSION: 1. Improved bilateral infiltrates since previous study. 2. ET tube, left-sided central line and enteric tube all in satisfactory positi on.
[2022-02-13] MEDS: fluconazole premix 400 MG/200 ML PIGGYBACK 200 MG IV (07:53)
[2022-02-13] MEDS: famotidine 20 mg/2 mL INJ IVP ×2 (07:53→19:19)
--- NOTE | 2022-02-13 08:05 | P.PN_ITS ---
Subjective Subjective: remains intubated. pressor requirements decreasing. s/p HD x 2. sedated. Medications: Reviewed: Yes Medication Review Details: Current Medications Famotidine (Famotidine 20 Mg/2 Ml Inj) 20 mg IVP Q12H NATALIE Last Admin: 02/13/22 07:53 Dose: 20 mg Documented by: Heparin Sodium (Porcine) (Heparin 5,000 Unit/Ml Inj 1 Ml) 5,000 unit SUBCUT Q12H NATALIE Last Admin: 02/12/22 21:55 Dose: 5,000 unit Documented by: Hydrocortisone Sodium Succinate (Hydrocortisone 100 Mg/2 Ml Sdv) 50 mg IVP Q12H NATALIE Propofol (Diprivan) 1,000 mg in 100 mls @ 0 mls/hr IV .Q0M NATALIE; Protocol Last Admin: 02/13/22 08:06 Dose: 35 mcg/kg/min, 27.05 mls/hr Documented by: Fentanyl 2,500 mcg/ Sodium (Chloride) 250 mls @ 0 mls/hr IV .Q0M NATALIE; Protocol Last Admin: 02/13/22 01:54 Dose: 125 mcg/hr, 12.5 mls/hr Documented by: Dopamine HCl/Dextrose (Intropin Drip) 400 mg in 250 mls @ 24.154 mls/hr IV CONT NATALIE; Protocol Last Titration: 02/13/22 04:19 Dose: 2 mcg/kg/min, 9.66 mls/hr Documented by: Norepinephrine Bitartrate 16 (mg/ Dextrose) 1,016 mls @ 0 mls/hr IV .Q0M NATALIE; Protocol Last Titration: 02/13/22 06:25 Dose: 5 mcg/min, 19.05 mls/hr Documented by: Sodium Chloride (Sodium Chloride 0.9%) 1,000 mls @ 3 mls/hr IV .Q24H NATALIE Last Infusion: 02/12/22 19:00 Dose: Infused Documented by: Linezolid (Zyvox Premix) 600 mg in 300 mls @ 300 mls/hr IV Q12H NATALIE; Protocol Last Infusion: 02/12/22 23:05 Dose: Infused Documented by: Fluconazole (Diflucan Premix) 400 mg in 200 mls @ 200 mls/hr IV Q24H NATALIE Last Admin: 02/13/22 07:53 Dose: 200 mls/hr Documented by: Albumin Human (Albumin) 12.5 gm in 50 mls @ 60 mls/hr IV PRN PRN PRN Reason: Hypotension and/or symptomatic Albumin Human (Albumin) 12.5 gm in 50 mls @ 60 mls/hr IV PRN PRN PRN Reason: Hypotension and/or symptomatic Aztreonam 1,000 mg/ Sodium (Chloride) 50 mls @ 100 mls/hr IV ONCE ONE; Protocol Stop: 02/13/22 10:29 Metronidazole (Flagyl Iv) 500 mg in 100 mls @ 100 mls/hr IV Q6H NATALIE; Protocol Vitals/I&O/Wt Last Vital Signs Temp 99.1 F 02/13/22 06:30 Pulse 68 02/13/22 07:30 Resp 28 H 02/13/22 05:37 BP 120/68 02/13/22 07:30 Pulse Ox 95 02/13/22 07:30 02/12/22 02/13/22 02/13/22 22:59 06:59 14:59 Intake Total 709.942 / 2046.809 861.787 / 2908.596 Output Total 810 / 810 1135 / 1945 Balance -100.058 / 1236.809 -273.213 / 963.596 Physical Exam Narrative: Temp improving pressors -levo 5, dopa @2 amio- off had rash and descaling of skin from amiodarone propofol and fentanyl vent fio2 =70%, TV 500, RR 28, PEEP 14 heent- nc/at, pupils responsive lungs dull bases and poor air movement b/l heart-irreg irreg abd tender, nd, no BS, ostomy ext 2+ edema left femoral dialysis access neuro- sedated. not responsive to pain Urinary Catheter Management: Blackmon: Cath Placed During This Visit: yes Reason for Continuing Indwelling Catheter: Accurate Measurement of Urinary Output in Critically Ill Patients Urinary Catheter Date of Insertion: 02/08/22 Urinary Catheter Time of Insertion: 15:13 Data : 02/13/22 03:51 02/13/22 03:51 Micro: Microbiology 02/08/22 16:40 Anaerobic Culture - Preliminary Peritoneal Fluid Bacteroides thetaiotaomicron Clostridium clostridiiforme 02/08/22 16:40 Gram Stain - Final Other Source Wound Culture - Preliminary Escherichia coli 02/08/22 11:23 Blood Culture - Final Blood Escherichia coli Bacteroides thetaiotaomicron 02/08/22 11:15 Blood Culture - Final Blood Escherichia coli Bacteroides thetaiotaomicron 02/09/22 08:03 Sputum Culture - Final Sputum - Endotracheal Tube Aspirate A&P Assessment and plan (1) MILEY (acute kidney injury): 71 yr old man h/ocolorectal ca, diverticulosis, Rt lower lobectomy of lung, htn, on home mobic. Pt here w/ septic shock due to perforated abd viscus. He is s/p Abd surgery. S/P PEA arrest. He is presser dependent. He is bacteremic w/ e.coli and gram neg rods. He is in multiorgan failure, VDRF, oligo- anuric renal failure 1. MILEY- ATN- from septic shock, DARREN, mobic use -s/p HD and SUF- acidosis improving. pressor requirement improving -repeat HD now- for 4 hrs, attempt to remove 3 l, 3k, low blood flows and dialysate - consider CRRT when available. if CRRT will not be avaolable, consider transfer 2. hyponatremia- likely from MILEY, volume overload -tsh 6.25- would not cause hyponatremia -monitor w/ HD/ SUF -cortisol 38.8- not deficient 4. inc AGMA from MILEY, lactic acidosis and septic shock -pH 7.3/36- w/ vent and HD- monitor 5. thrombocytopenia- likely sepsis -plts improving Q med effect -will check ldh, retic, haptoglobin- unlikely TTP prognosis is poor pt seen and examined w/ rN- telehealth visit discussed w/ rN, Dr Slade,and pts family time spent >30 minutes Status: Acute Plan see above Attestations Medical Necessity Statement*: multiorgan failure in ICU Procedures Arterial Line Size (Gauge): 20 Coding Level of Care Code Acute Envelope Sealer Operator for g Fwd Diagnoses MILEY (acute kidney injury) N17.9
[2022-02-13] MEDS: heparin 5,000 unit/mL INJ 1 mL 5000 UNIT SUBCUT ×2 (08:10→21:28)
[2022-02-13] MEDS: linezolid premix 600 MG/300 ML PREMIX 300 MG IV ×2 (08:13→21:28)
--- NOTE | 2022-02-13 08:25 | PC.SOCIAL ---
IMM Not Updated Pg. 2of IMM not updated; patient not anticipated to discharge within the next 48hours.
--- NOTE | 2022-02-13 08:50 | PM.PN ---
Subjective Subjective: Concerns last night with development of blistering rash. Patient is sedated on the ventilator. Vasopressin is now off. He is still on a small amount of dopamine, 2. Norepinephrine has weaned to approximately 5 mcg. Primaxin discontinued overnight. He has also converted to sinus rhythm. Medications: Reviewed: Yes Vitals/I&O/Wt Last Vital Signs Temp 99.1 F 02/13/22 06:30 Pulse 68 02/13/22 07:30 Resp 28 H 02/13/22 08:18 BP 120/68 02/13/22 07:30 Pulse Ox 95 02/13/22 08:18 02/12/22 02/13/22 02/13/22 22:59 06:59 14:59 Intake Total 709.942 / 2046.809 861.787 / 2908.596 96.929 / 96.929 Output Total 810 / 810 1135 / 1945 Balance -100.058 / 1236.809 -273.213 / 963.596 96.929 / 96.929 Physical Exam Narrative: General exam is a sedated and paralyzed male. Off vasopressin, on small amount of dopamine, approximately 5 mcg of norepinephrine HEENT: Pupils equally round. Endotracheal tube and orogastric tube noted. FiO2 requirement is currently 70%, PEEP of 14, O2 saturation 96%. PO2 on this morning's blood gas was 90 and his FiO2 requirement can likely go down. Neck is supple no lymphadenopathy or thyromegaly. Right IJ catheter noted Cardiovascular regular rate and rhythm, no murmur Lungs clear. Sounds diminished bilaterally. Abdomen demonstrates a dusky appearance colostomy with some blood in the pouch. No bowel sounds are heard. No masses are felt. demonstrates Blackmon, scant amount of urine Extremities 2 plus edema bilaterally. Skin there are some blistering areas, with slight amount of peeling around his abdomen. These are noted most highly in areas where tape had been. I have discussed with the nurse when convenient to look at his back and notify me if any rash is there. This was a concern last night as well. He has no rash on his chest arms legs palms or soles. No obvious mucous membrane involvement of his mouth. Neuro: Sedated with fentanyl and propofol Urinary Catheter Management: Blackmon: Cath Placed During This Visit: yes Reason for Continuing Indwelling Catheter: Accurate Measurement of Urinary Output in Critically Ill Patients Urinary Catheter Date of Insertion: 02/08/22 Urinary Catheter Time of Insertion: 15:13 Data : 02/13/22 03:51 02/13/22 03:51 Micro: Microbiology 02/08/22 16:40 Anaerobic Culture - Preliminary Peritoneal Fluid Bacteroides thetaiotaomicron Clostridium clostridiiforme 02/08/22 16:40 Gram Stain - Final Other Source Wound Culture - Preliminary Escherichia coli 02/08/22 11:23 Blood Culture - Final Blood Escherichia coli Bacteroides thetaiotaomicron 02/08/22 11:15 Blood Culture - Final Blood Escherichia coli Bacteroides thetaiotaomicron 02/09/22 08:03 Sputum Culture - Final Sputum - Endotracheal Tube Aspirate A&P Assessment and plan (1) Septic shock: Severe septic shock on admission, requiring multiple pressors, secondary to fecal peritonitis. Colostomy was performed February 08. He is currently postoperative day #5. He underwent a CODE BLUE, on February 09, where ROSC was achieved after 3 doses of epinephrine. Mental status has not been able to be evaluated since that time. Echocardiogram was performed following this CODE BLUE demonstrating normal LV size and normal RV size and function. The amount of pressors he is requiring is improving significantly with correction of his metabolic acidosis with dialysis. Currently on linezolid and aztreonam(changed from Primaxin last night secondary to concern of rash) Fluconazole was started empirically With concern of possible anaerobic infection, I added Flagyl this morning. Fluconazole was added empirically Status: Acute (2) E coli bacteremia: Secondary to above. Continue aztreonam. Flagyl added secondary to Bacteroides growing as well. Note that he also had Clostridium growth. Status: Acute (3) ARDS (adult respiratory distress syndrome): Severe ARDS and fluid overload requiring high ventilator settings yesterday. These been weaned some today and he is down to an FiO2 of 70% and PEEP of 14. His FiO2 requirement can likely go down further today. Appreciate pulmonary critical care consultation Status: Acute (4) Thrombocytopenia: Stable over the last 24 hours Full anticoagulation on hold Heparin subcu has been started by pulmonary critical care SCDs for DVT prophylaxis Status: Acute (5) MILEY (acute kidney injury): Significant reduction in urine output. Currently undergoing hemodialysis, to remove excess fluid that accumulated with renal failure and septic shock Appreciate nephrology intervention Status: Acute (6) Elevated troponin: Consistent with type II elevation secondary to sepsis Not candidate for full anticoagulation currently secondary to thrombocytopenia Status: Acute (7) Atrial fibrillation: Atrial fibrillation, without rapid ventricular rate, which she developed on the . He has subsequently converted to sinus rhythm. Amiodarone IV has been discontinued. Status: Acute (8) Rectal cancer: History of rectal cancer, stage IV Status: Acute Plan Hypomagnesemia, currently corrected Discussion with family regarding very guarded prognosis currently on his degree of pressors. We also do not know mental state at this time. Will await evaluation by pulmonary critical care. In the interim I discussed with patient further CODE STATUS and they would not want him to receive CPR or undergo another code. They do want to continue current treatment at this time. He has improved somewhat since yesterday. Family does not want any change in his CODE STATUS currently. Protonix for GI prophylaxis Heparin for DVT prophylaxis Left IJ central line placed by pulmonary February 12, and right IJ central line removed. He also has a temporary dialysis catheter, Blackmon, RASTA drain Attestations Medical Necessity Statement*: Needs continued hospitalization for IV antibiotics secondary to septic shock as well as respiratory failure requiring mechanical ventilation Critical Care Time: The high probability of a clinically significant, sudden or life threatening deterioration of the patient's [pulmonary, cardiac, renal, hematologic system(s) required my full and direct attention, intervention and personal management. The critical care time is as shown. This time is in addition to time spent performing any reported procedures but includes the following: [x] Data and vital sign review and interpretation [x] Patient assessment, examination and intervention [x] Documentation [x] Medication orders and management Critical Care Time (min): 32 Procedures Arterial Line Size (Gauge): 20 Coding Level of Care Code Acute Water Quality Specialist for [facility] Fwd Diagnoses Septic shock A41.9; R65.21 E coli bacteremia R78.81; B96.20 ARDS (adult respiratory distress syndrome) J80 Thrombocytopenia D69.6 MILEY (acute kidney injury) N17.9 Elevated troponin R77.8 Atrial fibrillation I48.91 Rectal cancer C20
[2022-02-13 09:02] LABS: Reticulocyte % 0.8 % (0.5-2.0)
[2022-02-13 09:17] LABS: Lactate Dehydrogenase 243 U/L (135-225)
--- NOTE | 2022-02-13 09:26 | PM.PN ---
Subjective Subjective: Patient remains intubated in the intensive care unit, but seems to be hanging in there. Nursing reports they are going tetryzoline some sedation today. Vitals/I&O/Wt Last Vital Signs Temp 99.6 F 02/13/22 09:00 Pulse 69 02/13/22 09:00 Resp 28 H 02/13/22 08:18 BP 126/71 02/13/22 09:00 Pulse Ox 95 02/13/22 09:00 02/12/22 02/13/22 02/13/22 22:59 06:59 14:59 Intake Total 709.942 / 2908.596 861.787 / 2908.596 742.014 / 742.014 Output Total 810 / 1945 1135 / 1945 Balance -100.058 / 963.596 -273.213 / 963.596 742.014 / 742.014 Physical Exam Narrative: The stoma looks better to me today, less dusky. It is edematous, however. Urinary Catheter Management: Blackmon: Cath Placed During This Visit: yes Reason for Continuing Indwelling Catheter: Accurate Measurement of Urinary Output in Critically Ill Patients Urinary Catheter Date of Insertion: 02/08/22 Urinary Catheter Time of Insertion: 15:13 Data : 02/13/22 03:51 02/13/22 03:51 Micro: Microbiology 02/08/22 16:40 Anaerobic Culture - Preliminary Peritoneal Fluid Bacteroides thetaiotaomicron Clostridium clostridiiforme 02/08/22 16:40 Gram Stain - Final Other Source Wound Culture - Preliminary Escherichia coli 02/08/22 11:23 Blood Culture - Final Blood Escherichia coli Bacteroides thetaiotaomicron 02/08/22 11:15 Blood Culture - Final Blood Escherichia coli Bacteroides thetaiotaomicron 02/09/22 08:03 Sputum Culture - Final Sputum - Endotracheal Tube Aspirate A&P Assessment and plan (1) Fecal peritonitis: Status post exploratory laparotomy for fecal peritonitis with colostomy formation on 02/08/2022. Patient obviously remains critically ill, but seems to at least be fairly stable at the moment. Further management per hospitalist/critical care team. Status: Acute (2) Colon perforation: Status: Acute Attestations Medical Necessity Statement*: See admitting service's notation. Procedures Arterial Line Size (Gauge): 20 Coding Level of Care Code Acute Line Up Examiner for [facility] Fwd Diagnoses Fecal peritonitis K65.8 Colon perforation K63.1
--- NOTE | 2022-02-13 11:59 | PC.CHAP ---
Pastoral Care Encounter/Spiritual Assessment Type of Contact [] Declined validation consultant visit [] Patient/Family/Request visit [] Outpatient visit [] Follow-up visit [] Physician referral [] Code/Alert [x] Routine visit [] Staff referral [] Actively dying [] Patient sleeping [x] Family support [] [] Out of room [] Palliative care [] [x] Receiving care in room [] Pre-surgical visit [] Trauma [] Long length of stay [x] ICU visit [x] Other: family present sense admittance....night and day.. continued prayers.. Relational/Emotional Strength [] Patient feels connected with others/family/visitors/staff [] Distress [] Loneliness/isolation [] Abandonment Spirituality of Patient [] Person of Adry [] Attends Denominational of their Adry [] Believes in Prayer [] Reads Bible or Lutheran materials [] There are Spiritual issues to be addressed Copra Processor Interventions [x] Prayer [] Active listening [] Non-anxious presence [] Spiritual/emotional support [] Crisis/trauma care [] Spiritual counseling [] Bereavement support [] Provided bereavement packet [] Provided Bible/devotional materials [] Provided toy/stuffed animal, coloring book to patient or family member [] Provided Communion [] Anointing/[place] [] Salvation [x] Completed spiritual assessment [] Other: Impact on Illness or Injury [] Angry [] Fearful [] Anxious [] Often cries [] Exhaustion [] Unable to work [] Unable to attend mu-ism [] Unable to walk/stand [] Unable to read [] Unable to drive [] Unable to eat/drink [] Unable to sleep [] Unable to be with family [] Patient intubated [] Other: Summary Time spent with patient
[2022-02-13] MEDS: DOPamine drip 400 MG/250 ML PREMIX 9.66 MG IV (12:13)
--- NOTE | 2022-02-13 14:07 | PC.NUTR ---
Since Patient is NPO day 5, if and when medically appropriate, recommend consideration of Jevity 1.2 started at 15 ml/hr increasing 10 ml/hr as tolerated until a goal rate of 55 ml/hr is reached with 150 ml flushes Q4H or per MD discretion. If TPN is appropriate, recommend Clinimix 5/20 starting at 13 mls/hr, increasing 10 mls Q8H as tolerated until goal rate of 83 mls/hr reached. Please consider standard electrolytes and multivitamins 10 mls/day, as well as 50 grams fat emulsion/[address] assessment.
[2022-02-13] MEDS: metroNIDAZOLE IV 500 MG/100 ML PREMIX 100 MG IV ×2 (15:00→19:21)
--- NOTE | 2022-02-13 16:42 | P.PN_ITS ---
Subjective Subjective: The patient was seen and examined. He seems to be doing fairly well hemodynamic burris. He is on minimal dose of dopamine at this point. His systolic blood pressure is in 120s. Yesterday the patient was noted to have mild desquamation and blisters. Medications were changed with suspicion for any drug reaction. However on closer inspection these lesions does not appear to be drug reaction. He has converted back to normal sinus rhythm. The patient had been off of sedation since this morning. Occasionally he is opening his eyes and responding to stimulus. Not following commands yet. He has made approximately 400 cc of urine. He had dialysis and 3 L of fluid was removed. The patient is more than 20 L positive overall. However compared to the last few days the subcutaneous edema seems to be somewhat better. Chest x-ray this morning revealed improvement in bilateral infiltrate. I was able to reduce his FiO2 40% and the saturation is in the mid 90s. The patient is on volume control ventilation. His blood cultures had been negative since February 10. Overall, he is doing better. However, we are unsure about his mental status after the code at this point. Vitals/I&O/Wt Last Vital Signs Temp 98.6 F 02/13/22 16:35 Pulse 68 02/13/22 16:35 Resp 28 H 02/13/22 16:35 BP 111/62 02/13/22 16:35 Pulse Ox 94 02/13/22 16:15 02/13/22 02/13/22 02/13/22 06:59 14:59 22:59 Intake Total 861.787 / 2908.596 1059.632 / 1059.632 433.652 / 1493.284 Output Total 1135 / 1945 1150 / 1150 3300 / 4450 Balance -273.213 / 963.596 -90.368 / -90.368 -2866.348 / -2956.716 Weight last 48 hrs Weight 346 lb 12.594 oz Physical Exam Narrative: General: Patient is intubated. Currently off of all sedation Neck: Unable to assess JVD Respiratory: Very minimal crackles at lung bases, no wheezing or rhonchi, certa inly better than before Cardiovascular: S1-S2 present, no murmur, significant bilateral? edema. Abdomen: Soft abdomen, incision site and colostomy in place, sluggish bowel sound, stoma looks good, minimal desquamation in the right flank, mild areas of blistering in the anterior abdominal wall, there is no erythema surrounding these lesions or any evidence of necrosis Neuro: Unable to assess, the patient seems to be trying to open his eyes with verbal command Urinary Catheter Management: Blackmon: Cath Placed During This Visit: yes, but has since been removed by the nurse Reason for Continuing Indwelling Catheter: Accurate Measurement of Urinary Output in Critically Ill Patients Urinary Catheter Date of Insertion: 02/08/22 Urinary Catheter Time of Insertion: 15:13 Date Urinary Catheter Removed: 02/13/22 Time Urinary Catheter Discontinued: 10:21 Data : 02/13/22 03:51 02/13/22 03:51 Micro: Microbiology 02/08/22 16:40 Anaerobic Culture - Preliminary Peritoneal Fluid Bacteroides thetaiotaomicron Clostridium clostridiiforme 02/08/22 16:40 Gram Stain - Final Other Source Wound Culture - Final Escherichia coli Pseudomonas aeruginosa 02/08/22 11:23 Blood Culture - Final Blood Escherichia coli Bacteroides thetaiotaomicron 02/08/22 11:15 Blood Culture - Final Blood Escherichia coli Bacteroides thetaiotaomicron 02/09/22 08:03 Sputum Culture - Final Sputum - Endotracheal Tube Aspirate Other data: I have reviewed the patient's laboratory, microbiologic and neurologic data. Please see the HPI for detail. The peritoneal fluid and blood culture from 02/08 has grown multiple organisms which is not uncommon with colon perforation. A&P Assessment and plan (1) Atrial fibrillation: His A. fib has resolved. Currently patient is in normal sinus rhythm. His amiodarone was stopped yesterday evening with concerns for possible drug reaction. He has not gotten back into A. fib again. Status: Acute (2) Septic shock: The etiology of the septic shock is perforated sigmoid colon/rectum with fecal peritonitis and bacteremia. The patient has undergone exploratory laparotomy with colostomy and repair of the incarcerated incisional hernia. The patient is doing very well. Currently he is on minimal dose of dopamine. The Levophed and the vasopressin have been discontinued. We are coming down on the hydrocortisone dose. His antibiotics were changed because of concerns for possible drug reaction. Currently the patient is not aztreonam, metronidazole and linezolid. He has re ceived a dose of aztreonam after dialysis today. Depending on the renal replacement therapy if the patient receives we will optimize the dose of aztreonam. If the patient receives intermittent dialysis, he will require 2 g IV every 24 hours. If the patient is on CRRT, he will receive 1 g IV every 12 hours. His latest blood culture from February 10 have been negative. Previous blood culture and peritoneal fluid cultures have grown multiple organisms including gram-positive, gram-negative and anaerobes. Status: Acute (3) Colon perforation: His bowel sound is very sluggish at this time. We will consider starting the patient on trickle feed may be tomorrow or the day after. Status: Acute (4) E coli bacteremia: Currently broadly covered including with antifungals. We are going to do 2 weeks of IV antibiotic therapy. Status: Acute (5) ARDS (adult respiratory distress syndrome): The patient is improving from respiratory standpoint. I was able to reduce the FiO2 down to 40%. The chest x-ray revealed improvement of bilateral infiltrate. The patient is currently off of all sedation. Once the patient is able to tolerate PSV we will switch him to PSV. For now, we will continue with a higher PEEP. We will start titrating this down tomorrow. If his mental status is improved, after we have removed 5 to 10 L of fluid, I am hoping to try to extubate him in the next 48 to 72 hours. Status: Acute (6) MILEY (acute kidney injury): The patient has suffered from ATN. This is likely secondary to septic shock as well as cardiac arrest. At this point the patient is not making much urine. The patient has received 3 total session of dialysis. The last session was this morning. The patient is going to be on CRRT likely tonight or tomorrow. This will help us remove high amount of fluid. Status: Acute (7) Cardiac arrest: The patient had suffered from cardiac arrest on February 09. His left ventricular function seems to be intact. Status: Acute (8) Rectal cancer: The patient has metastatic stage IV rectal cancer. However the patient has done fairly well since 2013. He had a pulmonary function test before and the spirometry was completely normal. The patient is critically ill. I have discussed his care plan with the family. I am hoping that he will continue to make recovery. Status: Acute Attestations Medical Necessity Statement*: Will defer to the primary team Critical Care Time: 37 Procedures Arterial Line Size (Gauge): 20 Coding Level of Care Code Acute Aircraft Maintenance Instructor for Chg Fwd Diagnoses Atrial fibrillation I48.91 Septic shock A41.9; R65.21 Colon perforation K63.1 E coli bacteremia R78.81; B96.20 ARDS (adult respiratory distress syndrome) J80 MILEY (acute kidney injury) N17.9 Cardiac arrest I46.9 Rectal cancer C20
[2022-02-13 19:39] LABS: ABG PCO2 37.7 mmHg (35-45); ABG PH Result 7.32 (7.35-7.45); Alveolar-Arterial Oxygen Gradi 31.3 mmHg (5-10); Base Excess ABG -6.1 mmol/L (-2.0-2.0); Blood Gas Operator Identificat JB; Blood Gas Sample Site Not specified; Blood Gas Sample Type Arterial; Carboxyhemoglobin 0.9 %THgb (0.4-20.1); HCO3 ABG 19.4 mmol/L (22-26); HGB O2 Sat 88.2 % (95-100); Oxygen Device VENT; PO2 ABG 61.3 mmHg (80.0-100.0); Potassium Level - ABG 4.3 mmol/L (3.5-5.0); Total Hemoglobin 11.4 g/dL (14-18)
--- NOTE | 2022-02-13 22:17 | NUR.SHIFT ---
This RN's assessment was done while pt was not on any sedation or pain medication. Pt will open eyes to name and blinks to visual threat, but does not track. When this RN was assessing flexion and extension of feet pt moved right foot to initial touch but did not follow commands. PT has 8.0 tube 26cm at lip. PT's colostomy stoma appears dusky, dark purple on the outer edge of stoma with pale white area in the middle and purple center. pt has multiple scattered areas of serous filled blisters and areas of open wounds with moist, pink wound bases. Wounds are located to back, right and left flanks, ABD near RASTA drain, and midline incision, right thigh and groin and bilateral AC places on arms.
[2022-02-14] VITALS (126 sets, daily range): BP systolic 118–200; BP diastolic 48–109; PULSE 73–91; RESP 26–34; TEMP 36.6–37.5; O2SAT 80–98
[2022-02-14] MEDS: propofol 1,000 MG/100 ML INJ 3.87 MG IV (00:12)
[2022-02-14] MEDS: metroNIDAZOLE IV 500 MG/100 ML PREMIX 100 MG IV ×4 (01:42→19:53)
[2022-02-14 03:34] LABS: Basophils % 0.2 %; Eosinophils % 0.1 %; Hematocrit 31.9 % (42.0-52.0); Hemoglobin 10.9 g/dL (11.7-16.6); Lymphocytes # 0.5 10^3/uL (0.8-4.8); Lymphocytes % 2.4 %; Mean Corpuscular HGB Conc 34.2 g/dL (30.0-36.0); Mean Corpuscular Hemoglobin 28.4 pg (28.0-34.0); Mean Corpuscular Volume 83.1 fl (80-94); Mean Platelet Volume 12.9 fL (7.4-10.4); Monocytes # 0.4 10^3/uL (0.2-0.9); Monocytes % 1.7 %; Neutrophils # 17.92 10^3/uL (1.8-7.7); Neutrophils % 86.4 %; Nucleated Red Blood Cells % 0.1 %; Platelet Count 94 10^3/cmm (130-400); Red Blood Count 3.84 10^6/uL (4.1-5.3); Red Cell Distribution Width 15.2 % (12.1-15.1); White Blood Count 20.7 10^3/uL (4.0-10.0)
[2022-02-14 03:58] LABS: Slide Review Slide Review Perform
[2022-02-14 04:00] LABS: Alanine Aminotransferase 43 U/L (0-41); Albumin Level 2.3 g/dL (3.5-5.2); Alkaline Phosphatase 124 IU/L (40-130); Anion Gap 23.4 (5-19); Aspartate Amino Transferase 131 U/L (0-40); Calcium 7.5 mg/dL (8.5-10.5); Carbon Dioxide 17 mmol/L (22-29); Chloride 90 mmol/L (98-107); Globulin 2.7 g/dL (1.3-4.6); Glucose 85 mg/dL (65-115); Magnesium 2.4 mg/dL (1.7-2.3); Osmolality Calculated 288 mOsm/kg (285-295); Potassium 4.4 mmol/L (3.5-5.1); Sodium 126 mmol/L (136-145); Total Bilirubin 1.1 mg/dL (0.15-1.2)
[2022-02-14 04:10] LABS: Blood Urea Nitrogen 88 mg/dL (8-23); Phosphorus 8.1 mg/dL (2.5-4.5)
[2022-02-14 05:08] LABS: ABG PCO2 36.3 mmHg (35-45); ABG PH Result 7.33 (7.35-7.45); Arterial Blood Gas Hematocrit 36.4 % (42-52); Base Excess ABG -6.5 mmol/L (-2.0-2.0); Blood Gas Allen Test Pos; Blood Gas Sample Type Arterial; HCO3 ABG 18.9 mmol/L (22-26)
[2022-02-14 05:10] LABS: Blood Gas Operator Identificat JB; Blood Gas Sample Site Not specified; Oxygen Device VENT
--- NOTE | 2022-02-14 07:00 | XR_ITS ---
WS: [id number] Exam: XR chest 1V portable [id number] Date/Time of Exam: 02/14/2022 4:06 AM Reason For Exam: resp failure There is increasing infiltrate in the mid lower right lung since the prior study. The heart is enlarg ed. ET tube ends about 6 cm above the ozzie in good position. A left-sided central line ends in the lower one third of the SVC. Infiltrate in the mid and lower left lung. No pneumothorax. Enteric tube extends below the diaphragm. XR/XR chest 1V portable [id number] IMPRESSION: 1. Increasing infiltrate in the mid and lower right lung. Cardiac enlargement w ith pulmonary vascular congestion which may indicate some degree of superimpose d CHF. 2. ET tube and left-sided central line in satisfactory position. Enteric tube a ppears to extend below the diaphragm but the tip is not visible.
--- NOTE | 2022-02-14 07:53 | P.PN_ITS ---
Subjective Subjective: Tee is sedated, on the ventilator. Yesterday his sedation was held for most of the day, but agitation occurred last night. This was demonstrated by elevated blood pressures, biting on the tube, opening eyes. No purposeful movement was noted. Occurred. Medications: Reviewed: Yes Vitals/I&O/Wt Last Vital Signs Temp 99.1 F 02/14/22 03:00 Pulse 74 02/14/22 06:15 Resp 26 H 02/14/22 06:07 BP 128/67 02/14/22 06:15 Pulse Ox 96 02/14/22 06:15 02/13/22 02/14/22 02/14/22 22:59 06:59 14:59 Intake Total 841.289 / 1900.921 114.198 / 2015.119 Output Total 4450 / 5600 580 / 6180 Balance -3608.711 / -3699.079 -465.802 / -4164.881 Weight last 48 hrs Weight 157.3 kg Physical Exam Narrative: General exam is a sedated male in no distress. Currently on propofol and fentanyl. FiO2 at 50%, PEEP 14 HEENT: Pupils equally round. Endotracheal tube and orogastric tube noted. Neck is supple no lymphadenopathy or thyromegaly. Left IJ catheter noted Cardiovascular regular rate and rhythm, no murmur Lungs clear. Sounds diminished bilaterally. Abdomen demonstrates a dusky appearance colostomy hypoactive bowel sounds no masses are felt. demonstrates Blackmon, urine noted. Produced 1500 cc yesterday Extremities 2 plus edema bilaterally. Somewhat improved Skin there are some blistering areas, with slight amount of peeling around his abdomen. These are noted most highly in areas where tape had been. Neuro: Sedated with fentanyl and propofol Urinary Catheter Management: Blackmon: Cath Placed During This Visit: yes, but has since been removed by the nurse Reason for Continuing Indwelling Catheter: Accurate Measurement of Urinary Output in Critically Ill Patients Urinary Catheter Date of Insertion: 02/08/22 Urinary Catheter Time of Insertion: 15:13 Date Urinary Catheter Removed: 02/13/22 Time Urinary Catheter Discontinued: 10:21 Data : 02/14/22 03:08 02/14/22 03:08 Micro: Microbiology 02/08/22 16:40 Anaerobic Culture - Preliminary Peritoneal Fluid Bacteroides thetaiotaomicron Clostridium clostridiiforme 02/08/22 16:40 Gram Stain - Final Other Source Wound Culture - Final Escherichia coli Pseudomonas aeruginosa A&P Assessment and plan (1) Septic shock: Severe septic shock on admission, requiring multiple pressors, secondary to fecal peritonitis. Colostomy was performed February 08. He is currently postoperative day #6. He underwent a CODE BLUE, on February 09, where ROSC was achieved after 3 doses of epinephrine. When sedation was lessened, he was able to open his eyes, grimace. Purposeful movement has not yet been demonstrated. Echocardiogram was performed following this CODE BLUE demonstrating normal LV size and normal RV size and function. He is now off pressors, with an adequate blood pressure Currently on linezolid and aztreonam(changed from Primaxin last night secondary to concern of rash) Fluconazole was started empirically. White blood cell count has increased. Hydrocortisone discontinued. He is growing some Pseudomonas from his peritoneal fluid, and aztreonam will be discontinued and cefepime initiated. Continue metronidazole for anaerobic coverage. Status: Acute (2) E coli bacteremia: Secondary to above. Change aztreonam to cefepime. This should cover both E. coli bacteremia and Pseudomonas that has now grown as well. Flagyl added secondary to Bacteroides growing as well. Note that he also had Clostridium growth. Status: Acute (3) ARDS (adult respiratory distress syndrome): Severe ARDS and fluid overload requiring high ventilator settings yesterday. These been weaned some today and he is down to an FiO2 of 50% and PEEP of 14. His FiO2 requirement can likely go down further today. Appreciate pulmonary critical care consultation Status: Acute (4) Thrombocytopenia: Improving Full anticoagulation on hold Heparin subcu has been started by pulmonary critical care SCDs for DVT prophylaxis Status: Acute (5) MILEY (acute kidney injury): Urine output improved Currently undergoing hemodialysis, to remove excess fluid that accumulated with renal failure and septic shock Appreciate nephrology intervention Status: Acute (6) Elevated troponin: Consistent with type II elevation secondary to sepsis Status: Acute (7) Atrial fibrillation: Atrial fibrillation, without rapid ventricular rate, which she developed on the . He has subsequently converted to sinus rhythm. Amiodarone IV has been discontinued. Status: Acute (8) Rectal cancer: History of rectal cancer, stage IV Status: Acute Plan Hypomagnesemia, currently corrected Discussion with family regarding very guarded prognosis currently on his degree of pressors. We also do not know mental state at this time. Will await evaluation by pulmonary critical care. In the interim I discussed with patient further CODE STATUS and they would not want him to receive CPR or undergo another code. They do want to continue current treatment at this time. He has improved somewhat since yesterday. Family does not want any change in his CODE STATUS currently. Protonix for GI prophylaxis Heparin for DVT prophylaxis Left IJ central line placed by pulmonary February 12, and right IJ central line removed. He also has a temporary dialysis catheter, Blackmon, RASTA drain Consider trophic feeds today if extubation is not planned. Attestations Medical Necessity Statement*: Needs continued hospitalization for IV antibiot ics secondary to sepsis, mechanical ventilation for respiratory failure. Critical Care Time: 31The high probability of a clinically significant, sudden or life threatening deterioration of the patient's [cardiac, pulmonary, GI, renal system(s) required my full and direct attention, intervention and personal management. The critical care time is as shown. This time is in addition to time spent performing any reported procedures but includes the following: [x] Data and vital sign review and interpretation [x] Patient assessment, examination and intervention [x] Documentation [x] Medication orders and management Procedures Arterial Line Size (Gauge): 20 Coding Level of Care Code Acute Fourdrinier Machine Tender for g Fwd Diagnoses Septic shock A41.9; R65.21 E coli bacteremia R78.81; B96.20 ARDS (adult respiratory distress syndrome) J80 Thrombocytopenia D69.6 MILEY (acute kidney injury) N17.9 Elevated troponin R77.8 Atrial fibrillation I48.91 Rectal cancer C20
--- NOTE | 2022-02-14 08:05 | P.PN_ITS ---
Subjective Subjective: seen and examined in ICU. off pressors.intubated. unable to obtain a ROS Medications: Reviewed: Yes Medication Review Details: Current Medications Famotidine (Famotidine 20 Mg/2 Ml Inj) 20 mg IVP Q12H NATALIE Last Admin: 02/13/22 19:19 Dose: 20 mg Documented by: Heparin Sodium (Porcine) (Heparin 5,000 Unit/Ml Inj 1 Ml) 5,000 unit SUBCUT Q12H NATALIE Last Admin: 02/13/22 21:28 Dose: 5,000 unit Documented by: Propofol (Diprivan) 1,000 mg in 100 mls @ 0 mls/hr IV .Q0M NATALIE; Protocol Last Titration: 02/14/22 01:45 Dose: 10 mcg/kg/min, 7.73 mls/hr Documented by: Fentanyl 2,500 mcg/ Sodium (Chloride) 250 mls @ 0 mls/hr IV .Q0M NATALIE; Protocol Last Titration: 02/14/22 00:12 Dose: 5 mcg/hr, 0.5 mls/hr Documented by: Sodium Chloride (Sodium Chloride 0.9%) 1,000 mls @ 3 mls/hr IV .Q24H NATALIE Last Admin: 02/13/22 17:33 Dose: Not Given Documented by: Linezolid (Zyvox Premix) 600 mg in 300 mls @ 300 mls/hr IV Q12H NATALIE; Protocol Last Infusion: 02/13/22 22:41 Dose: Infused Documented by: Fluconazole (Diflucan Premix) 400 mg in 200 mls @ 200 mls/hr IV Q24H NATALIE Last Infusion: 02/13/22 08:53 Dose: Infused Documented by: Albumin Human (Albumin) 12.5 gm in 50 mls @ 60 mls/hr IV PRN PRN PRN Reason: Hypotension and/or symptomatic Albumin Human (Albumin) 12.5 gm in 50 mls @ 60 mls/hr IV PRN PRN PRN Reason: Hypotension and/or symptomatic Metronidazole (Flagyl Iv) 500 mg in 100 mls @ 100 mls/hr IV Q6H NATALIE; Protocol Last Infusion: 02/14/22 02:42 Dose: Infused Documented by: Albumin Human (Albumin) 12.5 gm in 50 mls @ 60 mls/hr IV PRN PRN PRN Reason: Hypotension and/or symptomatic Cefepime HCl 1,000 mg/ Sodium (Chloride) 50 mls @ 100 mls/hr IV ONCE ONE; Protocol Stop: 02/14/22 08:59 Cefepime HCl 500 mg/ Sodium (Chloride) 50 mls @ 100 mls/hr IV Q24H NATALIE; Protocol Vitals/I&O/Wt Last Vital Signs Temp 99.1 F 02/14/22 03:00 Pulse 74 02/14/22 06:15 Resp 26 H 02/14/22 06:07 BP 128/67 02/14/22 06:15 Pulse Ox 96 02/14/22 06:15 02/13/22 02/14/22 02/14/22 22:59 06:59 14:59 Intake Total 841.289 / 1900.921 114.198 / 2015.119 Output Total 4450 / 5600 580 / 6180 Balance -3608.711 / -3699.079 -465.802 / -4164.881 Weight last 48 hrs Weight 157.3 kg Physical Exam Narrative: intubated in bed, no pressors propofol and fentanyl vent fio2 =55%, TV 500, RR 28, PEEP 14 heent- nc/at, pupils responsive lungs dull bases w/ improved air movement b/l heart-irreg irreg abd nd, no BS, ostomy ext 2+ edema left femoral dialysis access neuro- sedated. not responsive to pain Urinary Catheter Management: Blackmon: Cath Placed During This Visit: yes, but has since been removed by the nurse Reason for Continuing Indwelling Catheter: Accurate Measurement of Urinary Output in Critically Ill Patients Urinary Catheter Date of Insertion: 02/08/22 Urinary Catheter Time of Insertion: 15:13 Date Urinary Catheter Removed: 02/13/22 Time Urinary Catheter Discontinued: 10:21 Data : 02/14/22 03:08 02/14/22 03:08 Micro: Microbiology 02/08/22 16:40 Anaerobic Culture - Preliminary Peritoneal Fluid Bacteroides thetaiotaomicron Clostridium clostridiiforme 02/08/22 16:40 Gram Stain - Final Other Source Wound Culture - Final Escherichia coli Pseudomonas aeruginosa A&P Assessment and plan (1) MILEY (acute kidney injury): 71 yr old man h/ocolorectal ca, diverticulosis, Rt lower lobectomy of lung, htn, on home mobic. Pt here w/ septic shock due to perforated abd viscus. He is s/p Abd surgery. S/P PEA arrest. He is presser dependent. He is bacteremic w/ e.coli and gram neg rods. He is in multiorgan failure, VDRF, oligo- anuric renal failure 1. MILEY- ATN- from septic shock, DARREN, mobic use -has been tolerating HD -repeat HD now- for 4 hrs, attempt to remove 3 l, 3k, low blood flows and dialysate -if can not tolerate HD, then we can attempt CRRT -phos binder w/ meals -can use lasix after HD 2. hyponatremia- likely from MILEY, volume overload -tsh 6.25- would not cause hyponatremia -monitor w/ HD/ SUF -cortisol 38.8- not deficient -improving w/ dialysis 3. leukocytosis worsened- wc now 20 4. inc AGMA from MILEY, lactic acidosis and septic shock -pH 7.33/36- w/ vent and HD- monitor 5. thrombocytopenia- likely sepsis -plts improving 6. hgb stable 7. VDRF per critical care 8. s/p PEA arrest- not sure how much neurological defecit he will have pt seen and examined w/ rN- telehealth visit discussed w/ rN, Dr Slade,and pts family time spent >30 minutes Status: Acute Plan see above Attestations Medical Necessity Statement*: miley, vdrf Time Spent in Patient Care: 16 - 35 minutes (>than 50% of time spent in counselling and/or direct pt care on unit) . Procedures Arterial Line Size (Gauge): 20 Coding Level of Care Code Acute Reel Operator for Susan Freeman Diagnoses MILEY (acute kidney injury) N17.9
[2022-02-14] MEDS: famotidine 20 mg/2 mL INJ IVP ×2 (08:08→19:53)
[2022-02-14] MEDS: fluconazole premix 400 MG/200 ML PIGGYBACK 200 MG IV (08:15)
[2022-02-14] MEDS: heparin 5,000 unit/mL INJ 1 mL 5000 UNIT SUBCUT ×2 (08:17→21:23)
[2022-02-14] MEDS: linezolid premix 600 MG/300 ML PREMIX 300 MG IV ×2 (09:16→21:23)
--- NOTE | 2022-02-14 11:37 | P.PN_ITS ---
Subjective Subjective: Patient remains intubated in ICU, but sedation is being weaned. Blood pressure appears to be quite a bit better. Vitals/I&O/Wt Last Vital Signs Temp 98.8 F 02/14/22 09:30 Pulse 87 02/14/22 11:15 Resp 27 H 02/14/22 08:51 BP 168/83 02/14/22 11:15 Pulse Ox 94 02/14/22 11:15 02/13/22 02/14/22 02/14/22 22:59 06:59 14:59 Intake Total 841.289 / 2014.119 114.198 / 2015.119 669.961 / 669.961 Output Total 4450 / 6180 580 / 6180 Balance -3608.711 / -4164.881 -465.802 / -4164.881 669.961 / 669.961 Weight last 48 hrs Weight 346 lb 12.594 oz Physical Exam Narrative: The drain has some serous the incision looks good other than some blistering off of the right side of the umbilicus. The stoma once again looks s omewhat dusky to me today. It appeared the be improving yesterday. Urinary Catheter Management: Blackmon: Cath Placed During This Visit: yes, but has since been removed by the nurse Reason for Continuing Indwelling Catheter: Accurate Measurement of Urinary Output in Critically Ill Patients Urinary Catheter Date of Insertion: 02/08/22 Urinary Catheter Time of Insertion: 15:13 Date Urinary Catheter Removed: 02/13/22 Time Urinary Catheter Discontinued: 10:21 Data : 02/14/22 03:08 02/14/22 03:08 Micro: Microbiology 02/08/22 16:40 Anaerobic Culture - Preliminary Peritoneal Fluid Bacteroides thetaiotaomicron Clostridium clostridiiforme 02/08/22 16:40 Gram Stain - Final Other Source Wound Culture - Final Escherichia coli Pseudomonas aeruginosa A&P Assessment and plan (1) Fecal peritonitis: Status post exploratory laparotomy for fecal peritonitis with colostomy formation on 02/08/2022. Continue current critical care treatment. Status: Acute (2) Colon perforation: Status: Acute Attestations Medical Necessity Statement*: See admitting service's notation. Procedures Arterial Line Size (Gauge): 20 Coding Level of Care Code Acute Cipher Expert for [facility] Diagnoses Fecal peritonitis K65.8 Colon perforation K63.1
[2022-02-14] MEDS: propofol 1,000 MG/100 ML INJ 7.73 MG IV (15:10)
[2022-02-14] MEDS: cefepime 1,000 MG in sodium chloride 0.9% (plus) 50 ML 100 MG IV (15:10)
--- NOTE | 2022-02-14 16:26 | PC.NURSE ---
Shift Note Frequent safety and comfort rounds continue. Orders and nursing care completed as indicated. Patient monitored for response to intervention and treatments. Patient turned Q2 hours with assistance of other nursing staff, oral care completed at this time as well. Patient noted to bite down on tube and oral care sponges at times sedation was paused. RT notified and this nurse suggested a bite block. This nurse rounded with Dr. Bailey this am, orders to remove mid-abdominal dressing and leave SENIOR FACILITIES MANAGER. This nurse notified Dr. Bailey of discoloration to colostomy stoma, Dr. Bailey observed stoma and gave no further orders. Orders placed by Dr. Burgos for patient to receive dialysis today. Orders given by Dr. Slade to begin SAT, RT notified. This nurse began titrating sedation per protocol, see eMar. Sedation being paused, Patient?s BP elevated see charted vital signs. Dr. Hawkins and Dr. Slade notified of elevated BP. Dr. Hawkins placed PRN orders for HTN and educated nurse to wait until after dialysis to give due to possible BP decline with dialysis. Dr. Slade instructed this nurse to restart patient on minimum sedation to assist patient with pain that may also be contributing to BP elevation. Patient noted to open eyes to name but does not tract movement. Patient not following commands at this time. If patient is still unable to follow commands by end of am shift, plans to get CT per discussion with Dr. Slade and Dr. Hawkins. Dr. Hawkins gave further orders to start tube feedings today, see orders. Education provided includes SAT, dialysis, HTN, new medications given, oral care, tube feedings, and oxygenation requirements. and Daughter verbalization understanding. Will continue to monitor.
--- NOTE | 2022-02-14 16:47 | P.PN_ITS ---
Subjective Subjective: The patient was seen and examined. The patient is hemodynamically stable. Now he is on pressure support ventilation with 40% FiO2 8/5 pressure support. Chest x-ray this morning revealed clearing of left lung, there is increased opacity in the right middle and lower lung zone. This could be secondary to atelectasis or new developing infiltrate or hydrostatic pulmonary edema. His white count has been slowly going up. No fever. He underwent dialysis with removal of 3 L of fluid. The culture from the peritoneal fluid revealed Pseudomonas which was resistant to estrogen. The patient had been switched to cefepime. Currently he is on linezolid, cefepime, metronidazole and fluconazole. The most concerning aspect of his care at this point is his mental status. The patient had been either off or on minimal sedation for the past 36 hours or so. Occasionally, he is opening his eyes or trying to open his eyes but no progressive movement and not following commands. Medications: Reviewed: Yes Vitals/I&O/Wt Last Vital Signs Temp 98.8 F 02/14/22 09:30 Pulse 84 02/14/22 16:00 Resp 26 H 02/14/22 11:49 BP 149/75 02/14/22 16:00 Pulse Ox 92 02/14/22 16:00 02/14/22 02/14/22 02/14/22 06:59 14:59 22:59 Intake Total 114.198 / 2015.119 669.961 / 669.961 176.112 / 846.073 Output Total 580 / 6180 350 / 350 Balance -465.802 / -4164.881 319.961 / 319.961 176.112 / 496.073 Weight last 48 hrs Weight 346 lb 12.594 oz Physical Exam Narrative: General: Patient is intubated and mildly sedated. Neck: Unable to assess JVD Respiratory: Reduced breath sound in the right lower lung, no crackles wheezing or rhonchi Cardiovascular: S1-S2 present, no murmur, significant bilateral? edema. Abdomen: Soft abdomen, incision site and colostomy in place, sluggish bowel sound, stoma looks dusky, minimal desquamation in the right flank, mild areas of blistering in the anterior abdominal wall, there is no erythema surrounding these lesions or any evidence of necrosis Neuro: The patient is not spontaneously moving any extremities, the pupillary reflex is present, positive response to threatening of eye, not following any command Urinary Catheter Management: Blackmon: Cath Placed During This Visit: yes, but has since been removed by the nurse Reason for Continuing Indwelling Catheter: Accurate Measurement of Urinary Output in Critically Ill Patients Urinary Catheter Date of Insertion: 02/08/22 Urinary Catheter Time of Insertion: 15:13 Date Urinary Catheter Removed: 02/13/22 Time Urinary Catheter Discontinued: 10:21 Data : 02/14/22 03:08 02/14/22 03:08 Micro: Microbiology 02/08/22 16:40 Anaerobic Culture - Preliminary Peritoneal Fluid Bacteroides thetaiotaomicron Clostridium clostridiiforme 02/08/22 16:40 Gram Stain - Final Other Source Wound Culture - Final Escherichia coli Pseudomonas aeruginosa Other data: I have reviewed the patient's laboratory, microbiologic and neurologic data. Patient has been having leukocytosis. Mildly elevated liver enzymes. Chest x- ray revealed increased opacity in the right mid and lower lung zone. No blood culture growth from 02/10. A&P Assessment and plan (1) Cardiac arrest: The patient had suffered from cardiac arrest on February 09. The primary concern at this point is his mental status. If there is no improvement in his mental status, the patient is going to get a CT scan of the head tomorrow. Status: Acute (2) Atrial fibrillation: His A. fib has resolved. Currently patient is in normal sinus rhythm. Status: Acute (3) Septic shock: The etiology of the septic shock is perforated sigmoid colon/rectum with fecal peritonitis and bacteremia. The patient has undergone exploratory laparotomy with colostomy and repair of the incarcerated incisional hernia. Septic shock has resolved. Currently the patient is off of all pressors. He is currently on cefepime, linezolid, metronidazole and fluconazole. The aztreonam was switched to cefepime as the Pseudomonas that grew from the peritoneal fluid was resistant to it. His white count is slowly going up. If the patient become septic again, I will likely switch the fluconazole to caspofungin. He has also developed worsening infiltrate in the right mid and lower lung zone. May need bronchoscopic sample if he is septic again. Also, I would likely obtain CT abdomen pelvis with oral contrast. Given the increasing liver enzymes, would keep an eye out for acalculous cholecystitis. Status: Acute (4) Colon perforation: His bowel sound is very sluggish at this time. Restarting trickle feed. Status: Acute (5) E coli bacteremia: Currently broadly covered including with antifungals. We are going to do 2 weeks of IV antibiotic therapy. Status: Acute (6) ARDS (adult respiratory distress syndrome): The patient is currently on pressure support ventilation, 8/5, 40% oxygen. Status: Acute (7) MILEY (acute kidney injury): He is on intermittent dialysis. Status: Acute (8) Rectal cancer: The patient has metastatic stage IV rectal cancer. However the patient has done fairly well since 2013. He had a pulmonary function test before and the spirometry was completely normal. The patient is critically ill. I am hoping that his mental status will improve. Status: Acute Attestations Medical Necessity Statement*: Will defer to the primary team Critical Care Time: 34 Procedures Arterial Line Size (Gauge): 20 Coding Level of Care Code Acute Buildings And Grounds Director for [facility] Fwd Diagnoses Atrial fibrillation I48.91 Septic shock A41.9; R65.21 Colon perforation K63.1 E coli bacteremia R78.81; B96.20 ARDS (adult respiratory distress syndrome) J80 MILEY (acute kidney injury) N17.9 Cardiac arrest I46.9 Rectal cancer C20
[2022-02-14] MEDS: hyDRALAzine 20 mg/mL INJ 1 mL 10 MG IVP (18:11)
--- NOTE | 2022-02-14 18:26 | PC.NURSE ---
This nurse gave patient an evening bath with assistance of DOTTIE Salazar and RT. After Turning patient and changing linens Patient BP increased to 198/71 and O2 dropped to 87%. PRN medication given for HTN and sedation increased per protocol, see eMar. RT increased FIO2 to 50%, see vent setting documentation. Dr. Hawkins notified, no new orders at this time.
--- NOTE | 2022-02-14 21:45 | PC.NURSE ---
Stoma appears dusky.
[2022-02-14] MEDS: propofol 1,000 MG/100 ML INJ 15.46 MG IV (22:31)
--- NOTE | 2022-02-14 22:42 | PC.NURSE ---
At approximately 2235, pt noted by RT to have a faster respiratory rate. C02 has increased to 27, RR 32. Pt's accessory muscle use has increased. Propofol and Fentanyl increased for pt comfort.
--- NOTE | 2022-02-14 22:51 | PC.NURSE ---
Dr. Chauhan notified of pt's increased work of breathing and respiratory rate. He would like for me to try to decrease Fentanyl and increase Propofol as needed. He will order PRN pain medication.
[2022-02-14] MEDS: HYDROmorphone 1 mg/mL INJ 1 mL 0.5 MG IVP (23:00)
[2022-02-15] VITALS (115 sets, daily range): BP systolic 82–198; BP diastolic 48–107; PULSE 76–92; RESP 24–33; TEMP 37.1–37.7; O2SAT 89–98
[2022-02-15] MEDS: metroNIDAZOLE IV 500 MG/100 ML PREMIX 100 MG IV ×4 (02:20→21:03)
[2022-02-15] MEDS: propofol 1,000 MG/100 ML INJ 15.46 MG IV ×3 (02:20→12:00)
--- NOTE | 2022-02-15 02:47 | PC.NURSE ---
Dr. Chauhan sent secure message at 0245: ICU 10 has tube feedings at 10 mls/hr. His residual was 150 mls at 0000. I turned off the feedings and rechecked at 0200, it is now 250 mls. He has hypoactive bowel sounds, very little out of colostomy. I know that many physicians don't care about residuals, but I wanted to get your opinion. Turn it back on or leave them off?
[2022-02-15] MEDS: metoclopramide 5 mg/mL SDV 2 mL IVP (03:00)
--- NOTE | 2022-02-15 03:07 | PC.NURSE ---
Tube feedings restarted per physician's order. Will hold only if residual is 500 mls or more.
[2022-02-15] MEDS: HYDROmorphone 1 mg/mL INJ 1 mL 0.5 MG IVP ×2 (03:39→23:00)
[2022-02-15 05:03] LABS: ABG PCO2 36.6 mmHg (35-45); ABG PH Result 7.33 (7.35-7.45); Arterial Blood Gas Hematocrit 25.2 % (42-52); Base Excess ABG -6.3 mmol/L (-2.0-2.0); Blood Gas Operator Identificat JB; Blood Gas Sample Site Not specified; Blood Gas Sample Type Arterial; Blood Gas Tidal Volume 0.45; HCO3 ABG 19.1 mmol/L (22-26); Oxygen Device VENT; PO2 ABG 77.5 mmHg (80.0-100.0)
[2022-02-15 05:42] LABS: Hematocrit 32.7 % (42.0-52.0); Mean Corpuscular HGB Conc 33.6 g/dL (30.0-36.0); Mean Corpuscular Hemoglobin 28.6 pg (28.0-34.0); Mean Corpuscular Volume 85.2 fl (80-94); Mean Platelet Volume 11.9 fL (7.4-10.4); Platelet Count 158 10^3/cmm (130-400); Red Blood Count 3.84 10^6/uL (4.1-5.3); Red Cell Distribution Width 15.1 % (12.1-15.1); White Blood Count 26.6 10^3/uL (4.0-10.0)
[2022-02-15 06:18] LABS: Alanine Aminotransferase 35 U/L (0-41); Albumin Level 2.3 g/dL (3.5-5.2); Alkaline Phosphatase 222 IU/L (40-130); Anion Gap 24.7 (5-19); Aspartate Amino Transferase 106 U/L (0-40); Calcium 7.9 mg/dL (8.5-10.5); Carbon Dioxide 17 mmol/L (22-29); Chloride 94 mmol/L (98-107); Globulin 2.9 g/dL (1.3-4.6); Glucose 91 mg/dL (65-115); Magnesium 2.7 mg/dL (1.7-2.3); Osmolality Calculated 303 mOsm/kg (285-295); Potassium 4.7 mmol/L (3.5-5.1); Sodium 131 mmol/L (136-145); Total Bilirubin 0.9 mg/dL (0.15-1.2); Total Protein 5.2 g/dL (6.6-8.7)
[2022-02-15 06:26] LABS: Slide Review Slide Review Perform
[2022-02-15 06:27] LABS: Absolute Eosinophils 0.2 10^3/cmm (0.0-0.7); Absolute Neutrophil 24.7 10^3/cmm (1.4-6.5); Absolute Segmented Neutrophil 23.9 10/cmm (1.6-7.1); Band Neutrophils Absolute 0.8 10^3/cmm (0.0-1.2); Eosinophils 1 %; Lymphocytes 3 %; Lymphocytes Absolute 0.8 10^3/cmm (1.2-3.4); Monocytes Absolute 0.3 10^3/cmm (0.1-0.6); Platelet Estimate Decreased (Normal); Segmented Neutrophils 90 %; Total Cells Counted 100 (0-100)
--- NOTE | 2022-02-15 06:36 | PM.PN ---
Subjective Subjective: The patient remains intubated in the intensive care unit. Nursing reports his sedation was weaned yesterday but some of it has to be restarted due to restlessness. He is off all pressors but his blood pressure is somewhat low again this morning. Vitals/I&O/Wt Last Vital Signs Temp 98.7 F 02/15/22 04:00 Pulse 84 02/15/22 06:15 Resp 24 H 02/15/22 06:15 BP 135/68 02/15/22 06:15 Pulse Ox 92 02/15/22 06:15 02/14/22 02/14/22 02/15/22 14:59 22:59 06:59 Intake Total 669.961 / 1578.763 396.778 / 1578.763 512.024 / 1578.763 Output Total 350 / 1820 950 / 1820 520 / 1820 Balance 319.961 / -241.237 -553.222 / -241.237 -7.976 / -241.237 Weight last 48 hrs Weight 326 lb 3.2 oz Weight 346 lb 12.594 oz Physical Exam Narrative: Part of the colostomy remains dark but the other side seems more pink again this morning. The Christoph drain is only draining serosanguineous fluid. Urinary Catheter Management: Blackmon: Cath Placed During This Visit: yes, but has since been removed by the nurse Reason for Continuing Indwelling Catheter: Accurate Measurement of Urinary Output in Critically Ill Patients Urinary Catheter Date of Insertion: 02/08/22 Urinary Catheter Time of Insertion: 15:13 Date Urinary Catheter Removed: 02/13/22 Time Urinary Catheter Discontinued: 10:21 Data : 02/15/22 04:45 02/15/22 04:45 Micro: Microbiology 02/10/22 04:20 Blood Culture - Final Blood NO GROWTH AFTER 5 DAYS 02/10/22 04:20 Blood Culture - Final Blood NO GROWTH AFTER 5 DAYS 02/08/22 16:40 Anaerobic Culture - Preliminary Peritoneal Fluid Bacteroides thetaiotaomicron Clostridium clostridiiforme A&P Assessment and plan (1) Fecal peritonitis: Status post exploratory laparotomy for fecal peritonitis with colostomy formation on 02/08/2022. Peritoneal fluid is growing multiple organisms including E. coli, Pseudomonas, Bacteroides, Clostridium. Status: Acute (2) Colon perforation: Status: Acute Attestations Medical Necessity Statement*: See admitting service's notation. Procedures Arterial Line Size (Gauge): 20 Coding Level of Care Code Acute Airport Traffic Controller for g Fwd Diagnoses Fecal peritonitis K65.8 Colon perforation K63.1
[2022-02-15 06:46] LABS: Blood Urea Nitrogen 101 mg/dL (8-23); Phosphorus 8.8 mg/dL (2.5-4.5)
--- NOTE | 2022-02-15 06:55 | CT_ITS ---
WS: [id number] CT HEAD NONCONTRAST HISTORY: Postcode encephalopathy. TECHNIQUE: Contiguous axial imaging performed through the brain in 2.5 mm imaging. Bone and soft tiss ue windows. Sagittal and coronal reformats reviewed. All CT scans at [facility] use at least one of these dose optimization techniques: automated exposure control; mA and/or kV adjustment per pa tient size (includes targeted exams where dose is matched to clinical indication); or iterative recon struction. DLP: 1265.2 mGy.cm COMPARISON: None. Study is compromised by motion artifact. Subtle areas of edema and sulcal effacement would be easily obscured with this amount of motion. No large areas of hemorrhage are identified. There is significant obliteration of the perrin-white cere bellum. There is no midline shift. Ventricles are normal size for age and not slitlike. Very mild atrophy. Ventricles: Fourth ventricle and third ventricle and lateral ventricles are normal size for age. Paranasal sinuses: As visualized are clear. Mastoid air cells: Small amount of fluid in the mastoid air cells bilaterally. Calvarium and scalp: Significantly limited by motion artifact. CT/CT head wo con* [id number] IMPRESSION: 1. Quality of this examination is compromised by motion artifact. 2. No large areas of hemorrhage. No midline shift is evident. Smaller areas of intracranial hemorrhage and edema would easily be obscured with this amount of motion.
--- NOTE | 2022-02-15 07:00 | XR_ITS ---
WS: [id number] Exam: XR chest 1V portable [id number] Date/Time of Exam: 02/15/2022 5:11 AM Reason For Exam: resp failure Comparison 02/14/2022. Airspace infiltrates in the mid and lower right lung and lower left lung zone show little change sinc e prior study. The heart is enlarged. There is pulmonary vascular congestion. ET tube remains in sati sfactory position ending about 6 cm above the ozzie. A left-sided central line ends in the lower one third of the SVC. An enteric tube enters the stomach but the tip is not visible. No pneumothorax. Th ere are probably bibasal pleural effusions present. XR/XR chest 1V portable [id number] IMPRESSION: 1. Bilateral pulmonary infiltrates and pulmonary vascular congestion showing li ttle change since the last exam. Cardiac enlargement unchanged. 2. ET tube, enteric tube and central line in satisfactory position without dempsey ge.
--- NOTE | 2022-02-15 07:05 | PC.NURSE ---
Spoke with Dr. Slade this morning and he only wants oral contrast with CT of abdomen and pelvis.
--- NOTE | 2022-02-15 07:10 | CT_ITS ---
WS: [id number] Exam: CT abdomen pelvis wo con [id number] Date/Time of Exam: 02/15/2022 10:20 AM Reason For Exam: sepsis DLP: 2506.[address] scans at [facility] use at least one of these dose optimization techniques: automated e xposure control; mA and/or kV adjustment per patient size (includes targeted exams where dose is matc hed to clinical indication); or iterative reconstruction. Comparison 02/08/2022. There is consolidation and atelectasis in both lower lobes with posterior bilateral pleural effusions . Surgical suture or calcification seen in the right lower lobe. An NG tube ends in the stomach. The spleen and liver are unremarkable. At least one stone noted in the gallbladder. No sign of acute chol ecystitis. The abdominal aorta is normal in caliber. Unremarkable pancreas. Tiny nonobstructing stone in the right kidney. Normal left kidney. No renal obstruction. Normal adrenal glands. No lymphadenop athy. No free air. Body wall edema noted along the right and left flank areas. Small bowel loops are normal in caliber. Left lower quadrant colostomy. A 5.8 x 3 cm localized fluid collection seen in the anterior left pelvic wall may represent a seroma or hematoma. No free air seen. Small amount of inte rloop free fluid noted in the abdomen and pelvis. No abscess is seen. Left femoral vein central line noted. No mass or adenopathy in the pelvis. Blackmon catheter bulb noted in the urinary bladder. An opaq ue surgical drain seen in the right pelvis. Bony structures are intact. Mild anasarca. CT/CT abdomen pelvis con [id number] IMPRESSION: 1. No abscess or mass in the abdomen. No lymphadenopathy. 2. Consolidation and atelectasis in both lower lobes with posterior bilateral p leural effusions. 3. Cholelithiasis no sign of acute cholecystitis. 4. 5.8 x 3 cm localized fluid collection seen in the anterior left pelvic wall that may represent a seroma or hematoma. Abscess not excluded but felt to be le ss likely. 5. Left femoral vein central line. Surgical drain in the right pelvis. Blackmon ca theter bulb in the pelvis bladder. 6. Mild anasarca. Body wall edema in the right and left flank areas. Small amou nt of interloop free fluid in the abdomen and pelvis which may be postoperative .
[2022-02-15] MEDS: famotidine 20 mg/2 mL INJ IVP ×2 (07:28→21:04)
[2022-02-15] MEDS: fluconazole premix 400 MG/200 ML PIGGYBACK 200 MG IV (07:30)
[2022-02-15] MEDS: linezolid premix 600 MG/300 ML PREMIX 300 MG IV (08:46)
[2022-02-15] MEDS: heparin 5,000 unit/mL INJ 1 mL 5000 UNIT SUBCUT ×2 (08:51→21:04)
--- NOTE | 2022-02-15 08:54 | PC.SOCIAL ---
IMM Not Updated Pg. 2of IMM not updated; patient not anticipated to discharge within the next 48hours.
--- NOTE | 2022-02-15 10:39 | PC.NUTR ---
Received TF consult. Recommend continuation of Jevity 1.2, increasing 10 ml Q8H as tolerated, until a goal rate of 60 ml/hr is reached with 150 ml flushes Q4H or per MD discretion. Details in RD assessment.
--- NOTE | 2022-02-15 10:54 | PM.PN ---
Subjective Subjective: Mr. Chilel remains critically sick in the intensive care unit. Remains intubated and mechanically ventilated. Urine output noted to be 995 mL. Hemodynamics remained stable without the need for vasopressor agents. Mild global anasarca lungs sound coarse but are improved. Chemistry evaluated, notable for increasing BUN and acidosis is also noted. Vitals/I&O/Wt Last Vital Signs Temp 98.9 F 02/15/22 08:15 Pulse 79 02/15/22 10:15 Resp 24 H 02/15/22 09:04 BP 130/72 02/15/22 10:15 Pulse Ox 94 02/15/22 10:15 02/14/22 02/15/22 02/15/22 22:59 06:59 14:59 Intake Total 396.778 / 1066.739 605.024 / 1671.763 672.147 / 672.147 Output Total 950 / 1300 520 / 1820 Balance -553.222 / -233.261 85.024 / -148.237 672.147 / 672.147 Weight last 48 hrs Weight 147.962 kg Weight 157.3 kg Physical Exam Narrative: Constitutional: Sedated and vented HEENT: Wet mucosa, no jvp, non icteric Lungs: Bilaterally clear without discernible wheeze, rales in all lung zones CVS: S1 S2, no murmurs Abdo: Soft, BS ok, ostomy Ext 4: Minimal edema, peripheral perfusion with no cyanosis Neurological: Grossly non-focal Urinary Catheter Management: Blackmon: Cath Placed During This Visit: yes, but has since been removed by the nurse Reason for Continuing Indwelling Catheter: Accurate Measurement of Urinary Output in Critically Ill Patients Urinary Catheter Date of Insertion: 02/08/22 Urinary Catheter Time of Insertion: 15:13 Date Urinary Catheter Removed: 02/13/22 Time Urinary Catheter Discontinued: 10:21 Data : 02/15/22 04:45 02/15/22 04:45 Micro: Microbiology 02/15/22 03:35 MRSA Culture - Final Nose 02/08/22 16:40 Anaerobic Culture - Final Peritoneal Fluid Bacteroides thetaiotaomicron Clostridium clostridiiforme 02/10/22 04:20 Blood Culture - Final Blood NO GROWTH AFTER 5 DAYS 02/10/22 04:20 Blood Culture - Final Blood NO GROWTH AFTER 5 DAYS A&P Assessment and plan (1) MILEY (acute kidney injury): Status: Acute Plan 1. Renal failure Acute kidney injury likely combination of sepsis/infection mediated ATN Decent urine output, however, BUN/creatinine continue to increase demonstrating that he is not clearing quite yet. We will plan on dialysis today, Daily evaluation If he cannot tolerate this from a hemodynamic perspective, we can consider CRRT, however, I remain optimistic that we can get by with intermittent hemodialysis safely. Close monitoring for renal recovery Dose medication for GFR less than 15 on dialysis Strict ins and outs Avoid usual nephrotoxic agents. 2. Chemistry Acidosis, hyponatremia noted, should correct with effective dialysis 3. Vent dependent respiratory failure Management per ICU, including weaning as tolerated. Of note treating metabolic acidosis as well as uremia will also help bring him more expeditiously off the ventilator. 4. Fecal peritonitis Ex lap for fecal peritonitis with colostomy formation on 02/08 Management per general surgery Bowel sounds noted Enteral feeds per general surgery Discussed with [id number] at bedside, answering all questions to his satisfaction. 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
--- NOTE | 2022-02-15 11:44 | PC.CHAP ---
Pastoral Care Encounter/Spiritual Assessment Type of Contact [] Declined postal delivery officer visit [] Patient/Family/Request visit [] Outpatient visit [] Follow-up visit [] Physician referral [] Code/Alert [x] Routine visit [] Staff referral [] Actively dying [] Patient sleeping [x] Family support [] [] Out of room [] Palliative care [] [] Receiving care in room [] Pre-surgical visit [] Trauma [] Long length of stay [x] ICU visit [x] Other: surrounded with family... going for CTs today Relational/Emotional Strength [] Patient feels connected with others/family/visitors/staff [] Distress [] Loneliness/isolation [] Abandonment Spirituality of Patient [] Person of Adry [] Attends Mu-Ism of their Adry [] Believes in Prayer [] Reads Bible or Pentecostalism materials [] There are Spiritual issues to be addressed Car Groomer Interventions [x] Prayer [] Active listening [] Non-anxious presence [] Spiritual/emotional support [] Crisis/trauma care [] Spiritual counseling [] Bereavement support [] Provided bereavement packet [] Provided Bible/devotional materials [] Provided toy/stuffed animal, coloring book to patient or family member [] Provided Communion [] Anointing/[place] [] Salvation [x] Completed spiritual assessment [] Other: Impact on Illness or Injury [] Angry [] Fearful [] Anxious [] Often cries [] Exhaustion [] Unable to work [] Unable to attend adventism [] Unable to walk/stand [] Unable to read [] Unable to drive [] Unable to eat/drink [] Unable to sleep [] Unable to be with family [] Patient intubated [] Other: Summary Time spent with patient
[2022-02-15] MEDS: iohexol 300 mg/mL 50 mL Btl PO (12:16)
--- NOTE | 2022-02-15 12:51 | P.PN_ITS ---
Subjective Subjective: Sedated on vent. Family at bedside and questions addressed. Patient himself without response and cannot do review of systems or answer questions. He has not yet had any purposeful movement. Dilaudid was added yesterday for some agitation. Medications: Reviewed: Yes Vitals/I&O/Wt Last Vital Signs Temp 99.3 F 02/15/22 12:30 Pulse 89 02/15/22 12:30 Resp 25 H 02/15/22 10:54 BP 168/89 02/15/22 12:30 Pulse Ox 92 02/15/22 12:30 02/14/22 02/15/22 02/15/22 22:59 06:59 14:59 Intake Total 396.778 / 1066.739 605.024 / 1671.763 749.447 / 749.447 Output Total 950 / 1300 520 / 1820 Balance -553.222 / -233.261 85.024 / -148.237 749.447 / 749.447 Weight last 48 hrs Weight 147.962 kg Weight 157.3 kg Physical Exam Narrative: General exam is a sedated male in no distress. Currently on propofol and fentanyl. Also with Dilaudid as needed. Ventilatory settings reviewed. HEENT: Pupils equally round. Endotracheal tube and orogastric tube noted. Neck is supple no lymphadenopathy or thyromegaly. Left IJ catheter noted Cardiovascular regular rate and rhythm, no murmur Lungs clear. Sounds diminished bilaterally. Abdomen demonstrates a dusky appearance colostomy hypoactive bowel sounds no masses are felt. demonstrates Blackmon, urine noted. Only a little over 400 in the last 24 hours. Extremities 2 plus edema bilaterally. This is improved Skin there are some blistering areas, with slight amount of peeling around his abdomen. These are noted most highly in areas where tape had been. Neuro: Sedated with fentanyl and propofol, Dilaudid Urinary Catheter Management: Blackmon: Cath Placed During This Visit: yes, but has since been removed by the nurse Reason for Continuing Indwelling Catheter: Accurate Measurement of Urinary Output in Critically Ill Patients Urinary Catheter Date of Insertion: 02/08/22 Urinary Catheter Time of Insertion: 15:13 Date Urinary Catheter Removed: 02/13/22 Time Urinary Catheter Discontinued: 10:21 Data : 02/15/22 04:45 02/15/22 04:45 Micro: Microbiology 02/15/22 03:35 MRSA Culture - Final Nose 02/08/22 16:40 Anaerobic Culture - Final Peritoneal Fluid Bacteroides thetaiotaomicron Clostridium clostridiiforme 02/10/22 04:20 Blood Culture - Final Blood NO GROWTH AFTER 5 DAYS 02/10/22 04:20 Blood Culture - Final Blood NO GROWTH AFTER 5 DAYS A&P Assessment and plan (1) Septic shock: Severe septic shock on admission, requiring multiple pressors, secondary to fecal peritonitis. Colostomy was performed February 08. He is currently postoperative day #7. He underwent a CODE BLUE, on February 09, where ROSC was achieved after 3 doses of epinephrine. When sedation was lessened, he was able to open his eyes, grimace. Purposeful movement has not yet been demonstrated. Echocardiogram was performed following this CODE BLUE demonstrating normal LV size and normal RV size and function. CT head noncontrast performed today which did not demonstrate any acute changes. He is now off pressors, with an adequate blood pressure Currently on linezolid and cefepime (changed from Primaxin for concern of rash and aztreonam discontinued as Pseudomonas not sensitive Fluconazole was started empirically. White blood cell count has increased. Hydrocortisone discontinued. Metronidazole is on board for anaerobic coverage. CT abdomen and pelvis, with oral contrast was repeated today. This reading is pending. Status: Acute (2) E coli bacteremia: Secondary to above. Currently on cefepime for E. coli bacteremia and Pseudomonas . Flagyl added secondary to Bacteroides growing as well. Note that he also had Clostridium growth. Also on linezolid, fluconazole Status: Acute (3) ARDS (adult respiratory distress syndrome): Severe ARDS and fluid overload requiring high ventilator settings yesterday. PEEP has been decreased. FiO2 requirement 60%. Chest x-ray reviewed. Appreciate pulmonary critical care consultation Status: Acute (4) Thrombocytopenia: Improved. Secondary to sepsis. Status: Acute (5) MILEY (acute kidney injury): Currently undergoing hemodialysis, to remove excess fluid that accumulated with renal failure and septic shock Appreciate nephrology intervention Status: Acute (6) Elevated troponin: Consistent with type II elevation secondary to sepsis Status: Acute (7) Atrial fibrillation: Atrial fibrillation, without rapid ventricular rate, which she developed on the . He has subsequently converted to sinus rhythm. Amiodarone IV has been discontinued. Status: Acute (8) Rectal cancer: History of rectal cancer, stage IV Status: Acute Plan Hypomagnesemia, currently corrected Discussion with family regarding very guarded prognosis currently on his degree of pressors. We also do not know mental state at this time. Will await evaluat ion by pulmonary critical care. In the interim I discussed with patient further CODE STATUS and they would not want him to receive CPR or undergo another code. They do want to continue current treatment at this time. He has improved somewhat since yesterday. Family does not want any change in his CODE STATUS currently. Protonix for GI prophylaxis Heparin for DVT prophylaxis Left IJ central line placed by pulmonary February 12, and right IJ central line removed. He also has a temporary dialysis catheter, Blackmon, RASTA drain Trophic feeds held today for residual of 250 cc while evaluation of abdomen with CT abdomen and pelvis is occurring. Attestations Medical Necessity Statement*: Needs continued hospitalization for IV antibiotics related to sepsis, respiratory support with ventilator secondary to respiratory failure Critical Care Time: The high probability of a clinically significant, sudden or life threatening deterioration of the patient's [pulmonary, cardiac, renal, infectious disease system(s) required my full and direct attention, intervention and personal management. The critical care time is as shown. This time is in addition to time spent performing any reported procedures but includes the following: [x] Data and vital sign review and interpretation [x] Patient assessment, examination and intervention [x] Documentation [x] Medication orders and management Critical Care Time (min): 34 Procedures Arterial Line Size (Gauge): 20 Coding Level of Care Code Acute Health Editor for [facility] Fwd Diagnoses Septic shock A41.9; R65.21 E coli bacteremia R78.81; B96.20 ARDS (adult respiratory distress syndrome) J80 Thrombocytopenia D69.6 MILEY (acute kidney injury) N17.9 Elevated troponin R77.8 Atrial fibrillation I48.91 Rectal cancer C20
--- NOTE | 2022-02-15 13:25 | PC.NURSE ---
Dr. Slade beside discussing POC with family about possible trach for patient and making decisions about mentation status
[2022-02-15] MEDS: dexmedeTOMIDine 0.9 % NaCL 400 MCG/100 ML PREMIX IV (13:31)
--- NOTE | 2022-02-15 13:35 | PC.NURSE ---
Per Dr. Slade do not increase precedex past the 0.7mcg/kg/hr. Due to kidney issues
--- NOTE | 2022-02-15 13:41 | P.PN_ITS ---
Subjective Subjective: The patient was seen and examined. Family is at bedside. He is on minimal sedation currently. Propofol was turned off. He is on 25 mcg of fentanyl. It appears that the patient was trying to open his eyes on vocal command however uncertain how reliable this is. Not spontaneously moving his ex tremities yet. CT scan of the head did not reveal any definitive evidence of hypoxic brain injury. CT abdomen pelvis with oral contrast did not reveal any significant collection. His blood pressure has been good. The WBC count is more elevated than yesterday. Mildly elevated liver enzymes including alkaline phosphatase. No evidence of cholecystitis. There is bibasilar atelectasis and pleural effusion on the CT scan of the abdomen pelvis which included lower part of the chest. The patient is currently on 60% FiO2 saturating in the mid 90s. He has not received dialysis yet. His electrolyte abnormalities including hyponatremia has been corrected by dialysis so far. Medications: Reviewed: Yes Vitals/I&O/Wt Last Vital Signs Temp 99.3 F 02/15/22 12:30 Pulse 89 02/15/22 12:30 Resp 30 H 02/15/22 13:38 BP 168/89 02/15/22 12:30 Pulse Ox 94 02/15/22 13:38 02/14/22 02/15/22 02/15/22 22:59 06:59 14:59 Intake Total 396.778 / 1066.739 605.024 / 1671.763 770.833 / 770.833 Output Total 950 / 1300 520 / 1820 325 / 325 Balance -553.222 / -233.261 85.024 / -148.237 445.833 / 445.833 Weight last 48 hrs Weight 326 lb 3.2 oz Weight 346 lb 12.594 oz Physical Exam Narrative: General: Patient is intubated and mildly sedated. Spontaneously moving his head now Neck: Unable to assess JVD Respiratory: Reduced breath sound in the right lower lung, no crackles wheezing or rhonchi Cardiovascular: S1-S2 present, no murmur, significant bilateral? edema. Abdomen: Soft abdomen, incision site and colostomy in place, sluggish bowel sound Neuro: The patient is not spontaneously moving any extremities, the pupillary reflex is present, positive response to threatening of eye, not following any command Urinary Catheter Management: Blackmon: Cath Placed During This Visit: yes, but has since been removed by the nurse Reason for Continuing Indwelling Catheter: Accurate Measurement of Urinary Output in Critically Ill Patients Urinary Catheter Date of Insertion: 02/08/22 Urinary Catheter Time of Insertion: 15:13 Date Urinary Catheter Removed: 02/13/22 Time Urinary Catheter Discontinued: 10:21 Data : 02/15/22 04:45 02/15/22 04:45 Micro: Microbiology 02/15/22 03:35 MRSA Culture - Final Nose 02/08/22 16:40 Anaerobic Culture - Final Peritoneal Fluid Bacteroides thetaiotaomicron Clostridium clostridiiforme 02/10/22 04:20 Blood Culture - Final Blood NO GROWTH AFTER 5 DAYS 02/10/22 04:20 Blood Culture - Final Blood NO GROWTH AFTER 5 DAYS Other data: I have reviewed the patient's laboratory, microbiologic and rheologic data. Please see the HPI. No growth from blood culture from February 10. The nasal MRSA PCR was negative. A&P Assessment and plan (1) Cardiac arrest: The patient had suffered from cardiac arrest on February 09. The primary concern at this point is his mental status. CT scan of the head this morning did not reveal any significant abnormalities that would be consistent with hypoxic brain injury. Currently his sedation is very minimal. I am going to start him on Precedex hoping to keep him comfortable at the same time be able to evaluate his mental status better. Status: Acute (2) Atrial fibrillation: His A. fib has resolved. Currently patient is in normal sinus rhythm. Status: Acute (3) Septic shock: The septic shock has resolved. The patient is currently broadly covered with cefepime, linezolid, metronidazole and fluconazole. His MRSA PCR is negative. I think we can safely discontinue the linezolid at this time. The patient has bilateral subtotal lower lobe atelectasis than consolidation. Even though his white count is going up, there is no evidence of worsening pneumonia. The patient has bilateral pleural effusion. If the patient starts having fever this will likely need to be evaluated. Status: Acute (4) Colon perforation: His bowel sound is very sluggish at this time. Restarting trickle feed. No evidence of abdominal collection on the CT abdomen pelvis with oral contrast. Status: Acute (5) E coli bacteremia: Currently broadly covered including with antifungals. We are going to do 2 weeks of IV antibiotic therapy. Status: Acute (6) ARDS (adult respiratory distress syndrome): The patient is currently on volume control mechanical ventilation. I have gone up on his PEEP to 12 given his bilateral lower lobe atelectasis. We will intermittently try pressure support ventilation. Status: Acute (7) MILEY (acute kidney injury): He is on intermittent dialysis. Urine output today is nearly 2000 cc in the past 24 hours. Status: Acute (8) Rectal cancer: The patient has metastatic stage IV rectal cancer. However the patient has done fairly well since 2013. He had a pulmonary function test before and the spirometry was completely normal. I have discussed his care plan with the family in detail. If the patient does not have any significant improvement in his mental status, the neck step is going to be deciding about a tracheostomy and PEG tube placement. The family is going to think about that over the weekend and depending on his mental status will decide on this on Friday. Status: Acute Attestations Medical Necessity Statement*: Will defer to the primary team. Procedures Arterial Line Size (Gauge): 20 Coding Level of Care Code Acute Product Support Consultant for [facility] Fwd Diagnoses Cardiac arrest I46.9 Atrial fibrillation I48.91 Septic shock A41.9; R65.21 Colon perforation K63.1 E coli bacteremia R78.81; B96.20 ARDS (adult respiratory distress syndrome) J80 MILEY (acute kidney injury) N17.9 Rectal cancer C20
[2022-02-15] MEDS: alteplase 1 mg/mL SDV 2 mL 4 MG INTRACATH (17:09)
--- NOTE | 2022-02-15 18:00 | PC.NURSE ---
Shift Note: Multiple rounds today by Dr. Hawkins and Dr. Slade. CT report did not find any abnormalities per their reports of head, abdomen. Tickle tube feedings continued. Propofol stopped and precedex started per Dr. Slade to check patients mental status. Trach and peg tube discussed with family to make decisions over the weekend of action of plan of care moving forward. Dialysis running currently at this time.
--- NOTE | 2022-02-15 20:00 | PC.NURSE ---
Levophed increased from 2 mcg/min to 5 mcg/min because pt had no obtainable blood pressure, and dialysis in progress.
--- NOTE | 2022-02-15 22:22 | PC.NURSE ---
Pt is a sallow color. Blistering on legs and abdomen appears worse today. Pt's mouth has a moderate amount of frothy sputum. Lungs more diminished on the anterior right. Dialysis in progress. Pt not turned at this time.
[2022-02-16] VITALS (71 sets, daily range): BP systolic 88–173; BP diastolic 57–91; PULSE 70–90; RESP 24–33; TEMP 36.7–38.8; O2SAT 93–98
[2022-02-16] MEDS: dexmedeTOMIDine 0.9 % NaCL 400 MCG/100 ML PREMIX 11.1 MCG IV ×3 (00:11→14:50)
[2022-02-16] MEDS: metroNIDAZOLE IV 500 MG/100 ML PREMIX 100 MG IV ×4 (02:44→20:13)
[2022-02-16] MEDS: acetaminophen 325 mg Tablet 650 MG XX (04:37)
[2022-02-16 04:46] LABS: Basophils % 0.1 %; Hematocrit 33.5 % (42.0-52.0); Hemoglobin 11.1 g/dL (11.7-16.6); Lymphocytes # 0.8 10^3/uL (0.8-4.8); Lymphocytes % 3.1 %; Mean Corpuscular HGB Conc 33.1 g/dL (30.0-36.0); Mean Corpuscular Hemoglobin 28.4 pg (28.0-34.0); Mean Corpuscular Volume 85.7 fl (80-94); Mean Platelet Volume 11.6 fL (7.4-10.4); Monocytes # 0.5 10^3/uL (0.2-0.9); Monocytes % 1.9 %; Neutrophils # 20.35 10^3/uL (1.8-7.7); Nucleated Red Blood Cells # 0.1 /100WBC; Nucleated Red Blood Cells % 0.2 %; Platelet Count 184 10^3/cmm (130-400); Red Blood Count 3.91 10^6/uL (4.1-5.3); Red Cell Distribution Width 15.5 % (12.1-15.1); White Blood Count 25.8 10^3/uL (4.0-10.0)
[2022-02-16 05:10] LABS: Alanine Aminotransferase 31 U/L (0-41); Albumin Level 2.1 g/dL (3.5-5.2); Alkaline Phosphatase 103 IU/L (40-130); Anion Gap 24.4 (5-19); Aspartate Amino Transferase 92 U/L (0-40); Carbon Dioxide 16 mmol/L (22-29); Chloride 94 mmol/L (98-107); Globulin 2.9 g/dL (1.3-4.6); Glucose 115 mg/dL (65-115); Magnesium 2.8 mg/dL (1.7-2.3); Potassium 5.4 mmol/L (3.5-5.1); Sodium 129 mmol/L (136-145)
[2022-02-16 05:14] LABS: Slide Review Slide Review Perform
[2022-02-16 05:29] LABS: ABG PCO2 35.3 mmHg (35-45); ABG PH Result 7.32 (7.35-7.45); Arterial Blood Gas Hematocrit 42.6 % (42-52); Base Excess ABG -6.9 mmol/L (-2.0-2.0); Blood Gas Allen Test Pos; Blood Gas Operator Identificat JB; Blood Gas Sample Site Radial, right; Blood Gas Sample Type Arterial; HCO3 ABG 18.4 mmol/L (22-26); Oxygen Device VENT; PO2 ABG 97.4 mmHg (80.0-100.0)
[2022-02-16 05:47] LABS: Osmolality Calculated 306 mOsm/kg (285-295)
[2022-02-16 05:48] LABS: Blood Urea Nitrogen 116 mg/dL (8-23)
--- NOTE | 2022-02-16 06:06 | PC.NURSE ---
Increased areas of blistering noted on pt's back, posterior thighs, and torso. Pt has significant weeping from all body parts. Pt's stool is dark maroon, foul smelling liquid. Pt's stoma is dusky and unchanged. Pt does not have a cough or gag reflex, but does have a corneal reflex present. Large amount of clear, thin sputum suctioned from ETT at 0600.
--- NOTE | 2022-02-16 06:41 | PC.NURSE ---
Left voicemail for telenephrology, critical BUN and creatinine reported.
--- NOTE | 2022-02-16 07:00 | XRR_ITS ---
PROCEDURE INFORMATION: Exam: XR Chest Exam date and time: 02/16/2022 6:11 AM Age: 71 years old Clinical indication: Device placement; Ett placement (vent status); Shortness of breath; Additional info: Resp failure TECHNIQUE: Imaging protocol: XR of the chest. Views: 1 view. COMPARISON: CR XR chest 1V portable [id number] 02/15/2022 5:17 AM FINDINGS: Tubes, catheters and devices: Nasogastric tube is placed with its tip at least in the proximal stomach. An endotracheal tube is placed with its tip 5.9 cm from the ozzie. EKG leads overlie the chest. Lungs: See Pleural spaces finding. Pleural spaces: The hemidiaphragms are partially obscured likely secondary to bilateral pleural effusions. There are strandy and patchy opacities superimposed over the pleural effusions likely representing atelectasis. Heart/Mediastinum: Unremarkable. No cardiomegaly. Vasculature: A left internal jugular vein central venous line is placed with its tip at the level of the superior vena cava. Bones/joints: Unremarkable. XR/XR chest 1V portable [id number] IMPRESSION: 1. Endotracheal tube tip 5.9 cm from the ozzie. 2. Left internal jugular vein central venous line placed with tip at the level of the superior vena cava. 3. Nasogastric tube tip at least in proximal stomach. 4. The hemidiaphragms are obscured likely secondary to bilateral pleural effusions. 5. Strandy and patchy opacities superimposed over the pleural effusions compatible with atelectasis. Bilateral basilar pneumonia cannot be excluded in the appropriate clinical setting.
[2022-02-16] MEDS: famotidine 20 mg/2 mL INJ IVP ×2 (07:25→20:14)
[2022-02-16] MEDS: fluconazole premix 400 MG/200 ML PIGGYBACK 200 MG IV (08:31)
--- NOTE | 2022-02-16 08:46 | P.PN_ITS ---
Subjective Subjective: Patient remains in the intensive care unit intubated. He is on some Precedex but no other sedation. Vitals/I&O/Wt Last Vital Signs Temp 100.4 F H 02/16/22 06:00 Pulse 86 02/16/22 06:15 Resp 26 H 02/16/22 08:09 BP 126/73 02/16/22 06:15 Pulse Ox 96 02/16/22 08:09 02/15/22 02/16/22 02/16/22 22:59 06:59 14:59 Intake Total 328.228 / 1561.262 362.201 / 1561.262 Output Total 2160 / 2665 180 / 2665 Balance -1831.772 / -1103.738 182.201 / -1103.738 Weight last 48 hrs Weight 326 lb 3.2 oz Weight 326 lb 3.2 oz Physical Exam Narrative: Stoma still appears dusky but seems reasonably well vascularized deep to the skin. Urinary Catheter Management: Blackmon: Cath Placed During This Visit: yes, but has since been removed by the nurse Reason for Continuing Indwelling Catheter: Accurate Measurement of Urinary Ou tput in Critically Ill Patients Urinary Catheter Date of Insertion: 02/08/22 Urinary Catheter Time of Insertion: 15:13 Date Urinary Catheter Removed: 02/13/22 Time Urinary Catheter Discontinued: 10:21 Data : 02/16/22 04:30 02/16/22 04:30 Micro: Microbiology 02/15/22 03:35 MRSA Culture - Final Nose 02/08/22 16:40 Anaerobic Culture - Final Peritoneal Fluid Bacteroides thetaiotaomicron Clostridium clostridiiforme 02/10/22 04:20 Blood Culture - Final Blood NO GROWTH AFTER 5 DAYS 02/10/22 04:20 Blood Culture - Final Blood NO GROWTH AFTER 5 DAYS A&P Assessment and plan (1) Fecal peritonitis: Status post exploratory laparotomy for fecal peritonitis with colostomy formation on 02/08/2022. Peritoneal fluid is growing multiple organisms including E. coli, Pseudomonas, Bacteroides, Clostridium. CT abdomen/pelvis 02/15/2022 revealed no concerning intra-abdominal fluid collections. The one small fluid collection in the subcutaneous layer on the right side appears to be just inferior to where the Christoph drain comes through the abdominal wall and is probably related to that. The drain internally appears to be in good position in the presacral space. Status: Acute (2) Colon perforation: Status: Acute Attestations Medical Necessity Statement*: See admitting service's notation. Procedures Arterial Line Size (Gauge): 20 Coding Level of Care Code Acute Rrt for [facility] Fwd Diagnoses Fecal peritonitis K65.8 Colon perforation K63.1
--- NOTE | 2022-02-16 09:16 | PM.PN ---
Subjective Subjective: Events of the last 24 hours noted. Dialysis performed yesterday with some difficulty with very sluggish flow through the catheter despite Cathflo. Remains intubated, critically sick in the intensive care unit. Neurologically very poor right now. Hemodynamics remain stable, FiO2 60%. Medications: Reviewed: Yes Medication Review Details: Current Medications Famotidine (Famotidine 20 Mg/2 Ml Inj) 20 mg IVP Q12H NATALIE Last Admin: 02/13/22 19:19 Dose: 20 mg Documented by: Heparin Sodium (Porcine) (Heparin 5,000 Unit/Ml Inj 1 Ml) 5,000 unit SUBCUT Q12H NATALIE Last Admin: 02/13/22 21:28 Dose: 5,000 unit Documented by: Propofol (Diprivan) 1,000 mg in 100 mls @ 0 mls/hr IV .Q0M NATALIE; Protocol Last Titration: 02/14/22 01:45 Dose: 10 mcg/kg/min, 7.73 mls/hr Documented by: Fentanyl 2,500 mcg/ Sodium (Chloride) 250 mls @ 0 mls/hr IV .Q0M NATALIE; Protocol Last Titration: 02/14/22 00:12 Dose: 5 mcg/hr, 0.5 mls/hr Documented by: Sodium Chloride (Sodium Chloride 0.9%) 1,000 mls @ 3 mls/hr IV .Q24H NATALIE Last Admin: 02/13/22 17:33 Dose: Not Given Documented by: Linezolid (Zyvox Premix) 600 mg in 300 mls @ 300 mls/hr IV Q12H NATALIE; Protocol Last Infusion: 02/13/22 22:41 Dose: Infused Documented by: Fluconazole (Diflucan Premix) 400 mg in 200 mls @ 200 mls/hr IV Q24H NATALIE Last Infusion: 02/13/22 08:53 Dose: Infused Documented by: Albumin Human (Albumin) 12.5 gm in 50 mls @ 60 mls/hr IV PRN PRN PRN Reason: Hypotension and/or symptomatic Albumin Human (Albumin) 12.5 gm in 50 mls @ 60 mls/hr IV PRN PRN PRN Reason: Hypotension and/or symptomatic Metronidazole (Flagyl Iv) 500 mg in 100 mls @ 100 mls/hr IV Q6H NATALIE; Protocol Last Infusion: 02/14/22 02:42 Dose: Infused Documented by: Albumin Human (Albumin) 12.5 gm in 50 mls @ 60 mls/hr IV PRN PRN PRN Reason: Hypotension and/or symptomatic Cefepime HCl 1,000 mg/ Sodium (Chloride) 50 mls @ 100 mls/hr IV ONCE ONE; Protocol Stop: 02/14/22 08:59 Cefepime HCl 500 mg/ Sodium (Chloride) 50 mls @ 100 mls/hr IV Q24H [facility]; Protocol Vitals/I&O/Wt Last Vital Signs Temp 100.4 F H 02/16/22 06:00 Pulse 86 02/16/22 06:15 Resp 26 H 02/16/22 08:09 BP 126/73 02/16/22 06:15 Pulse Ox 96 02/16/22 08:09 02/15/22 02/16/22 02/16/22 22:59 06:59 14:59 Intake Total 328.228 / 1199.061 362.201 / 1561.262 Output Total 2160 / 2485 180 / 2665 Balance -1831.772 / -1285.939 182.201 / -1103.738 Weight last 48 hrs Weight 147.962 kg Weight 147.962 kg Physical Exam Narrative: Constitutional: Sedated and vented HEENT: Wet mucosa, no jvp, non icteric Lungs: Bilaterally clear without discernible wheeze, rales in all lung zones CVS: S1 S2, no murmurs Abdo: Soft, BS ok, ostomy Ext 4: Minimal edema, peripheral perfusion with no cyanosis Neurological: Grossly non-focal Urinary Catheter Management: Blackmon: Cath Placed During This Visit: yes, but has since been removed by the nurse Reason for Continuing Indwelling Catheter: Accurate Measurement of Urinary Output in Critically Ill Patients Urinary Catheter Date of Insertion: 02/08/22 Urinary Catheter Time of Insertion: 15:13 Date Urinary Catheter Removed: 02/13/22 Time Urinary Catheter Discontinued: 10:21 Data : 02/16/22 04:30 02/16/22 04:30 Micro: Microbiology 02/15/22 03:35 MRSA Culture - Final Nose 02/08/22 16:40 Anaerobic Culture - Final Peritoneal Fluid Bacteroides thetaiotaomicron Clostridium clostridiiforme 02/10/22 04:20 Blood Culture - Final Blood NO GROWTH AFTER 5 DAYS 02/10/22 04:20 Blood Culture - Final Blood NO GROWTH AFTER 5 DAYS A&P Assessment and plan (1) MILEY (acute kidney injury): Status: Acute Plan 1. Renal failure Acute kidney injury likely combination of sepsis/infection mediated ATN Case discussed with multiple team members. At this time, I appreciate family deciding about goals of care. Dialysis was poorly done yesterday given the position of the catheter, this will need to be replaced in a different location i.e. in the internal jugular for good flows, however, I appreciate that there may be a redirection in terms of our overall management strategy. Chemistry noncritical and this can wait for the next 24-48 hours with close monitoring as family decides. Dose medication for GFR less than 15 on dialysis Strict ins and outs Avoid usual nephrotoxic agents. 2. Chemistry Acidosis, hyponatremia, hyperkalemia. Given poor bowel function, will avoid Kayexalate. Low potassium tube feeds. As mentioned above, may need dialysis to fully correct if we are to replace the line. 3. Vent dependent respiratory failure Management per ICU, including weaning as tolerated. Of note treating metabolic acidosis as well as uremia will also help bring him more expeditiously off the ventilator. 4. Fecal peritonitis Ex lap for fecal peritonitis with colostomy formation on 02/08 Management per general surgery Bowel sounds noted Enteral feeds per general surgery Thank you for consultation Gilles De Leon MD Nephrology [phone] Patient seen and examined via telemedicine, with the assistance of the bedside RN > 25 min spent in evaluation and mgmt of patient Attestations Medical Necessity Statement*: MILEY Procedures Arterial Line Size (Gauge): 20 Coding Level of Care Code Acute Director Food And Beverage for [facility] Fwd Diagnoses MILEY (acute kidney injury) N17.9
[2022-02-16] MEDS: heparin 5,000 unit/mL INJ 1 mL 5000 UNIT SUBCUT ×2 (09:23→20:14)
--- NOTE | 2022-02-16 10:58 | PC.NURSE ---
family related that he opened eyes in response to them did not see , oral care done does have some gag reflex and cough reflex noted .. area abdomen note necrosis area umbiliical .. also noted poor stoma with no out put noted small amt tube feeding changed to nepro
--- NOTE | 2022-02-16 13:31 | PM.PN ---
Subjective Subjective: Patient was seen multiple times throughout the morning, seen with daughter and at bedside, patient continues to have fevers, he is hemodynamically stable, on 50% FiO2, he has a cough reflex, has a gag reflex, pupillary reflexes are sluggish, seems to breathe over the vent, does not withdraw from pain, does not follow commands, no spontaneous eye opening, does favor the right side -I discussed with patient's daughter and at bedside, our concerns for anoxic brain injury -However he does have hyponatremia, uremia, hypoxia, he was on multiple sedating medications -The tell me that he would not be his wishes to remain as a vegetable, this is not a life that he would want to live, they have the reservations about tracheostomy and PEG tube placement as this goes against his wishes -However they do want to give him more time, and when to give him until Friday to see how he does -I did tell him that we do have neurology on Friday, we can consider discussing with Dr. Fields, having her evaluation to help in the decision making and can do an EEG -Agreeable to the plan -He does continue to have fevers, concerning for central fevers -In addition his dialysis catheter requires changing, but will hold off until Friday, Vitals/I&O/Wt Last Vital Signs Temp 100.4 F H 02/16/22 06:00 Pulse 83 02/16/22 13:00 Resp 28 H 02/16/22 11:29 BP 125/73 02/16/22 13:00 Pulse Ox 95 02/16/22 13:00 02/15/22 02/16/22 02/16/22 22:59 06:59 14:59 Intake Total 328.228 / 1199.061 362.201 / 1561.262 488 / 488 Output Total 2160 / 2485 180 / 2665 2355 / 2355 Balance -1831.772 / -1285.939 182.201 / -1103.738 -1867 / -1867 Weight last 48 hrs Weight 147.962 kg Weight 147.962 kg Physical Exam Const: COMMON NORMALS: no acute distress EXAM LIMITATIONS: altered mental status ORIENTATION/CONSCIOUSNESS: not awake OTHER: Does not withdraw from pain, Babinski's downward, pupils are sluggishly reactive, does have a cough, does have a gag,, favors the right Intubated, on Precedex and fentanyl for sedation Resp: COMMON NORMALS: normal respiratory effort, No retractions, No use of accessory muscles and clear to auscultation bilaterally AUSCULTATION: clear to auscultation bilaterally Cardio: COMMON NORMALS: regular rate, regular rhythm, S1 normal heart sound present and S2 normal heart sound present RATE: regular rate RHYTHM: regular rhythm HEART SOUNDS: S1 normal heart sound present and S2 normal heart sound present GI: COMMON NORMALS: Soft to palpation, non-tender and No hepatosplenomegaly present PALPATION: Yes Soft to palpation and Yes No hepatosplenomegaly present OTHER: JPNormal active bowel sounds RASTA drain in place Colostomy, looks fleshy and pink in appearance Surgical site, lower half, as breakdown, dusky in appearance Extremity: COMMON NORMALS: no pedal edema Urinary Catheter Management: Blackmon: Cath Placed During This Visit: yes, but has since been removed by the nurse Reason for Continuing Indwelling Catheter: Accurate Measurement of Urinary Output in Critically Ill Patients Urinary Catheter Date of Insertion: 02/08/22 Urinary Catheter Time of Insertion: 15:13 Date Urinary Catheter Removed: 02/13/22 Time Urinary Catheter Discontinued: 10:21 Data : 02/16/22 04:30 02/16/22 04:30 Micro: Microbiology 02/15/22 03:35 MRSA Culture - Final Nose 02/08/22 16:40 Anaerobic Culture - Final Peritoneal Fluid Bacteroides thetaiotaomicron Clostridium clostridiiforme A&P Assessment and plan (1) Septic shock: Severe septic shock on admission, requiring multiple pressors, secondary to fecal peritonitis. Colostomy was performed February 08. He is currently postoperative day #7. He underwent a CODE BLUE, on February 09, where ROSC was achieved after 3 doses of epinephrine. When sedation was lessened, he was able to open his eyes, grimace. Purposeful movement has not yet been demonstrated. Echocardiogram was performed following this CODE BLUE demonstrating normal LV size and normal RV size and function. CT head noncontrast performed today which did not demonstrate any acute changes. He is now off pressors, with an adequate blood pressure Currently on linezolid and cefepime (changed from Primaxin for concern of rash and aztreonam discontinued as Pseudomonas not sensitive Fluconazole was started empirically. White blood cell count has increased. Hydrocortisone discontinued. Metronidazole is on board for anaerobic coverage. Continues to have low-grade fevers, concerning for central fevers CT abdomen and pelvis, with oral contrast was repeated today. This reading is pending. 1. No abscess or mass in the abdomen. No lymphadenopathy. 2. Consolidation and atelectasis in both lower lobes with posterior bilateral pleural effusions. 3. Cholelithiasis no sign of acute cholecystitis. 4. 5.8 x 3 cm localized fluid collection seen in the anterior left pelvic wall that may represent a seroma or hematoma. Abscess not excluded but felt to be less likely. 5. Left femoral vein central line. Surgical drain in the right pelvis. Blackmon catheter bulb in the pelvis bladder. 6. Mild anasarca. Body wall edema in the right and left flank areas. Small amount of interloop free fluid in the abdomen and pelvis which may be postoperative. Status: Acute (2) E coli bacteremia: Secondary to above. Currently on cefepime for E. coli bacteremia and Pseudomonas . Flagyl added secondary to Bacteroides growing as well. Note that he also had Clostridium growth. Also on linezolid, fluconazole Status: Acute (3) ARDS (adult respiratory distress syndrome): Severe ARDS and fluid overload requiring high ventilator settings yesterday. PEEP has been decreased. FiO2 requirement 60%. Chest x-ray reviewed. Appreciate pulmonary critical care consultation Status: Acute (4) Thrombocytopenia: Improved. Secondary to sepsis. Status: Acute (5) MILEY (acute kidney injury): Intermittent hemodialysis, to remove excess fluid that accumulated with renal failure and septic shock Appreciate nephrology intervention No plans for hemodialysis today, will require dialysis catheter to be replaced Status: Acute (6) Elevated troponin: Consistent with type II elevation secondary to sepsis Status: Acute (7) Atrial fibrillation: Atrial fibrillation, without rapid ventricular rate, which she developed on the . He has subsequently converted to sinus rhythm. Amiodarone IV has been discontinued. Status: Acute (8) Rectal cancer: History of rectal cancer, stage IV Status: Acute (9) Anoxic brain injury: -Concerns for anoxic brain injury -Has a cough reflex, gag reflex, sluggish pupillary reflexes, does not withdraw from pain, does not follow commands, Babinski is downward going -Continue to keep low sedation -Continue neurochecks -Will hopefully have Dr. Fields, and see patient on Bob, to help with decision-making, will do EEG on Friday Status: Acute Plan Hypomagnesemia, currently corrected Discussion with family regarding very guarded prognosis currently on his degree of pressors. We also do not know mental state at this time. Will await evaluation by pulmonary critical care. In the interim I discussed with patient further CODE STATUS and they would not want him to receive CPR or undergo another code. They do want to continue current treatment at this time. He has improved somewhat since yesterday. Family does not want any change in his CODE STATUS currently. Protonix for GI prophylaxis Heparin for DVT prophylaxis Left IJ central line placed by pulmonary February 12, and right IJ central line removed. He also has a temporary dialysis catheter, Blackmon, RASTA drain Trophic feeds held today for residual of 250 cc while evaluation of abdomen with CT abdomen and pelvis is occurring. Attestations Medical Necessity Statement*: Patient requires hospitalization for anoxic brain injury, critical care time spent over 45 minutes, cardiac arrest, bacteremia, septic shock, colon perforation, acute renal failure Procedures Arterial Line Size (Gauge): 20 Coding Level of Care Code Acute Spiral Machine Operator for Chg Fwd Diagnoses Septic shock A41.9; R65.21 E coli bacteremia R78.81; B96.20 ARDS (adult respiratory distress syndrome) J80 Thrombocytopenia D69.6 MILEY (acute kidney injury) N17.9 Elevated troponin R77.8 Atrial fibrillation I48.91 Rectal cancer C20 Anoxic brain injury G93.1
--- NOTE | 2022-02-16 17:50 | NUR.SHIFT ---
Shift Note Frequent safety and comfort rounds continue. reposition frequent to sides note nonblanchable area on bottom and several popped blister over trunk. Patient monitored for response to stimulli family noted eyes open and turns head did note that eyes is open but did not not turning head Education provided includes anoxia Will continue to monitor.
[2022-02-17] VITALS (59 sets, daily range): BP systolic 103–169; BP diastolic 58–86; PULSE 68–90; RESP 21–32; TEMP 36.8–37.7; O2SAT 90–99
[2022-02-17] MEDS: metroNIDAZOLE IV 500 MG/100 ML PREMIX 100 MG IV ×3 (01:49→17:56)
[2022-02-17 04:00] LABS: Basophils # 0.1 10^3/uL (0.0-0.1); Basophils % 0.5 %; Eosinophils # 0.1 10^3/uL (0.0-0.8); Eosinophils % 0.2 %; Hematocrit 31.6 % (42.0-52.0); Hemoglobin 10.5 g/dL (11.7-16.6); Lymphocytes # 0.7 10^3/uL (0.8-4.8); Lymphocytes % 2.8 %; Mean Corpuscular HGB Conc 33.2 g/dL (30.0-36.0); Mean Corpuscular Hemoglobin 28.5 pg (28.0-34.0); Mean Corpuscular Volume 85.9 fl (80-94); Mean Platelet Volume 11.2 fL (7.4-10.4); Monocytes # 0.7 10^3/uL (0.2-0.9); Monocytes % 2.8 %; Neutrophils # 20.33 10^3/uL (1.8-7.7); Neutrophils % 79.7 %; Nucleated Red Blood Cells % 0.1 %; Platelet Count 189 10^3/cmm (130-400); Red Blood Count 3.68 10^6/uL (4.1-5.3); Red Cell Distribution Width 15.3 % (12.1-15.1); White Blood Count 25.5 10^3/uL (4.0-10.0)
[2022-02-17 04:07] LABS: Slide Review Slide Review Perform
[2022-02-17 04:15] LABS: Lactate (Lactic Acid level) 1.1 mmol/L (0.5-2.2)
[2022-02-17 04:26] LABS: NT Pro B Type Natriuretic Pept 6339 pg/mL (0-125); Procalcitonin 16.09 ng/mL (0-0.5)
[2022-02-17 04:43] LABS: Alanine Aminotransferase 28 U/L (0-41); Alkaline Phosphatase 103 IU/L (40-130); Anion Gap 26.2 (5-19); Aspartate Amino Transferase 77 U/L (0-40); C Reactive Protein 139.7 mg/L (0.0-4.9); Carbon Dioxide 16 mmol/L (22-29); Chloride 96 mmol/L (98-107); Globulin 2.9 g/dL (1.3-4.6); Glucose 105 mg/dL (65-115); Potassium 5.2 mmol/L (3.5-5.1); Sodium 133 mmol/L (136-145); Total Bilirubin 0.7 mg/dL (0.15-1.2); Total Protein 4.9 g/dL (6.6-8.7)
[2022-02-17 04:46] LABS: ABG PCO2 33.7 mmHg (35-45); Arterial Blood Gas Hematocrit 27.4 % (42-52); Base Excess ABG -8.9 mmol/L (-2.0-2.0); Blood Gas Allen Test Pos; Blood Gas Sample Site Radial, right; Blood Gas Sample Type Arterial; HCO3 ABG 16.6 mmol/L (22-26); Oxygen Device VENT; PO2 ABG 91.8 mmHg (80.0-100.0)
[2022-02-17 05:16] LABS: INR 1.27 (0.8-1.2)
[2022-02-17 05:17] LABS: Creatine Phosphokinase 1250 U/L (39-308); Osmolality Calculated 330 mOsm/kg (285-295); Phosphorus 12.6 mg/dL (2.5-4.5)
[2022-02-17 05:18] LABS: Blood Urea Nitrogen 163 mg/dL (8-23)
--- NOTE | 2022-02-17 06:26 | PM.PN ---
Subjective Subjective: Patient remains in the ICU, intubated on minimal Precedex. Vitals/I&O/Wt Last Vital Signs Temp 98.4 F 02/17/22 04:00 Pulse 68 02/17/22 06:00 Resp 25 H 02/17/22 06:06 BP 125/60 02/17/22 06:00 Pulse Ox 96 02/17/22 06:06 02/16/22 02/16/22 02/17/22 14:59 22:59 06:59 Intake Total 579.02 / 879.02 100 / 879.02 200 / 879.02 Output Total 2355 / 3605 600 / 3605 650 / 3605 Balance -1775.98 / -2725.98 -500 / -2725.98 -450 / -2725.98 Weight last 48 hrs Weight 326 lb Weight 326 lb 3.2 oz Physical Exam Narrative: The abdominal exam was about the same. The patient still has dusky stoma but there does appear do be a small amount of liquid output. He has a small area of epidermal necrosis to the right side of the incision by the umbilicus which appears about the same. Urinary Catheter Management: Blackmon: Cath Placed During This Visit: yes, but has since been removed by the nurse Reason for Continuing Indwelling Catheter: Accurate Measurement of Urinary Output in Critically Ill Patients Urinary Catheter Date of Insertion: 02/08/22 Urinary Catheter Time of Insertion: 15:13 Date Urinary Catheter Removed: 02/13/22 Time Urinary Catheter Discontinued: 10:21 Data : 02/17/22 03:10 02/17/22 03:10 A&P Assessment and plan (1) Fecal peritonitis: Status post exploratory laparotomy for fecal peritonitis with colostomy formation on 02/08/2022. Peritoneal fluid is growing multiple organisms including E. coli, Pseudomonas, Bacteroides, Clostridium. CT abdomen/pelvis 02/15/2022 revealed no concerning intra-abdominal fluid collections. The one small fluid collection in the subcutaneous layer on the right side appears to be just inferior to where the Christoph drain comes through the abdominal wall and is probably related to that. The drain internally appears to be in good position in the presacral space. Neurology evaluation tomorrow. Status: Acute (2) Colon perforation: Status: Acute Attestations Medical Necessity Statement*: See admitting service's notation. Procedures Arterial Line Size (Gauge): 20 Coding Level of Care Code Acute Globe Changer for Chg Fwd Diagnoses Fecal peritonitis K65.8 Colon perforation K63.1
[2022-02-17] MEDS: dexmedeTOMIDine 0.9 % NaCL 400 MCG/100 ML PREMIX 11.1 MCG IV ×3 (06:44→22:57)
--- NOTE | 2022-02-17 07:00 | XRR_ITS ---
PROCEDURE INFORMATION: Exam: XR Chest Exam date and time: 02/17/2022 5:00 AM Age: 71 years old Clinical indication: Dyspnea; Additional info: SOB TECHNIQUE: Imaging protocol: XR of the chest. Views: 1 view. COMPARISON: CR (CHEST, ) 02/16/2022 6:11 AM FINDINGS: Tubes, catheters and devices: Support tubes and lines are in good position. Lungs: Stable pulmonary infiltrates. Pleural spaces: Stable bilateral small pleural effusions. Heart/Mediastinum: Unremarkable. No cardiomegaly. Bones/joints: Unremarkable. XR/XR chest 1V portable [id number] IMPRESSION: 1. Support tubes and lines are in good position. 2. Stable bilateral small pleural effusions. 3. Stable pulmonary infiltrates.
--- NOTE | 2022-02-17 07:15 | P.PN_ITS ---
Subjective Subjective: sedated on vent. poor Neurological status Medications: Reviewed: Yes Medication Review Details: Current Medications Famotidine (Famotidine 20 Mg/2 Ml Inj) 20 mg IVP Q12H NATALIE Last Admin: 02/16/22 20:14 Dose: 20 mg Documented by: Heparin Sodium (Porcine) (Heparin 5,000 Unit/Ml Inj 1 Ml) 5,000 unit SUBCUT Q12H NATALIE Last Admin: 02/16/22 20:14 Dose: 5,000 unit Documented by: Hydralazine HCl (Hydralazine 20 Mg/Ml Inj 1 Ml) 10 mg IVP Q4H PRN PRN Reason: HYPERTENSION Last Admin: 02/14/22 18:11 Dose: 10 mg Documented by: Hydromorphone HCl (Hydromorphone 1 Mg/Ml Inj 1 Ml) 0.5 mg IVP Q4H PRN PRN Reason: PAIN Last Admin: 02/15/22 23:00 Dose: 0.5 mg Documented by: Propofol (Diprivan) 1,000 mg in 100 mls @ 0 mls/hr IV .Q0M NATALIE; Protocol Last Titration: 02/16/22 04:21 Dose: Infused Documented by: Fentanyl 2,500 mcg/ Sodium (Chloride) 250 mls @ 0 mls/hr IV .Q0M NATALIE; Protocol Last Admin: 02/15/22 20:55 Dose: 25 mcg/hr, 2.5 mls/hr Documented by: Sodium Chloride (Sodium Chloride 0.9%) 1,000 mls @ 3 mls/hr IV .Q24H NATALIE Last Admin: 02/16/22 15:55 Dose: Not Given Documented by: Fluconazole (Diflucan Premix) 400 mg in 200 mls @ 200 mls/hr IV Q24H NATALIE Last Infusion: 02/16/22 09:31 Dose: Infused Documented by: Metronidazole (Flagyl Iv) 500 mg in 100 mls @ 100 mls/hr IV Q6H NATALIE; Protocol Last Admin: 02/17/22 06:57 Dose: 100 mls/hr Documented by: Cefepime HCl 500 mg/ Sodium (Chloride) 50 mls @ 100 mls/hr IV Q24H NATALIE; Protocol Last Admin: 02/16/22 09:22 Dose: Not Given Documented by: Albumin Human (Albumin) 12.5 gm in 50 mls @ 60 mls/hr IV PRN PRN PRN Reason: Hypotension and/or symptomatic dexmedeTOMIDine 0.9 % NaCL (Precedex) 400 mcg in 100 mls @ 0 mls/hr IV .Q0M PRN; Protocol PRN Reason: AGITATION Last Admin: 02/17/22 06:44 Dose: 0.3 mcg/kg/hr, 11.1 mls/hr Documented by: Norepinephrine Bitartrate 4 mg (/ Dextrose) 254 mls @ 0 mls/hr IV .Q0M NATALIE; Protocol Last Titration: 02/16/22 00:00 Dose: 0 mcg/min, 0 mls/hr Documented by: Vitals/I&O/Wt Last Vital Signs Temp 98.4 F 02/17/22 04:00 Pulse 68 02/17/22 06:00 Resp 25 H 02/17/22 06:06 BP 125/60 02/17/22 06:00 Pulse Ox 96 02/17/22 06:06 02/16/22 02/17/22 02/17/22 22:59 06:59 14:59 Intake Total 100 / 679.02 300 / 979.02 Output Total 600 / 2955 650 / 3605 Balance -500 / -2275.98 -350 / -2625.98 Weight last 48 hrs Weight 147.871 kg Weight 147.962 kg Physical Exam Narrative: intubated in bed, no pressors propofol and fentanyl vent fio2 =45%, TV 500, RR 24, PEEP 12 heent- nc/at, pupils responsive lungs dull bases w/poor air movement b/l heart-irreg irreg abd - +RASTA tube, + BS, ostomy ext 1+ edema skin blistering left femoral dialysis access neuro- sedated. not responsive to pain Urinary Catheter Management: Blackmon: Cath Placed During This Visit: yes, but has since been removed by the nurse Reason for Continuing Indwelling Catheter: Accurate Measurement of Urinary Output in Critically Ill Patients Urinary Catheter Date of Insertion: 02/08/22 Urinary Catheter Time of Insertion: 15:13 Date Urinary Catheter Removed: 02/13/22 Time Urinary Catheter Discontinued: 10:21 Data : 02/17/22 03:10 02/17/22 03:10 A&P Assessment and plan (1) MILEY (acute kidney injury): Status: Acute Plan 1. Renal failure Acute kidney injury likely combination of sepsis/infection mediated ATN Case discussed with multiple team members. At this time, I appreciate family deciding about goals of care. Dialysis was poorly done yesterday given the position of the catheter, this will need to be replaced in a different location i.e. in the internal jugular for good flows - Pt is urinating. however, rising bun and met acidosis, mild hyperkalemia- per numbers, pt would benefit from dialysis. -However, given his overall condition, I agree that hospice/ comfort care is more appropriate -will discuss w/ other physicians involved in his case and w/ family- if want further HD Dose medication for GFR less than 15 on dialysis Strict ins and outs Avoid usual nephrotoxic agents. 2. met acidosis and resp alkalosis- pH 7.3 3, hyponatremia- improved 4. Vent dependent respiratory failure Management per ICU 5. Fecal peritonitis and leukocytosis Ex lap for fecal peritonitis with colostomy formation on 02/08 Management per general surgery Bowel sounds noted Enteral feeds per general surgery abx per surgery and medicine 6. hyperphosphatemia from renal failure 7. ck 1250 -prognosis is poor- comfort care would be reasonable Thank you for consultation Patient seen and examined via telemedicine, with the assistance of the bedside RN > 25 min spent in evaluation and mgmt of patient Attestations Medical Necessity Statement*: VDRF. MILEY Time Spent in Patient Care: 16 - 35 minutes (>than 50% of time spent in counselling and/or direct pt care on unit) . Procedures Arterial Line Size (Gauge): 20 Coding Level of Care Code Acute Electromechanical Assembly Technician for [facility] Pete Diagnoses MILEY (acute kidney injury) N17.9
[2022-02-17] MEDS: famotidine 20 mg/2 mL INJ IVP ×2 (07:50→20:50)
[2022-02-17] MEDS: fluconazole premix 400 MG/200 ML PIGGYBACK 200 MG IV (07:51)
--- NOTE | 2022-02-17 08:36 | PC.SOCIAL ---
IMM Not Updated Pg. 2 of IMM not updated. Patient not anticipated to d/c within the next 48hours.
--- NOTE | 2022-02-17 08:39 | PC.NURSE ---
family at bedside oral care done will open eyes family related that he is following them with eyes and answer there question to nodding head to them... have not observed this at this time attempt to get move toes/finger no response . low dose fentynl off at this time to further evaluate
--- NOTE | 2022-02-17 12:23 | XRR_ITS ---
PROCEDURE INFORMATION: Exam: XR Chest Exam date and time: 02/17/2022 12:35 PM Age: 71 years old Clinical indication: Device placement; Other: Dialysis line placement TECHNIQUE: Imaging protocol: XR of the chest. Views: 1 view. COMPARISON: CR (CHEST, ) 02/17/2022 5:00 AM FINDINGS: Tubes, catheters and devices: Tip the ET tube projects 5.1 cm superior to the ozzie. The G tube passes below the hemidiaphragms. There is a right jugular approach catheter with the tip projecting over the superior vena cava. Left jugular approach central venous catheter tip projects over the superior vena cava as well. Lungs: There hazy opacities at the left lung base. Pleural spaces: Left costophrenic angle is not visualized and a pleural effusion cannot be assessed for. Heart/Mediastinum: Unremarkable. No cardiomegaly. Bones/joints: Unremarkable. XR/XR chest 1V portable [id number] IMPRESSION: 1. There are left and right central venous catheters whose tips project over the superior vena cava. 2. Hazy opacities at the left lung base are nonspecific. Differential includes atelectasis and pneumonia.
--- NOTE | 2022-02-17 13:26 | P.CONIM_ITS ---
Providers/Reason For Consult Consulting Physician/Specialty*: General Surgery Dr. Veloz Reason for Consult*: Dialysis catheter placement Requesting Physician: Dr. Kim Attending Physician: Alex Floyd MD Primary Care Provider: Tana Vital MD History of Present Illness History of Present Illness Tee Chilel Jr is a 71 year old male Prescription called is is is madyson who had developed septic shock and was on pressors after he developed a perforation in the sigmoid colon for which he underwent ex lap with colostomy. Patient is currently off pressors as of sedation but has not been waking up. In the meantime patient has also become uremic and therefore it is difficult to rule out anoxic brain injury. The family has chosen to have a short course of temporary dialysis and I was consulted for placement of temporary dialysis catheter. Patient previously had a right femoral temporary dialysis catheter in place which is not functioning. Review of Systems General: Reports: ROS unobtainable due to endotracheal tube and ROS unobtainable due to mental status Medications/Allergies Home Medications Medication Instructions Recorded Confirmed Last Taken Type meloxicam 15 mg tablet 15 mg PO QAM 08/23/20 02/08/22 02/08/22 History nifedipine 30 mg tablet,extended 30 mg PO QPM 08/23/20 02/08/22 02/07/22 History release selenium 50 mcg tablet 300 mcg PO TID tab 08/23/20 02/08/22 12/19/20 History Silica Tabs 2 tab PO DAILY 02/08/22 02/08/22 Unknown History chromium 100 mcg tablet 100 mcg PO TID 02/08/22 02/08/22 Unknown History fluoride (sodium) 1.1 % dental 1 applic DENTAL . DIRECTED 02/08/22 02/08/22 Unknown History cream (Sodium Fluoride 5000 Plus) hydroxychloroquine 200 mg tablet 400 mg PO .EVERY 21 DAYS 02/08/22 02/08/22 Unknown History multivitamin with iron-mineral 1 tab PO DAILY 02/08/22 02/08/22 Unknown History pentoxifylline 400 mg 400 mg PO TID 02/08/22 02/08/22 02/08/22 07:00 History tablet,extended release sertraline 50 mg tablet 25 mg PO QAM 02/08/22 02/08/22 02/08/22 History sildenafil 100 mg tablet 50 mg PO PRN PRN 02/08/22 02/08/22 Unknown History Allergies Allergy/AdvReac Type Severity Reaction Status Date / Time No Known Allergies Allergy Verified 02/08/22 11:37 Current Medications Generic Name Dose Route Start Last Admin Trade Name Freq PRN Reason Stop Dose Admin Famotidine 20 mg 02/12/22 20:00 02/17/22 07:50 Famotidine 20 Mg/2 Ml Inj IVP 20 mg Q12H NATALIE Administration Hydralazine HCl 10 mg 02/14/22 10:28 02/14/22 18:11 Hydralazine 20 Mg/Ml Inj 1 Ml IVP 10 mg Q4H PRN Administration HYPERTENSION Hydromorphone HCl 0.5 mg 02/14/22 22:50 02/15/22 23:00 Hydromorphone 1 Mg/Ml Inj 1 Ml IVP 0.5 mg Q4H PRN Administration PAIN Propofol 1,000 mg in 100 mls @ 0 mls/hr 02/08/22 19:15 02/16/22 04:21 Diprivan IV Infused .Q0M NATALIE Titration Protocol Per Protocol Fentanyl 2,500 mcg/ Sodium 250 mls @ 0 mls/hr 02/08/22 19:15 02/15/22 20:55 Chloride IV 25 mcg/hr .Q0M NATALIE 2.5 mls/hr Administration Protocol Per Protocol Sodium Chloride 1,000 mls @ 3 mls/hr 02/10/22 18:00 02/16/22 15:55 Sodium Chloride 0.9% IV Not Given .Q24H NATALIE Fluconazole 400 mg in 200 mls @ 200 mls/hr 02/11/22 08:00 02/17/22 12:58 Diflucan Premix IV Infused Q24H NATALIE Infusion Metronidazole 500 mg in 100 mls @ 100 mls/hr 02/13/22 08:00 02/17/22 08:44 Flagyl Iv IV Infused Q6H NATALIE Infusion Protocol Cefepime HCl 500 mg/ Sodium 50 mls @ 100 mls/hr 02/15/22 10:00 02/17/22 09:12 Chloride IV Not Given Q24H NATALIE Protocol dexmedeTOMIDine 0.9 % NaCL 400 mcg in 100 mls @ 0 mls/hr 02/15/22 13:22 02/17/22 06:44 Precedex IV 0.3 mcg/kg/hr .Q0M PRN 11.1 mls/hr AGITATION Administration Protocol Per Protocol Norepinephrine Bitartrate 4 mg 254 mls @ 0 mls/hr 02/15/22 20:00 02/16/22 00:00 / Dextrose IV 0 mcg/min .Q0M NATALIE 0 mls/hr Titration Protocol Per Protocol PFSH Acute PFSH: Medical History Diverticulosis DJD (degenerative joint disease) History of colon polyps Hypertension Nephrolithiasis On imaging Rectal cancer Metastatic to right lower lobe Venous insufficiency of right leg Ventral hernia without obstruction or gangrene Surgical History History of colonoscopy History of lobectomy of lung Right lower lobe History of low anterior resection of rectum S/P ileostomy 10/24/2020 he underwent robotic extended low anterior resection with radical en bloc resection of seminal vesicles and vas deferens with portion of prostate and with placement of loop ileostomy with subsequent takedown of the diverting ileostomy Family History Denies family history of Anesthesia complication Bleeding disorder Social History Smoking and tobacco status: former smoker Quit status (tobacco): has quit using tobacco Year quit tobacco: 1995 Former quit date comment: [id number] history Vitals/I&O/Wt Last Vital Signs Temp 98.5 F 02/17/22 11:30 Pulse 83 02/17/22 12:30 Resp 29 H 02/17/22 13:07 BP 134/58 02/17/22 12:30 Pulse Ox 93 02/17/22 13:07 02/16/22 02/17/22 02/17/22 22:59 06:59 14:59 Intake Total 100 / 979.02 300 / 979.02 300 / 300 Output Total 600 / 3605 650 / 3605 450 / 450 Balance -500 / -2625.98 -350 / -2625.98 -150 / -150 Weight last 48 hrs Weight 326 lb Weight 326 lb 3.2 oz Physical Exam Narrative: HEENT: Normocephalic, left IJ central line Eye: Sclera /conjunctiva normal Respiratory and chest: On the ventilator Abdomen: Soft, colostomy in place, dusky Neurological: Not arousable, does not respond to pain Skin: Intact, no lesions appreciated on gross exam Urinary Catheter Management: Blackmon: Cath Placed During This Visit: yes, but has since been removed by the nurse Reason for Continuing Indwelling Catheter: Accurate Measurement of Urinary Output in Critically Ill Patients Urinary Catheter Date of Insertion: 02/08/22 Urinary Catheter Time of Insertion: 15:13 Date Urinary Catheter Removed: 02/13/22 Time Urinary Catheter Discontinued: 10:21 Data : 02/17/22 03:10 02/17/22 03:10 A&P Assessment and plan (1) MILEY (acute kidney injury): 71-year-old male with acute kidney injury from septic shock secondary to perforated colon. Patient has developed uremia and there is concern for possible anoxic brain injury and family has decided to proceed with a short course of dialysis to see if clearing the uremia results in change in his mental status. Plan for temporary dialysis catheter at the bedside today. Procedure risks and benefits of been discussed with the patient's family. Status: Acute Consult Attestations Medical Necessity Statement: As per attending physician Procedures Arterial Line Size (Gauge): 20 Coding Level of Care Code Acute Milling Machine Operator for g Fwd Diagnoses MILEY (acute kidney injury) N17.9
--- NOTE | 2022-02-17 13:27 | PM.ACPR ---
Procedure/Consent Time out: Time Out Performed: Yes Consent: Consent for Procedure: Consent obtained from other (indicate) and Risks & Benefits reviewed Procedure Narrative: Preoperative diagnosis: Acute renal failure with uremia requiring emergent dialysis Postoperative diagnosis: Same Procedure: Placement of Mahurkar catheter in the right internal jugular vein under ultrasound guidance Ultrasound guidance and interpretation for placement of catheter Surgeon: Magdiel Anesthesia: Local Description of procedure: The patient's right neck and chest was prepped and draped in a sterile manner. An ultrasound of the right internal jugular vein revealed patent veins with no evidence of thrombus. 5 mL of 1% lidocaine was infiltrated at the site of planned entry, an introducer needle was used to access the right internal jugular vein under ultrasound guidance. Guidewire was passed through the introducer needle and the introducer needle was removed. Serial dilators were passed over the guidewire after the skin incision was extended using 11 blade and Mahurkar catheter was then passed over the guidewire and the guidewire was removed. The catheter was sutured to the skin using 2-0 Ethilon suture. Sterile dressings were applied. Postop procedure chest x-ray showed no evidence of pneumothorax and good positioning of the catheter. Acute Procedures Arterial Line: Size (Gauge): 20 Epistaxis Control: Time out performed: Yes
[2022-02-17] MEDS: lidocaine 2% INJ 20 mL INJECTION (13:38)
--- NOTE | 2022-02-17 13:40 | PC.NURSE ---
Assisted with placement of left internal jugular dialysis catheter. Pt had no verbal or physical responses during placement, no indications of discomfort or pain. Chest xray confirmed placement.
[2022-02-17 14:17] LABS: ABG PH Result 7.32 (7.35-7.45); Alveolar-Arterial Oxygen Gradi 28.7 mmHg (5-10); Arterial Blood Gas Hematocrit 33.4 % (42-52); Base Excess ABG -9.3 mmol/L (-2.0-2.0); Blood Gas Allen Test Pos; Blood Gas Operator Identificat GD; Blood Gas Sample Site Radial, right; Blood Gas Sample Type Arterial; Carboxyhemoglobin 0.7 %THgb (0.4-20.1); HCO3 ABG 15.6 mmol/L (22-26); Ionized Calcium Level - ABG 1.1 mmol/L (1.1-1.4); Methemoglobin < 0.0 % (0.4-1.5); Oxygen Device VENT; Oxygen Saturation ABG 90.1; PO2 ABG 61.3 mmHg (80.0-100.0); Potassium Level - ABG 5.2 mmol/L (3.5-5.0); Total Hemoglobin 10.9 g/dL (14-18)
--- NOTE | 2022-02-17 15:25 | PM.PN ---
Subjective Subjective: Patient was seen this morning, family at bedside, patient is uremic, BUN 163, sodium 133, looks fluid overloaded, febrile, normotensive, off pressors, on 45% FiO2, has a cough reflex, has a gag reflex, does not follow commands, pupils sluggish to lactic, remains on fentanyl and Precedex for sedation I discussed with family about dialysis catheter placement, patient has a femoral dialysis catheter that is not working well, and requires replacement of dialysis catheter, family wants to give patient a chance to see if he would have neurologic recovery, I advised that with his hyponatremia, and his uremia this could complicate our assessment of his mentation. After discussing the risks and benefits of dialysis cath placement they voices any, all questions answered agreed to proceed with dialysis catheter placement Vitals/I&O/Wt Last Vital Signs Temp 98.3 F 02/17/22 14:00 Pulse 81 02/17/22 14:00 Resp 32 H 02/17/22 15:02 BP 141/74 02/17/22 14:00 Pulse Ox 91 02/17/22 15:02 02/17/22 02/17/22 02/17/22 06:59 14:59 22:59 Intake Total 300 / 979.02 300 / 300 93.795 / 393.795 Output Total 650 / 3605 450 / 450 Balance -350 / -2625.98 -150 / -150 93.795 / -56.205 Weight last 48 hrs Weight 147.871 kg Weight 147.962 kg Physical Exam Const: COMMON NORMALS: no acute distress OTHER: Intubated, sedated Pupillary reflexes sluggish, has a cough reflex has a gag reflex, does not withdraw from pain Resp: COMMON NORMALS: normal respiratory effort, No retractions, No use of accessory muscles and clear to auscultation bilaterally AUSCULTATION: clear to auscultation bilaterally Cardio: COMMON NORMALS: regular rate, regular rhythm, S1 normal heart sound present and S2 normal heart sound present RATE: regular rate RHYTHM: regular rhythm HEART SOUNDS: S1 normal heart sound present and S2 normal heart sound present GI: COMMON NORMALS: Normal to inspection, nondistended, normoactive bowel sounds present, Soft to palpation, non-tender and No hepatosplenomegaly present PALPATION: Yes Soft to palpation and Yes No hepatosplenomegaly present Extremity: COMMON NORMALS: no pedal edema Urinary Catheter Management: Blackmon: Cath Placed During This Visit: yes, but has since been removed by the nurse Reason for Continuing Indwelling Catheter: Accurate Measurement of Urinary Output in Critically Ill Patients Urinary Catheter Date of Insertion: 02/08/22 Urinary Catheter Time of Insertion: 15:13 Date Urinary Catheter Removed: 02/13/22 Time Urinary Catheter Discontinued: 10:21 Data : 02/17/22 03:10 02/17/22 03:10 A&P Assessment and plan (1) Septic shock: Severe septic shock on admission, requiring multiple pressors, secondary to fecal peritonitis. Colostomy was performed February 08. He is currently postoperative day #7. He underwent a CODE BLUE, on February 09, where ROSC was achieved after 3 doses of epinephrine. When sedation was lessened, he was able to open his eyes, grimace. Purposeful movement has not yet been demonstrated. Echocardiogram was performed following this CODE BLUE demonstrating normal LV size and normal RV size and function. CT head noncontrast performed today which did not demonstrate any acute changes. He is now off pressors, with an adequate blood pressure Currently on linezolid and cefepime (changed from Primaxin for concern of rash and aztreonam discontinued as Pseudomonas not sensitive Fluconazole was started empirically. White blood cell count has increased. Hydrocortisone discontinued. Metronidazole is on board for anaerobic coverage. Continues to have low-grade fevers, concerning for central fevers CT abdomen and pelvis, with oral contrast was repeated today. This reading is pending. 1. No abscess or mass in the abdomen. No lymphadenopathy. 2. Consolidation and atelectasis in both lower lobes with posterior bilateral pleural effusions. 3. Cholelithiasis no sign of acute cholecystitis. 4. 5.8 x 3 cm localized fluid collection seen in the anterior left pelvic wall that may represent a seroma or hematoma. Abscess not excluded but felt to be less likely. 5. Left femoral vein central line. Surgical drain in the right pelvis. Blackmon catheter bulb in the pelvis bladder. 6. Mild anasarca. Body wall edema in the right and left flank areas. Small amount of interloop free fluid in the abdomen and pelvis which may be postoperative. Status: Acute (2) E coli bacteremia: Secondary to above. Currently on cefepime for E. coli bacteremia and Pseudomonas . Flagyl added secondary to Bacteroides growing as well. Note that he also had Clostridium growth. Also on linezolid, fluconazole Status: Acute (3) ARDS (adult respiratory distress syndrome): Severe ARDS and fluid overload requiring high ventilator settings yesterday. PEEP has been decreased. FiO2 requirement 60%. Chest x-ray reviewed. Appreciate pulmonary critical care consultation Status: Acute (4) Thrombocytopenia: Improved. Secondary to sepsis. Status: Acute (5) MILEY (acute kidney injury): Intermittent hemodialysis, to remove excess fluid that accumulated with renal failure and septic shock Appreciate nephrology intervention No plans for hemodialysis today, will require dialysis catheter to be replaced Status: Acute (6) Elevated troponin: Consistent with type II elevation secondary to sepsis Status: Acute (7) Atrial fibrillation: Atrial fibrillation, without rapid ventricular rate, which she developed on the . He has subsequently converted to sinus rhythm. Amiodarone IV has been discontinued. Status: Acute (8) Rectal cancer: History of rectal cancer, stage IV Status: Acute (9) Anoxic brain injury: -Concerns for anoxic brain injury -Has a cough reflex, gag reflex, sluggish pupillary reflexes, does not withdraw from pain, does not follow commands, Babinski is downward going -Continue to keep low sedation -Continue neurochecks -We will need to correct uremia, hyponatremia -Will hopefully have Dr. Fields, and see patient on Friday, to help with decision-making, will do EEG on Friday Status: Acute Plan Uremia, will replace dialysis catheter, proceed with dialysis, Dr. Veloz consulted Discussion with family regarding very guarded prognosis currently on his degree of pressors. We also do not know mental state at this time. Will await evaluation by pulmonary critical care. In the interim I discussed with patient further CODE STATUS and they would not want him to receive CPR or undergo another code. They do want to continue current treatment at this time. He has improved somewhat since yesterday. Family does not want any change in his CODE STATUS currently. Protonix for GI prophylaxis Heparin for DVT prophylaxis Left IJ central line placed by pulmonary February 12, and right IJ central line removed. He also has a temporary dialysis catheter, Blackmon, RASTA drain Trophic feeds held today for residual of 250 cc while evaluation of abdomen with CT abdomen and pelvis is occurring. Attestations Medical Necessity Statement*: Patient requires hospitalization for anoxic brain injury, uremia, requiring dialysis, ventilator dependence, critical care time spent over 35 minutes Procedures Arterial Line Size (Gauge): 20 Coding Level of Care Code Acute Certified Hyperbaric Technologist for Chg Fwd Diagnoses Septic shock A41.9; R65.21 E coli bacteremia R78.81; B96.20 ARDS (adult respiratory distress syndrome) J80 Thrombocytopenia D69.6 MILEY (acute kidney injury) N17.9 Elevated troponin R77.8 Atrial fibrillation I48.91 Rectal cancer C20 Anoxic brain injury G93.1
--- NOTE | 2022-02-17 16:37 | PC.NURSE ---
Dr. Veloz repositioned dialysis catheter and dialysis started
[2022-02-17] MEDS: heparin 5,000 unit/mL INJ 1 mL 5000 UNIT SUBCUT (17:55)
--- NOTE | 2022-02-17 18:24 | PC.NURSE ---
Heparin and flagyl given late due to attempted dialysis
[2022-02-18] VITALS (44 sets, daily range): BP systolic 85–168; BP diastolic 7–88; PULSE 70–84; RESP 28–42; TEMP 36.7–37.2; O2SAT 87–100
--- NOTE | 2022-02-18 | SCC_ITS ---
Procedure done: 1. Exchange of temporary dialysis catheter to 27 cm long 16 Macedonian tunneled hemodialysis catheter in the right internal jugular vein 48.4 seconds of fluoroscopic guidance, for a cumulative dose of 8.40 mGy, was provided to Dr. Veloz by the radiology department. C-arm images of the chest were saved for the patient's permanent record. [facility]
[2022-02-18] MEDS: metroNIDAZOLE IV 500 MG/100 ML PREMIX 100 MG IV ×3 (01:00→12:03)
--- NOTE | 2022-02-18 01:45 | PC.HD ---
After setting up in pt's room, attempted to initiate treatment. However, both ports abhay sluggishly and when circuit connected AP immediately and repeatedly spiked to 300, shutting off blood pump. Attempted flushing, reversing lines, positioning pt, but cath would not run even at 200 BFR. During attempts to repostion pt, O2 sat dropped to 80's with respiratory distress. RT immediatly in and intervened, and O2 sat came back up to 90's. PRINTMAKER contacted Dr. Veloz who placed the cath earlier today to come try to reposition catheter. He advanced the cath under sterile technique and AP improved to the point that treatment was started, though ORACLE E BUSINESS DEVELOPER was now elevated. Catheter was sutured and redressed. Unfortunately, AP again began spiking and stopping blood pump, flushing required to drop AP and resume treatment, and as this became progressively more frequent, Dr. Calvood in and said that pt would need to go for a tunnelled cath tomorrow. Treatment terminated, more fluid given than was removed. Pt in stable condition.
[2022-02-18 03:00] LABS: Basophils # 0.1 10^3/uL (0.0-0.1); Basophils % 0.6 %; Hematocrit 33.2 % (42.0-52.0); Hemoglobin 10.9 g/dL (11.7-16.6); Lymphocytes # 0.5 10^3/uL (0.8-4.8); Lymphocytes % 2.2 %; Mean Corpuscular HGB Conc 32.8 g/dL (30.0-36.0); Mean Corpuscular Hemoglobin 28.7 pg (28.0-34.0); Mean Corpuscular Volume 87.4 fl (80-94); Monocytes # 0.7 10^3/uL (0.2-0.9); Monocytes % 2.9 %; Neutrophils # 20.54 10^3/uL (1.8-7.7); Neutrophils % 85.4 %; Nucleated Red Blood Cells % 0 %; Platelet Count 185 10^3/cmm (130-400); Red Cell Distribution Width 15.8 % (12.1-15.1)
[2022-02-18 03:26] LABS: NT Pro B Type Natriuretic Pept 3924 pg/mL (0-125); Procalcitonin 8.89 ng/mL (0-0.5)
[2022-02-18 03:28] LABS: ABG PCO2 37.6 mmHg (35-45); ABG PH Result 7.26 (7.35-7.45); Arterial Blood Gas Hematocrit 34.4 % (42-52); Base Excess ABG -9.6 mmol/L (-2.0-2.0); Blood Gas Allen Test Pos; Blood Gas Sample Site Radial, right; Blood Gas Sample Type Arterial; HCO3 ABG 16.8 mmol/L (22-26); Oxygen Device VENT; PO2 ABG 96.2 mmHg (80.0-100.0)
[2022-02-18 03:39] LABS: Alanine Aminotransferase 24 U/L (0-41); Alkaline Phosphatase 91 IU/L (40-130); Anion Gap 26.8 (5-19); Aspartate Amino Transferase 64 U/L (0-40); C Reactive Protein 100.6 mg/L (0.0-4.9); Calcium 8.2 mg/dL (8.5-10.5); Carbon Dioxide 17 mmol/L (22-29); Chloride 98 mmol/L (98-107); Globulin 3.7 g/dL (1.3-4.6); Glucose 100 mg/dL (65-115); Potassium 5.8 mmol/L (3.5-5.1); Sodium 136 mmol/L (136-145); Total Bilirubin 0.6 mg/dL (0.15-1.2); Total Protein 5.7 g/dL (6.6-8.7)
[2022-02-18 03:40] LABS: Slide Review Slide Review Perform
[2022-02-18 03:43] LABS: INR 1.27 (0.8-1.2)
[2022-02-18 03:58] LABS: Blood Urea Nitrogen 165 mg/dL (8-23); Creatine Phosphokinase 876 U/L (39-308); Osmolality Calculated 336 mOsm/kg (285-295); Phosphorus 12.7 mg/dL (2.5-4.5)
[2022-02-18] MEDS: heparin 5,000 unit/mL INJ 1 mL 5000 UNIT SUBCUT ×2 (05:13→20:27)
[2022-02-18] MEDS: dexmedeTOMIDine 0.9 % NaCL 400 MCG/100 ML PREMIX 11.1 MCG IV ×2 (07:22→13:44)
[2022-02-18] MEDS: fluconazole premix 400 MG/200 ML PIGGYBACK 200 MG IV (08:49)
[2022-02-18] MEDS: famotidine 20 mg/2 mL INJ IVP ×2 (08:49→20:26)
--- NOTE | 2022-02-18 08:51 | P.PN_ITS ---
Subjective Subjective: Patient continues to be unresponsive and uremic with BUN of 165. I attempted to adjust the temporary dialysis catheter yesterday since there were high pressures noted during dialysis and dialysis could not be completed Medications: Reviewed: Yes Vitals/I&O/Wt Last Vital Signs Temp 99.0 F 02/18/22 07:11 Pulse 78 02/18/22 07:11 Resp 34 H 02/18/22 08:47 BP 108/7 02/18/22 07:11 Pulse Ox 96 02/18/22 08:47 02/17/22 02/18/22 02/18/22 22:59 06:59 14:59 Intake Total 900.005 / 1300.005 100 / 1300.005 93.425 / 93.425 Output Total 855 / 2430 1125 / 2430 Balance 45.005 / -1129.995 -1025 / -1129.995 93.425 / 93.425 Weight last 48 hrs Weight 298 lb Weight 299 lb 6.204 oz Weight 326 lb Physical Exam Narrative: Right neck: Temporary dialysis catheter in place Urinary Catheter Management: Blackmon: Cath Placed During This Visit: yes, but has since been removed by the nurse Reason for Continuing Indwelling Catheter: Accurate Measurement of Urinary Output in Critically Ill Patients Urinary Catheter Date of Insertion: 02/08/22 Urinary Catheter Time of Insertion: 15:13 Date Urinary Catheter Removed: 02/13/22 Time Urinary Catheter Discontinued: 10:21 Data : 02/18/22 02:15 02/18/22 02:15 A&P Assessment and plan (1) MILEY (acute kidney injury): 71-year-old male with acute kidney injury from septic shock secondary to perforated colon. Patient has developed uremia and there is concern for possible anoxic brain injury and family has decided to proceed with a short course of dialysis to see if clearing the uremia results in change in his mental status. Temporary dialysis catheter was placed yesterday but dialysis could not be performed and therefore we will plan for exchange to tunneled hemodialysis catheter today in [place] Status: Acute Attestations Medical Necessity Statement*: As per primary Procedures Arterial Line Size (Gauge): 20 Coding Level of Care Code Acute Measurement Superintendent for [facility] Diagnoses MILEY (acute kidney injury) N17.9
--- NOTE | 2022-02-18 09:08 | P.PN_ITS ---
Subjective Subjective: sedated, vent, not responsive Medications: Reviewed: Yes Medication Review Details: Current Medications Famotidine (Famotidine 20 Mg/2 Ml Inj) 20 mg IVP Q12H NATALIE Last Admin: 02/18/22 08:49 Dose: 20 mg Documented by: Heparin Sodium (Porcine) (Heparin 5,000 Unit/Ml Inj 1 Ml) 5,000 unit SUBCUT Q12H NATALIE Last Admin: 02/18/22 05:13 Dose: 5,000 unit Documented by: Hydralazine HCl (Hydralazine 20 Mg/Ml Inj 1 Ml) 10 mg IVP Q4H PRN PRN Reason: HYPERTENSION Last Admin: 02/14/22 18:11 Dose: 10 mg Documented by: Hydromorphone HCl (Hydromorphone 1 Mg/Ml Inj 1 Ml) 0.5 mg IVP Q4H PRN PRN Reason: PAIN Last Admin: 02/15/22 23:00 Dose: 0.5 mg Documented by: Propofol (Diprivan) 1,000 mg in 100 mls @ 0 mls/hr IV .Q0M NATALIE; Protocol Last Titration: 02/16/22 04:21 Dose: Infused Documented by: Fentanyl 2,500 mcg/ Sodium (Chloride) 250 mls @ 0 mls/hr IV .Q0M NATALIE; Protocol Last Admin: 02/15/22 20:55 Dose: 25 mcg/hr, 2.5 mls/hr Documented by: Sodium Chloride (Sodium Chloride 0.9%) 1,000 mls @ 3 mls/hr IV .Q24H NATALIE Last Admin: 02/17/22 17:48 Dose: Not Given Documented by: Fluconazole (Diflucan Premix) 400 mg in 200 mls @ 200 mls/hr IV Q24H NATALIE Last Admin: 02/18/22 08:49 Dose: 200 mls/hr Documented by: Metronidazole (Flagyl Iv) 500 mg in 100 mls @ 100 mls/hr IV Q6H NATALIE; Protocol Last Infusion: 02/18/22 06:13 Dose: Infused Documented by: Cefepime HCl 500 mg/ Sodium (Chloride) 50 mls @ 100 mls/hr IV Q24H NATALIE; Protocol Last Admin: 02/17/22 09:12 Dose: Not Given Documented by: dexmedeTOMIDine 0.9 % NaCL (Precedex) 400 mcg in 100 mls @ 0 mls/hr IV .Q0M PRN; Protocol PRN Reason: AGITATION Last Admin: 02/18/22 07:22 Dose: 0.3 mcg/kg/hr, 11.1 mls/hr Documented by: Norepinephrine Bitartrate 4 mg (/ Dextrose) 254 mls @ 0 mls/hr IV .Q0M NATALIE; P rotocol Last Titration: 02/16/22 00:00 Dose: 0 mcg/min, 0 mls/hr Documented by: Albumin Human (Albumin) 12.5 gm in 50 mls @ 60 mls/hr IV PRN PRN PRN Reason: Hypotension and/or symptomatic Vitals/I&O/Wt Last Vital Signs Temp 99.0 F 02/18/22 07:11 Pulse 78 02/18/22 07:11 Resp 34 H 02/18/22 08:47 BP 108/7 02/18/22 07:11 Pulse Ox 96 02/18/22 08:47 02/17/22 02/18/22 02/18/22 22:59 06:59 14:59 Intake Total 900.005 / 1200.005 200 / 1400.005 93.425 / 93.425 Output Total 855 / 1305 1125 / 2430 Balance 45.005 / -104.995 -925 / -1029.995 93.425 / 93.425 Weight last 48 hrs Weight 135.171 kg Weight 135.8 kg Weight 147.871 kg Physical Exam Narrative: intubated in bed, no pressors propofol and fentanyl vent fio2 =60%, TV 500, RR 24, PEEP 12 heent- nc/at, pupils responsive lungs dull bases w/poor air movement b/l heart-irreg irreg abd - +RASTA tube, + BS, ostomy ext 1+ edema skin blistering left femoral dialysis access neuro- sedated. not responsive to pain Urinary Catheter Management: [place]: Cath Placed During This Visit: yes, but has since been removed by the nurse Reason for Continuing Indwelling Catheter: Accurate Measurement of Urinary Output in Critically Ill Patients Urinary Catheter Date of Insertion: 02/08/22 Urinary Catheter Time of Insertion: 15:13 Date Urinary Catheter Removed: 02/13/22 Time Urinary Catheter Discontinued: 10:21 Data : 02/18/22 02:15 02/18/22 02:15 A&P Assessment and plan (1) MILEY (acute kidney injury): Status: Acute Plan 1. Renal failure Acute kidney injury likely combination of sepsis/infection mediated ATN Case discussed with pts family. they want to try dialysis to ensure he is not uremic, then EEG. if anoxic brain injury then will make comfort care -for noew HD catheter. then HD x 3.5 hrs, 2k, remove 2.l Dose medication for GFR less than 15 on dialysis Strict ins and outs Avoid usual nephrotoxic agents. 2. met acidosis and resp alkalosis- pH 7.3 3, hyponatremia- improved 4. Vent dependent respiratory failure Management per ICU 5. Fecal peritonitis and leukocytosis Ex lap for fecal peritonitis with colostomy formation on 02/08 Management per general surgery Bowel sounds noted Enteral feeds per general surgery abx per surgery and medicine -leukocytosis remains 6. hyperphosphatemia from renal failure 7. ck improved to 876 -prognosis is poor- comfort care would be reasonable Thank you for consultation Patient seen and examined via telemedicine, with the assistance of the bedside RN > 25 min spent in evaluation and mgmt of patient Attestations Medical Necessity Statement*: VDRF, MILEY, poor MS Time Spent in Patient Care: 16 - 35 minutes (>than 50% of time spent in counselling and/or direct pt care on unit) . Procedures Arterial Line Size (Gauge): 20 Coding Level of Care Code Acute Driller'S Assistant for g Fwd Diagnoses MILEY (acute kidney injury) N17.9
--- NOTE | 2022-02-18 09:35 | P.ANESASSM_ITS ---
Pre-Anesthetic Assessment Height/Weight: Height 1.83 m Weight 135.171 kg Temp Pulse Resp BP Pulse Ox 99.0 F 78 34 H 108/7 96 02/18/22 07:11 02/18/22 07:11 02/18/22 08:47 02/18/22 07:11 02/18/22 08:47 Preop Diagnosis: BLEEDING PER RECTUM Operation Date: 02/08/22 15:30 Proposed Procedures p Exploratory Laparotomy(Not Applicable) - Eddie Bailey MD Operation Date: 02/18/22 10:30 Proposed Procedures p Dialysis Catheter Insertion(Not Applicable) - Gary Veloz MD Familial anesthetic complications: None Was Beta Billie taken within 24 hours: N/A Was Clonidine taken within 24 hours: N/A Last intake: Intake Last Liquid Date 02/07/22 Last Liquid Time 18:00 Last Solid Date 02/07/22 Last Solid Time 18:00 Exam inbuated and sedated on TV 500, RR 24, FIO2 50%, PEEP 12, PS 14 Airway Comments: Comments: inbuated Pulmonary ARDS CV/HEM Hypertension s/p cardiac arrest w/ ROSC after 3 round epinephrine, a fib in hospital, now NSR MILEY on dialysis GI s/p perforated viscuss Metabolic sepsis Neuropsych anoxic brain injury - minimally responsive off sedation Anesthetic Plan ASA status: 4 Anesthesia: MAC Risk of > 500 ml blood loss (7ml/kg in children): No Medications/Allergies Home Medications Medication Instructions Recorded Confirmed Last Taken Type meloxicam 15 mg tablet 15 mg PO QAM 08/23/20 02/08/22 02/08/22 History nifedipine 30 mg tablet,extended 30 mg PO QPM 08/23/20 02/08/22 02/07/22 History release selenium 50 mcg tablet 300 mcg PO TID tab 08/23/20 02/08/22 12/19/20 History Silica Tabs 2 tab PO DAILY 02/08/22 02/08/22 Unknown History chromium 100 mcg tablet 100 mcg PO TID 02/08/22 02/08/22 Unknown History fluoride (sodium) 1.1 % dental 1 applic DENTAL . DIRECTED 02/08/22 02/08/22 Unknown History cream (Sodium Fluoride 5000 Plus) hydroxychloroquine 200 mg tablet 400 mg PO .EVERY 21 DAYS 02/08/22 02/08/22 Unknown History multivitamin with iron-mineral 1 tab PO DAILY 02/08/22 02/08/22 Unknown History pentoxifylline 400 mg 400 mg PO TID 02/08/22 02/08/22 02/08/22 07:00 History tablet,extended release sertraline 50 mg tablet 25 mg PO QAM 02/08/22 02/08/22 02/08/22 History sildenafil 100 mg tablet 50 mg PO PRN PRN 02/08/22 02/08/22 Unknown History Allergies Allergy/AdvReac Type Severity Reaction Status Date / Time No Known Allergies Allergy Verified 02/08/22 11:37 Current Medications Generic Name Dose Route Start Last Admin Trade Name Freq PRN Reason Stop Dose Admin Famotidine 20 mg 02/12/22 20:00 02/18/22 08:49 Famotidine 20 Mg/2 Ml Inj IVP 20 mg Q12H NATALIE Administration Heparin Sodium (Porcine) 5,000 unit 02/17/22 18:00 02/18/22 05:13 Heparin 5,000 Unit/Ml Inj 1 Ml SUBCUT 5,000 unit Q12H NATALIE Administration Hydralazine HCl 10 mg 02/14/22 10:28 02/14/22 18:11 Hydralazine 20 Mg/Ml Inj 1 Ml IVP 10 mg Q4H PRN Administration HYPERTENSION Hydromorphone HCl 0.5 mg 02/14/22 22:50 02/15/22 23:00 Hydromorphone 1 Mg/Ml Inj 1 Ml IVP 0.5 mg Q4H PRN Administration PAIN Propofol 1,000 mg in 100 mls @ 0 mls/hr 02/08/22 19:15 02/16/22 04:21 Diprivan IV Infused .Q0M NATALIE Titration Protocol Per Protocol Fentanyl 2,500 mcg/ Sodium 250 mls @ 0 mls/hr 02/08/22 19:15 02/15/22 20:55 Chloride IV 25 mcg/hr .Q0M NATALIE 2.5 mls/hr Administration Protocol Per Protocol Sodium Chloride 1,000 mls @ 3 mls/hr 02/10/22 18:00 02/17/22 17:48 Sodium Chloride 0.9% IV Not Given .Q24H NATALIE Fluconazole 400 mg in 200 mls @ 200 mls/hr 02/11/22 08:00 02/18/22 08:49 Diflucan Premix IV 200 mls/hr Q24H NATALIE Administration Metronidazole 500 mg in 100 mls @ 100 mls/hr 02/13/22 08:00 02/18/22 06:13 Flagyl Iv IV Infused Q6H NATALIE Infusion Protocol Cefepime HCl 500 mg/ Sodium 50 mls @ 100 mls/hr 02/15/22 10:00 02/17/22 09:12 Chloride IV Not Given Q24H NATALIE Protocol dexmedeTOMIDine 0.9 % NaCL 400 mcg in 100 mls @ 0 mls/hr 02/15/22 13:22 02/18/22 07:22 Precedex IV 0.3 mcg/kg/hr .Q0M PRN 11.1 mls/hr AGITATION Administration Protocol Per Protocol Norepinephrine Bitartrate 4 mg 254 mls @ 0 mls/hr 02/15/22 20:00 02/16/22 00:00 / Dextrose IV 0 mcg/min .Q0M NATALIE 0 mls/hr Titration Protocol Per Protocol Additional Medication Information Current Medications Famotidine (Famotidine 20 Mg/2 Ml Inj) 20 mg IVP Q12H NATALIE Last Admin: 02/18/22 08:49 Dose: 20 mg Documented by: Heparin Sodium (Porcine) (Heparin 5,000 Unit/Ml Inj 1 Ml) 5,000 unit SUBCUT Q12H NATALIE Last Admin: 02/18/22 05:13 Dose: 5,000 unit Documented by: Hydralazine HCl (Hydralazine 20 Mg/Ml Inj 1 Ml) 10 mg IVP Q4H PRN PRN Reason: HYPERTENSION Last Admin: 02/14/22 18:11 Dose: 10 mg Documented by: Hydromorphone HCl (Hydromorphone 1 Mg/Ml Inj 1 Ml) 0.5 mg IVP Q4H PRN PRN Reason: PAIN Last Admin: 02/15/22 23:00 Dose: 0.5 mg Documented by: Propofol (Diprivan) 1,000 mg in 100 mls @ 0 mls/hr IV .Q0M NATALIE; Protocol Last Titration: 02/16/22 04:21 Dose: Infused Documented by: Fentanyl 2,500 mcg/ Sodium (Chloride) 250 mls @ 0 mls/hr IV .Q0M NATALIE; Protocol Last Admin: 02/15/22 20:55 Dose: 25 mcg/hr, 2.5 mls/hr Documented by: Sodium Chloride (Sodium Chloride 0.9%) 1,000 mls @ 3 mls/hr IV .Q24H NATALIE Last Admin: 02/17/22 17:48 Dose: Not Given Documented by: Fluconazole (Diflucan Premix) 400 mg in 200 mls @ 200 mls/hr IV Q24H NATALIE Last Admin: 02/18/22 08:49 Dose: 200 mls/hr Documented by: Metronidazole (Flagyl Iv) 500 mg in 100 mls @ 100 mls/hr IV Q6H NATALIE; Protocol Last Infusion: 02/18/22 06:13 Dose: Infused Documented by: Cefepime HCl 500 mg/ Sodium (Chloride) 50 mls @ 100 mls/hr IV Q24H NATALIE; P rotocol Last Admin: 02/17/22 09:12 Dose: Not Given Documented by: dexmedeTOMIDine 0.9 % NaCL (Precedex) 400 mcg in 100 mls @ 0 mls/hr IV .Q0M PRN; Protocol PRN Reason: AGITATION Last Admin: 02/18/22 07:22 Dose: 0.3 mcg/kg/hr, 11.1 mls/hr Documented by: Norepinephrine Bitartrate 4 mg (/ Dextrose) 254 mls @ 0 mls/hr IV .Q0M NATALIE; Protocol Last Titration: 02/16/22 00:00 Dose: 0 mcg/min, 0 mls/hr Documented by: Albumin Human (Albumin) 12.5 gm in 50 mls @ 60 mls/hr IV PRN PRN PRN Reason: Hypotension and/or symptomatic PFSH Anesthesia Medical History Diverticulosis DJD (degenerative joint disease) History of colon polyps Hypertension Nephrolithiasis On imaging Rectal cancer Metastatic to right lower lobe Venous insufficiency of right leg Ventral hernia without obstruction or gangrene Surgical History History of colonoscopy History of lobectomy of lung Right lower lobe History of low anterior resection of rectum S/P ileostomy 10/24/2020 he underwent robotic extended low anterior resection with radical en bloc resection of seminal vesicles and vas deferens with portion of prostate and with placement of loop ileostomy with subsequent takedown of the di verting ileostomy Family History Denies family history of Anesthesia complication Bleeding disorder Social History Smoking and tobacco status: former smoker Quit status (tobacco): has quit using tobacco Year quit tobacco: 1995 Former quit date comment: [id number] history Data Anesthesia : 02/18/22 02:15 02/18/22 02:15 Short CBC 02/17/22 02/18/22 Range/Units 03:10 02:15 WBC 25.5 H 24.0 H (4.0-10.0) 10^3/uL Hgb 10.5 L 10.9 L (11.7-16.6) g/dL Hct 31.6 L 33.2 L (42.0-52.0) % MCV 85.9 87.4 (80-94) fl Plt Count 189 185 (130-400) 10^3/cmm Neut % (Auto) 79.7 85.4 % Neut # (Auto) 20.33 H 20.54 H (1.8-7.7) 10^3/uL BMP 02/17/22 02/18/22 03:10 02:15 Sodium 133 L 136 Potassium 5.2 H 5.8 H Chloride 96 L 98 Carbon Dioxide 16 L 17 L BUN 163 H* 165 H* Creatinine 6.2 H* 5.7 H* Glucose 105 100 Calcium 8.0 L 8.2 L Cardiac Enzymes 02/17/22 02/18/22 Range/Units 03:10 02:15 Creatine Kinase 1250 H* 876 H* (39-308) U/L NT-Pro-B Natriuret Pep 6339 H 3924 H (0-125) pg/mL Liver Function 02/17/22 02/18/22 Range/Units 03:10 02:15 Total Bilirubin 0.7 0.6 (0.15-1.2) mg/dL AST 77 H 64 H (0-40) U/L ALT 28 24 (0-41) U/L Alkaline Phosphatase 103 91 (40-130) IU/L Albumin 2.0 L 2.0 L (3.5-5.2) g/dL Coags 02/17/22 02/17/22 02/18/22 03:10 03:10 02:15 PT 16.20 H INR 1.27 H C-Reactive Protein 139.7 H 100.6 H 02/18/22 02:15 PT 16.30 H INR 1.27 H C-Reactive Protein ABG 02/17/22 02/17/22 04:30 14:02 Specimen Type Arterial Arterial Sample Site Radial, right Radial, right ABG pH 7.30 L 7.32 L ABG pCO2 33.7 L 30.0 L ABG pO2 91.8 61.3 L ABG HCO3 16.6 L 15.6 L ABG O2 Saturation 90.1 ABG Base Excess -8.9 L -9.3 L A-a O2 Gradient 28.7 H O2 Delivery Device Vent Vent FiO2 45.0 45.0 PEEP 12.0 12.0 Cardiac Studies: Echocardiogram 02/09/22
--- NOTE | 2022-02-18 10:26 | SC_ITS ---
WS: [id number] C-arm [place] for CVA [id number] REASON FOR EXAM: Exchange of temporary dialysis catheter FINDINGS: Endotracheal tube and nasogastric tube present. Left internal jugular central venous line present. Exchange of right internal jugular temporary dialysis catheter for tunneled dialysis catheter in prop er position. SC/C-arm FL for CVA [id number] IMPRESSION: Line placement as above.
--- NOTE | 2022-02-18 11:10 | PC.NUTR ---
When medically appropriate to resume TF, recommend Nepro 1.8 beginning at 10 mls/hr and advancing 10 mls Q8H as tolerated to goal rate of 50 mls/hr with flushes 150 mls Q4H or per MD discretion. Details in RD assessment.
[2022-02-18] MEDS: sodium chloride 0.9% 100 mL Bag XX (11:24)
[2022-02-18] MEDS: heparin, porcine 1,000 unit/mL INJ 10 mL 10000 UNIT INJECTION (11:25)
--- NOTE | 2022-02-18 11:51 | PM.OP ---
Operative Report Date of procedure: February 18, 2022 Pre-op diagnosis: Acute renal failure with nonfunctioning temporary dialysis catheter Post-op diagnosis: same Procedure done: 1. Exchange of temporary dialysis catheter to 27 cm long 16 Jordanian tunneled hemodialysis catheter in the right internal jugular vein 2. Fluoroscopic guidance and interpretation for placement of catheter Pathology: none sent Surgeon: Gary Veloz Anesthesia: General Condition: stable Disposition: PACU Procedure: The patient was taken to the operating room and placed in a Trendelenburg position. Patient is on IV antibiotics. The right chest was prepped and draped in a sterile manner and catheter with the cuff exterior to the skin incision was wrapped in gauze soaked with Betadine. The skin incision on the right internal jugular vein was opened using 11 blade and the catheter was dissected free from the surrounding scar tissue and skeletonized and divided, the proximal portion of the catheter was removed from the subcutaneous tunnel on the right chest. A guidewire was passed through one of the channels in the distal portion of the divided catheter and the catheter was removed. Serial dilators were passed over the guidewire under fluoroscopy. A new 27 cm long 16 Jordanian Torrey Split catheter was passed through the subcutaneous tissue on the right chest and exited through the incision on the right neck. Dilator sheath was passed over the guidewire and the inner sheath and guidewire was removed and the distal end of the catheter was introduced into the internal jugular vein as the peel-away sheath was removed. Fluoroscopy confirmed good position of the tip of the catheter. The skin incision in the neck was closed using 4-0 Monocryl and surgical glue. The catheter sutured to the skin using 3-0 Prolene. Pressure dressings were applied.
--- NOTE | 2022-02-18 12:07 | PC.CHAP ---
Pastoral Care Encounter/Spiritual Assessment Type of Contact [] Declined senior it security analyst visit [] Patient/Family/Request visit [] Outpatient visit [] Follow-up visit [] Physician referral [] Code/Alert [x] Routine visit [] Staff referral [] Actively dying [] Patient sleeping [x] Family support [] [x] Out of room [] Palliative care [] [] Receiving care in room [] Pre-surgical visit [] Trauma [] Long length of stay [x] ICU visit [] Other: procedure...family making decisions regarding patients care Relational/Emotional Strength [] Patient feels connected with others/family/visitors/staff [] Distress [] Loneliness/isolation [] Abandonment Spirituality of Patient [] Person of [place] [] Attends Episcopal of their [place] [] Believes in Prayer [] Reads Bible or Synagogue materials [] There are Spiritual issues to be addressed Word Processing Supervisor Interventions [x] Prayer [] Active listening [] Non-anxious presence [] Spiritual/emotional support [] Crisis/trauma care [] Spiritual counseling [] Bereavement support [] Provided bereavement packet [] Provided Bible/devotional materials [] Provided toy/stuffed animal, coloring book to patient or family member [] Provided Communion [] Anointing/[place] [] Salvation [x] Completed spiritual assessment [] Other: Impact on Illness or Injury [] Angry [] Fearful [] Anxious [] Often cries [] Exhaustion [] Unable to work [] Unable to attend druze [] Unable to walk/stand [] Unable to read [] Unable to drive [] Unable to eat/drink [] Unable to sleep [] Unable to be with family [] Patient intubated [] Other: Summary Time spent with patient
--- NOTE | 2022-02-18 14:31 | P.PN_ITS ---
Subjective Subjective: Patient was seen this morning, remains afebrile, normotensive, 50% FiO2, family at bedside, has a cough reflex, has a gag reflex, no other significant neurologic responses, family seems to feel that he turned his head to one of his children's voices, yesterday patient had a temporary dialysis cath eter placed however it had issues with flow, currently having a permacath placed at 10 AM Vitals/I&O/Wt Last Vital Signs Temp 99.0 F 02/18/22 12:00 Pulse 78 02/18/22 12:00 Resp 33 H 02/18/22 14:29 BP 108/7 02/18/22 12:00 Pulse Ox 94 02/18/22 14:29 02/17/22 02/18/22 02/18/22 22:59 06:59 14:59 Intake Total 900.005 / 1200.005 200 / 1400.005 364.095 / 364.095 Output Total 855 / 1305 1125 / 2430 75 / 75 Balance 45.005 / -104.995 -925 / -1029.995 289.095 / 289.095 Weight last 48 hrs Weight 135.171 kg Weight 135.8 kg Weight 147.871 kg Physical Exam Const: COMMON NORMALS: no acute distress Resp: COMMON NORMALS: normal respiratory effort, No retractions, No use of accessory muscles and clear to auscultation bilaterally AUSCULTATION: clear to auscultation bilaterally Cardio: COMMON NORMALS: regular rate, regular rhythm, S1 normal heart sound present and S2 normal heart sound present RATE: regular rate RHYTHM: regular rhythm HEART SOUNDS: S1 normal heart sound present and S2 normal heart sound present GI: COMMON NORMALS: Normal to inspection, nondistended, normoactive bowel sounds present, Soft to palpation, non-tender and No hepatosplenomegaly present PALPATION: Yes Soft to palpation and Yes No hepatosplenomegaly present Extremity: COMMON NORMALS: no pedal edema Urinary Catheter Management: Blackmon: Cath Placed During This Visit: yes, but has since been removed by the nurse Reason for Continuing Indwelling Catheter: Accurate Measurement of Urinary Output in Critically Ill Patients Urinary Catheter Date of Insertion: 02/08/22 Urinary Catheter Time of Insertion: 15:13 Date Urinary Catheter Removed: 02/13/22 Time Urinary Catheter Discontinued: 10:21 Data : 02/18/22 02:15 02/18/22 02:15 A&P Assessment and plan (1) Septic shock: Severe septic shock on admission, requiring multiple pressors, secondary to fecal peritonitis. Colostomy was performed February 08. He is currently postoperative day #7. He underwent a CODE BLUE, on February 09, where ROSC was achieved after 3 doses of epinephrine. When sedation was lessened, he was able to open his eyes, grimace. Purposeful movement has not yet been demonstrated. Echocardiogram was performed following this CODE BLUE demonstrating normal LV size and normal RV size and function. CT head noncontrast performed today which did not demonstrate any acute changes. He is now off pressors, with an adequate blood pressure Currently on linezolid and cefepime (changed from Primaxin for concern of rash and aztreonam discontinued as Pseudomonas not sensitive Fluconazole was started empirically. White blood cell count has increased. Hydrocortisone discontinued. Metronidazole is on board for anaerobic coverage. Continues to have low-grade fevers, concerning for central fevers CT abdomen and pelvis, with oral contrast was repeated today. This reading is pending. 1. No abscess or mass in the abdomen. No lymphadenopathy. 2. Consolidation and atelectasis in both lower lobes with posterior bilateral pleural effusions. 3. Cholelithiasis no sign of acute cholecystitis. 4. 5.8 x 3 cm localized fluid collection seen in the anterior left pelvic wall that may represent a seroma or hematoma. Abscess not excluded but felt to be less likely. 5. Left femoral vein central line. Surgical drain in the right pelvis. Blackmon catheter bulb in the pelvis bladder. 6. Mild anasarca. Body wall edema in the right and left flank areas. Small amount of interloop free fluid in the abdomen and pelvis which may be postoperative. Status: Acute (2) E coli bacteremia: Secondary to above. Currently on cefepime for E. coli bacteremia and Pseudomonas . Flagyl added secondary to Bacteroides growing as well. Note that he also had Clostridium growth. Also on linezolid, fluconazole Status: Acute (3) ARDS (adult respiratory distress syndrome): Severe ARDS and fluid overload requiring high ventilator settings yesterday. PEEP has been decreased. FiO2 requirement 60%. Chest x-ray reviewed. Appreciate pulmonary critical care consultation Status: Acute (4) Thrombocytopenia: Improved. Secondary to sepsis. Status: Acute (5) MILEY (acute kidney injury): Intermittent hemodialysis, to remove excess fluid that accumulated with renal failure and septic shock Appreciate nephrology intervention No plans for hemodialysis today, will require dialysis catheter to be replaced Status: Acute (6) Elevated troponin: Consistent with type II elevation secondary to sepsis Status: Acute (7) Atrial fibrillation: Atrial fibrillation, without rapid ventricular rate, which she developed on the . He has subsequently converted to sinus rhythm. Amiodarone IV has been discontinued. Status: Acute (8) Rectal cancer: History of rectal cancer, stage IV Status: Acute (9) Anoxic brain injury: -Concerns for anoxic brain injury -Has a cough reflex, gag reflex, sluggish pupillary reflexes, does not withdraw from pain, does not follow commands, Babinski is downward going -Continue to keep low sedation -Continue neurochecks -We will need to correct uremia, hyponatremia -Will hopefully have Dr. Fields, and see patient today, to help with decision-making, will consider eeg Status: Acute Plan Uremia, will replace dialysis catheter, proceed with dialysis, Dr. Veloz consulted Persistent leukocytosis -Initial blood culture showing Bacteroides, E. coli, Pseudomonas -Repeat blood cultures have been negative so far -Sputum cultures negative so far -Afebrile -We will consider removing Blackmon catheter, culturing tip, removing central line, culturing tip, repeating blood cultures Discussion with family regarding very guarded prognosis currently on his degree of pressors. We also do not know mental state at this time. Will await evaluation by pulmonary critical care. In the interim I discussed with patient further CODE STATUS and they would not want him to receive CPR or undergo another code. They do want to continue current treatment at this time. He has improved somewhat since yesterday. Family does not want any change in his CODE STATUS currently. Protonix for GI prophylaxis Heparin for DVT prophylaxis Left IJ central line placed by pulmonary February 12, and right IJ central line removed. He also has a temporary dialysis catheter, Blackmon, RASTA drain Trophic feeds held today for residual of 250 cc while evaluation of abdomen with CT abdomen and pelvis is occurring. 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
--- NOTE | 2022-02-18 16:03 | ANE.PACU2 ---
Inpatient post-anesthesia follow up: Airway intact: Yes Vital signs: Temperature 99.0 F Pulse Rate 78 Respiratory Rate 33 Blood Pressure 108/7 Pulse Oximetry 94 Oxygen Delivery Me thod BiPAP Oxygen Flow Rate 60 Fraction of Inspir ed Oxygen 50 Hydration adequate: Yes Nausea and vomiting: No Pain level: 3 Mental status: Baseline
--- NOTE | 2022-02-18 17:45 | P.CONIM_ITS ---
Providers/Reason For Consult Consulting Physician/Specialty*: Dr. Floyd/hospitalist Reason for Consult*: Coma Attending Physician: Alex Floyd MD Primary Care Provider: Tana Vital MD History of Present Illness History of Present Illness Tee Chilel Jr is a 71 year old man who is not waking up after hypoxic brain injury. He has metastatic rectal cancer, stage Nirmal. At the time of his last oncology follow-up on 11/15/2021 he was doing well. He came to the emergency department 02/08/2022 with a perforated viscus, lactic acidosis, leukopenia and sepsis. On arrival he was hypotensive and short of breath. He was taken urgently to the operating room by Dr. Bailey for rectal/distal sigmoid perforation with fecal extrusion into the peritoneum. He survived the surgery and was stable until midnight that evening on 02/08 when he became tachycardic, hypotensive and tachypneic with septic shock from E. coli bacteremia. He improved with pressors. Then at 340 that morning he developed pulseless electrical activity and chest compressions were necessary for 9 minutes before a rhythm was recovered. He was kept on sedation and paralysis and required ongoing pressors. He was in multiorgan failure. His echocardiogram showed normal LV function. He has been off of sedatives for multiple days now. Dr. Floyd and the invas tech decided to go ahead with hemodialysis intermittently in case his mental status might partly be due to uremia, with BUN 165, creatinine 5.7, phosphorus 12.7. He has not been found to have significant neurologic function. No response to pain but the family thought that he turned his head to one of his children's voices. His daughter says that his son was fairly sure that he nodded his head and shook his head, both appropriate to questions asked him. He had placement of a hemodialysis catheter in the right internal jugular vein with sedation today. That was completed by noon. He has not yet been dialyzed. Medications/Allergies Home Medications Medication Instructions Recorded Confirmed Last Taken Type meloxicam 15 mg tablet 15 mg PO QAM 08/23/20 02/08/22 02/08/22 History nifedipine 30 mg tablet,extended 30 mg PO QPM 08/23/20 02/08/22 02/07/22 History release selenium 50 mcg tablet 300 mcg PO TID tab 10/06/0502/08/22 12/19/20 History Silica Tabs 2 tab PO DAILY 02/08/22 02/08/22 Unknown History chromium 100 mcg tablet 100 mcg PO TID 02/08/22 02/08/22 Unknown History fluoride (sodium) 1.1 % dental 1 applic DENTAL . DIRECTED 02/08/22 02/08/22 Unknown History cream (Sodium Fluoride 5000 Plus) hydroxychloroquine 200 mg tablet 400 mg PO .EVERY 21 DAYS 02/08/22 02/08/22 Unknown History multivitamin with iron-mineral 1 tab PO DAILY 02/08/22 02/08/22 Unknown History pentoxifylline 400 mg 400 mg PO TID 02/08/22 02/08/22 02/08/22 07:00 History tablet,extended release sertraline 50 mg tablet 25 mg PO QAM 02/08/22 02/08/22 02/08/22 History sildenafil 100 mg tablet 50 mg PO PRN PRN 02/08/22 02/08/22 Unknown History Allergies Allergy/AdvReac Type Severity Reaction Status Date / Time No Known Allergies Allergy Verified 02/08/22 11:37 Current Medications Generic Name Dose Route Start Last Admin Trade Name Freq PRN Reason Stop Dose Admin Famotidine 20 mg 02/12/22 20:00 02/18/22 08:49 Famotidine 20 Mg/2 Ml Inj IVP 20 mg Q12H NATALIE Administration Heparin Sodium (Porcine) 5,000 unit 02/17/22 18:00 02/18/22 05:13 Heparin 5,000 Unit/Ml Inj 1 Ml SUBCUT 5,000 unit Q12H NATALIE Administration Hydralazine HCl 10 mg 02/14/22 10:28 02/14/22 18:11 Hydralazine 20 Mg/Ml Inj 1 Ml IVP 10 mg Q4H PRN Administration HYPERTENSION Hydromorphone HCl 0.5 mg 02/14/22 22:50 02/15/22 23:00 Hydromorphone 1 Mg/Ml Inj 1 Ml IVP 0.5 mg Q4H PRN Administration PAIN Propofol 1,000 mg in 100 mls @ 0 mls/hr 02/08/22 19:15 02/16/22 04:21 Diprivan IV Infused .Q0M NATALIE Titration Protocol Per Protocol Fentanyl 2,500 mcg/ Sodium 250 mls @ 0 mls/hr 02/08/22 19:15 02/15/22 20:55 Chloride IV 25 mcg/hr .Q0M NATALIE 2.5 mls/hr Administration Protocol Per Protocol Sodium Chloride 1,000 mls @ 3 mls/hr 02/10/22 18:00 02/17/22 17:48 Sodium Chloride 0.9% IV Not Given .Q24H NATALIE Fluconazole 400 mg in 200 mls @ 200 mls/hr 02/11/22 08:00 02/18/22 12:39 Diflucan Premix IV Infused Q24H NATALIE Infusion Metronidazole 500 mg in 100 mls @ 100 mls/hr 02/13/22 08:00 02/18/22 12:03 Flagyl Iv IV 100 mls/hr Q6H NATALIE Administration Protocol Cefepime HCl 500 mg/ Sodium 50 mls @ 100 mls/hr 02/15/22 10:00 02/17/22 09:12 Chloride IV Not Given Q24H NATALIE Protocol dexmedeTOMIDine 0.9 % NaCL 400 mcg in 100 mls @ 0 mls/hr 02/15/22 13:22 02/18/22 13:44 Precedex IV 0.3 mcg/kg/hr .Q0M PRN 11.1 mls/hr AGITATION Administration Protocol Per Protocol Norepinephrine Bitartrate 4 mg 254 mls @ 0 mls/hr 02/15/22 20:00 02/16/22 00:00 / Dextrose IV 0 mcg/min .Q0M NATALIE 0 mls/hr Titration Protocol Per Protocol PFSH Acute PFSH: Medical History Diverticulosis DJD (degenerative joint disease) History of colon polyps Hypertension Nephrolithiasis On imaging Rectal cancer Metastatic to right lower lobe Venous insufficiency of right leg Ventral hernia without obstruction or gangrene Surgical History History of colonoscopy History of lobectomy of lung Right lower lobe History of low anterior resection of rectum S/P ileostomy 10/24/2020 he underwent robotic extended low anterior resection with radical en bloc resection of seminal vesicles and vas deferens with portion of pros acosta and with placement of loop ileostomy with subsequent takedown of the diverting ileostomy Family History Denies family history of Anesthesia complication Bleeding disorder Social History Smoking and tobacco status: former smoker Quit status (tobacco): has quit using tobacco Year quit tobacco: 1995 Former quit date comment: [id number] history Vitals/I&O/Wt Last Vital Signs Temp 99.0 F 02/18/22 16:00 Pulse 78 02/18/22 16:00 Resp 33 H 02/18/22 16:00 BP 108/7 02/18/22 16:00 Pulse Ox 94 02/18/22 16:00 02/18/22 02/18/22 02/18/22 06:59 14:59 22:59 Intake Total 200 / 1400.005 364.095 / 364.095 0 / 364.095 Output Total 1125 / 2430 75 / 75 Balance -925 / -1029.995 289.095 / 289.095 0 / 289.095 Weight last 48 hrs Weight 298 lb Weight 299 lb 6.204 oz Weight 326 lb Physical Exam Narrative: General: Elderly gentleman lying quietly in bed in ICU with endotracheal tube in place. He is hyperventilating over the vent. He has automatic behavior with turning of the head to the right intermittently in a cy clic pattern. He has extension of the neck during inspiration. Mental status exam: No response to voice. He does not follow commands such as open your eyes. Cranial nerves: Pupils pinpoint. No obvious reaction but they are tightly contracted even in the dark. Oculocephalic movements are absent. Corneals sluggish but intact, better on the right than the left. Sluggish brow contraction to orbital stimulation bilaterally. Sensorimotor: Deep nailbed pressure resulted in increased head turning to the right that was consistent. Deep nailbed pressure on the right side resulted in brow contraction. Deep tendon reflexes absent throughout. Plantar response none. Cardiac: S1 and S2 normal without murmur or gallop. Urinary Catheter Management: Blackmon: Cath Placed During This Visit: yes, but has since been removed by the nurse Reason for Continuing Indwelling Catheter: Accurate Measurement of Urinary Output in Critically Ill Patients Urinary Catheter Date of Insertion: 02/08/22 Urinary Catheter Time of Insertion: 15:13 Date Urinary Catheter Removed: 02/13/22 Time Urinary Catheter Discontinued: 10:21 Data : 02/18/22 02:15 02/18/22 02:15 A&P Assessment and plan (1) Anoxic brain injury: Unfortunate 71-year-old survivor of metastatic rectal cancer who had fecal peritonitis with E. coli sepsis and initially did well with surgery and seemed to stabilize, only to deteriorate acutely and experience cardiac arrest with pulseless electrical activity and requirement for chest compressions for 9 minutes before blood pressure was obtained. He has been off of sedation for multiple days and currently is functioning at the level of a vegetative state. He has minimal low-level response to pain as described above with corneal reflexes, absent oculocephalic reflex, very minimal low-level response to pain in the limbs. His prognosis for meaningful recovery is poor, although at this stage of his recovery and exact percentage of likelihood for survival cannot be assigned. He does have corneal reflexes although sluggish. He does not have voluntary response to pain but he has minimal involuntary response. Obviously he does not qualify for diagnosis of brain . Plan is for hemodialysis tomorrow. I took time to answer questions for his and daughter, who are well-known to me as they both worked here for a long time. 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
[2022-02-18] MEDS: dexmedeTOMIDine 0.9 % NaCL 400 MCG/100 ML PREMIX 18.5 MCG IV (22:45)
[2022-02-19] VITALS (23 sets, daily range): BP systolic 105–140; BP diastolic 66–83; PULSE 66–72; RESP 30–37; TEMP 37–37.3; O2SAT 89–99; BMI 42.8
[2022-02-19] MEDS: heparin, porcine 1,000 unit/mL INJ 10 mL 10000 UNIT HE (00:57)
[2022-02-19] MEDS: metroNIDAZOLE IV 500 MG/100 ML PREMIX 100 MG IV ×2 (01:18→03:23)
[2022-02-19] MEDS: dexmedeTOMIDine 0.9 % NaCL 400 MCG/100 ML PREMIX 29.59 MCG IV ×4 (01:39→09:38)
[2022-02-19 03:19] LABS: ABG PCO2 39.8 mmHg (35-45); ABG PH Result 7.36 (7.35-7.45); Arterial Blood Gas Hematocrit 31.8 % (42-52); Base Excess ABG -2.7 mmol/L (-2.0-2.0); Blood Gas Allen Test Pos; Blood Gas Sample Site Radial, right; Blood Gas Sample Type Arterial; HCO3 ABG 22.5 mmol/L (22-26); Oxygen Device VENT; PO2 ABG 59.5 mmHg (80.0-100.0)
[2022-02-19 04:02] LABS: Hematocrit 30.5 % (42.0-52.0); Mean Corpuscular HGB Conc 32.8 g/dL (30.0-36.0); Mean Corpuscular Hemoglobin 28.5 pg (28.0-34.0); Mean Corpuscular Volume 86.9 fl (80-94); Mean Platelet Volume 11.3 fL (7.4-10.4); Platelet Count 173 10^3/cmm (130-400); Red Blood Count 3.51 10^6/uL (4.1-5.3); Red Cell Distribution Width 15.2 % (12.1-15.1); White Blood Count 22.3 10^3/uL (4.0-10.0)
[2022-02-19 04:16] LABS: INR 1.28 (0.8-1.2)
[2022-02-19 04:17] LABS: Lactate (Lactic Acid level) 1.3 mmol/L (0.5-2.2)
[2022-02-19 04:29] LABS: NT Pro B Type Natriuretic Pept 3054 pg/mL (0-125); Procalcitonin 6.54 ng/mL (0-0.5)
[2022-02-19 04:42] LABS: Absolute Segmented Neutrophil 20.3 10/cmm (1.6-7.1); Band Neutrophils Absolute 0.9 10^3/cmm (0.0-1.2); Eosinophils 0 %; Lymphocytes 3 %; Lymphocytes Absolute 0.7 10^3/cmm (1.2-3.4); Segmented Neutrophils 91 %; Total Cells Counted 100 (0-100)
[2022-02-19 04:43] LABS: Absolute Neutrophil 21.2 10^3/cmm (1.4-6.5); Platelet Estimate Normal (Normal)
[2022-02-19 04:48] LABS: Alanine Aminotransferase 27 U/L (0-41); Alkaline Phosphatase 80 IU/L (40-130); Aspartate Amino Transferase 65 U/L (0-40); C Reactive Protein 112.1 mg/L (0.0-4.9); Calcium 8.1 mg/dL (8.5-10.5); Carbon Dioxide 21 mmol/L (22-29); Chloride 102 mmol/L (98-107); Globulin 3.7 g/dL (1.3-4.6); Glucose 123 mg/dL (65-115); Magnesium 2.6 mg/dL (1.7-2.3); Sodium 139 mmol/L (136-145); Total Bilirubin 0.7 mg/dL (0.15-1.2); Total Protein 5.7 g/dL (6.6-8.7)
[2022-02-19 04:57] LABS: Osmolality Calculated 326 mOsm/kg (285-295)
[2022-02-19 04:58] LABS: Blood Urea Nitrogen 116 mg/dL (8-23); Creatine Phosphokinase 1222 U/L (39-308); Phosphorus 9.7 mg/dL (2.5-4.5)
[2022-02-19] MEDS: heparin 5,000 unit/mL INJ 1 mL 5000 UNIT SUBCUT (05:34)
--- NOTE | 2022-02-19 07:19 | P.PN_ITS ---
Subjective Subjective: on vent, needed pressors for HD. not interactive. not able to obtain a ROS Medications: Reviewed: Yes Medication Review Details: Current Medications Famotidine (Famotidine 20 Mg/2 Ml Inj) 20 mg IVP Q12H NATALIE Last Admin: 02/18/22 20:26 Dose: 20 mg Documented by: Heparin Sodium (Porcine) (Heparin 5,000 Unit/Ml Inj 1 Ml) 5,000 unit SUBCUT Q12H NATALIE Last Admin: 02/19/22 05:34 Dose: 5,000 unit Documented by: Hydralazine HCl (Hydralazine 20 Mg/Ml Inj 1 Ml) 10 mg IVP Q4H PRN PRN Reason: HYPERTENSION Last Admin: 02/14/22 18:11 Dose: 10 mg Documented by: Hydromorphone HCl (Hydromorphone 1 Mg/Ml Inj 1 Ml) 0.5 mg IVP Q4H PRN PRN Reason: PAIN Last Admin: 02/15/22 23:00 Dose: 0.5 mg Documented by: Propofol (Diprivan) 1,000 mg in 100 mls @ 0 mls/hr IV .Q0M NATALIE; Protocol Last Titration: 02/16/22 04:21 Dose: Infused Documented by: Fentanyl 2,500 mcg/ Sodium (Chloride) 250 mls @ 0 mls/hr IV .Q0M NATALIE; Protocol Last Admin: 02/15/22 20:55 Dose: 25 mcg/hr, 2.5 mls/hr Documented by: Sodium Chloride (Sodium Chloride 0.9%) 1,000 mls @ 3 mls/hr IV .Q24H NATALIE Last Admin: 02/19/22 01:19 Dose: Not Given Documented by: Fluconazole (Diflucan Premix) 400 mg in 200 mls @ 200 mls/hr IV Q24H NATALIE Last Infusion: 02/18/22 12:39 Dose: Infused Documented by: Metronidazole (Flagyl Iv) 500 mg in 100 mls @ 100 mls/hr IV Q6H NATALIE; Protocol Last Infusion: 02/19/22 04:35 Dose: Infused Documented by: Cefepime HCl 500 mg/ Sodium (Chloride) 50 mls @ 100 mls/hr IV Q24H NATALIE; Protocol Last Infusion: 02/19/22 01:50 Dose: Infused Documented by: dexmedeTOMIDine 0.9 % NaCL (Precedex) 400 mcg in 100 mls @ 0 mls/hr IV .Q0M PRN; Protocol PRN Reason: AGITATION Last Admin: 02/19/22 07:13 Dose: 0.8 mcg/kg/hr, 29.59 mls/hr Documented by: Norepinephrine Bitartrate 4 mg (/ Dextrose) 254 mls @ 0 mls/hr IV .Q0M NATALIE; Protocol Last Titration: 02/19/22 03:27 Dose: 2.5 mcg/min, 9.53 mls/hr Documented by: Albumin Human (Albumin) 12.5 gm in 50 mls @ 60 mls/hr IV PRN PRN PRN Reason: Hypotension and/or symptomatic Albumin Human (Albumin) 12.5 gm in 50 mls @ 60 mls/hr IV PRN PRN PRN Reason: Hypotension and/or symptomatic Vitals/I&O/Wt Last Vital Signs Temp 99.1 F 02/19/22 05:16 Pulse 70 02/19/22 05:30 Resp 36 H 02/19/22 05:28 BP 105/72 02/19/22 01:30 Pulse Ox 90 02/19/22 05:28 02/18/22 02/19/22 02/19/22 22:59 06:59 14:59 Intake Total 200 / 564.095 578.708 / 1142.803 78.414 / 78.414 Output Total 875 / 950 600 / 1550 Balance -675 / -385.905 -21.292 / -407.197 78.414 / 78.414 Weight last 48 hrs Weight 143.335 kg Weight 135.171 kg Weight 135.8 kg Physical Exam Narrative: intubated in bed, no pressors propofol and fentanyl vent fio2 =100%, TV 500, PEEP 12 heent- nc/at, pupils responsive neck- Rt IJ dialysis catheter lungs - coarse b/l heart-irreg irreg abd - +RASTA tube, no BS, ostomy ext 2+ edema skin blistering neuro- sedated. not responsive to pain Urinary Catheter Management: Blackmon: Cath Placed During This Visit: yes, but has since been removed by the nurse Reason for Continuing Indwelling Catheter: Accurate Measurement of Urinary Out put in Critically Ill Patients Urinary Catheter Date of Insertion: 02/08/22 Urinary Catheter Time of Insertion: 15:13 Date Urinary Catheter Removed: 02/13/22 Time Urinary Catheter Discontinued: 10:21 Data : 02/19/22 03:18 02/19/22 03:18 A&P Assessment and plan (1) MILEY (acute kidney injury): see below Status: Acute Plan 1. Renal failure Acute kidney injury likely combination of sepsis/infection mediated ATN s/p HD yesterday -appreciate neuro input, I recommend stopping dialysis. if family wants to continue, we can attempt. however, he has a very poor prognosis Dose medication for GFR less than 15 on dialysis Strict ins and outs Avoid usual nephrotoxic agents. 2. acid base status improved w/ HD and vent 3, hyponatremia- improved 4. Vent dependent respiratory failure Management per ICU -pt is hypoxic lasix 5. Fecal peritonitis and leukocytosis Ex lap for fecal peritonitis with colostomy formation on 02/08 Management per general surgery Bowel sounds not appreciated Enteral feeds per general surgery abx per surgery and medicine -leukocytosis remains 6. hyperphosphatemia from renal failure 7. ck improved to 876- reta to 1222 -prognosis is poor- comfort care would be reasonable Thank you for consultation Patient seen and examined via telemedicine, with the assistance of the bedside RN > 25 min spent in evaluation and mgmt of patient Attestations Medical Necessity Statement*: vdrf, peritonitis Time Spent in Patient Care: 16 - 35 minutes (>than 50% of time spent in counselling and/or direct pt care on unit) . 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
[2022-02-19] MEDS: famotidine 20 mg/2 mL INJ IVP (08:30)
[2022-02-19] MEDS: fluconazole premix 400 MG/200 ML PIGGYBACK 200 MG IV (08:31)
[2022-02-19] MEDS: FUROsemide 10 mg/mL SDV 10mL 60 MG IVP (08:31)
--- NOTE | 2022-02-19 08:48 | PC.SOCIAL ---
IMM Not Updated Pg. 2 of IMM not updated. Patient not anticipated to d/c within the next 48hours.
--- NOTE | 2022-02-19 13:29 | PM.PN ---
Subjective Subjective: Patient was seen this morning, family at bedside, does not respond to commands, does not withdraw from pain, pupillary is sluggish, has a cough reflex has a gag reflex, yesterday during dialysis he had hypotensive episodes requiring Levophed, currently off Levophed, patient had a discussion with Dr. Fields yesterday, discussed persistent vegetative state, family is agreeable that this is likely patient's current state, after discussing options are available, family wants to proceed with comfort care, patient's family tells me that this is not how he would want to live his life, he does not want to remain on artificial life support, it would be his wish pass away comfortably, discussed comfort care, risks and benefits discussed wishes any, all questions answered, patient's daughter and agreed to proceed with comfort care I have preliminarily started comfort care, plan on terminally extubating once all family is at bedside, family is waiting on 2 sons that will finish work and will be here in the afternoon possibly plan on terminally extubating this afternoon or tomorrow morning Vitals/I&O/Wt Last Vital Signs Temp 99.1 F 02/19/22 12:00 Pulse 70 02/19/22 12:00 Resp 37 H 02/19/22 12:55 BP 105/72 02/19/22 12:00 Pulse Ox 92 02/19/22 12:55 02/18/22 02/19/22 02/19/22 22:59 06:59 14:59 Intake Total 200 / 564.095 578.708 / 1142.803 169.923 / 169.923 Output Total 875 / 950 600 / 1550 2940 / 2940 Balance -675 / -385.905 -21.292 / -407.197 -2770.077 / -2770.077 Weight last 48 hrs Weight 143.335 kg Weight 135.171 kg Weight 135.8 kg Physical Exam Const: COMMON NORMALS: no acute distress OTHER: Does not respond to commands, does not withdraw from pain, on has a cough reflex has a gag reflex pupil reflex is sluggish Resp: COMMON NORMALS: normal respiratory effort, No retractions, No use of accessory muscles and clear to auscultation bilaterally AUSCULTATION: clear to auscultation bilaterally Cardio: COMMON NORMALS: regular rate, regular rhythm, S1 normal heart sound present and S2 normal heart sound present RATE: regular rate RHYTHM: regular rhythm HEART SOUNDS: S1 normal heart sound present and S2 normal heart sound present GI: COMMON NORMALS: Normal to inspection, nondistended, normoactive bowel sounds present, Soft to palpation and non-tender PALPATION: Yes Soft to palpation Extremity: COMMON NORMALS: no pedal edema Urinary Catheter Management: Blackmon: Cath Placed During This Visit: yes, but has since been removed by the nurse Reason for Continuing Indwelling Catheter: Accurate Measurement of Urinary Output in Critically Ill Patients Urinary Catheter Date of Insertion: 02/08/22 Urinary Catheter Time of Insertion: 15:13 Date Urinary Catheter Removed: 02/13/22 Time Urinary Catheter Discontinued: 10:21 Data : 02/19/22 03:18 02/19/22 03:18 A&P Assessment and plan (1) Septic shock: Search for anoxic brain injury, persistent vegetative state, family would like to proceed with comfort care Preliminary comfort care orders placed Plans on terminally extubating once family is at bedside, and ready possibly this afternoon or tomorrow morning Severe septic shock on admission, requiring multiple pressors, secondary to fecal peritonitis. Colostomy was performed February 08. He is currently postoperative day #7. He underwent a CODE BLUE, on February 09, where ROSC was achieved after 3 doses of epinephrine. When sedation was lessened, he was able to open his eyes, grimace. Purposeful movement has not yet been demonstrated. Echocardiogram was performed following this CODE BLUE demonstrating normal LV size and normal RV size and function. CT head noncontrast performed today which did not demonstrate any acute changes. He is now off pressors, with an adequate blood pressure Currently on linezolid and cefepime (changed from Primaxin for concern of rash and aztreonam discontinued as Pseudomonas not sensitive Fluconazole was started empirically. White blood cell count has increased. Hydrocortisone discontinued. Metronidazole is on board for anaerobic coverage. Continues to have low-grade fevers, concerning for central fevers CT abdomen and pelvis, with oral contrast was repeated today. This reading is pending. 1. No abscess or mass in the abdomen. No lymphadenopathy. 2. Consolidation and atelectasis in both lower lobes with posterior bilateral pleural effusions. 3. Cholelithiasis no sign of acute cholecystitis. 4. 5.8 x 3 cm localized fluid collection seen in the anterior left pelvic wall that may represent a seroma or hematoma. Abscess not excluded but felt to be less likely. 5. Left femoral vein central line. Surgical drain in the right pelvis. Blackmon catheter bulb in the pelvis bladder. 6. Mild anasarca. Body wall edema in the right and left flank areas. Small amount of interloop free fluid in the abdomen and pelvis which may be postoperative. Status: Acute (2) E coli bacteremia: Secondary to above. Currently on cefepime for E. coli bacteremia and Pseudomonas . Flagyl added secondary to Bacteroides growing as well. Note that he also had Clostridium growth. Also on linezolid, fluconazole Status: Acute (3) ARDS (adult respiratory distress syndrome): Severe ARDS and fluid overload requiring high ventilator settings yesterday. PEEP has been decreased. FiO2 requirement 60%. Chest x-ray reviewed. Appreciate pulmonary critical care consultation Status: Acute (4) Thrombocytopenia: Improved. Secondary to sepsis. Status: Acute (5) MILEY (acute kidney injury): Intermittent hemodialysis, to remove excess fluid that accumulated with renal failure and septic shock Appreciate nephrology intervention No plans for hemodialysis today, will require dialysis catheter to be replaced Status: Acute (6) Elevated troponin: Consistent with type II elevation secondary to sepsis Status: Acute (7) Atrial fibrillation: Atrial fibrillation, without rapid ventricular rate, which she developed on the . He has subsequently converted to sinus rhythm. Amiodarone IV has been discontinued. Status: Acute (8) Rectal cancer: History of rectal cancer, stage IV Status: Acute (9) Anoxic brain injury: -Concerns for anoxic brain injury -Has a cough reflex, gag reflex, sluggish pupillary reflexes, does not withdraw from pain, does not follow commands, Babinski is downward going -Continue to keep low sedation -Continue neurochecks -We will need to correct uremia, hyponatremia -Will hopefully have Dr. Fields, and see patient today, to help with decision-making, will consider eeg Status: Acute Plan Uremia, will replace dialysis catheter, proceed with dialysis, Dr. Veloz consulted Persistent leukocytosis -Initial blood culture showing Bacteroides, E. coli, Pseudomonas -Repeat blood cultures have been negative so far -Sputum cultures negative so far -Afebrile -We will consider removing Blackmon catheter, culturing tip, removing central line, culturing tip, repeating blood cultures Discussion with family regarding very guarded prognosis currently on his degree of pressors. We also do not know mental state at this time. Will await evaluation by pulmonary critical care. In the interim I discussed with patient further CODE STATUS and they would not want him to receive CPR or undergo another code. They do want to continue current treatment at this time. He has improved somewhat since yesterday. Family does not want any change in his CODE STATUS currently. Protonix for GI prophylaxis Heparin for DVT prophylaxis Left IJ central line placed by pulmonary February 12, and right IJ central line removed. He also has a temporary dialysis catheter, Blackmon, RASTA drain Trophic feeds held today for residual of 250 cc while evaluation of abdomen with CT abdomen and pelvis is occurring. 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
[2022-02-19] MEDS: morphine 4 mg/mL SDV 1 mL IVP (17:47)
[2022-02-19] MEDS: LORazepam 2 mg/mL INJ 1 mL IVP (17:48)
--- NOTE | 2022-02-19 18:50 | PC.NURSE ---
TOD/MTS With the request from family; pt extubated with the help of RT and nursing. Pt's family and pastoral care at bedside. TOD 1825. MTS notified at 1850, pt is not a candidate for organ donation. Pt's family has chosen [facility] for home.
--- NOTE | 2022-02-19 19:53 | PC.NURSE ---
[facility]'s home in [place], [place] notified of . They will come to chart picker body tonight. Post-mortem care performed. Jugular and femoral dialysis catheters removed. RASTA drain removed. Urinary catheter removed. No remaining lines or drains in place.
--- NOTE | 2022-02-19 21:32 | PC.NURSE ---
Addendum entered by Precious Valladares RN 02/20/22 03:32: waste witnessed by Precious Bhatia RN Original Note: 8.5 mls of Fentanyl wasted with 2nd RN witness. Pt picked up by [facility] staff at 2130.
--- NOTE | 2022-02-19 21:34 | PC.NURSE ---
All patient belongings sent home with family prior to this shift.
--- NOTE | 2022-02-19 21:38 | PC.NURSE ---
Pt , body released to [facility].
--- NOTE | 2022-02-22 10:48 | PM.DDS ---
Discharge Providers DDS Date of Admission: 02/08/22 14:50 Date Summary Completed: 02/22/22 Attending Provider at Admission: Hugo Greenwood MD Attending Provider at Discharge: Alex Floyd MD Primary Care Provider: Tana Vital MD DS Diagnoses Hospital Diagnoses (1) Septic shock: (2) E coli bacteremia: (3) ARDS (adult respiratory distress syndrome): (4) Thrombocytopenia: (5) MILEY (acute kidney injury): (6) Elevated troponin: (7) Atrial fibrillation: (8) Rectal cancer: Permanent Problem Comments: Metastatic to right lower lobe (9) Anoxic brain injury: Reason for Visit Reason for Visit Nausea, vomiting, ABD pain Summary Summary Summary: Tee Chilel Jr is a 71 year old male with past medical history of rectal cancer, diverting ileostomy which was reversed, hypertension, ventral hernia present to the ER today because of abdominal pain and multiple episodes of vomiting and few episodes of soft bowel movements. Patient was admitted to [facility] for fecal peritonitis secondary to colon perforation status post exploratory laparotomy for fecal peritonitis with colostomy formation 02/08/2022. Patient had E. coli and Pseudomonas bacteremia during hospitalization Patient was admitted to [facility] ICU for septic shock requiring 5 pressors, uremia, lactic acidosis, acidemia, multiorgan failure, acute renal failure, acute respiratory distress syndrome to the ICU. Patient developed pulseless electrical activity the heart, with ROSC February 09, requiring 3 doses of epi, roughly 7 minutes of CPR. Patient was managed with broad-spectrum antibiotic therapy, remained intubated, ventilated, remained on pressor therapy. Also had intermittent hemodialysis, but was complicated with hypotension. Eventually patients pressor therapy was weaned off, oxygen requirements decreased on ventilation His antibiotic therapy was also weaned down, repeat blood cultures were negative. He also continued to have persistent leukocytosis, no significant clinical evidence of intra-abdominal abscess. Due to evidence of anoxic brain injury, after consultation with neurology, patient's family did not want to have any aggressive interventions. He was DNR/DNI. They did not not want to have a trach, they do not want to have a PEG. Patient's family wanted patient to be transitioned to comfort care. Time of 1826 on 02/19/2022. Additional Data Confirmation of as documented by pronouncing clinician: no pulse and no respirations Family: at bedside Additional persons at bedside: nursing staff Attending/PCP notified?: I am attending Was code activated?: No Advance directives?: No Discharge Plan Discharge Patient Disposition: Condition: Stable Probable Cause of Probable cause of : Cardiac arrest DS Attestations Time Spent in /Discharge Care*: greater than 30 min Quality - AMI: AMI present?: No Quality - Stroke: CVA present?: No Quality - VTE: VTE present?: No Deep Vein Thrombosis/Pulmonary Embolism Present on Admission: Yes Coding Level of Care Code 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
== END 2022-02-19 21:30 | disposition expired | DRG 853 ==
LOC: ER 14:37 → ICU 14:50
PROVIDERS: Internal Medicine; Internal Medicine Critical Care Medicine; Internal Medicine Nephrology; Surgery; Admitting Provider Student in an Organized Health Care Education/Training Program; Emergency Provider Emergency Medicine; PCP Family Medicine; Visit Provider Family Medicine
PROC: 0WJH0ZZ Inspection of Retroperitoneum, Open Approach (ICD-10-PCS; CPT 49000; principal; 2022-02-08 15:30)
PROC: 0DJD8ZZ Inspection of Lower Intestinal Tract, Via Natural or Artificial Opening Endoscopic (ICD-10-PCS; CPT 45378; 2022-02-08 15:30)
PROC: 0WJH0ZZ Inspection of Retroperitoneum, Open Approach (ICD-10-PCS; CPT 44320; 2022-02-08 15:30)
PROC: 0WQF0ZZ Repair Abdominal Wall, Open Approach (ICD-10-PCS; principal; 2022-02-18 10:30)
DX: A41.9 Sepsis, unspecified organism (principal); R65.21 Severe sepsis with septic shock; K63.1 Perforation of intestine (nontraumatic); K65.8 Other peritonitis; N17.0 Acute kidney failure with tubular necrosis; I21.A1 Myocardial infarction type 2; J80 Acute respiratory distress syndrome; K43.0 Incisional hernia with obstruction, without gangrene; E87.2 Acidosis; Z16.39 Resistance to other specified antimicrobial drug; E87.1 Hypo-osmolality and hyponatremia; G93.1 Anoxic brain damage, not elsewhere classified; I46.9 Cardiac arrest, cause unspecified; Z90.2 Acquired absence of lung [part of]; Z85.048 Personal history of other malignant neoplasm of rectum, rectosigmoid junction, and anus; Z92.3 Personal history of irradiation; Z92.21 Personal history of antineoplastic chemotherapy; Z87.891 Personal history of nicotine dependence; E86.0 Dehydration; I10 Essential (primary) hypertension; I95.9 Hypotension, unspecified; B96.20 Unspecified Escherichia coli [E. coli] as the cause of diseases classified elsewhere; B96.5 Pseudomonas (aeruginosa) (mallei) (pseudomallei) as the cause of diseases classified elsewhere; D69.59 Other secondary thrombocytopenia; E83.42 Hypomagnesemia; Z66 Do not resuscitate; F32.A Depression, unspecified; I48.91 Unspecified atrial fibrillation
CPT/HCPCS: 36415; 36416; 36592; 36600; 51702; 70450; 71045; 74018; 74176; 74177; 76000; 76705; 77001; 80048; 80051; 80053; 80061; 81001; 82330; 82533; 82550; 82803; 82805; 82962; 83010; 83036; 83540; 83550; 83605; 83615; 83690; 83735; 83880; 84100; 84145; 84300; 84443; 84484; 85007; 85025; 85045; 85378; 85384; 85610; 85730; 86140; 86160; 86706; 86803; 87040; 87070; 87075; 87077; 87150; 87186; 87205; 87340; 87631; 87635; 87641; 87798; 90935; 93005; 93306; 93970; 94002; 94003; 94799; 96361; 96365; 96372; 96375; 96376; 99285; A4570; C1751; C9113; J0171; J0282; J0330; J0360; J0610; J0692; J0743; J1100; J1170; J1250; J1265; J1450; J1642; J1644; J1720; J1940; J2020; J2060; J2250; J2270; J2370; J2405; J2543; J2704; J2710; J2765; J2997; J3010; J3370; J3475; J3490; J7030; J7040; J7050; J7060; P9041; P9047; Q3014; Q9967; S0030